=== PATIENT | female | born 1955 | race Caucasian/White ===

== ENCOUNTER 2021-12-15 16:04 | Inpatient (IN) | payer MEDICARE, OTHER ==
[2021-12-15] MEDS ORDERED: SODIUM CHLORIDE 0.9% 500 ML 500 ML IV STA (16:29)
[2021-12-15] MEDS ORDERED: DEXTROSE 5% IN WATER 100 ML with AMIODARONE 150 MG IV ONE (16:50)
[2021-12-15 16:52] LABS: Basophils # (A) 0.1 k/uL (0-0.2); Basophils % (A) 1 %; Eosinophils # (A) 0.2 k/uL (0-0.7); Eosinophils % (A) 2 %; HCT 43.1 % (34.0-46.0); HGB 13.8 gm/dL (11.4-16.0); Lymphocytes # (A) 1.5 k/uL (1.0-4.8); Lymphocytes % (A) 18 %; MCH 30.4 pg (25.0-35.0); MCHC 32.1 g/dL (31.0-37.0); MCV 94.6 fL (80.0-100.0); Monocytes # (A) 0.4 k/uL (0-1.0); Monocytes % (A) 5 %; Neutrophils # (A) 6.2 k/uL (1.3-7.7); Neutrophils % (A) 73 %; Platelet Count 198 k/uL (150-450); RBC 4.56 m/uL (3.80-5.40); RDW 15.2 % (11.5-15.5); WBC 8.5 k/uL (3.8-10.6)
--- NOTE | 2021-12-15 16:55 | ED ---
General Adult HPI - General Chief complaint: Arrhythmia/Palpitations Stated complaint: SOB Time Seen by Provider: 12/15/21 16:05 Source: patient, RN notes reviewed, old records reviewed Mode of arrival: ambulatory Limitations: no limitations - History of Present Illness Initial comments: Is a 66-year-old female presents emergency Department stating she's had a history of atrial fibrillation the past and she was cardioverted. Patient states she's been doing very good up until about 2 weeks ago she noticed her heart was racing and she was unable to get into see the reaming machine tender until today and they sent over directly wanted her to start on amiodarone. Patient denies any chest pain but she did note today she was somewhat short of breath. Patient denies any fever chills or cough. Patient denies any abdominal pain patient denies nausea vomiting or diarrhea. - Related Data Allergies Allergy/AdvReac Type Severity Reaction Status Date / Time benzocaine Allergy Unknown Verified 12/15/21 16:09 Penicillins Allergy Unknown Verified 12/15/21 16:09 Review of Systems ROS Statement: Those systems with pertinent positive or pertinent negative responses have been documented in the HPI. ROS Other: All systems not noted in ROS Statement are negative. Past Medical History Past Medical History: Atrial Fibrillation, Hypertension Additional Past Medical History / Comment(s): acromegly History of Any Multi-Drug Resistant Organisms: None Reported Past Surgical History: Heart Catheterization Additional Past Surgical History / Comment(s): carpel tunnel Past Psychological History: No Psychological Hx Reported Smoking Status: Never smoker Past Alcohol Use History: None Reported Past Drug Use History: None Reported General Exam - General Exam Comments Initial Comments: GENERAL: Patient is well-developed and well-nourished. Patient is nontoxic and well- hydrated and is in mild distress. ENT: Neck is soft and supple. No significant lymphadenopathy is noted. Oropharynx is clear. Moist mucous membranes. Neck has full range of motion without eliciting any pain. EYES: The sclera were anicteric and conjunctiva were pink and moist. Extraocular movements were intact and pupils were equal round and reactive to light. Eyelids were unremarkable. PULMONARY: Unlabored respirations. Good breath sounds bilaterally. No audible rales rhonchi or wheezing was noted. CARDIOVASCULAR: Patient has an irregular heartbeat at about 120 beats a minute. ABDOMEN: Soft and nontender with normal bowel sounds. SKIN: Skin is clear with no lesions or rashes and otherwise unremarkable. NEUROLOGIC: Patient is alert and oriented x3. Cranial nerves II through XII are grossly intact. Motor and sensory are also intact. Normal speech, volume and content. Symmetrical smile. MUSCULOSKELETAL: Normal extremities with adequate strength and full range of motion. LYMPHATICS: No significant lymphadenopathy is noted PSYCHIATRIC: Normal psychiatric evaluation. Limitations: no limitations Course Vital Signs 12/15/21 16:09 Temperature 98.1 F Pulse Rate 54 L Respiratory 20 Rate Blood Pressure 157/82 O2 Sat by Pulse 91 L Oximetry Medical Decision Making - Medical Decision Making EKG shows atrial fibrillation with rapid ventricular response at 180 bpm QRS is under 22 QT interval is 297 QTC is 367. Patient's EKG shows no ST segment elevation or depression however there are some PVCs. I started the patient on amiodarone and gave the patient amiodarone bolus. Chest x-ray shows no acute abnormalities. I spoke with [facility] agreed to admit the patient admitted the patient wrote admitting orders. Critical Care Time Critical Care Time: Yes Total Critical Care Time: 35 Disposition Clinical Impression: Atrial fibrillation with rapid ventricular response Disposition: ADMITTED IP TO THIS HOSP Referrals: Mini David MD [Primary Care Provider] - 1-2 days Time of Disposition: 17:41
[2021-12-15] MEDS ORDERED: AMIODARONE 360 MG in DEXTROSE 5% IN WATER 200 ML IV ONE ×2 (17:00)
[2021-12-15 17:01] LABS: INR 1.1 (<1.2); Partial Thromboplastin Time 27.1 sec (22.0-30.0); Prothrombin Time 11.5 sec (9.0-12.0)
[2021-12-15 17:04] LABS: Albumin 4.4 g/dL (3.5-5.0); Calcium 10.1 mg/dL (8.4-10.2); Magnesium 1.9 mg/dL (1.6-2.3); Potassium 4.1 mmol/L (3.5-5.1); Total Bilirubin 0.7 mg/dL (0.2-1.3); Total Protein 6.9 g/dL (6.3-8.2)
--- NOTE | 2021-12-15 17:36 | XR ---
EXAMINATION TYPE: XR chest 2V DATE OF EXAM: 12/15/2021 COMPARISON: NONE HISTORY: Short of breath TECHNIQUE: 2 views FINDINGS: Heart is enlarged. There is some blunting of the costophrenic angles posteriorly. There is large hiatal hernia. There is no heart failure. There are no hilar masses. Mediastinum is normal. IMPRESSION: Cardiomegaly. Small pleural effusions. No obvious heart failure. No pulmonary consolidati on.
[2021-12-15] MEDS ORDERED: NITROGLYCERIN SL TABS 0.4 MG TAB SUBLINGUAL PRN (17:42)
[2021-12-15] MEDS ORDERED: AMIODARONE 450 MG in DEXTROSE 5% IN WATER 250 ML IV SCH ×2 (23:00)
[2021-12-16] MEDS: LEVOTHYROXINE 137 MCG TAB PO SCH (06:15)
[2021-12-16] MEDS: MULTIVITAMINS, THERA 1 EACH TAB PO SCH (08:15)
[2021-12-16] MEDS: METOPROLOL TARTRATE 25 MG TAB PO SCH (08:15)
[2021-12-16] MEDS: APIXABAN 5 MG TAB PO SCH ×2 (08:15→19:58)
[2021-12-16] MEDS: lisinopriL 20 MG TAB PO SCH (08:16)
[2021-12-16] MEDS ORDERED: ASPIRIN 325 MG TAB PO SCH (09:00)
[2021-12-16] MEDS ORDERED: IV FLUID CONTINUATION 500 ML IV ONE ×2 (10:30)
[2021-12-16] MEDS ORDERED: PROPOFOL 10 MG/ML 20 ML VIAL IV ONE (10:36)
--- NOTE | 2021-12-16 11:11 | P.CRDCN ---
History of Present Illness History of present illness: HISTORY OF PRESENTING ILLNESS This is a pleasant 66-year-old female past medical history significant for paroxysmal atrial fibrillation on Eliquis, nonischemic cardiomyopathy with improved EF, hypertension, dyslipidemia, hypothyroidism, obstructive sleep apnea with use of CPAP. She follows in the office with Dr. Wisdom. We have been asked to see in consultation for atrial fibrillation with rapid ventricular response. Patient presents emergency department yesterday 12/15/[address] Wisdom in the office. Patient presented to the office for follow-up appointment she had symptoms of increasing shortness of breath for the past few days. She was found to be tachycardic and her resting heart rate was around 120 bpm. She also had symptoms of palpitations, heart racing/fluttering and continued to have increased shortness of breath. It was recommended that patient presents emerge ncy department for further evaluation amiodarone loading and possible cardioversion. Patient seen and examined at bedside, continues to feel short of breath and palpitations. Overnight she felt her CPAP machine not working correctly to her settings and this worsened her shortness of breath. She denies chest pain, lightheadedness, dizziness, symptoms of orthopnea or PND. DIAGNOSTICS EKG reveals atrial fibrillation with RVR Telemetry tracings indicate atrial tachycardia vs atrial fibrillation HR 115- 120s Chest xray no obvious heart failure, small pleural effusions. Laboratory reviewed, CBC unremarkable, sodium 139, potassium 4.1, BUN 22, serum creatinine 0.9, magnesium 1.9, troponin negative 3 Current cardiac medications include Eliquis 5 mg twice a day, Enalapril 10mg daily, metoprolol tartrate 75 mg daily Most recent echocardiogram in the office 07/2021 revealed EF of 50%, diastolic dysfunction, mild to moderate mitral regurgitation, mild tricuspid regurgitation, moderate aortic regurgitation Recent Holter monitor 11/30/2021 revealed atrial fibrillation REVIEW OF SYSTEMS At the time of my exam: CONSTITUTIONAL: Denies fever or chills. CARDIOVASCULAR: Denies chest pain,+ shortness of breath, Denies orthopnea, PND. Report palpitations. RESPIRATORY: Denies cough. GASTROINTESTINAL: Denies abdominal pain, diarrhea, constipation, nausea or vomiting. MUSCULOSKELETAL: Denies myalgias. NEUROLOGIC: Denies numbness, tingling, headacbe or weakness. ENDOCRINE: Denies fatigue, weight change, polydipsia or polyurina. GENITOURINARY: Denies burning, hematuria or urgency with micturation. HEMATOLOGIC: Denies history of anemia or bleeding. PHYSICAL EXAMINATION Blood pressure 142/104, heart rate 120, afebrile, saturation 97% on room air CONSTITUTIONAL: No apparent distress. HEENT: Head is normocephalic. Pupils are equal, round. Sclerae anicteric. Mucous membranes of the mouth are moist. No JVD. No carotid bruit. CHEST EXAMINATION: Lungs are clear to auscultation. No chest wall tenderness is noted on palpation or with deep breathing. HEART EXAMINATION: Irregular tachycardic rate and rhythm. S1, S2 heard. Systolic ejection murmur noted. No gallops or rub. ABDOMEN: Soft, nontender. Positive bowel sounds. EXTREMITIES: 2+ peripheral pulses, no lower extremity edema and no calf tenderness. NEUROLOGIC EXAMINATION: Patient is awake, alert and oriented x3. ASSESSMENT Paroxysmal atrial fibrillation with RVR Nonischemic cardiomyopathy with improved EF Hypertension Dyslipidemia History of hypothyroidism Obstructive sleep apnea PLAN Plan for cardioversion today with Dr. Wisdom. Patient has been NPO and has been on Eliquis anticoagulation I have discussed the risks, benefits and alternative therapies for the above- mentioned procedure and for both sedation/analgesia, if indicated, as they pertain to this patient. The patient has indicated understanding and acceptance of the risks and procedures discussed. Questions have been answered appropriately and she is agreeable to move forward with the above-stated procedure. Further recommendations based on clinical course Nurse practitioner note has been reviewed by physician. Signing provider agrees with the documented findings, assessment, and plan of care. Past Medical History Past Medical History: Atrial Fibrillation, Hypertension, Sleep Apnea/CPAP/BIPAP Additional Past Medical History / Comment(s): acromegly, previous cardioversion, wears Bipap at home. History of Any Multi-Drug Resistant Organisms: None Reported Past Surgical History: Heart Catheterization Additional Past Surgical History / Comment(s): carpel tunnel Past Anesthesia/Blood Transfusion Reactions: No Reported Reaction Additional Past Anesthesia/Blood Transfusion Reaction / Comment(s): Allergy to Benzocaine Past Psychological History: No Psychological Hx Reported Smoking Status: Never smoker Past Alcohol Use History: None Reported Past Drug Use History: None Reported Medications and Allergies Home Medications Medication Instructions Recorded Confirmed Type Apixaban [Eliquis] 5 mg PO BID 12/15/21 12/15/21 History Enalapril Maleate 10 mg PO DAILY 12/15/21 12/15/21 History Ferrous Sulfate [Iron] 325 mg PO DAILY 12/15/21 12/15/21 History Levothyroxine Sodium [Synthroid] 137 mcg PO DAILY 12/15/21 12/15/21 History Metoprolol Tartrate [Lopressor] 75 mg PO DAILY 12/15/21 12/15/21 History Multivitamins, Thera [Multivitamin 1 tab PO DAILY 12/15/21 12/15/21 History (formulary)] Allergies Allergy/AdvReac Type Severity Reaction Status Date / Time benzocaine Allergy Unknown Verified 12/15/21 17:55 Penicillins Allergy Unknown Verified 12/15/21 17:55 Childhood Physical Exam Vitals: Vital Signs Temp Pulse Pulse Resp BP BP Pulse Ox 12/16/21 04:00 113 H 18 149/92 95 12/16/21 01:43 18 12/15/21 23:10 97.9 F 114 H 18 137/98 98 12/15/21 21:00 18 12/15/21 20:00 98 F 113 H 18 142/88 97 12/15/21 18:58 136 H 18 144/125 98 12/15/21 18:09 98 F 113 H 18 142/88 97 12/15/21 17:17 121 H 18 143/101 97 12/15/21 16:09 98.1 F 54 L 20 157/82 91 L Intake and Output 12/15/21 12/16/21 12/16/21 22:59 06:59 14:59 Intake Total 33.33 Balance 33.33 Intake: Intake, IV Titration 33.33 Amount Amiodarone 360 mg In 33.33 Dextrose 5% in Water 200 ml @ 1 MG/MIN 33.333 mls/ hr IV .Q6H ONE Rx#: [id number] Other: Voiding Method Toilet Toilet # Voids 1 Weight 86.183 kg Results 12/15/21 16:43 12/15/21 16:43 Cardiac Enzymes 12/15/21 12/15/21 12/15/21 Range/Units 16:43 16:43 20:27 AST 46 H (14-36) U/L Troponin I <0.012 <0.012 (0.000-0.034) ng/mL 12/15/21 Range/Units 22:23 AST (14-36) U/L Troponin I <0.012 (0.000-0.034) ng/mL Coagulation 12/15/21 Range/Units 16:43 PT 11.5 (9.0-12.0) sec APTT 27.1 (22.0-30.0) sec CBC 12/15/21 Range/Units 16:43 WBC 8.5 (3.8-10.6) k/uL RBC 4.56 (3.80-5.40) m/uL Hgb 13.8 (11.4-16.0) gm/dL Hct 43.1 (34.0-46.0) % Plt Count 198 (150-450) k/uL Comprehensive Metabolic Panel 12/15/21 Range/Units 16:43 Sodium 139 (137-145) mmol/L Potassium 4.1 (3.5-5.1) mmol/L Chloride 108 H (98-107) mmol/L Carbon Dioxide 22 (22-30) mmol/L BUN 22 H (7-17) mg/dL Creatinine 0.99 (0.52-1.04) mg/dL Glucose 129 H (74-99) mg/dL Calcium 10.1 (8.4-10.2) mg/dL AST 46 H (14-36) U/L ALT 52 H (4-34) U/L Alkaline Phosphatase 88 (38-126) U/L Total Protein 6.9 (6.3-8.2) g/dL Albumin 4.4 (3.5-5.0) g/dL Current Medications Generic Name Dose Route Start Last Admin Trade Name Freq PRN Reason Stop Dose Admin Apixaban 5 mg 12/16/21 09:00 Apixaban 5 Mg Tab PO BID FOR[facility]LY [facility], [facility]1983 Protocol Aspirin 325 mg 12/16/21 09:00 Aspirin 325 Mg Tab PO DAILY [facility], [facility]–1983 Amiodarone HCl 450 mg/ 250 mls @ 16.667 mls/hr 12/15/21 23:00 12/15/21 22:53 Dextrose/Water IV 12/16/21 16:59 0.5 mg/min .Q15H MANISHA 16.667 mls/hr Administration Protocol 0.5 MG/MIN Levothyroxine Sodium 137 mcg 12/16/21 06:30 12/16/21 06:15 Levothyroxine 137 Mcg Tab PO 137 mcg DAILY@0630 FOR[facility]1983 Administration Lisinopril 20 mg 12/16/21 09:00 Lisinopril 20 Mg Tab PO DAILY FOR[facility]1983 Metoprolol Tartrate 75 mg 12/16/21 09:00 Metoprolol Tartrate 25 Mg Tab PO DAILY [facility]1983 Multivitamins 1 each 12/16/21 09:00 Multivitamins, Thera 1 Each Tab PO DAILY MANISHA Nitroglycerin 0.4 mg 12/15/21 17:42 Nitroglycerin Sl Tabs 0.4 Mg Tab SUBLINGUAL Q5M PRN Chest Pain Intake and Output 12/15/21 12/16/21 12/16/21 22:59 06:59 14:59 Intake Total 33.33 Balance 33.33 Intake: Intake, IV Titration 33.33 Amount Amiodarone 360 mg In 33.33 Dextrose 5% in Water 200 ml @ 1 MG/MIN 33.333 mls/ hr IV .Q6H ONE Rx#: [id number] Other: Voiding Method Toilet Toilet # Voids 1 Weight 86.183 kg 12/15/21 16:43 12/15/21 16:43
--- NOTE | 2021-12-16 11:39 | P.PCN ---
Date of Procedure: 12/16/21 Operative Findings: Cardioversion of atrial fibrillation Performing physician Vasquez Wisdom Procedure performed Successful cardioversion of atrial fibrillation to normal sinus mechanism using heparin tonight first attempt Complication None Level of sedation The procedure was performed using propofol with [employer]PER[employer] TIG WELDER in the room Indication Atrial fibrillation refractory to medical treatment Procedure description After obtaining an informed consent the patient was brought to the recovery room. Sedation was induced using propofol. The patient cardioverted from atrial fibrillation to normal sinus mechanism using 100 J and first attempt The procedure was completed without any complication Postprocedure management Continue anticoagulation
[2021-12-16 12:02] LABS: Chol/HDL Ratio 3.89 Ratio; LDL Cholesterol,Calculated 127.7 mg/dL (0.0-131.0); VLDL Calculation 16.36 mg/dL (5.00-40.00)
--- NOTE | 2021-12-16 21:28 | P.HPIM ---
History of Present Illness H&P Date: 12/16/21 Chief Complaint: Heart racing fast Patient is a 66-year-old female with a known history of paroxysmal atrial fibrillation on anticoagulation with Eliquis, hypothyroidism and history of nonischemic cardiomyopathy with improved ejection fraction, hypertension, hyperlipidemia, obstructive sleep apnea on CPAP at home was sent to ER from her sheep herder office due to rapid ventricular rate. Patient did have prior cardioversion and has been doing until 2 weeks ago she noticed her heart is racing up fast and unable to see sheep herder on the last today. She was also having mild shortness of breath. No cough or sputum production. No leg swelling. No fever no chills. Denies any recent illnesses. EKG showed atrial fibrillation with rapid response. Patient was started on amiodarone drip in the ER. Chest x-ray showed cardiomegaly and small pleural effusions. No obvious heart failure. No pulmonary consolidation. Laboratory showed WBC 8.4 hemoglobin 13.8 and platelets 198 sodium 139 potassium 4.1 chloride 100 bicarb is 22 BUN 2020 creatinine 0.99 AST 46 ALT 52 alk phos 88 and troponin x3 -. LDL 127. Review of Systems Constitutional: Patient denies any fever or chills . No generalized weakness or weight loss. Abdomen: Patient denied nausea vomiting and diarrhea and abdominal pain. Cardiovascular: Patient denies any chest pain or short of breath . + palpitations. Respiratory: patient denied any cough or sputum production. No shortness of breath Neurologic: Patient denied any numbness or tingling headache. Musculoskeletal: Patient denies any complaints of joint swelling or deformity. Skin: Negative Psychiatric: Negative Endocrine: No heat or cold intolerance. No recent weight gain. Genitourinary: No dysuria or hematuria. All other 14 point ROS negative except the above Past Medical History Past Medical History: Atrial Fibrillation, Hypertension, Sleep Apnea/CPAP/BIPAP Additional Past Medical History / Comment(s): acromegly, previous cardioversion, wears Bipap at home. History of Any Multi-Drug Resistant Organisms: None Reported Past Surgical History: Heart Catheterization Additional Past Surgical History / Comment(s): carpel tunnel Past Anesthesia/Blood Transfusion Reactions: No Reported Reaction Additional Past Anesthesia/Blood Transfusion Reaction / Comment(s): Allergy to Benzocaine Past Psychological History: No Psychological Hx Reported Smoking Status: Never smoker Past Alcohol Use History: None Reported Past Drug Use History: None Reported Medications and Allergies Home Medications Medication Instructions Recorded Confirmed Type Apixaban [Eliquis] 5 mg PO BID 12/15/21 12/15/21 History Enalapril Maleate 10 mg PO DAILY 12/15/21 12/15/21 History Ferrous Sulfate [Iron] 325 mg PO DAILY 12/15/21 12/15/21 History Levothyroxine Sodium [Synthroid] 137 mcg PO DAILY 12/15/21 12/15/21 History Metoprolol Tartrate [Lopressor] 75 mg PO DAILY 12/15/21 12/15/21 History Multivitamins, Thera [Multivitamin 1 tab PO DAILY 12/15/21 12/15/21 History (formulary)] Allergies Allergy/AdvReac Type Severity Reaction Status Date / Time benzocaine Allergy Unknown Verified 12/15/21 17:55 Penicillins Allergy Unknown Verified 12/15/21 17:55 Childhood Physical Exam Vitals: Vital Signs Temp Pulse Pulse Resp BP BP Pulse Ox 12/16/21 08:00 98.4 F 120 H 16 142/104 97 12/16/21 04:00 113 H 18 149/92 95 12/16/21 01:43 18 12/15/21 23:10 97.9 F 114 H 18 137/98 98 12/15/21 21:00 18 12/15/21 20:00 98 F 113 H 18 142/88 97 12/15/21 18:58 136 H 18 144/125 98 12/15/21 18:09 98 F 113 H 18 142/88 97 12/15/21 17:17 121 H 18 143/101 97 12/15/21 16:09 98.1 F 54 L 20 157/82 91 L Intake and Output 12/15/21 12/16/21 12/16/21 22:59 06:59 14:59 Intake Total 33.33 Balance 33.33 Intake: Intake, IV Titration 33.33 Amount Amiodarone 360 mg In 33.33 Dextrose 5% in Water 200 ml @ 1 MG/MIN 33.333 mls/ hr IV .Q6H ONE Rx#: [id number] Other: Voiding Method Toilet Toilet # Voids 1 Weight 86.183 kg PHYSICAL EXAMINATION: Patient is lying in the bed comfortably, no acute distress, awake alert and oriented.. HEENT: Normocephalic. Neck is supple. Pupils reactive. Nostrils clear. Oral cavity is moist. Neck reveals no JVD, carotid bruits, or thyromegaly. CHEST EXAMINATION: Trachea is central. Symmetrical expansion. Lung muñoz clear to auscultation and percussion. CARDIAC: Normal S1, S2 with no gallops. No murmurs. Irregularly irregular rhythm. ABDOMEN: Soft. Bowel sounds normal. No organomegaly. No abdominal bruits. Extremities: reveal no edema. No clubbing or cyanosis Neurologically awake, alert, oriented x3 with well-coordinated movements. No focal deficits noted Skin: No rash or skin lesions. Psychiatric: Cooperative. Nonsuicidal Musculoskeletal: No joint swelling or deformity. Normal range of motion. Results CBC & Chem 7: 12/15/21 16:43 12/15/21 16:43 Labs: Abnormal Lab Results - Last 24 Hours (Table) 12/15/21 Range/Units 16:43 Chloride 108 H (98-107) mmol/L BUN 22 H (7-17) mg/dL Glucose 129 H (74-99) mg/dL AST 46 H (14-36) U/L ALT 52 H (4-34) U/L Thrombosis Risk Factor Assmnt - DVT/VTE Prophylaxis DVT/VTE Prophylaxis: Pharmacologic Prophylaxis ordered - Choose All That Apply Any of the Below Risk Factors Present?: Yes Each Factor Represents 1 point: Obesity (BMI >25) Each Risk Factor Represents 2 Points: Age 61-74 years Thrombosis Risk Factor Assessment Total Risk Factor Score: 3 Thrombosis Risk Factor Assessment Level: Moderate Risk Assessment and Plan Assessment: Atrial fibrillation with rapid regular rate Nonischemic cardiomyopathy with improved ejection fraction Hypothyroidism Hypertension Hyperlipidemia Obstructive sleep apnea on CPAP at home Plan: Patient will be continued on telemetry monitoring. Started on amiodarone drip and cardiology has seen the patient. Patient is being scheduled for cardioversion. Continue with anticoagulation with Eliquis. Current with home medications and follow closely. Time with Patient: Greater than 30
[2021-12-17] MEDS: LEVOTHYROXINE 137 MCG TAB PO SCH (05:43)
[2021-12-17 07:54] LABS: Calcium 9.7 mg/dL (8.4-10.2); Potassium 3.9 mmol/L (3.5-5.1)
[2021-12-17 08:38] VITALS: BP 148/80; PULSE 96; RESP 18; TEMP 98.5
[2021-12-17] MEDS ORDERED: APIXABAN 5 MG TAB PO SCH (09:00)
[2021-12-17] MEDS: METOPROLOL TARTRATE 25 MG TAB PO SCH (09:14)
[2021-12-17] MEDS: lisinopriL 20 MG TAB PO SCH (09:14)
[2021-12-17] MEDS: MULTIVITAMINS, THERA 1 EACH TAB PO SCH (09:14)
[2021-12-17] MEDS ORDERED: AMIODARONE 200 MG TAB PO SCH (10:15)
--- NOTE | 2021-12-17 13:17 | P.PN ---
Subjective HISTORY OF PRESENTING ILLNESS This is a pleasant 66-year-old female past medical history significant for paroxysmal atrial fibrillation on Eliquis, nonischemic cardiomyopathy with improved EF, hypertension, dyslipidemia, hypothyroidism, obstructive sleep apnea with use of CPAP. She follows in the office with Dr. Wisdom. We have been asked to see in consultation for atrial fibrillation with rapid ventricular response. Patient presents emergency department yesterday 12/15/[address] Wisdom in the office. Patient presented to the office for follow-up appointment she had symptoms of increasing shortness of breath for the past few days. She was found to be tachycardic and her resting heart rate was around 120 bpm. She also had symptoms of palpitations, heart racing/fluttering and continued to have increased shortness of breath. It was recommended that patient presents emergency department for further evaluation amiodarone loading and possible cardioversion. Patient underwent successful cardioversion with Dr. Wisdom on 12/16/2021. Patient's examined at bedside, in no acute distress. She endorses feeling much better after her cardioversion. She is maintaining sinus mechanism with a heart rate in the 60s to 90s. She currently maintained on amiodarone 400 mg twice a day, metoprolol 75 mg daily, Eliquis 5 mg twice a day, enalapril 10 mg daily Labs, sodium 137, potassium 3.9, BUN 21, serum creatinine 1.04 PHYSICAL EXAMINATION Blood pressure 148/80, heart rate 96, afebrile, oxygen saturations 95% on room air CONSTITUTIONAL: No apparent distress. HEENT: Neck supple No JVD. CHEST EXAMINATION: Lungs are clear to auscultation. No chest wall tenderness is noted on palpation or with deep breathing. HEART EXAMINATION: Regular rate and rhythm. S1, S2 heard. Systolic ejection murmur noted. No gallops or rub. ABDOMEN: Soft, nontender. Positive bowel sounds. EXTREMITIES: 2+ peripheral pulses, no lower extremity edema and no calf tenderness. NEUROLOGIC EXAMINATION: Patient is awake, alert and oriented x3. ASSESSMENT Paroxysmal atrial fibrillation with RVR status post a successful cardioversion on 12/16/2021 Nonischemic cardiomyopathy with improved EF Hypertension Dyslipidemia History of hypothyroidism Obstructive sleep apnea PLAN We will start amiodarone 400mg BID and continue amiodarone taper in the outpatient setting. Transition to metoprolol succinate 100mg daily, discontinue metoprolol tartrate Continue anticoagulation with Eliquis From cardiology perspective, patient stable to be discharged home. Follow up with Dr. Wisdom in one week Nurse practitioner note has been reviewed by physician. Signing provider agrees with the documented findings, assessment, and plan of care. Objective - Vital Signs Vital signs: Vital Signs Temp 98.5 F 12/17/21 08:00 Pulse 96 12/17/21 08:00 Resp 18 12/17/21 08:00 BP 148/80 12/17/21 08:00 Pulse Ox 95 12/17/21 08:00 Intake & Output 12/16/21 12/17/21 12/17/21 18:59 06:59 18:59 Intake Total 200 300 240 Balance 200 300 240 Intake: IV 200 Oral 300 240 Other: Voiding Method Toilet Toilet # Voids 1 1 - Labs CBC & Chem 7: 12/15/21 16:43 12/17/21 06:54 Labs: Abnormal Lab Results - Last 24 Hours (Table) 12/17/21 Range/Units 06:54 Chloride 111 H (98-107) mmol/L BUN 21 H (7-17) mg/dL
[2021-12-18] MEDS ORDERED: METOPROLOL SUCCINATE (ER) 100 MG TAB.ER.24H PO SCH (09:00)
== END 2021-12-17 11:49 | disposition home or self-care (01) | DRG 310 ==
LOC: EC 16:04 → 3SCARD 17:42
PROVIDERS: ADMIT Internal Medicine; ATTEND Internal Medicine
PROC: 5A2204Z Restoration of Cardiac Rhythm, Single (ICD-10-PCS; principal; 2021-12-16 10:50)
DX: I48.0 Paroxysmal atrial fibrillation (principal); E03.9 Hypothyroidism, unspecified; E78.5 Hyperlipidemia, unspecified; G47.33 Obstructive sleep apnea (adult) (pediatric); I08.3 Combined rheumatic disorders of mitral, aortic and tricuspid valves; I10 Essential (primary) hypertension; E66.9 Obesity, unspecified; I42.8 Other cardiomyopathies; I49.3 Ventricular premature depolarization; Z79.01 Long term (current) use of anticoagulants; Z79.890 Hormone replacement therapy; Z79.899 Other long term (current) drug therapy; Z98.890 Other specified postprocedural states; Z68.34 Body mass index [BMI] 34.0-34.9, adult; Z88.4 Allergy status to anesthetic agent; Z88.0 Allergy status to penicillin
CPT/HCPCS: 36415; 71046; 80048; 80053; 80061; 83735; 84443; 84484; 85025; 85610; 85730; 92960; 93005; 94660; 96365; 96366; 99291

== ENCOUNTER 2023-03-28 08:30 | Inpatient (IN) | payer MEDICARE, OTHER ==
[2023-03-28 09:54] LABS: Basophils % (A) 0 %; Eosinophils % (A) 0 %; HCT 48.7 % (34.0-46.0); HGB 15.4 gm/dL (11.4-16.0); Lymphocytes # (A) 1.1 k/uL (1.0-4.8); Lymphocytes % (A) 13 %; MCH 29.2 pg (25.0-35.0); MCHC 31.6 g/dL (31.0-37.0); MCV 92.4 fL (80.0-100.0); Mean Platelet Volume 10.7; Monocytes # (A) 0.5 k/uL (0-1.0); Monocytes % (A) 6 %; Neutrophils # (A) 6.7 k/uL (1.3-7.7); Neutrophils % (A) 79 %; Platelet Count 195 k/uL (150-450); RBC 5.27 m/uL (3.80-5.40); RDW 15.1 % (11.5-15.5); WBC 8.5 k/uL (3.8-10.6)
--- NOTE | 2023-03-28 09:54 | ED ---
General Adult HPI - General Chief complaint: Shortness of Breath Stated complaint: sob Time Seen by Provider: 03/28/23 08:56 Source: patient Mode of arrival: ambulatory - History of Present Illness Initial comments: Dictation was produced using [employer]ed[employer] dictation software. please excuse any grammatical, word or spelling errors. Chief Complaint: 67-year-old female presents emergency department for palpitations and exertional dyspnea History of Present Illness: Patient 67-year-old female she has past medical history of atrial fibrillation. 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 She is prescribed amiodarone however for the last several days she's been not taking it because she feels like she experiences side effects from it. Patient strongly believes that the medication causes her to have headaches and experience hyperventilation. Patient states that she feels like over the last couple days since being on her new self prescribed regimen that she's been having exertional dyspnea. She's supposed to have a stress test in the near future. She tried to call the cardiology office however they were close The ROS documented in this emergency department record has been reviewed and confirmed by me. Those systems with pertinent positive or negative responses have been documented in the HPI. All other systems are other negative and/or noncontributory. - Related Data Home Medications Medication Instructions Recorded Confirmed Apixaban [Eliquis] 5 mg PO BID 12/15/21 03/28/23 Ferrous Sulfate [Iron] 325 mg PO DAILY 12/15/21 03/28/23 Levothyroxine Sodium [Synthroid] 137 mcg PO DAILY 12/15/21 03/28/23 Enalapril [Vasotec] 20 mg PO BID 03/28/23 03/28/23 Ergocalciferol [Vitamin D2 (1250 1,250 mcg PO WE 03/28/23 03/28/23 Mcg = 06686 Iu)] Previous Rx's Medication Instructions Recorded Metoprolol Succinate (ER) [Toprol 100 mg PO DAILY 30 Days #30 tab 12/17/21 XL] Allergies Allergy/AdvReac Type Severity Reaction Status Date / Time benzocaine Allergy Anaphylaxis Verified 03/28/23 10:13 Penicillins Allergy Unknown Verified 03/28/23 10:13 Childhood Review of Systems ROS Statement: Those systems with pertinent positive or pertinent negative responses have been documented in the HPI. ROS Other: All systems not noted in ROS Statement are negative. Past Medical History Past Medical History: Atrial Fibrillation, Hypertension, Sleep Apnea/CPAP/BIPAP Additional Past Medical History / Comment(s): acromegly, previous cardioversion, wears Bipap at home. History of Any Multi-Drug Resistant Organisms: None Reported Past Surgical History: Heart Catheterization Additional Past Surgical History / Comment(s): carpel tunnel Past Anesthesia/Blood Transfusion Reactions: No Reported Reaction Additional Past Anesthesia/Blood Transfusion Reaction / Comment(s): Allergy to Benzocaine Past Psychological History: No Psychological Hx Reported Smoking Status: Never smoker Past Alcohol Use History: None Reported Past Drug Use History: None Reported General Exam - General Exam Comments Initial Comments: PHYSICAL EXAM: General Impression: Alert and oriented x3, not in acute distress HEENT: Normocephalic atraumatic, extra-ocular movements intact, pupils equal and reactive to light bilaterally, mucous membranes moist. Cardiovascular: Tachycardic, irregular Chest: Able to complete full sentences, no retractions, no tachypnea Abdomen: abdomen soft, non-tender, non-distended, no organomegaly Musculoskeletal: Pulses present and equal in all extremities, no peripheral edema Motor: no focal deficits noted Neurological: CN II-XII grossly intact, no focal motor or sensory deficits noted Skin: Intact with no visualized rashes Psych: Normal affect and mood Course Vital Signs 03/28/23 08:43 Pulse Rate 124 H Respiratory 20 Rate Blood Pressure 151/98 O2 Sat by Pulse 98 Oximetry EKG Findings - EKG Comments: EKG Findings:: My EKG interpretation: Ventricular rate 131, A. fib RVR, QRS 132, QTC 376 no QTC prolongation, no ST or T-wave changes noted. Overall, this EKG is unremarkable Medical Decision Making - Medical Decision Making Was pt. sent in by a medical professional or institution (, PA, DATA RECOVERY PLANNER, urgent care, hospital, or senior care...) When possible be specific @ -No Did you speak to anyone other than the patient for history (EMS, parent, family, police, friend...)? What history was obtained from this source @ -No Did you review nursing and triage notes (agree or disagree)? Why? @ -I reviewed and agree with nursing and triage notes Were old charts reviewed (outside hosp., previous admission, EMS record, old EKG, old radiological studies, urgent care reports/EKG's, senior care records)? Report findings @ -No old charts were reviewed Differential Diagnosis (chest pain, altered mental status, abdominal pain women, abdominal pain men, vaginal bleeding, musculoskeletal, weakness, fever, dyspnea, syncope, headache, dizziness, GI bleed, back pain, seizure, CVA, palpatations, mental health)? @ - Differential Palpitations: Ventricular arrhythmias, atrial arrhythmias, myocardial infarction, anemia, thyrotoxicosis, electrolyte imbalance, hypokalemia, pulmonary embolism, pulmonary disease, drugs, alcohol, anxiety, stress.... This is not meant to be an all-inclusive list. EKG interpreted by me (3pts min.). @ -As above X-rays interpreted by me (1pt min.). @ -None done CT interpreted by me (1pt min.). @ -None done U/S interpreted by me (1pt. min.). @ -None done What testing was considered but not performed or refused? (CT, X-rays, U/S, labs)? Why? @ -None What meds were considered but not given or refused? Why? @ -None Did you discuss the management of the patient with other professionals (professionals i.e. , PA, DATA RECOVERY PLANNER, lab, RT, psych nurse, psychosocial rehabilitation counselor, wedding consultant, teacher, strike warfare/missile systems officer, binder caser)? Give summary @ -Case discussed with patient [place] hospitalist group regarding patient's clinical presentation and labs and imaging study results. Was smoking cessation discussed for >3mins.? @ -No Was critical care preformed (if so, how long)? @ -No Were there social determinants of health that impacted care today? How? (Homelessness, low income, unemployed, alcoholism, drug addiction, transportation, low edu. Level, literacy, decrease access to med. care, care home, rehab)? @ -No Was there de-escalation of care discussed even if they declined (Discuss DNR or withdrawal of care, Hospice)? DNR status @ -No What co-morbidities impacted this encounter? (DM, HTN, Smoking, COPD, CAD, Cancer, CVA, ARF, Chemo, Hep., AIDS, mental health diagnosis, sleep apnea, morbid obesity)? @ -None Was patient admitted / discharged? Hospital course, mention meds given and route, prescriptions, significant lab abnormalities, going to OR and other pertinent info. @ -67-year-old female presents to the emergency department for her dyspnea and chest pain. Vital signs upon arrival shows patient in mild RVR from her A. fib. Laboratory evaluation obtained. Labs are within acceptable limits except for her nitrate peptide is elevated at 14,000. X-ray shows cardiomegaly. No briana edema. Patient be admitted with consultation to cardiology. Patient given Lasix Undiagnosed new problem with uncertain prognosis? @ -No Drug Therapy requiring intensive monitoring for toxicity (Heparin, Nitro, Insulin, Cardizem)? @ -No Were any procedures done? @ -No Diagnosis/symptom? Acute, or Chronic, or Acute on Chronic? Uncomplicated (without systemic symptoms) or Complicated (systemic symptoms)? @ -Heart failure Side effects of treatment? @ -No Exacerbation, Progression, or Severe Exacerbation? @ -No Poses a threat to life or bodily function? How? (Chest pain, [place], [place], pneumonia, PE, COPD, DKA, ARF, appy, cholecystitis, CVA, Diverticulitis, Homicidal, Suicidal, threat to staff... and all critical care pts) @ -yes - Lab Data Result diagrams: 03/28/23 09:20 03/28/23 09:20 Lab Results 03/28/23 03/28/23 03/28/23 Range/Units 09:20 09:20 09:20 WBC 8.5 (3.8-10.6) k/uL RBC 5.27 (3.80-5.40) m/uL Hgb 15.4 (11.4-16.0) gm/dL Hct 48.7 H (34.0-46.0) % MCV 92.4 (80.0-100.0) fL MCH 29.2 (25.0-35.0) pg MCHC 31.6 (31.0-37.0) g/dL RDW 15.1 (11.5-15.5) % Plt Count 195 (150-450) k/uL MPV 10.7 Neutrophils % 79 % Lymphocytes % 13 % Monocytes % 6 % Eosinophils % 0 % Basophils % 0 % Neutrophils # 6.7 (1.3-7.7) k/uL Lymphocytes # 1.1 (1.0-4.8) k/uL Monocytes # 0.5 (0-1.0) k/uL Eosinophils # 0.0 (0-0.7) k/uL Basophils # 0.0 (0-0.2) k/uL PT 12.4 H (9.0-12.0) sec INR 1.2 H (<1.2) APTT 26.1 (22.0-30.0) sec Sodium 140 (137-145) mmol/L Potassium 4.6 (3.5-5.1) mmol/L Chloride 109 H (98-107) mmol/L Carbon Dioxide 21 L (22-30) mmol/L Anion Gap 10 mmol/L BUN 23 H (7-17) mg/dL Creatinine 1.10 H (0.52-1.04) mg/dL Est GFR (CKD-EPI)AfAm 59 (>60 ml/min/1.73 sqM) Est GFR (CKD-EPI)NonAf 51 (>60 ml/min/1.73 sqM) Glucose 129 H (74-99) mg/dL Calcium 9.7 (8.4-10.2) mg/dL Magnesium 1.8 (1.6-2.3) mg/dL Total Bilirubin 1.5 H (0.2-1.3) mg/dL AST 33 (14-36) U/L ALT 45 H (4-34) U/L Alkaline Phosphatase 56 (38-126) U/L Troponin I (0.000-0.034) ng/mL NT-Pro-B Natriuret Pep pg/mL Total Protein 6.0 L (6.3-8.2) g/dL Albumin 3.8 (3.5-5.0) g/dL 03/28/23 03/28/23 Range/Units 09:20 09:20 WBC (3.8-10.6) k/uL RBC (3.80-5.40) m/uL Hgb (11.4-16.0) gm/dL Hct (34.0-46.0) % MCV (80.0-100.0) fL MCH (25.0-35.0) pg MCHC (31.0-37.0) g/dL RDW (11.5-15.5) % Plt Count (150-450) k/uL MPV Neutrophils % % Lymphocytes % % Monocytes % % Eosinophils % % Basophils % % Neutrophils # (1.3-7.7) k/uL Lymphocytes # (1.0-4.8) k/uL Monocytes # (0-1.0) k/uL Eosinophils # (0-0.7) k/uL Basophils # (0-0.2) k/uL PT (9.0-12.0) sec INR (<1.2) APTT (22.0-30.0) sec Sodium (137-145) mmol/L Potassium (3.5-5.1) mmol/L Chloride (98-107) mmol/L Carbon Dioxide (22-30) mmol/L Anion Gap mmol/L BUN (7-17) mg/dL Creatinine (0.52-1.04) mg/dL Est GFR (CKD-EPI)AfAm (>60 ml/min/1.73 sqM) Est GFR (CKD-EPI)NonAf (>60 ml/min/1.73 sqM) Glucose (74-99) mg/dL Calcium (8.4-10.2) mg/dL Magnesium (1.6-2.3) mg/dL Total Bilirubin (0.2-1.3) mg/dL AST (14-36) U/L ALT (4-34) U/L Alkaline Phosphatase (38-126) U/L Troponin I <0.012 (0.000-0.034) ng/mL NT-Pro-B Natriuret Pep 71667 pg/mL Total Protein (6.3-8.2) g/dL Albumin (3.5-5.0) g/dL Disposition Clinical Impression: Heart failure Disposition: ADMITTED IP TO THIS HOSP Condition: Fair Referrals: Mini David MD [Primary Care Provider] - 1-2 days Decision Time: 11:00
[2023-03-28 10:06] LABS: INR 1.2 (<1.2); Partial Thromboplastin Time 26.1 sec (22.0-30.0); Prothrombin Time 12.4 sec (9.0-12.0)
[2023-03-28 10:12] LABS: ALT 45 U/L (4-34); AST 33 U/L (14-36); African American GFR (CKD) 59 (>60 ml/min/1.73 sqM); Albumin 3.8 g/dL (3.5-5.0); Alkaline Phosphatase 56 U/L (38-126); Anion Gap 10 mmol/L; Blood Urea Nitrogen 23 mg/dL (7-17); Calcium 9.7 mg/dL (8.4-10.2); Carbon Dioxide 21 mmol/L (22-30); Chloride 109 mmol/L (98-107); Glucose 129 mg/dL (74-99); Magnesium 1.8 mg/dL (1.6-2.3); Non-African American GFR(CKD) 51 (>60 ml/min/1.73 sqM); Sodium 140 mmol/L (137-145); Total Bilirubin 1.5 mg/dL (0.2-1.3)
--- NOTE | 2023-03-28 10:16 | XR ---
EXAMINATION TYPE: XR chest 2V DATE OF EXAM: 03/28/2023 10:11 AM COMPARISON: Chest radiographs from 12/15/2021 TECHNIQUE: XR chest 2V Frontal and lateral views of the chest. CLINICAL INDICATION:Female, 67 years old with history of dyspnea; FINDINGS: Lungs/Pleura: There is no evidence of pleural effusion, focal consolidation, or pneumothorax. Chroni c senescent parenchymal change. Pulmonary vascularity: Unremarkable. Heart/mediastinum: Cardiomediastinal silhouette is enlarged and stable. Musculoskeletal: No acute osseous pathology. Degenerative changes of the thoracic spine. Other: Large hiatal hernia redemonstrated. IMPRESSION: 1. Cardiomegaly without evidence for acute pulmonary process. 2. Large hilar hernia redemonstrated.
[2023-03-28 10:26] LABS: Potassium 4.6 mmol/L (3.5-5.1)
[2023-03-28] MEDS ORDERED: NALOXONE 0.4 MG/ML 1 ML VIAL IV PRN (11:39)
[2023-03-28] MEDS ORDERED: FUROSEMIDE 10 MG/ML 4 ML VIAL IV STA (11:43)
--- NOTE | 2023-03-28 13:57 | P.HPIM ---
History of Present Illness H&P Date: 03/28/23 History of present illness; Patient is a 67-year-old female with a known history of paroxysmal atrial fibrillation on anticoagulation with Eliquis, hypothyroidism and history of nonischemic cardiomyopathy , hypertension, hyperlipidemia, obstructive sleep apnea on CPAP at home who presented to the ER because of worsening shortness of breath and chest pressure. Patient stated that she was all right when on Tuesday morning she started noticing increasing shortness of breath on exertion. Patient stated that she was unable to walk more than 10 steps and was on not even able to get her mail from outside. Denied any swelling of feet. There was no complain of orthopnea or PND. Patient also started noticing chest pressure this morning was central in location, nonradiating, no aggravating or relieving factors associated with chest pressure. Patient stated she was supposed to be on amiodarone for A. fib but has not been taking it for weeks. Initial lab work in the ER showed WBC 8.5, hemoglobin 15.4, patient, 95, sodium 140, potassium 4.6, BUN 23, creatinine 1.1, magnesium 1.8, troponin 0.012 Patient was admitted to medicine service. REVIEW OF SYSTEMS: CONSTITUTIONAL: No fever, no malaise, no fatigue. HEENT: No recent visual problems or hearing problems. Denied any sore throat. CARDIOVASCULAR: As mentioned in HPI PULMONARY: As mentioned in HPI GASTROINTESTINAL: No diarrhea, no nausea, no vomiting, no abdominal pain. NEUROLOGICAL: No headaches, no weakness, no numbness. HEMATOLOGICAL: Denies any bleeding or petechiae. GENITOURINARY: Denies any burning micturition, frequency, or urgency. MUSCULOSKELETAL/RHEUMATOLOGICAL: Denies any joint pain, swelling, or any muscle pain. ENDOCRINE: Denies any polyuria or polydipsia. The rest of the 14-point review of systems is negative. PHYSICAL EXAMINATION: GENERAL: The patient is alert and oriented x3, not in any acute distress. Well developed, well nourished. HEENT: Pupils are round and equally reacting to light. EOMI. No scleral icterus. No conjunctival pallor. Normocephalic, atraumatic. No pharyngeal erythema. No thyromegaly. CARDIOVASCULAR: S1 and S2 present. No murmurs, rubs, or gallops. PULMONARY: Good air entry bilaterally, bilateral basal crackles audible ABDOMEN: Soft, nontender, nondistended, normoactive bowel sounds. No palpable organomegaly. MUSCULOSKELETAL: No joint swelling or deformity. EXTREMITIES: No cyanosis, clubbing, or pedal edema. NEUROLOGICAL: Gross neurological examination did not reveal any focal deficits. SKIN: No rashes. Assessment and plan Acute CHF Chronic atrial fibrillation fibrillation Hypertension Hypothyroidism Nonischemic cardiomyopathy Obstructive sleep apnea on CPAP at home Monitor vital signs Monitor CBC Monitor CMP Trend troponins. Continue IV Lasix 40 mg daily Ordered 2-D echo Resume home meds Consult cardiology DVT prophylaxis: Past Medical History Past Medical History: Atrial Fibrillation, Hypertension, Sleep Apnea/CPAP/BIPAP Additional Past Medical History / Comment(s): acromegly, previous cardioversion, wears Bipap at home. History of Any Multi-Drug Resistant Organisms: None Reported Past Surgical History: Heart Catheterization Additional Past Surgical History / Comment(s): carpel tunnel Past Anesthesia/Blood Transfusion Reactions: No Reported Reaction Additional Past Anesthesia/Blood Transfusion Reaction / Comment(s): Allergy to Benzocaine Past Psychological History: No Psychological Hx Reported Smoking Status: Never smoker Past Alcohol Use History: None Reported Past Drug Use History: None Reported Medications and Allergies Home Medications Medication Instructions Recorded Confirmed Type Apixaban [Eliquis] 5 mg PO BID 12/15/21 03/28/23 History Ferrous Sulfate [Iron] 325 mg PO DAILY 12/15/21 03/28/23 History Levothyroxine Sodium [Synthroid] 137 mcg PO DAILY 12/15/21 03/28/23 History Metoprolol Succinate (ER) [Toprol 100 mg PO DAILY 30 Days #30 tab 12/17/21 03/28/23 Rx XL] Enalapril [Vasotec] 20 mg PO BID 03/28/23 03/28/23 History Ergocalciferol [Vitamin D2 (1250 1,250 mcg PO WE 03/28/23 03/28/23 History Mcg = 05704 Iu)] Allergies Allergy/AdvReac Type Severity Reaction Status Date / Time benzocaine Allergy Anaphylaxis Verified 03/28/23 10:13 Penicillins Allergy Unknown Verified 03/28/23 10:13 Childhood Physical Exam Vitals: Vital Signs Pulse Resp BP Pulse Ox 03/28/23 12:00 105 H 16 160/105 95 03/28/23 08:43 124 H 20 151/98 98 Intake and Output 03/27/23 03/28/23 03/28/23 22:59 06:59 14:59 Other: Weight 86.183 kg Results CBC & Chem 7: 03/28/23 09:20 03/28/23 09:20 Labs: Abnormal Lab Results - Last 24 Hours (Table) 03/28/23 03/28/23 03/28/23 Range/Units 09:20 09:20 09:20 Hct 48.7 H (34.0-46.0) % PT 12.4 H (9.0-12.0) sec INR 1.2 H (<1.2) Chloride 109 H (98-107) mmol/L Carbon Dioxide 21 L (22-30) mmol/L BUN 23 H (7-17) mg/dL Creatinine 1.10 H (0.52-1.04) mg/dL Glucose 129 H (74-99) mg/dL Total Bilirubin 1.5 H (0.2-1.3) mg/dL ALT 45 H (4-34) U/L Total Protein 6.0 L (6.3-8.2) g/dL
[2023-03-28] MEDS ORDERED: METOPROLOL TARTRATE 50 MG TAB PO STA (17:49)
[2023-03-28] MEDS: APIXABAN 5 MG TAB PO SCH (20:45)
[2023-03-28] MEDS: SODIUM CHLORIDE 0.9% 1,000 ML IV SCH (20:45)
[2023-03-28] MEDS: amLODIPine 5 MG TAB PO SCH (23:50)
[2023-03-29] MEDS: LEVOTHYROXINE 137 MCG TAB PO SCH (06:26)
[2023-03-29] MEDS: FERROUS SULFATE 325 MG TAB PO SCH (08:17)
[2023-03-29] MEDS: amLODIPine 5 MG TAB PO SCH (08:17)
[2023-03-29] MEDS: APIXABAN 5 MG TAB PO SCH ×2 (08:17→20:47)
[2023-03-29] MEDS ORDERED: METOPROLOL SUCCINATE (ER) 100 MG TAB.ER.24H PO SCH (09:00)
--- NOTE | 2023-03-29 10:49 | P.CRDCN ---
History of Present Illness History of present illness: HISTORY OF PRESENT ILLNESS: This is a 67 year old female with a past medical history significant for atrial fibrillation, cardiomyopathy, hypertension, hyperlipidemia, and valvular heart disease. Patient follows in the office with Dr. Wisdom. We have been asked to see the patient in consultation for CHF/SOB. Patient examined at the bedside. Patient presented to the hospital with a chief complaint of short of breath. Patient states she has been feeling short of breath for the past 4-6 weeks and is progressively getting worse. She reports she was with her grandkids last week and was having a very hard time walking short distances. She denies any chest pain or pressure. She saw Dr. Alexander on 02/17/2023 and was scheduled to undergo cardioversion on April 07. She was also scheduled for a stress test tomorrow in the office. * EKG reveals atrial fibrillation/flutter with RVR * Chest xray cardiomegaly without evidence for acute pulmonary process. Large hilar hernia redemonstrated. * Laboratory data: WBC 8.5. Hemoglobin 15.4. Platelet count 195. Sodium 140. Potassium 4.6. BUN 23. Creatinine 1.10. troponin negative 3. ProBNP 14,600. * Current home cardiac medications include enalapril 20 mg twice a day, metoprolol succinate 100 mg daily, and Eliquis 5mg BID. * Most recent echocardiogram obtained in July 2022 revealed normal ejection fraction, moderate TR, moderate MR, moderate AR REVIEW OF SYSTEMS: At the time of my exam: CONSTITUTIONAL: Denies fever or chills. HEENT: Denies blurred vision, vision changes, or eye pain. Denies hemoptysis CARDIOVASCULAR: Denies chest pain. Denies orthopnea. Denies PND. Denies p alpitations RESPIRATORY: Denies shortness of breath. GASTROINTESTINAL: Denies abdominal pain. Denies nausea or vomiting. HEMATOLOGIC: Denies bleeding disorders. GENITOURINARY: Denies any blood in urine. SKIN: Denies pruitis. Denies rash. PHYSICAL EXAM: VITAL SIGNS: Reviewed. GENERAL: Well-developed in no acute distress. HEENT: Head is normocephalic. Pupils are equal, round. Sclerae anicteric. Mucous membranes of the mouth are moist. Neck supple. No JVD or thyromegaly LUNGS: Respirations even and unlabored. Lungs diminished to auscultation bilaterally. HEART: tachycardic. Irregular rate and rhythm. S1 and S2 heard. Systolic murmur noted. ABDOMEN: Soft. Nondistended. Nontender. EXTREMITIES: Normal range of motion. No clubbing or cyanosis. Peripheral pulses intact. No lower extremity edema NEUROLOGIC: Awake and alert. Oriented x 3. ASSESSMENT: Shortness of breath Acute congestive heart failure, likely with preserved ejection fraction, previously 55% Persistent atrial fibrillation/flutter with RVR History of nonischemic cardiomyopathy, 35% in 2020 Hypertension Hyperlipidemia Valvular heart disease PLAN: Obtain 2D echo to assess cardiac structure and function Patient was started on Norvasc by primary medicine for blood pressure control Increase metoprolol succinate to 100 mg twice a day Continue telemetry monitoring Begin IV Lasix 40 mg every 12 hours Daily weights, accurate I&O, and monitoring of kidney function Patient to undergo ALYSE and cardioversion tomorrow with Dr. Wisdom Further recommendations pending patient course Nurse practitioner note has been reviewed by physician. Signing provider agrees with the documented findings, assessment, and plan of care. Past Medical History Past Medical History: Atrial Fibrillation, Hypertension, Sleep Apnea/CPAP/BIPAP Additional Past Medical History / Comment(s): acromegly, previous cardioversion, wears Bipap at home. 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, part of esophagus removed Past Anesthesia/Blood Transfusion Reactions: No Reported Reaction Additional Past Anesthesia/Blood Transfusion Reaction / Comment(s): Allergy to Benzocaine Past Psychological History: No Psychological Hx Reported Smoking Status: Never smoker Past Alcohol Use History: None Reported Past Drug Use History: None Reported Medications and Allergies Home Medications Medication Instructions Recorded Confirmed Type Apixaban [Eliquis] 5 mg PO BID 12/15/21 03/28/23 History Ferrous Sulfate [Iron] 325 mg PO DAILY 12/15/21 03/28/23 History Levothyroxine Sodium [Synthroid] 137 mcg PO DAILY 12/15/21 03/28/23 History Metoprolol Succinate (ER) [Toprol 100 mg PO DAILY 30 Days #30 tab 12/17/21 03/28/23 Rx XL] Enalapril [Vasotec] 20 mg PO BID 06/26/23 06/26/23 History Ergocalciferol [Vitamin D2 (1250 1,250 mcg PO WE 03/28/23 03/28/23 History Mcg = 97066 Iu)] Allergies Allergy/AdvReac Type Severity Reaction Status Date / Time benzocaine Allergy Anaphylaxis Verified 03/28/23 10:13 Penicillins Allergy Unknown Verified 03/28/23 10:13 Childhood Physical Exam Vitals: Vital Signs Temp Pulse Pulse Resp BP BP Pulse Ox 03/29/23 08:18 98.2 F 133 H 16 159/112 94 L 03/29/23 04:05 98.2 F 91 16 157/96 97 03/28/23 23:38 150/110 03/28/23 23:17 97.7 F 97 16 152/113 98 03/28/23 19:55 117 H 16 132/92 95 03/28/23 18:50 98.3 F 125 H 18 108/73 96 03/28/23 17:00 118 H 16 96 03/28/23 12:00 105 H 16 160/105 95 Intake and Output 03/28/23 03/29/23 03/29/23 22:59 06:59 14:59 Intake Total 118 Output Total 400 1200 Balance -400 -1200 118 Intake: Oral 118 Output: Urine 400 1200 Other: Voiding Method Toilet Toilet Toilet Weight 86.183 kg 83 kg Results 03/28/23 09:20 03/28/23 09:20 Cardiac Enzymes 03/28/23 03/28/23 Range/Units 14:14 16:56 Troponin I <0.012 <0.012 (0.000-0.034) ng/mL Current Medications Generic Name Dose Route Start Last Admin Trade Name Freq PRN Reason Stop Dose Admin Amlodipine Besylate 5 mg 03/28/23 23:45 03/29/23 08:17 Amlodipine 5 Mg Tab PO 5 mg DAILY MANISHA Administration Apixaban 5 mg 03/28/23 21:00 03/29/23 08:17 Apixaban 5 Mg Tab PO 5 mg BID [facility] Administration Protocol Ferrous Sulfate 325 mg 03/29/23 09:00 03/29/23 08:17 Ferrous Sulfate 325 Mg Tab PO 325 mg DAILY MANISHA Administration Furosemide 40 mg 03/29/23 09:00 Furosemide 10 Mg/Ml 4 Ml Vial IV Q12HR [facility] Sodium Chloride 1,000 mls @ 20 mls/hr 03/28/23 11:45 03/28/23 20:45 Saline 0.9% IV Not Given .Q24H MANISHA Levothyroxine Sodium 137 mcg 03/29/23 06:30 03/29/23 06:26 Levothyroxine 137 Mcg Tab PO 137 mcg DAILY@0630 MANISHA Administration Metoprolol Succinate 100 mg 03/29/23 21:00 Metoprolol Succinate (Er) 100 Mg Tab.Er.24h PO BID MANISHA Naloxone HCl 0.2 mg 03/28/23 11:39 Naloxone 0.4 Mg/Ml 1 Ml Vial IV Q2M PRN Opioid Reversal Intake and Output 03/28/23 03/29/23 03/29/23 22:59 06:59 14:59 Intake Total 118 Output Total 400 1200 Balance -400 -1200 118 Intake: Oral 118 Output: Urine 400 1200 Other: Voiding Method Toilet Toilet Toilet Weight 86.183 kg 83 kg 03/28/23 09:20 03/28/23 09:20
[2023-03-29] MEDS: FUROSEMIDE 10 MG/ML 4 ML VIAL IV SCH ×2 (11:28→20:47)
--- NOTE | 2023-03-29 13:30 | CA ---
Transthoracic Echo Report Name: Lizabeth Carney Age: 67 Gender: F : 1955 Exam Date: 03/29/2023 08:09 Exam Location: [facility] Ht (in): 62 Wt (lb): 182 Ordering Physician: Bernardo Gabriel MD Attending/Referring Phys: Ventilation Equipment Tender Gokul Hagen Procedure CPT: Indications: SHORTNESS OF BREATH Cardiac Hx: Technical Quality: Fair Contrast 1: Total Dose (mL): Contrast 2: Total Dose (mL): MEASUREMENTS (Male / Female) Normal Values 2D ECHO LV Diastolic Diameter PLAX 4.8 cm 4.2 - 5.9 / 3.9 - 5.3 cm LV Systolic Diameter PLAX 3.6 cm IVS Diastolic Thickness 1.3 cm 0.6 - 1.0 / 0.6 - 0.9 cm LVPW Diastolic Thickness 1.1 cm 0.6 - 1.0 / 0.6 - 0.9 cm LV Relative Wall Thickness 0.5 RV Internal Dim ED PLAX 2.8 cm LVOT Diameter 2.0 cm Aortic Root Diameter 2.9 cm LA Systolic Diameter LX 5.0 cm 3.0 - 4.0 / 2.7 - 3.8 cm LV Diastolic Volume MOD BP 68.0 cm??? 67 - 155 / 56 - 104 cm??? LV Systolic Volume MOD BP 34.2 cm??? 22 - 58 / 19 - 49 cm??? LV Ejection Fraction MOD BP 49.6 % >= 55 % LV Diastolic Volume MOD 4C 55.7 cm??? LV Systolic Volume MOD 4C 42.0 cm??? LV Ejection Fraction MOD 4C 24.7 % LV Diastolic Length 4C 6.7 cm LV Systolic Length 4C 6.6 cm LV Diastolic Volume MOD 2C 78.1 cm??? LV Systolic Volume MOD 2C 32.1 cm??? LV Ejection Fraction MOD 2C 58.9 % LV Diastolic Length 2C 6.7 cm LV Systolic Length 2C 5.8 cm LA Volume 137.1 cm??? 18 - 58 / 22 - 52 cm??? Ascending Aorta Diameter 3.2 cm DOPPLER AV Peak Velocity 114.9 cm/s AV Peak Gradient 5.3 mmHg AI Peak Velocity 327.8 cm/s AI Peak Gradient 43.0 mmHg AI Pressure Half Time 695.0 ms LVOT Peak Velocity 47.5 cm/s LVOT Peak Gradient 0.9 mmHg AV Area Cont Eq pk 1.3 cm??? MV Peak Velocity 136.0 cm/s MV Peak Gradient 7.4 mmHg MV Mean Velocity 55.7 cm/s MV Mean Gradient 1.9 mmHg MV Velocity Time Integral 23.3 cm MR Peak Velocity 450.0 cm/s MR Peak Gradient 81.0 mmHg MV E' Velocity 4.0 cm/s TR Peak Velocity 247.4 cm/s TR Peak Gradient 24.5 mmHg Right Ventricular Systolic Press 29.5 mmHg FINDINGS Left Ventricle Left ventricular ejection fraction is estimated at _30-35 %. Right Ventricle Normal right ventricular size. Right Atrium Moderate right atrial dilatation. Left Atrium Severe left atrial dilatation. Mitral Valve Thickened mitral valve without stenosis. Mild to Moderate MR. Aortic Valve Trileaflet aortic valve. Mild AV Calcification without stenosis. Moderate AI. Tricuspid Valve Tricuspid valve not well visualized. Mild TR. Pulmonic Valve Pulmonic valve not well visualized. Moderate PI. Pericardium Normal pericardium. Aorta Normal size aortic root and proximal ascending aorta. CONCLUSIONS Normal LV size and global decrease in contractility ejection fraction 30-35%. Severe left atrial enlargement. Mitral annular calcification as well as aortic valve sclerosis without restriction. Moderate mitral and [id number] tricuspid regurgitation with mild to moderate aortic regurgitation. No pericardial effusion Previewed by: Dr. Lauren Lnua MD (Electronically Signed) Final Date: 29 March 2023 13:29
--- NOTE | 2023-03-29 14:37 | P.PN ---
Subjective Progress Note Date: 03/29/23 Patient is a 67-year-old female with a known history of paroxysmal atrial fibrillation on anticoagulation with Eliquis, hypothyroidism and history of nonischemic cardiomyopathy , hypertension, hyperlipidemia, obstructive sleep apnea on CPAP at home who presented to the ER because of worsening shortness of breath and chest pressure. Patient stated that she was all right when on Tuesday morning she started noticing increasing shortness of breath on exertion. Patient stated that she was unable to walk more than 10 steps and was on not even able to get her mail from outside. Denied any swelling of feet. There was no complain of orthopnea or PND. Patient also started noticing chest pressure this morning was central in location, nonradiating, no aggravating or relieving factors associated with chest pressure. Patient stated she was supposed to be on amiodarone for A. fib but has not been taking it for weeks. Initial lab work in the ER showed WBC 8.5, hemoglobin 15.4, patient, 95, sodium 140, potassium 4.6, BUN 23, creatinine 1.1, magnesium 1.8, troponin 0.012 Patient was admitted to medicine service. 03/29. Patient seen and examined. States shortness of breath is improved. States she feels much better compared to yesterday. Denies any swelling of feet. Vital signs stable REVIEW OF SYSTEMS: CONSTITUTIONAL: No fever, no malaise,. CARDIOVASCULAR: No chest pain, no palpitations, no syncope. PULMONARY: No shortness of breath, no cough, GASTROINTESTINAL: No diarrhea, no nausea, no vomiting, no abdominal pain. NEUROLOGICAL: No headaches, no weakness, PHYSICAL EXAMINATION: GENERAL: The patient is alert and oriented x3, not in any acute distress. Well developed, well nourished. HEENT: Pupils are round and equally reacting to light. EOMI. No scleral icterus. No conjunctival pallor. Normocephalic, atraumatic. No pharyngeal erythema. No thyromegaly. CARDIOVASCULAR: S1 and S2 present. No murmurs, rubs, or gallops. PULMONARY: Chest is clear to auscultation, no wheezing or crackles. ABDOMEN: Soft, nontender, nondistended, normoactive bowel sounds. No palpable organomegaly. MUSCULOSKELETAL: No joint swelling or deformity. EXTREMITIES: No cyanosis, clubbing, or pedal edema. NEUROLOGICAL: Gross neurological examination did not reveal any focal deficits. SKIN: No rashes. Assessment and plan Acute CHF Chronic atrial fibrillation fibrillation Hypertension Hypothyroidism Nonischemic cardiomyopathy Obstructive sleep apnea on CPAP at home Monitor vital signs Monitor CBC Monitor CMP Continue telemetry monitoring Strict I's and O's, daily weights Continue IV Lasix 40 mg every 12 Continue Toprol 100 mg twice a day. 2-D echo ordered Cardiology planning to do ALYSE. cardioversion tomorrow DVT prophylaxis: Objective - Vital Signs Vital signs: Vital Signs Temp 98.2 F 03/29/23 08:18 Pulse 133 H 03/29/23 08:18 Resp 16 03/29/23 08:18 BP 159/112 03/29/23 08:18 Pulse Ox 94 L 03/29/23 08:18 FiO2 Intake & Output 03/28/23 03/29/23 03/29/23 18:59 06:59 18:59 Output Total 1600 Balance -1600 Weight 86.183 kg 83 kg Output: Urine 1600 Other: Voiding Method Toilet Toilet - Labs CBC & Chem 7: 03/28/23 09:20 03/28/23 09:20 Labs: Abnormal Lab Results - Last 24 Hours (Table) 03/28/23 03/28/23 03/28/23 Range/Units 09:20 09:20 09:20 Hct 48.7 H (34.0-46.0) % PT 12.4 H (9.0-12.0) sec INR 1.2 H (<1.2) Chloride 109 H (98-107) mmol/L Carbon Dioxide 21 L (22-30) mmol/L BUN 23 H (7-17) mg/dL Creatinine 1.10 H (0.52-1.04) mg/dL Glucose 129 H (74-99) mg/dL Total Bilirubin 1.5 H (0.2-1.3) mg/dL ALT 45 H (4-34) U/L Total Protein 6.0 L (6.3-8.2) g/dL
[2023-03-29] MEDS: METOPROLOL SUCCINATE (ER) 100 MG TAB.ER.24H PO SCH (20:47)
[2023-03-30] MEDS: SODIUM CHLORIDE 0.9% 1,000 ML IV SCH ×2 (00:16→13:40)
[2023-03-30 07:39] LABS: Basophils % (A) 0 %; Eosinophils # (A) 0.2 k/uL (0-0.7); Eosinophils % (A) 2 %; HGB 18.2 gm/dL (11.4-16.0); Lymphocytes # (A) 1.8 k/uL (1.0-4.8); Lymphocytes % (A) 18 %; MCH 29.9 pg (25.0-35.0); MCHC 32.2 g/dL (31.0-37.0); MCV 92.6 fL (80.0-100.0); Mean Platelet Volume 10.7; Monocytes # (A) 0.7 k/uL (0-1.0); Monocytes % (A) 7 %; Neutrophils # (A) 6.9 k/uL (1.3-7.7); Neutrophils % (A) 71 %; Platelet Count 224 k/uL (150-450); RBC 6.09 m/uL (3.80-5.40); WBC 9.7 k/uL (3.8-10.6)
[2023-03-30 07:45] LABS: HCT 56.5 % (34.0-46.0)
[2023-03-30 08:10] LABS: ALT 56 U/L (4-34); AST 40 U/L (14-36); African American GFR (CKD) 43 (>60 ml/min/1.73 sqM); Albumin 4.2 g/dL (3.5-5.0); Alkaline Phosphatase 70 U/L (38-126); Anion Gap 11 mmol/L; Blood Urea Nitrogen 31 mg/dL (7-17); Calcium 10.8 mg/dL (8.4-10.2); Carbon Dioxide 28 mmol/L (22-30); Chloride 100 mmol/L (98-107); Glucose 119 mg/dL (74-99); Non-African American GFR(CKD) 37 (>60 ml/min/1.73 sqM); Potassium 3.8 mmol/L (3.5-5.1); Sodium 139 mmol/L (137-145); Total Bilirubin 1.9 mg/dL (0.2-1.3); Total Protein 6.4 g/dL (6.3-8.2)
[2023-03-30] MEDS ORDERED: LACTATED RINGERS 1,000 ML IV ONE ×2 (10:38)
[2023-03-30 11:35] VITALS: TEMP 97.7
[2023-03-30] MEDS ORDERED: PROPOFOL 10 MG/ML 20 ML VIAL IV ONE (12:20)
[2023-03-30 12:49] VITALS: RESP 16
[2023-03-30] MEDS: LEVOTHYROXINE 137 MCG TAB PO SCH (13:39)
[2023-03-30] MEDS: amLODIPine 5 MG TAB PO SCH (13:39)
[2023-03-30] MEDS: APIXABAN 5 MG TAB PO SCH (13:39)
[2023-03-30] MEDS: FERROUS SULFATE 325 MG TAB PO SCH (13:39)
[2023-03-30] MEDS: METOPROLOL SUCCINATE (ER) 100 MG TAB.ER.24H PO SCH (13:39)
[2023-03-30] MEDS: FUROSEMIDE 10 MG/ML 4 ML VIAL IV SCH (13:45)
[2023-03-30 18:45] VITALS: BP 120/69; PULSE 61
--- NOTE | 2023-03-30 22:16 | P.PCN ---
Date of Procedure: 03/30/23 Operative Findings: Cardioversion Report Performing physician Vasquez Wisdom M.D. Procedure performed Successful cardioversion of atrial fibrillation to normal sinus mechanism using 200 J at first attempt Indication Symptomatic atrial fibrillation Complication None Level of sedation The procedure was performed under deep sedation using propofol with DIRECTOR OF CARDIOLOGY SERVICE LINE in the room Procedure description After obtaining an informed consent the patient was brought to the recovery room. Sedation was introduced using propofol with DIRECTOR OF CARDIOLOGY SERVICE LINE in the room. Subsequently the patient cardioverted from atrial fibrillation to normal sinus mechanism using 200 J and first attempt Conclusion Successful cardioversion of atrial fibrillation to normal sinus mechanism using 200 J Postprocedure management Continue the current medical regimen Continue oral anticoagulation Follow-up with the patient
== END 2023-03-30 18:23 | disposition home or self-care (01) | DRG 291 ==
LOC: EC 08:30 → OBSVTOIN 11:40 → 6NMEDSUR 11:40 → 3SCARD 12:21
PROVIDERS: ADMIT Hospitalist; ATTEND Hospitalist
PROC: 5A2204Z Restoration of Cardiac Rhythm, Single (ICD-10-PCS; principal; 2023-03-30 15:15)
DX: I11.0 Hypertensive heart disease with heart failure (principal); I50.33 Acute on chronic diastolic (congestive) heart failure; I48.19 Other persistent atrial fibrillation; I48.92 Unspecified atrial flutter; I42.8 Other cardiomyopathies; E03.9 Hypothyroidism, unspecified; I08.3 Combined rheumatic disorders of mitral, aortic and tricuspid valves; E78.5 Hyperlipidemia, unspecified; T46.2X6A Underdosing of other antidysrhythmic drugs, initial encounter; G47.33 Obstructive sleep apnea (adult) (pediatric); Z79.01 Long term (current) use of anticoagulants; Z88.4 Allergy status to anesthetic agent; Z79.899 Other long term (current) drug therapy; Z91.128 Patient's intentional underdosing of medication regimen for other reason; Z79.890 Hormone replacement therapy
CPT/HCPCS: 36415; 71046; 80053; 83735; 83880; 84484; 85025; 85610; 85730; 92960; 93005; 93306; 96374; 99285

== ENCOUNTER 2023-04-01 05:00 | Inpatient (IN) | payer MEDICARE, OTHER ==
[2023-04-01] MEDS ORDERED: IPRATROPIUM-ALBUTEROL 3 ML NEB INHALATION STA (05:09)
[2023-04-01 05:48] LABS: ALT 37 U/L (4-34); AST 23 U/L (14-36); African American GFR (CKD) 28 (>60 ml/min/1.73 sqM); Alkaline Phosphatase 73 U/L (38-126); Anion Gap 10 mmol/L; Blood Urea Nitrogen 54 mg/dL (7-17); Calcium 9.8 mg/dL (8.4-10.2); Carbon Dioxide 27 mmol/L (22-30); Chloride 101 mmol/L (98-107); Glucose 122 mg/dL (74-99); Magnesium 1.9 mg/dL (1.6-2.3); Non-African American GFR(CKD) 24 (>60 ml/min/1.73 sqM); Potassium 3.7 mmol/L (3.5-5.1); Sodium 138 mmol/L (137-145); Total Bilirubin 1.3 mg/dL (0.2-1.3); Total Protein 6.1 g/dL (6.3-8.2)
[2023-04-01 05:56] LABS: Basophils % (A) 1 %; Eosinophils # (A) 0.2 k/uL (0-0.7); Eosinophils % (A) 2 %; HCT 51.6 % (34.0-46.0); HGB 16.4 gm/dL (11.4-16.0); Lymphocytes # (A) 1.6 k/uL (1.0-4.8); Lymphocytes % (A) 19 %; MCH 29.6 pg (25.0-35.0); MCHC 31.8 g/dL (31.0-37.0); MCV 93.1 fL (80.0-100.0); Mean Platelet Volume 9.8; Monocytes # (A) 0.6 k/uL (0-1.0); Monocytes % (A) 7 %; Neutrophils # (A) 6.1 k/uL (1.3-7.7); Neutrophils % (A) 70 %; Platelet Count 226 k/uL (150-450); RBC 5.54 m/uL (3.80-5.40); RDW 14.7 % (11.5-15.5); WBC 8.7 k/uL (3.8-10.6)
[2023-04-01 06:01] LABS: INR 1.1 (<1.2); Partial Thromboplastin Time 25.4 sec (22.0-30.0); Prothrombin Time 11.8 sec (9.0-12.0)
[2023-04-01] MEDS ORDERED: NALOXONE 0.4 MG/ML 1 ML VIAL IV PRN (06:38)
--- NOTE | 2023-04-01 06:43 | ED ---
SOB HPI - General Chief Complaint: Shortness of Breath Stated Complaint: SOB Time Seen by Provider: 04/01/23 05:09 Source: EMS, RN notes reviewed, old records reviewed Mode of arrival: EMS Limitations: no limitations - History of Present Illness Initial Comments: This is a 65-year-old female to the emergency department for evaluation of severe shortness of breath and severe anxiety. Mild nausea no vomiting of travel show sick contacts no other complaints. Patient states she recently cardiac ablation. He did patient was told she had fluid on the lungs is given Lasix felt better went home over the last 2 days patient has had increasing shortness of breath he woke up tonight with inability to catch her breath at all. Patient has no other complaints here in the emergency department. No chest pain currently. No fevers no cough or congestion. MD Complaint: shortness of breath, anxiety -: hour(s) Severity: moderate Severity scale (1-10): 6 Quality: aching Consistency: constant Improves With: nothing Worsens With: nothing Known History Of: congestive heart failure Context: anxiety, recent illness Associated Symptoms: chest pain, palpitations Treatments Prior to Arrival: none - Related Data Home Medications Medication Instructions Recorded Confirmed Apixaban [Eliquis] 5 mg PO BID 12/15/21 04/01/23 Ferrous Sulfate [Iron] 325 mg PO DAILY 12/15/21 04/01/23 Levothyroxine Sodium [Synthroid] 137 mcg PO DAILY 12/15/21 04/01/23 Ergocalciferol [Vitamin D2 (1250 1,250 mcg PO WE 03/28/23 04/01/23 Mcg = 72777 Iu)] Previous Rx's Medication Instructions Recorded Amiodarone [Cordarone] 200 mg PO Q48H #14 tab 04/01/23 Metoprolol Tartrate [Lopressor] 50 mg PO TID #90 tab 04/01/23 Allergies Allergy/AdvReac Type Severity Reaction Status Date / Time benzocaine Allergy Anaphylaxis Verified 04/01/23 08:28 Penicillins Allergy Unknown Verified 04/01/23 08:28 Childhood Review of Systems ROS Statement: Those systems with pertinent positive or pertinent negative responses have been documented in the HPI. ROS Other: All systems not noted in ROS Statement are negative. Past Medical History Past Medical History: Atrial Fibrillation, Hypertension, Sleep Apnea/CPAP/BIPAP Additional Past Medical History / Comment(s): acromegly, previous cardioversion, wears Bipap at home. 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 Absent: scleral icterus, conjunctival injection, periorbital swelling ENT exam: Present: normal exam, mucous membranes moist Neck exam: Present: normal inspection. Absent: tenderness, meningismus, lymphadenopathy Respiratory exam: Present: normal lung sounds bilaterally. Absent: respiratory distress, wheezes, rales, rhonchi, stridor Cardiovascular Exam: Present: regular rate, normal rhythm, normal heart sounds. Absent: systolic murmur, diastolic murmur, rubs, gallop, clicks GI/Abdominal exam: Present: soft, normal bowel sounds. Absent: distended, tenderness, guarding, rebound, rigid Extremities exam: Present: normal inspection, full ROM, normal capillary refill. Absent: tenderness, pedal edema, joint swelling, calf tenderness Back exam: Present: normal inspection Neurological exam: Present: alert, oriented X3, CN II-XII intact Psychiatric exam: Present: normal affect, normal mood Skin exam: Present: warm, dry, intact, normal color. Absent: rash Course Vital Signs 04/01/23 04/01/23 04/01/23 05:02 05:12 05:19 Temperature 98.2 F Pulse Rate 60 58 L 60 Respiratory 18 Rate Blood Pressure 159/95 O2 Sat by Pulse 100 Oximetry 04/01/23 04/01/23 04/01/23 06:28 07:41 14:06 Temperature 98.6 F Pulse Rate 58 L 56 L Respiratory 18 18 Rate Blood Pressure 137/83 136/77 O2 Sat by Pulse 98 96 Oximetry 04/01/23 14:07 Temperature Pulse Rate 55 L Respiratory 16 Rate Blood Pressure 122/65 O2 Sat by Pulse Oximetry - Reevaluation(s) Reevaluation #1: 04/01/23 06:41 Medical records reviewed Reevaluation #2: 04/01/23 06:41 Patient symptoms improving with supplemental O2 Reevaluation #3: 04/01/23 06:41 Patient poor results questions answered Reevaluation #4: 04/01/23 06:42 Was pt. sent in by a medical professional or institution? @ -no Did you speak to anyone other than the patient for history? @ -no Did you review nursing and triage notes? @ -agree Were old charts reviewed? @ -yes Differential Diagnosis? @ -prior EKG interpreted by me (3pts min.)? @ -yes X-rays interpreted by me (1pt min.)? @ -yes CT interpreted by me (1pt min.)? @ -no U/S interpreted by me (1pt. min.)? @ -no What testing was considered but not performed? (CT, X-rays, U/S, labs)? Why? @ -no What meds were considered but not given? Why? @ -no Did you discuss the management of the patient with other professionals? @ -no Did you reconcile home meds? @ -no Was smoking cessation discussed for >3mins.? @ -no Was critical care preformed (if so, how long)? @ -no Were there social determinants of health that impacted care today? How? (Homelessness, low income, unemployed, alcoholism, drug addiction, transport ation, low edu. Level, literacy, decrease access to med. care, longterm, rehab)? @ -no Was there de-escalation of care discussed even if they declined? (Discuss DNR or withdrawal of care, Hospice)? @ -no What co-morbidities impacted this encounter? (DM, HTN, Smoking, COPD, CAD, Cancer, CVA, Hep., AIDS, mental health diagnosis, sleep apnea, morbid obesity)? @ -none Was patient admitted / discharged? @ -67 female will be admitted for shortness of breath patient is having increasing kidney injury. Patient will be admitted for cardiology evaluation regarding recent cardioversion as well as nephrology evaluation regarding acute kidney injury Admitted Undiagnosed new problem with uncertain prognosis? @ -no Drug Therapy requiring intensive monitoring for toxicity (Heparin, Nitro, Insulin, Cardizem)? @ -no Were any procedures done? @ -no Diagnosis/symptom? @ -CHF Acute, or Chronic, or Acute on Chronic? @ -acute Uncomplicated (without systemic symptoms) or Complicated (systemic symptoms)? @ -complicated Side effects of treatment? @ -no Exacerbation, Progression, or Severe Exacerbation] @ -no Poses a threat to life or bodily function? @ -yes Reevaluation #5: Differential Dyspnea: Coronary syndrome, arrhythmia, tamponade, asthma, COPD, pulmonary embolism, pneumonia, pneumothorax, pulmonary effusion, anaphylaxis, diabetic ketoacidosis, flailed chest, pulmonary contusion, diaphragmatic rupture, anemia, neuromuscular, this is not meant to be an all-inclusive list. - Consultations Consultation #1: spoke with admitting physicians agree to admit this patient Medical Decision Making - Medical Decision Making 67 female will be admitted for shortness of breath patient is having increasing kidney injury. Patient will be admitted for cardiology evaluation regarding recent cardioversion as well as nephrology evaluation regarding acute kidney injury - Lab Data Result diagrams: 04/01/23 05:19 04/01/23 14:13 Lab Results 04/01/23 04/01/23 04/01/23 Range/Units 05:19 05:19 05:19 WBC 8.7 (3.8-10.6) k/uL RBC 5.54 H (3.80-5.40) m/uL Hgb 16.4 H (11.4-16.0) gm/dL Hct 51.6 H (34.0-46.0) % MCV 93.1 (80.0-100.0) fL MCH 29.6 (25.0-35.0) pg MCHC 31.8 (31.0-37.0) g/dL RDW 14.7 (11.5-15.5) % Plt Count 226 (150-450) k/uL MPV 9.8 Neutrophils % 70 % Lymphocytes % 19 % Monocytes % 7 % Eosinophils % 2 % Basophils % 1 % Neutrophils # 6.1 (1.3-7.7) k/uL Lymphocytes # 1.6 (1.0-4.8) k/uL Monocytes # 0.6 (0-1.0) k/uL Eosinophils # 0.2 (0-0.7) k/uL Basophils # 0.0 (0-0.2) k/uL PT 11.8 (9.0-12.0) sec INR 1.1 (<1.2) APTT 25.4 (22.0-30.0) sec Sodium 138 (137-145) mmol/L Potassium 3.7 (3.5-5.1) mmol/L Chloride 101 (98-107) mmol/L Carbon Dioxide 27 (22-30) mmol/L Anion Gap 10 mmol/L BUN 54 H (7-17) mg/dL Creatinine 2.06 H (0.52-1.04) mg/dL Est GFR (CKD-EPI)AfAm 28 (>60 ml/min/1.73 sqM) Est GFR (CKD-EPI)NonAf 24 (>60 ml/min/1.73 sqM) Glucose 122 H (74-99) mg/dL Calcium 9.8 (8.4-10.2) mg/dL Magnesium 1.9 (1.6-2.3) mg/dL Total Bilirubin 1.3 (0.2-1.3) mg/dL AST 23 (14-36) U/L ALT 37 H (4-34) U/L Alkaline Phosphatase 73 (38-126) U/L Troponin I (0.000-0.034) ng/mL NT-Pro-B Natriuret Pep pg/mL Total Protein 6.1 L (6.3-8.2) g/dL Albumin 4.0 (3.5-5.0) g/dL 04/01/23 04/01/23 Range/Units 05:19 05:19 WBC (3.8-10.6) k/uL RBC (3.80-5.40) m/uL Hgb (11.4-16.0) gm/dL Hct (34.0-46.0) % MCV (80.0-100.0) fL MCH (25.0-35.0) pg MCHC (31.0-37.0) g/dL RDW (11.5-15.5) % Plt Count (150-450) k/uL MPV Neutrophils % % Lymphocytes % % Monocytes % % Eosinophils % % Basophils % % Neutrophils # (1.3-7.7) k/uL Lymphocytes # (1.0-4.8) k/uL Monocytes # (0-1.0) k/uL Eosinophils # (0-0.7) k/uL Basophils # (0-0.2) k/uL PT (9.0-12.0) sec INR (<1.2) APTT (22.0-30.0) sec Sodium (137-145) mmol/L Potassium (3.5-5.1) mmol/L Chloride (98-107) mmol/L Carbon Dioxide (22-30) mmol/L Anion Gap mmol/L BUN (7-17) mg/dL Creatinine (0.52-1.04) mg/dL Est GFR (CKD-EPI)AfAm (>60 ml/min/1.73 sqM) Est GFR (CKD-EPI)NonAf (>60 ml/min/1.73 sqM) Glucose (74-99) mg/dL Calcium (8.4-10.2) mg/dL Magnesium (1.6-2.3) mg/dL Total Bilirubin (0.2-1.3) mg/dL AST (14-36) U/L ALT (4-34) U/L Alkaline Phosphatase (38-126) U/L Troponin I 0.019 (0.000-0.034) ng/mL NT-Pro-B Natriuret Pep 2160 pg/mL Total Protein (6.3-8.2) g/dL Albumin (3.5-5.0) g/dL - EKG Data -: EKG Interpreted by Me (EKG shows sinus bradycardia 59 CA 212 QRS 1:30 QTC 369) - Radiology Data Radiology results: report reviewed (Chest x-rays negative for acute disease), image reviewed Disposition Clinical Impression: Heart failure, Acute pulmonary edema, ARLYN (acute kidney injury), Bradycardia Disposition: ADMITTED IP TO THIS [facility] Condition: Good Is patient prescribed a controlled substance at d/c from ED?: No Time of Disposition: 06:45
--- NOTE | 2023-04-01 08:35 | XR ---
Lizabeth Carney EXAMINATION TYPE: X-ray one view DATE OF EXAM: 04/01/2023 COMPARISON: Prior chest x-ray March 28, 2023 HISTORY: Shortness of breath TECHNIQUE: Single AP portable frontal upright view of the chest is obtained. FINDINGS: There is no focal air space opacity, pleural effusion, or pneumothorax seen. Cardiomegaly is redemonstrated. Retrocardiac opacity consistent with hiatal hernia again seen. The osseous struct ures remain demineralized. Overlying EKG leads again seen. IMPRESSION: Cardiomegaly and chronic changes without acute pulmonary process.
[2023-04-01] MEDS ORDERED: AMIODARONE 200 MG TAB PO SCH (09:15)
[2023-04-01] MEDS ORDERED: SODIUM CHLORIDE 0.9% 1,000 ML IV SCH (09:15)
[2023-04-01] MEDS ORDERED: METOPROLOL TARTRATE 50 MG TAB PO SCH (09:30)
--- NOTE | 2023-04-01 11:25 | P.NPCON ---
History of Present Illness - Reason for Consult acute renal failure - History of Present Illness Patient is a 67-year-old female who was recently discharged from the hospital after successful cardioversion for atrial fibrillation on 03/30/2023. Patient was treated for volume overload and was diuresed at that time with IV Lasix. Patient is admitted again with complaints of shortness of breath which started last night and progressively worsened. No previous history of kidney diseases. Serum creatinine is 2.0 this admission and it was 1.1 on 03/28/2023 and 1.4 on 03/30/2023. Patient denies history of use of nonsteroidal anti-inflammatory agents. Blood pressure is not low. Home medications included metoprolol and no diuretics upon discharge. No urinary symptoms. Review of Systems As per HPI Past Medical History Past Medical History: Atrial Fibrillation, Hypertension, Sleep Apnea/CPAP/BIPAP Additional Past Medical History / Comment(s): acromegly, previous cardioversion, wears Bipap at home. 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, part of esophagus removed Past Anesthesia/Blood Transfusion Reactions: No Reported Reaction Additional Past Anesthesia/Blood Transfusion Reaction / Comment(s): Allergy to Benzocaine Past Psychological History: No Psychological Hx Reported Smoking Status: Never smoker Past Alcohol Use History: None Reported Past Drug Use History: None Reported Medications and Allergies Home Medications Medication Instructions Recorded Confirmed Type Apixaban [Eliquis] 5 mg PO BID 12/15/21 04/01/23 History Ferrous Sulfate [Iron] 325 mg PO DAILY 12/15/21 04/01/23 History Levothyroxine Sodium [Synthroid] 137 mcg PO DAILY 12/15/21 04/01/23 History Ergocalciferol [Vitamin D2 (1250 1,250 mcg PO WE 03/28/23 04/01/23 History Mcg = 29669 Iu)] Metoprolol Succinate (ER) [Toprol 100 mg PO BID 30 Days #60 tab 03/30/23 04/01/23 Rx XL] Allergies Allergy/AdvReac Type Severity Reaction Status Date / Time benzocaine Allergy Anaphylaxis Verified 04/01/23 08:28 Penicillins Allergy Unknown Verified 04/01/23 08:28 Childhood Physical Exam Vitals: Vital Signs Temp Pulse Resp BP Pulse Ox 04/01/23 07:41 56 L 18 136/77 96 04/01/23 06:28 58 L 18 137/83 98 04/01/23 05:19 60 04/01/23 05:12 58 L 04/01/23 05:02 98.2 F 60 18 159/95 100 Intake and Output 03/31/23 04/01/23 04/01/23 22:59 06:59 14:59 Other: Weight 83.915 kg Patient is comfortable awake alert oriented 3. 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 Acute kidney injury, nonoliguric possibly related to recent diuresis. Blood pressure has not been significantly low. No nephrotoxic agents noted. Urine analysis will be ordered as well as ultrasound of the kidneys. May continue with gentle IV hydration. 2. Cardiomyopathy with ejection fraction 30-35% on echocardiogram on 03/29/2023 3. A. fib with RVR status post cardioversion on 03/30/2023 and maintained on Lopressor 4. Acute systolic CHF last admission about 3 days ago status post diuresis 5. Dyspnea possibly related to anxiety. Heart rate is controlled and chest x- ray does not show pulmonary vascular congestion. 6. Hypothyroidism Plan: Check bladder scan and rule out urine retention Check UA Check ultrasound of the kidneys May continue with IV fluids but decrease rate Continue off of diuretics for now Repeat labs in a.m. Avoid any nephrotoxic agents. Next Thank you for the consultation. We will continue to follow the patient with you during her hospitalization.
[2023-04-01 13:00] LABS: Appearance,Urine Cloudy (Clear); Bacteria,Urine Many /hpf; Bilirubin,Urine Negative (Negative); Blood,Urine Negative (Negative); Color,Urine Yellow; Glucose,Urine (UA) Negative (Negative); Ketones,Urine Negative (Negative); Leukocyte Esterase,Urine Large (Negative); Mucus,Urine Rare /hpf; Nitrite,Urine Negative (Negative); Protein,Urine Negative (Negative); RBC,Urine 2 /hpf (0-5); Specific Gravity,Urine 1.016 (1.001-1.035); Squamous Epithelial Cell,Urine 2 /hpf (0-4); Urobilinogen,Urine <2.0 mg/dL (<2.0); WBC,Urine 24 /hpf (0-5)
--- NOTE | 2023-04-01 13:05 | US ---
EXAMINATION TYPE: US kidneys/renal and bladder DATE OF EXAM: 04/01/2023 COMPARISON: NONE CLINICAL INDICATION: Female, 67 years old with history of ariel; EXAM MEASUREMENTS: Right Kidney: 9.9 x 3.8 x 3.6 cm Left Kidney: 8.4 x 4.7 x 4.7 cm Kidneys are bilaterally echogenic and difficult to visualize. Right Kidney: multiple small anechoic areas, probable cysts, largest measures 1.5 x 1.2 x 0.9 cm. Left Kidney: No hydronephrosis or masses seen Bladder: wnl Increased cortical echogenicity bilaterally is present. There are few small thin-walled cysts in the right kidney marked by technologist. No hydronephrosis is evident bilaterally. Urinary bladder is not greatly distended. IMPRESSION: Evidence of chronic medical renal disease. No hydronephrosis is seen bilaterally.
--- NOTE | 2023-04-01 13:37 | P.HPIM ---
History of Present Illness 67-year-old female was recently discharged from hospital after cardioversion and atrial fibrillation. Comes back again with an episode of anxiety. Cardiology evaluated the patient patient appeared to have a panic attack episode of anxiety. EKG showed normal sinus rhythm. Patient creatinine is actually up to around 2 which is an upward trend secondary to her recent pulmonary edema and diuresis. Patient had an ejection fraction of 30-35% which is believed to be secondary to atrial fibrillation and expected to improve. Patient was not on any diuretics at home. Patient is not hypotensive chest x-ray did not show any pulmonary edema. Patient in fact is slightly hypovolemic her baseline reacting is 1.1, there is some evidence of chronic kidney disease on the ultrasound of the kidney. Patient denied any lightheadedness at this time. 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 Patient takes Toprol-XL 100 twice a day which she was changed to short-acting metoprolol 50 3 times a day and amiodarone on alternate days was added patient heart rate is in 50s. Abdomen the basic metabolic profile will be obtained and if her creatinine is a downward trend patient will be discharged with a repeat BMP in couple days and follow up with PCP and cardiology as an outpatient REVIEW OF SYSTEMS: CONSTITUTIONAL: No fever, no malaise, no fatigue. HEENT: No recent visual problems or hearing problems. Denied any sore throat. CARDIOVASCULAR: No chest pain, orthopnea, PND, no palpitations, no syncope. PULMONARY: No shortness of breath, no cough, no hemoptysis. GASTROINTESTINAL: No diarrhea, no nausea, no vomiting, no abdominal pain. NEUROLOGICAL: No headaches, no weakness, no numbness. HEMATOLOGICAL: Denies any bleeding or petechiae. GENITOURINARY: Denies any burning micturition, frequency, or urgency. MUSCULOSKELETAL/RHEUMATOLOGICAL: Denies any joint pain, swelling, or any muscle pain. ENDOCRINE: Denies any polyuria or polydipsia. The rest of the 14-point review of systems is negative. PHYSICAL EXAMINATION: GENERAL: The patient is alert and oriented x3, not in any acute distress. Well developed, well nourished. HEENT: Pupils are round and equally reacting to light. EOMI. No scleral icterus. No conjunctival pallor. Normocephalic, atraumatic. No pharyngeal erythema. No thyromegaly. CARDIOVASCULAR: S1 and S2 present. No murmurs, rubs, or gallops. PULMONARY: Chest is clear to auscultation, no wheezing or crackles. ABDOMEN: Soft, nontender, nondistended, normoactive bowel sounds. No palpable organomegaly. MUSCULOSKELETAL: No joint swelling or deformity. EXTREMITIES: No cyanosis, clubbing, or pedal edema. NEUROLOGICAL: Gross neurological examination did not reveal any focal deficits. SKIN: No rashes. Assessment and plan -Episode of anxiety: Secondary to a panic attack or generalized anxiety disorder there is no evidence that patient had episode of A. fib with rapid ventricular rate. -Mild acute renal failure: Secondary to recent diuresis diuretics will be held further management as mentioned above -Possible chronic kidney disease secondary to hypertensive nephrosclerosis -Proximal atrial fibrillation status post recent cardioversion patient is sinus rhythm at this time -Hypertension -Sleep apnea DVT prophylaxis: Patient is on anticoagulation Past Medical History Past Medical History: Atrial Fibrillation, Hypertension, Sleep Apnea/CPAP/BIPAP Additional Past Medical History / Comment(s): acromegly, previous cardioversion, wears Bipap at home. 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, part of esophagus removed Past Anesthesia/Blood Transfusion Reactions: No Reported Reaction Additional Past Anesthesia/Blood Transfusion Reaction / Comment(s): Allergy to Benzocaine Past Psychological History: No Psychological Hx Reported Smoking Status: Never smoker Past Alcohol Use History: None Reported Past Drug Use History: None Reported Medications and Allergies Home Medications Medication Instructions Recorded Confirmed Type Apixaban [Eliquis] 5 mg PO BID 12/15/21 04/01/23 History Ferrous Sulfate [Iron] 325 mg PO DAILY 12/15/21 04/01/23 History Levothyroxine Sodium [Synthroid] 137 mcg PO DAILY 12/15/21 04/01/23 History Ergocalciferol [Vitamin D2 (1250 1,250 mcg PO WE 03/28/23 04/01/23 History Mcg = 23957 Iu)] Amiodarone [Cordarone] 200 mg PO Q48H #14 tab 04/01/23 Rx Metoprolol Tartrate [Lopressor] 50 mg PO TID #90 tab 04/01/23 Rx Allergies Allergy/AdvReac Type Severity Reaction Status Date / Time benzocaine Allergy Anaphylaxis Verified 04/01/23 08:28 Penicillins Allergy Unknown Verified 04/01/23 08:28 Childhood Physical Exam Vitals: Vital Signs Temp Pulse Resp BP Pulse Ox 04/01/23 07:41 56 L 18 136/77 96 04/01/23 06:28 58 L 18 137/83 98 04/01/23 05:19 60 04/01/23 05:12 58 L 04/01/23 05:02 98.2 F 60 18 159/95 100 Intake and Output 03/31/23 04/01/23 04/01/23 22:59 06:59 14:59 Other: Weight 83.915 kg Results CBC & Chem 7: 04/01/23 05:19 04/01/23 05:19 Labs: Abnormal Lab Results - Last 24 Hours (Table) 04/01/23 04/01/23 04/01/23 Range/Units 05:19 05:19 12:35 RBC 5.54 H (3.80-5.40) m/uL Hgb 16.4 H (11.4-16.0) gm/dL Hct 51.6 H (34.0-46.0) % BUN 54 H (7-17) mg/dL Creatinine 2.06 H (0.52-1.04) mg/dL Glucose 122 H (74-99) mg/dL ALT 37 H (4-34) U/L Total Protein 6.1 L (6.3-8.2) g/dL Urine Appearance Cloudy H (Clear) Ur Leukocyte Esterase Large H (Negative) Urine WBC 24 H (0-5) /hpf Urine WBC Clumps Few H (None) /hpf Urine Bacteria Many H (None) /hpf Urine Mucus Rare H (None) /hpf
--- NOTE | 2023-04-01 13:37 | P.DS ---
Providers Date of admission: 04/01/23 06:39 Attending physician: Patrizia Pope Consults: 04/01/23 06:38 Consult Physician Routine Consulting Provider: Lisa Rodriguez Consult Reason/Comments: known Do you want consulting provider notified?: Yes Consult Physician Routine Consulting Provider: Rox Davis Consult Reason/Comments: ariel Do you want consulting provider notified?: Yes Primary care physician: [facility] Course: 67-year-old female was recently discharged from hospital after cardioversion and atrial fibrillation. Comes back again with an episode of anxiety. Cardiology evaluated the patient patient appeared to have a panic attack episode of anxiety. EKG showed normal sinus rhythm. Patient creatinine is actually up to around 2 which is an upward trend secondary to her recent pulmonary edema and diuresis. Patient had an ejection fraction of 30-35% which is believed to be secondary to atrial fibrillation and expected to improve. Patient was not on any diuretics at home. Patient is not hypotensive chest x-ray did not show any pulmonary edema. Patient in fact is slightly hypovolemic her baseline reacting is 1.1, there is some evidence of chronic kidney disease on the ultrasound of the kidney. Patient denied any lightheadedness at this time. As per cardiology patient probably has tachybradycardia syndrome, may need to pacemaker placement eventually because of which patient was advised to see her primary senior bioinformatics scientist in less than a week. Patient takes Toprol-XL 100 twice a day which she was changed to short-acting metoprolol 50 3 times a day and amiodarone on alternate days was added patient heart rate is in 50s. Abdomen the basic metabolic profile will be obtained and if her creatinine is a downward trend patient will be discharged with a repeat BMP in couple days and follow up with PCP and cardiology as an outpatient REVIEW OF SYSTEMS: CONSTITUTIONAL: No fever, no malaise, no fatigue. HEENT: No recent visual problems or hearing problems. Denied any sore throat. CARDIOVASCULAR: No chest pain, orthopnea, PND, no palpitations, no syncope. PULMONARY: No shortness of breath, no cough, no hemoptysis. GASTROINTESTINAL: No diarrhea, no nausea, no vomiting, no abdominal pain. NEUROLOGICAL: No headaches, no weakness, no numbness. HEMATOLOGICAL: Denies any bleeding or petechiae. GENITOURINARY: Denies any burning micturition, frequency, or urgency. MUSCULOSKELETAL/RHEUMATOLOGICAL: Denies any joint pain, swelling, or any muscle pain. ENDOCRINE: Denies any polyuria or polydipsia. The rest of the 14-point review of systems is negative. PHYSICAL EXAMINATION: GENERAL: The patient is alert and oriented x3, not in any acute distress. Well developed, well nourished. HEENT: Pupils are round and equally reacting to light. EOMI. No scleral icterus. No conjunctival pallor. Normocephalic, atraumatic. No pharyngeal erythema. No thyromegaly. CARDIOVASCULAR: S1 and S2 present. No murmurs, rubs, or gallops. PULMONARY: Chest is clear to auscultation, no wheezing or crackles. ABDOMEN: Soft, nontender, nondistended, normoactive bowel sounds. No palpable organomegaly. MUSCULOSKELETAL: No joint swelling or deformity. EXTREMITIES: No cyanosis, clubbing, or pedal edema. NEUROLOGICAL: Gross neurological examination did not reveal any focal deficits. SKIN: No rashes. Assessment and plan -Episode of anxiety: Secondary to a panic attack or generalized anxiety disorder there is no evidence that patient had episode of A. fib with rapid ventricular rate. -Mild acute renal failure: Secondary to recent diuresis diuretics will be held further management as mentioned above -Possible chronic kidney disease secondary to hypertensive nephrosclerosis -Proximal atrial fibrillation status post recent cardioversion patient is sinus rhythm at this time -Hypertension -Sleep apnea Patient Condition at Discharge: Good Plan - Discharge Summary New Discharge Prescriptions: New Amiodarone [Cordarone] 200 mg PO Q48H #14 tab Metoprolol Tartrate [Lopressor] 50 mg PO TID #90 tab Continue Ferrous Sulfate [Iron] 325 mg PO DAILY Levothyroxine Sodium [Synthroid] 137 mcg PO DAILY Apixaban [Eliquis] 5 mg PO BID Ergocalciferol [Vitamin D2 (1250 Mcg = 87171 Iu)] 1,250 mcg PO WE Discontinued Metoprolol Succinate (ER) [Toprol XL] 100 mg PO BID 30 Days #60 tab Discharge Medication List Apixaban [Eliquis] 5 mg PO BID 12/15/21 [History] Ferrous Sulfate [Iron] 325 mg PO DAILY 12/15/21 [History] Levothyroxine Sodium [Synthroid] 137 mcg PO DAILY 12/15/21 [History] Ergocalciferol [Vitamin D2 (1250 Mcg = 50096 Iu)] 1,250 mcg PO WE 03/28/23 [History] Amiodarone [Cordarone] 200 mg PO Q48H #14 tab 04/01/23 [Rx] Metoprolol Tartrate [Lopressor] 50 mg PO TID #90 tab 04/01/23 [Rx] Follow up Appointment(s)/Referral(s): Mini David MD [Primary Care Provider] - 3 Days Vasquez Wisdom MD [STAFF PHYSICIAN] - 1 Week Ambulatory/Diagnostic Orders: Basic Metabolic Panel [LAB.AMB] Time Frame: 3 Days, Location: None Selected
[2023-04-01 14:06] VITALS: TEMP 98.6
[2023-04-01 14:07] VITALS: BP 122/65; PULSE 55; RESP 16
--- NOTE | 2023-04-01 14:36 | CONS ---
CONSULTATION HISTORY OF PRESENT ILLNESS: This lady was discharged from the hospital 48 hours ago. She came into the hospital emergency room complaining of having a panic attack, felt anxious, and had shortness of breath. She did not have any vomiting, but felt a little nauseated. After arrival, she appears to be in a sinus rhythm, and there was some volume overload-type picture, received Lasix, she feels better. This lady had undergone electrical cardioversion 3 days ago and was advised to be on amiodarone, but she has not taken amiodarone. I am recommending that we resume amiodarone at 200 mg every other day, decrease the metoprolol tartrate to 50 mg t.i.d., and we will give her some IV fluids. She appears to be a bit dehydrated actually, and she can be discharged later on today if she feels better. Her laboratory data suggest that her creatinine is up to 2.06 and BUN is 54. There is a component of prerenal azotemia. I am recommending cautious hydration and repeat BMP to check creatinine at about 2 p.m., and she can be discharged. She is in sinus rhythm. She should be on amiodarone 200 mg every other day and metoprolol tartrate 50 mg t.i.d. Please refer to the recent consultation for other details. PHYSICAL EXAMINATION: VITAL SIGNS: Blood pressure is 130/70, pulse rate is 60 per minute. NECK: There is JVD, 1 cm. No carotid bruit. HEART: S1 and S2 heard normally. Short systolic murmur noted. LUNGS: Reveal decent air entry. ABDOMEN: Unchanged. LOWER EXTREMITIES: Unchanged. IMPRESSION: 1. Prerenal azotemia. 2. Paroxysmal atrial fibrillation, in sinus rhythm. 3. Probable cardiomyopathy with ejection fraction in the range of 35%. RECOMMENDATIONS: I am recommending cautious hydration because of prerenal azotemia, amiodarone 200 mg every other day, metoprolol tartrate 50 mg t.i.d., repeat a brief echo because she is in sinus rhythm, and the patient can be discharged later on today after checking a creatinine. Thank you very much for the consult. MMODL / IJN: [id number] /
[2023-04-01 15:01] LABS: African American GFR (CKD) 35 (>60 ml/min/1.73 sqM); Anion Gap 6 mmol/L; Blood Urea Nitrogen 49 mg/dL (7-17); Calcium 9.7 mg/dL (8.4-10.2); Carbon Dioxide 32 mmol/L (22-30); Chloride 99 mmol/L (98-107); Glucose 183 mg/dL (74-99); Non-African American GFR(CKD) 30 (>60 ml/min/1.73 sqM); Potassium 3.7 mmol/L (3.5-5.1); Sodium 137 mmol/L (137-145)
== END 2023-04-01 17:45 | disposition home or self-care (01) | DRG 880 ==
LOC: EC 05:00 → 4SSUR 06:39
PROVIDERS: ADMIT Hospitalist; ATTEND Hospitalist
DX: F41.0 Panic disorder [episodic paroxysmal anxiety] (principal); I13.0 Hypertensive heart and chronic kidney disease with heart failure and stage 1 through stage 4 chronic kidney disease, or unspecified chronic kidney disease; N17.9 Acute kidney failure, unspecified; I42.9 Cardiomyopathy, unspecified; I50.22 Chronic systolic (congestive) heart failure; F41.1 Generalized anxiety disorder; F06.4 Anxiety disorder due to known physiological condition; T50.2X5A Adverse effect of carbonic-anhydrase inhibitors, benzothiadiazides and other diuretics, initial encounter; N18.9 Chronic kidney disease, unspecified; I49.5 Sick sinus syndrome; I48.0 Paroxysmal atrial fibrillation; G47.30 Sleep apnea, unspecified; E86.0 Dehydration; E03.9 Hypothyroidism, unspecified; E86.1 Hypovolemia; Z79.899 Other long term (current) drug therapy; Z79.890 Hormone replacement therapy; Z79.01 Long term (current) use of anticoagulants; Z88.0 Allergy status to penicillin; Z88.4 Allergy status to anesthetic agent
CPT/HCPCS: 36415; 71045; 76770; 80048; 80053; 81001; 83735; 83880; 84484; 85025; 85610; 85730; 93005; 94640; 99285

== ENCOUNTER 2023-07-11 05:47 | Day surgery (SDC) | payer MEDICARE, OTHER ==
[2023-07-05 12:22] VITALS: BMI 33.8
[2023-07-11] MEDS ORDERED: ALPRAZolam 0.25 MG TAB PO PRN (06:06)
[2023-07-11] MEDS ORDERED: ALPRAZolam 0.5 MG TAB PO PRN (06:06)
[2023-07-11] MEDS ORDERED: ASPIRIN 325 MG TAB PO STA (06:06)
[2023-07-11] MEDS ORDERED: NITROGLYCERIN SL TABS 0.4 MG TAB SUBLINGUAL PRN (06:06)
[2023-07-11] MEDS ORDERED: ATORVASTATIN 80 MG TAB PO STA (06:06)
[2023-07-11] MEDS ORDERED: HEPARIN SODIUM,PORCINE (1 ML) 2,500 UNIT in SODIUM CHLORIDE 0.9% 250 ML IRRIGATION PRN (06:06)
[2023-07-11] MEDS ORDERED: SODIUM CHLORIDE 0.9% 1,000 ML in EMPTY BAG 1 BAG IV ONE (06:06)
[2023-07-11] MEDS ORDERED: HEPARIN SODIUM,PORCINE 10,000 UNIT in SODIUM CHLORIDE 0.9% 1,000 ML IRRIGATION PRN (06:06)
[2023-07-11 06:49] VITALS: RESP 18
[2023-07-11] MEDS ORDERED: VERAPAMIL 2.5 MG/ML 2 ML AMP ONE ×2 (07:42→08:19)
[2023-07-11] MEDS ORDERED: MIDAZOLAM 2 MG/2 ML VIAL IVP ONE ×2 (08:01→08:24)
[2023-07-11] MEDS ORDERED: LIDOCAINE 1% INJ 10MG/ML (20 ML MDV) SQ ONE (08:08)
[2023-07-11] MEDS ORDERED: VERAPAMIL SYRINGE (5 MG/10 ML) INTRAARTER ONE (08:12)
[2023-07-11] MEDS ORDERED: HEPARIN SODIUM 1,000 UN/ML (10ML VL) ONE (08:13)
[2023-07-11] MEDS ORDERED: HEPARIN SODIUM 1,000 UN/ML (10ML VL) IVP ONE (08:16)
[2023-07-11] MEDS ORDERED: hydrALAZINE HCL 20 MG/ML 1 ML VIAL ONE (08:17)
[2023-07-11] MEDS ORDERED: ENALAPRILAT 1.25 MG/ML 1 ML VIAL ONE (08:17)
[2023-07-11] MEDS ORDERED: hydrALAZINE HCL 20 MG/ML 1 ML VIAL IV ONE (08:19)
[2023-07-11] MEDS ORDERED: ENALAPRILAT 1.25 MG/ML 1 ML VIAL IV ONE (08:20)
[2023-07-11] MEDS ORDERED: IOPAMIDOL-370 100ML BTL INJ ONE (08:27)
[2023-07-11] MEDS ORDERED: RX INFO: IV CONTRAST WAS GIVEN 1 EACH MISC MISCELLANE PRN (08:29)
[2023-07-11] MEDS ORDERED: SODIUM CHLORIDE 0.9% 1,000 ML IV SCH (08:30)
--- NOTE | 2023-07-11 08:35 | P.PCN ---
Date of Procedure: 07/11/23 Operative Findings: CARDIAC CATHETERIZATION PERFORMING PHYSICIAN: Vasquez Wisdom MD, RPVI PROCEDURE PERFORMED: 1. Selective right and left coronary angiogram 2. Ultrasound-guided access of the right radial artery INDICATION: Cardiomyopathy COMPLICATION: None APPROACH: Right radial artery LEVEL OF SEDATION: Moderate with a sedation length of [] minutes PROCEDURE DESCRIPTION: After obtaining an informed consent, the patient was brought to cardiac lab rep. Local anesthesia was performed using lidocaine subcutaneously. The right radial artery was cannulated using Seldinger technique, the guidewire passed easily, following that we advanced a 5-Swedish sheath dilator assembly, the wire and dilator were removed and sheath was flushed. Following that, 2 mg of verapamil along with 5000 unit heparin were given. Selective right and left coronary angiogram using a 5-Swedish JR4 and a 4-Swedish JL 3.5 catheters. The procedure was completed there was no complication. SELECTIVE CORONARY ANGIOGRAM: The right coronary artery: Medium caliber vessel with mild disease only. Left main: Is angiographically normal and the short left main. Bifurcates into an LCx and LAD The left circumflex: Large caliber vessel and a dominant vessel. The LCx gives rise into an OM1 which works as ramus intermedius was mild disease only. The circumflex proximally has mild disease only. Distally bifurcates into PDA and PLV branches. The left anterior descending artery: Large caliber vessel. The LAD in the midportion has an intermediate lesion appears to be in the range of 40-50%. This is by the bifurcation of the large diagonal branch which has a lesion appeared to be in the range of 50% as well. CONCLUSION: 1. Intermediate disease involving the mid LAD by the bifurcation of a large diagonal branch which has an ostial lesion appeared to be intermediate as well POSTPROCEDURE MANAGEMENT: Consider medical treatment at this point
[2023-07-11 11:48] VITALS: BP 145/60; PULSE 54
== END 2023-07-11 12:20 | disposition home or self-care (01) ==
LOC: CATHCVL 05:47
PROVIDERS: ATTEND Internal Medicine Interventional Cardiology
DX: I42.9 Cardiomyopathy, unspecified (principal); I08.0 Rheumatic disorders of both mitral and aortic valves; I48.0 Paroxysmal atrial fibrillation; I10 Essential (primary) hypertension; E78.5 Hyperlipidemia, unspecified; G47.33 Obstructive sleep apnea (adult) (pediatric); I42.8 Other cardiomyopathies; Z79.01 Long term (current) use of anticoagulants; Z79.899 Other long term (current) drug therapy
CPT/HCPCS: 93454; 99152; C1769 ×3; C1894; J2250; J0360; J2001; J1644; Q9967

== ENCOUNTER 2023-10-27 18:06 | Inpatient (IN) | payer MEDICARE, OTHER ==
--- NOTE | 2023-10-27 18:41 | XR ---
EXAMINATION TYPE: XR chest 2V DATE OF EXAM: 10/27/2023 COMPARISON: 04/01/2023 INDICATION: Chest pain short of breath TECHNIQUE: Frontal and lateral views of the chest are obtained. FINDINGS: The heart size is slightly prominent. The pulmonary vasculature is normal. Bibasilar infiltrates are present. Small effusions are likely present.. IMPRESSION: 1. Bibasilar infiltrates with small pleural effusions. Correlate for atelectasis or pneumonia. Follow -up is recommended. 2. Cardiomegaly
[2023-10-27] MEDS ORDERED: ASPIRIN 81 MG PO STA (19:04)
[2023-10-27 19:12] LABS: Anisocytosis Slight; Basophils # (A) 0.1 k/uL (0-0.2); Basophils % (A) 1 %; Eosinophils # (A) 0.1 k/uL (0-0.7); Eosinophils % (A) 1 %; HCT 47.1 % (34.0-46.0); HGB 14.8 gm/dL (11.4-16.0); Hypochromasia Moderate; Lymphocytes # (A) 1.8 k/uL (1.0-4.8); Lymphocytes % (A) 16 %; MCHC 31.4 g/dL (31.0-37.0); MCV 95.4 fL (80.0-100.0); Macrocytosis Slight; Mean Platelet Volume 11.1; Monocytes # (A) 0.4 k/uL (0-1.0); Monocytes % (A) 4 %; Neutrophils # (A) 8.5 k/uL (1.3-7.7); Neutrophils % (A) 76 %; Platelet Count 193 k/uL (150-450); RBC 4.94 m/uL (3.80-5.40); WBC 11.1 k/uL (3.8-10.6)
[2023-10-27 19:21] LABS: INR 1.4 (<1.2); Prothrombin Time 14.5 sec (10.0-12.5)
[2023-10-27 19:33] LABS: ALT 25 U/L (4-34); AST 25 U/L (14-36); African American GFR (CKD) 48 (>60 ml/min/1.73 sqM); Alkaline Phosphatase 76 U/L (38-126); Anion Gap 7 mmol/L; Blood Urea Nitrogen 30 mg/dL (7-17); Calcium 10.5 mg/dL (8.4-10.2); Carbon Dioxide 24 mmol/L (22-30); Chloride 109 mmol/L (98-107); Glucose 141 mg/dL (74-99); Non-African American GFR(CKD) 41 (>60 ml/min/1.73 sqM); Sodium 140 mmol/L (137-145); Total Bilirubin 1.1 mg/dL (0.2-1.3); Total Protein 6.3 g/dL (6.3-8.2)
[2023-10-27 19:42] LABS: NT-Pro-B-Type Natriuretic Pept 28900 pg/mL
[2023-10-27] MEDS ORDERED: FUROSEMIDE 10 MG/ML 4 ML VIAL IV STA (19:51)
[2023-10-27] MEDS ORDERED: METOPROLOL TARTRATE 5 MG/5 ML VIAL IVP STA (20:09)
[2023-10-27] MEDS ORDERED: NALOXONE 0.4 MG/ML 1 ML VIAL IV PRN (20:55)
[2023-10-27] MEDS ORDERED: METOPROLOL TARTRATE 25 MG TAB PO STA (22:21)
--- NOTE | 2023-10-27 22:25 | ED ---
General Adult HPI - General Chief complaint: Chest Pain Stated complaint: SOB Time Seen by Provider: 10/27/23 18:39 Source: patient, RN notes reviewed, old records reviewed Mode of arrival: ambulatory Limitations: no limitations - History of Present Illness Initial comments: Patient is a 68-year-old female who presents emergency department complaining of progressively worsening dyspnea, lower extremity swelling, and cough over the last 3 or so weeks. Has a history of CHF per patient but is not on Lasix or diuretic medications. Has a history of A-fib. Has noticed that her heart rate has been more elevated lately. Has no focal complaints at this time. States she has a intermittent chest pressure over this period of time as well. Endorses worsening orthopnea, paroxysmal nocturnal dyspnea, as well as lower extremity swelling and exertional dyspnea. States previously when this is happening, she comes in for IV Lasix and improves and then goes home. States she is not on any diuretic medications at home. Presents for further evaluation at this time. - Related Data Home Medications Medication Instructions Recorded Confirmed Ferrous Sulfate [Iron] 325 mg PO DAILY 12/15/21 10/27/23 Levothyroxine Sodium [Synthroid] 137 mcg PO DAILY 12/15/21 10/27/23 Ergocalciferol [Vitamin D2 (1250 1,250 mcg PO WE 03/28/23 10/27/23 Mcg = 72145 Iu)] Amiodarone [Cordarone] 100 mg PO DAILY 07/05/23 10/27/23 Metoprolol Tartrate [Lopressor] 50 mg PO BID 07/05/23 10/27/23 Apixaban [Eliquis] 5 mg PO BID 10/27/23 10/27/23 Atorvastatin [Lipitor] 40 mg PO DAILY 10/27/23 10/27/23 Allergies Allergy/AdvReac Type Severity Reaction Status Date / Time benzocaine Allergy Anaphylaxis Verified 10/27/23 21:10 Penicillins Allergy Unknown Verified 10/27/23 21:10 Childhood Review of Systems ROS Statement: Those systems with pertinent positive or pertinent negative responses have been documented in the HPI. Review of Systems: CONST: Denies fever EYES: Denies blurry vision ENT: Denies nasal congestion C/V: Denies Chest pain RESP: Endorses exertional shortness of breath GI: Denies abdominal pain : Denies dysuria SKIN: Denies rash. MSK: Denies joint pain. NEURO: Denies headache ROS Other: All systems not noted in ROS Statement are negative. Past Medical History Past Medical History: Atrial Fibrillation, Hypertension, Sleep Apnea/CPAP/BIPAP Additional Past Medical History / Comment(s): acromegly, previous cardioversion, wears Bipap at home. 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 HEAD: Normal with no signs of head trauma. EYES: PERRLA, EOMI, conjunctiva normal, no discharge. ENT: Hearing grossly intact, normal oropharynx. RESPIRATORY: Coarse breath sounds bilaterally. Mild hypoxia to 93 to 95% on room air. No significant increased work of breathing. C/V: Irregular rate and rhythm. S1 and S2 auscultated. Bilateral symmetrical pitting edema. Peripheral pulses 2+ intact throughout. ABD: Abd is soft, nontender, nondistended EXT: Normal range of motion, no obvious deformity SKIN: No rashes or lesions observed on exposed skin. NEURO: Alert and oriented x 4. Limitations: no limitations Course Vital Signs 10/27/23 10/27/23 10/27/23 18:09 18:45 18:48 Temperature 98 F Pulse Rate 128 H 126 H Pulse Rate [ 125 H Paramedic Instructor ] Respiratory 18 22 Rate Blood Pressure 152/115 166/122 O2 Sat by Pulse 98 97 Oximetry 10/27/23 10/27/23 10/27/23 19:51 20:42 22:06 Temperature Pulse Rate 125 H 110 H 113 H Pulse Rate [ Paramedic Instructor ] Respiratory 24 22 19 Rate Blood Pressure 142/105 157/118 125/97 O2 Sat by Pulse 94 L 93 L 95 Oximetry Medical Decision Making - Medical Decision Making Was pt. sent in by a medical professional or institution (, PA, ELECTRIC TRUCK CRANE OPERATOR, urgent care, hospital, or custodial...) When possible be specific @ -No Did you speak to anyone other than the patient for history (EMS, parent, family, police, friend...)? What history was obtained from this source @ -No Did you review nursing and triage notes (agree or disagree)? Why? @ -I reviewed and agree with nursing and triage notes Were old charts reviewed (outside hosp., previous admission, EMS record, old EKG, old radiological studies, urgent care reports/EKG's, custodial records)? Report findings @ -Old charts reviewed Differential Diagnosis (chest pain, altered mental status, abdominal pain women, abdominal pain men, vaginal bleeding, weakness, fever, dyspnea, syncope, headache, dizziness, GI bleed, back pain, seizure, CVA, palpatations, mental health, musculoskeletal)? @ -Differential Dyspnea: Coronary syndrome, arrhythmia, tamponade, asthma, COPD, pulmonary embolism, pneumonia, pneumothorax, pulmonary effusion, anaphylaxis, diabetic ketoacidosis, flailed chest, pulmonary contusion, diaphragmatic rupture, anemia, neuromuscular, this is not meant to be an all-inclusive list. EKG interpreted by me (3pts min.). @ -As above X-rays interpreted by me (1pt min.). @ -Chest x-ray reveals bilateral pulm vascular congestion as well as small bilateral pleural effusions. CT interpreted by me (1pt min.). @ -None done U/S interpreted by me (1pt. min.). @ -None done What testing was considered but not performed or refused? (CT, X-rays, U/S, labs)? Why? @ -None What meds were considered but not given or refused? Why? @ -None Did you discuss the management of the patient with other professionals (professionals i.e. , PA, ELECTRIC TRUCK CRANE OPERATOR, lab, RT, psych nurse, psychiatric social worker, gas distribution plant operator, teacher, employment officer, manager of case)? Give summary @ -Discussed with PACO Quintero of [facility] who accepted the admission. Was smoking cessation discussed for >3mins.? @ -No Was critical care preformed (if so, how long)? @ -No Were there social determinants of health that impacted care today? How? (Homelessness, low income, unemployed, alcoholism, drug addiction, transportation, low edu. Level, literacy, decrease access to med. care, group home, rehab)? @ -No Was there de-escalation of care discussed even if they declined (Discuss DNR or withdrawal of care, Hospice)? DNR status @ -No What co-morbidities impacted this encounter? (DM, HTN, Smoking, COPD, CAD, Cancer, CVA, ARF, Chemo, Hep., AIDS, mental health diagnosis, sleep apnea, morbid obesity)? @ -Atrial fibrillation Was patient admitted / discharged? Hospital course, mention meds given and route, prescriptions, significant lab abnormalities, going to OR and other pertinent info. @ -Based on the patient's presentation and physical exam, presents with A-fib with RVR but also what appears to be a CHF exacerbation. Patient has worsening orthopnea, PND, exertional dyspnea, lower extremity edema. Patient has a history of A-fib and took all of her medications today including evening medications. Symptoms have been ongoing for multiple weeks. We will obtain cardiopulmonary workup. Patient was in agreement this plan. Vital signs remarkable for A-fib with RVR. Did improve with a small dose of IV metoprolol 2.5 mg. Current heart rate is upper 90s to 113.. We will continue to monitor closely. If she did respond to IV push 2.5 mg I did load the patient with an additional 25 mg of oral metoprolol at this time. EKG shows A-fib with RVR. Chest x-ray shows bilateral pulmonary vascular congestion and bilateral pleural effusions. Patient's laboratory studies remarkable for slight leukocytosis of 11.1. BNP is 28,000. Troponin undetectable. Patient is also COVID-positive. At this time I would like to admit the patient for CHF exacerbation. She is placed on twice daily Lasix, echo was ordered. Patient was in agreement this plan. Cardiology consulted. I spoke with the admitting team, PACO Quintero of [facility] who accepted the admission. Undiagnosed new problem with uncertain prognosis? @ -No Drug Therapy requiring intensive monitoring for toxicity (Heparin, Nitro, Insulin, Cardizem)? @ -No Were any procedures done? @ -No Diagnosis/symptom? @ -CHF exacerbation, A-fib with RVR Acute, or Chronic, or Acute on Chronic? @ -Acute on chronic Uncomplicated (without systemic symptoms) or Complicated (systemic symptoms)? @ -Complicated Side effects of treatment? @ -No Exacerbation, Progression, or Severe Exacerbation? @ -No Poses a threat to life or bodily function? How? (Chest pain, [place], NH, pneumonia, PE, COPD, DKA, ARF, appy, cholecystitis, CVA, Diverticulitis, Homicidal, Suicidal, threat to staff... and all critical care pts) @ -Yes Diagnosis/symptom? @ -COVID-19 infection Acute, or Chronic, or Acute on Chronic? @ -Acute Uncomplicated (without systemic symptoms) or Complicated (systemic symptoms)? @ -Complicated Side effects of treatment? @ -None Exacerbation, Progression, or Severe Exacerbation] @ -No Poses a threat to life or bodily function? @ -Yes - Lab Data Result diagrams: 10/27/23 18:42 10/27/23 18:42 Lab Results 10/27/23 10/27/23 10/27/23 Range/Units 18:42 18:42 18:42 WBC 11.1 H (3.8-10.6) k/uL RBC 4.94 (3.80-5.40) m/uL Hgb 14.8 (11.4-16.0) gm/dL Hct 47.1 H (34.0-46.0) % MCV 95.4 (80.0-100.0) fL MCH 30.0 (25.0-35.0) pg MCHC 31.4 (31.0-37.0) g/dL RDW 17.0 H (11.5-15.5) % Plt Count 193 (150-450) k/uL MPV 11.1 Neutrophils % 76 % Lymphocytes % 16 % Monocytes % 4 % Eosinophils % 1 % Basophils % 1 % Neutrophils # 8.5 H (1.3-7.7) k/uL Lymphocytes # 1.8 (1.0-4.8) k/uL Monocytes # 0.4 (0-1.0) k/uL Eosinophils # 0.1 (0-0.7) k/uL Basophils # 0.1 (0-0.2) k/uL Hypochromasia Moderate Anisocytosis Slight Macrocytosis Slight PT 14.5 H (10.0-12.5) sec INR 1.4 H (<1.2) APTT 29.0 (22.0-30.0) sec Sodium 140 (137-145) mmol/L Potassium 5.0 (3.5-5.1) mmol/L Chloride 109 H (98-107) mmol/L Carbon Dioxide 24 (22-30) mmol/L Anion Gap 7 mmol/L BUN 30 H (7-17) mg/dL Creatinine 1.31 H (0.52-1.04) mg/dL Est GFR (CKD-EPI)AfAm 48 (>60 ml/min/1.73 sqM) Est GFR (CKD-EPI)NonAf 41 (>60 ml/min/1.73 sqM) Glucose 141 H (74-99) mg/dL Calcium 10.5 H (8.4-10.2) mg/dL Magnesium 2.0 (1.6-2.3) mg/dL Total Bilirubin 1.1 (0.2-1.3) mg/dL AST 25 (14-36) U/L ALT 25 (4-34) U/L Alkaline Phosphatase 76 (38-126) U/L Troponin I (0.000-0.034) ng/mL NT-Pro-B Natriuret Pep 83327 pg/mL Total Protein 6.3 (6.3-8.2) g/dL Albumin 4.0 (3.5-5.0) g/dL Influenza Type A (PCR) (Not Detectd) Influenza Type B (PCR) (Not Detectd) RSV (PCR) (Not Detectd) SARS-CoV-2 (PCR) (Not Detectd) 10/27/23 10/27/23 Range/Units 18:42 19:05 WBC (3.8-10.6) k/uL RBC (3.80-5.40) m/uL Hgb (11.4-16.0) gm/dL Hct (34.0-46.0) % MCV (80.0-100.0) fL MCH (25.0-35.0) pg MCHC (31.0-37.0) g/dL RDW (11.5-15.5) % Plt Count (150-450) k/uL MPV Neutrophils % % Lymphocytes % % Monocytes % % Eosinophils % % Basophils % % Neutrophils # (1.3-7.7) k/uL Lymphocytes # (1.0-4.8) k/uL Monocytes # (0-1.0) k/uL Eosinophils # (0-0.7) k/uL Basophils # (0-0.2) k/uL Hypochromasia Anisocytosis Macrocytosis PT (10.0-12.5) sec INR (<1.2) APTT (22.0-30.0) sec Sodium (137-145) mmol/L Potassium (3.5-5.1) mmol/L Chloride (98-107) mmol/L Carbon Dioxide (22-30) mmol/L Anion Gap mmol/L BUN (7-17) mg/dL Creatinine (0.52-1.04) mg/dL Est GFR (CKD-EPI)AfAm (>60 ml/min/1.73 sqM) Est GFR (CKD-EPI)NonAf (>60 ml/min/1.73 sqM) Glucose (74-99) mg/dL Calcium (8.4-10.2) mg/dL Magnesium (1.6-2.3) mg/dL Total Bilirubin (0.2-1.3) mg/dL AST (14-36) U/L ALT (4-34) U/L Alkaline Phosphatase (38-126) U/L Troponin I <0.012 (0.000-0.034) ng/mL NT-Pro-B Natriuret Pep pg/mL Total Protein (6.3-8.2) g/dL Albumin (3.5-5.0) g/dL Influenza Type A (PCR) Not Detected (Not Detectd) Influenza Type B (PCR) Not Detected (Not Detectd) RSV (PCR) Not Detected (Not Detectd) SARS-CoV-2 (PCR) Detected A (Not Detectd) - EKG Data -: EKG Interpreted by Me EKG Comments: 12-lead Electrocardiogram Interpretation Note EKG was reviewed and interpreted by myself. 12-lead ECG performed at 181 is interpreted by me as revealing atrial fibrillation with RVR at a rate of 125 beats per minute. Left axis deviation. QRS duration is 136 ms, QTc is 396 ms.. There were no ST or T wave abnormalities to suggest myocardial ischemia or injury. R wave progression across the precordium was delayed. By my interpretation this EKG is non-diagnostic for acute ischemia. 12-lead Electrocardiogram Interpretation Note EKG was reviewed and interpreted by myself. 12-lead ECG performed at 1999 is interpreted by me as revealing A-fib with RVR at a rate of 115 beats per minute. Left axis deviation. QRS duration is 140 ms, QTc is 400 ms.. There were no ST or T wave abnormalities to suggest myocardial ischemia or injury. R wave progression across the precordium was delayed. By my interpretation this EKG is non-diagnostic for acute ischemia. Disposition Clinical Impression: Atrial fibrillation with RVR, CHF (congestive heart failure), COVID-19 virus infection Disposition: ADMITTED IP TO THIS HOSP Condition: Stable Time of Disposition: 20:40
[2023-10-28] MEDS ORDERED: IPRATROPIUM-ALBUTEROL 3 ML NEB INHALATION PRN (03:30)
[2023-10-28] MEDS ORDERED: ALBUTEROL HFA INHALER INHALATION PRN (03:53)
[2023-10-28] MEDS: LEVOTHYROXINE 137 MCG TAB PO SCH (06:15)
[2023-10-28 07:56] LABS: African American GFR (CKD) 52 (>60 ml/min/1.73 sqM); Anion Gap 11 mmol/L; Blood Urea Nitrogen 27 mg/dL (7-17); Calcium 10.3 mg/dL (8.4-10.2); Carbon Dioxide 19 mmol/L (22-30); Chloride 111 mmol/L (98-107); Glucose 104 mg/dL (74-99); Non-African American GFR(CKD) 45 (>60 ml/min/1.73 sqM); Sodium 141 mmol/L (137-145)
[2023-10-28 08:02] LABS: Potassium 4.2 mmol/L (3.5-5.1)
[2023-10-28 08:44] LABS: Anisocytosis Slight; Basophils % (A) 0 %; Eosinophils # (A) 0.2 k/uL (0-0.7); Eosinophils % (A) 2 %; HCT 45.4 % (34.0-46.0); HGB 14.6 gm/dL (11.4-16.0); Hypochromasia Moderate; Lymphocytes # (A) 1.6 k/uL (1.0-4.8); Lymphocytes % (A) 15 %; MCH 30.6 pg (25.0-35.0); MCHC 32.2 g/dL (31.0-37.0); Macrocytosis Slight; Mean Platelet Volume 10.1; Monocytes # (A) 0.4 k/uL (0-1.0); Monocytes % (A) 3 %; Neutrophils # (A) 8.4 k/uL (1.3-7.7); Neutrophils % (A) 78 %; Platelet Count 174 k/uL (150-450); RBC 4.78 m/uL (3.80-5.40); RDW 16.8 % (11.5-15.5); WBC 10.7 k/uL (3.8-10.6)
[2023-10-28] MEDS: FUROSEMIDE 10 MG/ML 4 ML VIAL IV SCH ×2 (08:56→20:11)
[2023-10-28] MEDS: SACUBITRIL/VALSARTAN 24 MG-26 MG TABLET PO SCH ×2 (08:56→20:11)
[2023-10-28] MEDS: METOPROLOL TARTRATE 25 MG TAB PO SCH ×2 (08:56→20:11)
[2023-10-28] MEDS: DAPAGLIFLOZIN PROPANEDIOL 10 MG TABLET PO SCH (08:56)
[2023-10-28] MEDS: APIXABAN 5 MG TAB PO SCH ×2 (08:56→20:11)
[2023-10-28] MEDS: ATORVASTATIN 40 MG TAB PO SCH (08:57)
[2023-10-28] MEDS: FERROUS SULFATE 325 MG TAB PO SCH (08:57)
[2023-10-28] MEDS ORDERED: AMIODARONE 100 MG TAB PO SCH (09:00)
[2023-10-28] MEDS ORDERED: METOPROLOL TARTRATE 50 MG TAB PO SCH (09:00)
--- NOTE | 2023-10-28 09:41 | P.CRDCN ---
History of Present Illness History of present illness: HISTORY OF PRESENT ILLNESS: This is a 68-year-old female with a past medical history significant for nonobstructive CAD, nonobstructive cardiomyopathy, valvular heart disease, hypertension, hyperlipidemia, paroxysmal atrial fibrillation, and hypothyroidism. Patient follows in the office with Dr. Wisdom. We have been asked to see the patient in consultation for atrial fibrillation and congestive heart failure. Patient examined at the bedside in the emergency room. Patient presented to the hospital with chief complaint of shortness of breath. She states since the beginning of September she has been feeling generally unwell. She reports significant weakness and shortness of breath. She states she is unable to walk a fair distance due to shortness of breath. She does report occa sional palpitations. She also reports weight gain since September. She currently denies chest pain or pressure. At the time of examination, the patient is atrial fibrillation with a heart rate in the 120s. DIAGNOSTICS: - EKG reveals atrial fibrillation with RVR. - Chest xray bibasilar infiltrates with small pleural effusions. Correlate for atelectasis or pneumonia. Cardiomegaly.. - Laboratory data: WBC 10.7. Hemoglobin 14.6. Platelet count 174. Sodium 141. Potassium 4.2. BUN 27. Creatinine 1.22. Troponin negative x 1. proBNP 28,900. Patient was found be positive for COVID - Current home cardiac medications include Eliquis 5 mg twice a day, metoprolol titrate 50 mg twice a day, Lipitor 40 mg daily, and amiodarone 100 mg daily - Most recent echocardiogram obtained in March 2023 revealed ejection fraction 35%, moderate mitral regurgitation, moderate Regurgitation, and moderate aortic regurgitation - Cardiac catheterization history: June 2023 revealing intermediate disease of the LAD by the bifurcation of a large diagonal branch which has an ostial lesion appears to be intermediate as well. Medical management was recommended. REVIEW OF SYSTEMS: At the time of my exam: CONSTITUTIONAL: Denies fever or chills. HEENT: Denies blurred vision, vision changes, or eye pain. Denies hemoptysis CARDIOVASCULAR: Denies chest pain. Reports orthopnea. Reports PND. Reports palpitations RESPIRATORY: Reports shortness of breath. GASTROINTESTINAL: Denies abdominal pain. Denies nausea or vomiting. HEMATOLOGIC: Denies bleeding disorders. GENITOURINARY: Denies any blood in urine. SKIN: Denies pruitis. Denies rash. PHYSICAL EXAM: VITAL SIGNS: Reviewed. GENERAL: Well-developed in no acute distress. HEENT: Head is normocephalic. Pupils are equal, round. Sclerae anicteric. Mucous membranes of the mouth are moist. Neck supple. No JVD or thyromegaly LUNGS: Respirations even and unlabored. Lungs diminished with bibasilar rales HEART: Tachycardic. Irregular rate and rhythm. S1 and S2 heard. Systolic murmur noted ABDOMEN: Soft. Nondistended. Nontender. EXTREMITIES: Normal range of motion. No clubbing or cyanosis. Peripheral pulses intact. 1+ bilateral lower extremity edema NEUROLOGIC: Awake and alert. Oriented x 3. ASSESSMENT: Shortness of breath x 6 weeks Acute COVID-19 Acute heart failure with reduced EF, 35% Atrial fibrillation with RVR, appears persistent History of cardioversion, x 3 Nonobstructive CAD Nonischemic cardiomyopathy Valvular heart disease Hypertension Hyperlipidemia Hypothyroidism PLAN: Obtain 2D echo to assess cardiac structure and function Discontinue oral amiodarone Increase metoprolol tartrate to 75 mg twice a day Begin Entresto 24 mg - 26 mg twice a day Add Farxiga 10 mg daily Continue IV Lasix 40 mg every 12 hours Daily weights, accurate intake and output, and monitoring of kidney function Consider ablation on an outpatient basis after patient has recovered from her acute issues Further recommendations pending patient course Nurse practitioner note has been reviewed by physician. Signing provider agrees with the documented findings, assessment, and plan of care documented by SENIOR INTERNATIONAL TAX MANAGER as a scribe. Past Medical History Past Medical History: Atrial Fibrillation, Hypertension, Sleep Apnea/CPAP/BIPAP Additional Past Medical History / Comment(s): acromegly, previous cardioversion, wears Bipap at home. 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, part of esophagus removed Past Anesthesia/Blood Transfusion Reactions: No Reported Reaction Additional Past Anesthesia/Blood Transfusion Reaction / Comment(s): Allergy to Benzocaine Past Psychological History: No Psychological Hx Reported Smoking Status: Never smoker Past Alcohol Use History: None Reported Past Drug Use History: None Reported Medications and Allergies Home Medications Medication Instructions Recorded Confirmed Type Ferrous Sulfate [Iron] 325 mg PO DAILY 12/15/21 10/27/23 History Levothyroxine Sodium [Synthroid] 137 mcg PO DAILY 12/15/21 10/27/23 History Ergocalciferol [Vitamin D2 (1250 1,250 mcg PO WE 03/28/23 10/27/23 History Mcg = 14172 Iu)] Amiodarone [Cordarone] 100 mg PO DAILY 07/05/23 10/27/23 History Metoprolol Tartrate [Lopressor] 50 mg PO BID 07/05/23 10/27/23 History Apixaban [Eliquis] 5 mg PO BID 10/27/23 10/27/23 History Atorvastatin [Lipitor] 40 mg PO DAILY 10/27/23 10/27/23 History Allergies Allergy/AdvReac Type Severity Reaction Status Date / Time benzocaine Allergy Anaphylaxis Verified 10/27/23 21:10 Penicillins Allergy Unknown Verified 10/27/23 21:10 Childhood Physical Exam Vitals: Vital Signs Temp Pulse Pulse Resp BP Pulse Ox 10/28/23 08:08 120 H 18 134/104 96 10/28/23 07:05 115 H 27 H 159/121 98 10/28/23 05:51 109 H 23 166/124 97 10/28/23 04:14 97 10/28/23 04:00 105 H 13 159/101 96 10/28/23 03:15 97.6 F 103 H 20 159/101 99 10/28/23 03:00 99 10/28/23 02:00 93 19 181/129 95 10/28/23 01:00 101 H 17 168/120 98 10/28/23 00:00 108 H 23 153/129 98 10/27/23 23:00 105 H 22 125/97 94 L 10/27/23 22:06 113 H 19 125/97 95 10/27/23 20:42 110 H 22 157/118 93 L 10/27/23 19:51 125 H 24 142/105 94 L 10/27/23 18:48 126 H 22 166/122 97 10/27/23 18:45 125 H 10/27/23 18:09 98 F 128 H 18 152/115 98 Intake and Output 10/27/23 10/28/23 10/28/23 22:59 06:59 14:59 Other: Weight 83.915 kg Results 10/28/23 08:40 10/28/23 07:18 Cardiac Enzymes 10/27/23 10/27/23 Range/Units 18:42 18:42 AST 25 (14-36) U/L Troponin I <0.012 (0.000-0.034) ng/mL Coagulation 10/27/23 Range/Units 18:42 PT 14.5 H (10.0-12.5) sec APTT 29.0 (22.0-30.0) sec CBC 10/27/23 10/28/23 Range/Units 18:42 08:40 WBC 11.1 H 10.7 H (3.8-10.6) k/uL RBC 4.94 4.78 (3.80-5.40) m/uL Hgb 14.8 14.6 (11.4-16.0) gm/dL Hct 47.1 H 45.4 (34.0-46.0) % Plt Count 193 174 (150-450) k/uL Comprehensive Metabolic Panel 10/27/23 10/28/23 Range/Units 18:42 07:18 Sodium 140 141 (137-145) mmol/L Potassium 5.0 4.2 (3.5-5.1) mmol/L Chloride 109 H 111 H (98-107) mmol/L Carbon Dioxide 24 19 L (22-30) mmol/L BUN 30 H 27 H (7-17) mg/dL Creatinine 1.31 H 1.22 H (0.52-1.04) mg/dL Glucose 141 H 104 H (74-99) mg/dL Calcium 10.5 H 10.3 H (8.4-10.2) mg/dL AST 25 (14-36) U/L ALT 25 (4-34) U/L Alkaline Phosphatase 76 (38-126) U/L Total Protein 6.3 (6.3-8.2) g/dL Albumin 4.0 (3.5-5.0) g/dL Current Medications Generic Name Dose Route Start Last Admin Trade Name Freq PRN Reason Stop Dose Admin Albuterol Sulfate 2 puff 10/28/23 03:53 10/28/23 04:09 Albuterol Hfa Inhaler INHALATION 2 puff RT-Q6H PRN Administration Shortness Of Breath Or Wheezing Apixaban 5 mg 10/28/23 09:00 10/28/23 08:56 Apixaban 5 Mg Tab PO 5 mg BID MANISHA Administration Protocol Atorvastatin Calcium 40 mg 10/28/23 09:00 10/28/23 08:57 Atorvastatin 40 Mg Tab PO 40 mg DAILY MANISHA Administration Dapagliflozin 10 mg 10/28/23 09:00 10/28/23 08:56 Dapagliflozin Propanediol 10 Mg Tablet PO 10 mg DAILY MANISHA Administration Ferrous Sulfate 325 mg 10/28/23 09:00 10/28/23 08:57 Ferrous Sulfate 325 Mg Tab PO 325 mg DAILY MANISHA Administration Furosemide 40 mg 10/28/23 09:00 10/28/23 08:56 Furosemide 10 Mg/Ml 4 Ml Vial IV 40 mg Q12HR MANISHA Administration Levothyroxine Sodium 137 mcg 10/28/23 06:30 10/28/23 06:15 Levothyroxine 137 Mcg Tab PO 137 mcg DAILY@0630 MANISHA Administration Metoprolol Tartrate 75 mg 10/28/23 09:00 10/28/23 08:56 Metoprolol Tartrate 25 Mg Tab PO 75 mg BID MANISHA Administration Naloxone HCl 0.2 mg 10/27/23 20:55 Naloxone 0.4 Mg/Ml 1 Ml Vial IV Q2M PRN Opioid Reversal Sacubitril/Valsartan 1 each 10/28/23 09:00 10/28/23 08:56 Sacubitril/Valsartan 24 Mg-26 Mg Tablet PO 1 each BID MANISHA Administration Intake and Output 10/27/23 10/28/23 10/28/23 22:59 06:59 14:59 Other: Weight 83.915 kg 10/28/23 08:40 10/28/23 07:18
--- NOTE | 2023-10-28 13:25 | P.HPIM ---
History of Present Illness H&P Date: 10/28/23 History of present illness; patient 68-year-old lady with past medical history s ignificant for CHF, atrial fibrillation for the ER because of worsening shortness of breath. Patient stated that for last few days she has been noticing that she is getting increasing short of breath on exertion. There was complaining of cough. She noticed that her heart was fluttering. She was also complaining of cough. Denied any fever or chills. Patient complaining of intermittent chest pressure, present at rest, aggravated by exertion. Patient is also complaining of orthopnea. There was complaining of swelling of lower extremities. Denies any nausea or vomiting. There was no complain of lightheadedness or dizziness Initial lab work done in the ER showed WBC 11.1, hemoglobin 14.8, platelet count 193, sodium 140, potassium 5, BUN 30, creatinine 1.31, glucose 141, calcium 10.5 total bilirubin 1.1 AST 25, ALT 25, Influenza A not detected Influenza B not detected RSV not detected COVID-19 detected EKG done in the ER showed heart rate of 115, irregular in rhythm, no ST segment elevation or depression seen, no T-wave inversions seen. Chest x-ray done in the ER showed bibasilar infiltrates with small pleural effusions. Patient admitted to internal medicine service REVIEW OF SYSTEMS: CONSTITUTIONAL: No fever, no malaise, no fatigue. HEENT: No recent visual problems or hearing problems. Denied any sore throat. CARDIOVASCULAR: As mentioned in HPI PULMONARY: As mentioned in HPI GASTROINTESTINAL: No diarrhea, no nausea, no vomiting, no abdominal pain. NEUROLOGICAL: No headaches, no weakness, no numbness. HEMATOLOGICAL: Denies any bleeding or petechiae. GENITOURINARY: Denies any burning micturition, frequency, or urgency. MUSCULOSKELETAL/RHEUMATOLOGICAL: Denies any joint pain, swelling, or any muscle pain. ENDOCRINE: Denies any polyuria or polydipsia. The rest of the 14-point review of systems is negative. PHYSICAL EXAMINATION: GENERAL: The patient is alert and oriented x3, not in any acute distress. Well developed, well nourished. HEENT: Pupils are round and equally reacting to light. EOMI. No scleral icterus. No conjunctival pallor. Normocephalic, atraumatic. No pharyngeal erythema. No thyromegaly. CARDIOVASCULAR: S1 and S2 present. No murmurs, rubs, or gallops. PULMONARY: Chest is clear to auscultation, no wheezing or crackles. ABDOMEN: Soft, nontender, nondistended, normoactive bowel sounds. No palpable organomegaly. MUSCULOSKELETAL: No joint swelling or deformity. EXTREMITIES: 1+ pitting edema lower extremities bilaterally NEUROLOGICAL: Gross neurological examination did not reveal any focal deficits. SKIN: No rashes. Assessment and plan A. fib with RVR Acute hypoxic respiratory failure Acute on chronic systolic CHF History of cardioversion, x 3 Nonobstructive CAD Nonischemic cardiomyopathy Valvular heart disease Acute kidney injury Hypercalcemia COVID-19 infection Hyperlipidemia Hypothyroidism Monitor vital signs Monitor CBC Monitor CMP Continue telemetry monitoring Aggressive bronchopulmonary hygiene Continue COVID-19 isolation Continue breathing treatments Strict I's and O's, daily dose, continue IV Lasix 40 mg every 12 2-D echo ordered Resume Lipitor Resume Synthroid Consult cardiology Consult pulmonary Labs and medication were reviewed.. Continue same treatment. Continue with symptomatic treatment. Resume home medication. Monitor labs and vitals. DVT and GI prophylaxis. Further recommendations as per clinical course of the patient Dictation was produced using [employer] dictation software. please excuse any grammatical, word or spelling errors. Past Medical History Past Medical History: Atrial Fibrillation, Hypertension, Sleep Apnea/CPAP/BIPAP Additional Past Medical History / Comment(s): acromegly, previous cardioversion, wears Bipap at home. 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, part of esophagus removed Past Anesthesia/Blood Transfusion Reactions: No Reported Reaction Additional Past Anesthesia/Blood Transfusion Reaction / Comment(s): Allergy to Benzocaine Past Psychological History: No Psychological Hx Reported Smoking Status: Never smoker Past Alcohol Use History: None Reported Past Drug Use History: None Reported Medications and Allergies Home Medications Medication Instructions Recorded Confirmed Type Ferrous Sulfate [Iron] 325 mg PO DAILY 12/15/21 10/27/23 History Levothyroxine Sodium [Synthroid] 137 mcg PO DAILY 12/15/21 10/27/23 History Ergocalciferol [Vitamin D2 (1250 1,250 mcg PO WE 03/28/23 10/27/23 History Mcg = 16040 Iu)] Amiodarone [Cordarone] 100 mg PO DAILY 07/05/23 10/27/23 History Metoprolol Tartrate [Lopressor] 50 mg PO BID 07/05/23 10/27/23 History Apixaban [Eliquis] 5 mg PO BID 10/27/23 10/27/23 History Atorvastatin [Lipitor] 40 mg PO DAILY 10/27/23 10/27/23 History Allergies Allergy/AdvReac Type Severity Reaction Status Date / Time benzocaine Allergy Anaphylaxis Verified 10/27/23 21:10 Penicillins Allergy Unknown Verified 10/27/23 21:10 Childhood Physical Exam Vitals: Vital Signs Temp Pulse Pulse Resp BP Pulse Ox 10/28/23 08:08 120 H 18 134/104 96 10/28/23 07:05 115 H 27 H 159/121 98 10/28/23 05:51 109 H 23 166/124 97 10/28/23 04:14 97 10/28/23 04:00 105 H 13 159/101 96 10/28/23 03:15 97.6 F 103 H 20 159/101 99 10/28/23 03:00 99 10/28/23 02:00 93 19 181/129 95 10/28/23 01:00 101 H 17 168/120 98 10/28/23 00:00 108 H 23 153/129 98 10/27/23 23:00 105 H 22 125/97 94 L 10/27/23 22:06 113 H 19 125/97 95 10/27/23 20:42 110 H 22 157/118 93 L 10/27/23 19:51 125 H 24 142/105 94 L 10/27/23 18:48 126 H 22 166/122 97 10/27/23 18:45 125 H 10/27/23 18:09 98 F 128 H 18 152/115 98 Intake and Output 10/27/23 10/28/23 10/28/23 22:59 06:59 14:59 Other: Weight 83.915 kg Results CBC & Chem 7: 10/28/23 08:40 10/28/23 07:18 Labs: Abnormal Lab Results - Last 24 Hours (Table) 10/27/23 10/27/23 10/27/23 Range/Units 18:42 18:42 18:42 WBC 11.1 H (3.8-10.6) k/uL Hct 47.1 H (34.0-46.0) % RDW 17.0 H (11.5-15.5) % Neutrophils # 8.5 H (1.3-7.7) k/uL PT 14.5 H (10.0-12.5) sec INR 1.4 H (<1.2) Chloride 109 H (98-107) mmol/L Carbon Dioxide (22-30) mmol/L BUN 30 H (7-17) mg/dL Creatinine 1.31 H (0.52-1.04) mg/dL Glucose 141 H (74-99) mg/dL Calcium 10.5 H (8.4-10.2) mg/dL SARS-CoV-2 (PCR) (Not Detectd) 10/27/23 10/28/23 10/28/23 Range/Units 19:05 07:18 08:40 WBC 10.7 H (3.8-10.6) k/uL Hct (34.0-46.0) % RDW 16.8 H (11.5-15.5) % Neutrophils # 8.4 H (1.3-7.7) k/uL PT (10.0-12.5) sec INR (<1.2) Chloride 111 H (98-107) mmol/L Carbon Dioxide 19 L (22-30) mmol/L BUN 27 H (7-17) mg/dL Creatinine 1.22 H (0.52-1.04) mg/dL Glucose 104 H (74-99) mg/dL Calcium 10.3 H (8.4-10.2) mg/dL SARS-CoV-2 (PCR) Detected A (Not Detectd)
[2023-10-28] MEDS ORDERED: METOPROLOL TARTRATE 50 MG TAB PO STA (15:42)
--- NOTE | 2023-10-28 15:45 | P.CNPUL ---
History of Present Illness Consult date: 10/28/23 Requesting physician: Patrizia Pope Reason for consult: dyspnea, cough Chief complaint: Shortness of breath, cough, lower extremity edema History of present illness: This is a pleasant 68-year-old female patient with a known history of hypothyroidism, atrial fibrillation anticoagulated with Eliquis, hyperlipidemia, hypertension, obstructive sleep apnea utilizing BiPAP, acromegaly, non-smoker. Cardiac catheterization from July 2023 revealed intermediate disease involving the mid LAD, treated medically. Echocardiogram from March 2023 revealed impaired left ventricular systolic function with ejection fraction of 30 to 35%. She presented here to the emergency room last evening with a 3 to 4- week history of increasing shortness of breath swelling of the lower extremities dry nonproductive cough. Chest x-ray shows some basilar infiltrates with small effusions. Cardiomegaly. White count 10.7. Hemoglobin 14.6. Platelets 174. Sodium 141. Potassium 4.2. Bicarb 19. BUN 27. Creatinine 1.22. Glucose 104. proBNP 28,900. Troponin negative x 1. Viral screen was positive for COVID-19 infection. She is seen today in consultation in the emergency department. Currently sitting up in a stretcher. Awake and alert in no acute distress. She is maintaining good O2 saturations in the 90s on room air. She is breathing a bit easier today compared to yesterday. She has been initiated on Lasix 40 mg IV every 12 hours. Review of Systems REVIEW OF SYSTEMS: CONSTITUTIONAL: Denies any recent significant weight loss or weight gain. EYES: Denies change in vision. EARS, NOSE, MOUTH, THROAT: Denies headaches, denies sore throat. CARDIOVASCULAR: Denies chest pain, palpitations or syncopal episodes. RESPIRATORY: Positive for shortness of breath, cough, congestion no hemoptysis. GASTROINTESTINAL: Denies change in appetite, denies abdominal pain GENITOURINARY: Denies hematuria, denies infections. MUSKULOSKELETAL: Positive for lower extremity swelling. INTEGUMENTARY: Denies rash, denies eczema. NEUROLOGICAL: Denies recent memory loss, no recent seizure activity. PSYCHIATRIC: Denies anxiety, denies depression. HEMATOLOGIC/LYMPHATIC: Denies anemia, denies enlarged lymph nodes. Past Medical History Past Medical History: Atrial Fibrillation, Hypertension, Sleep Apnea/CPAP/BIPAP Additional Past Medical History / Comment(s): acromegly, previous cardioversion, wears Bipap at home. 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, part of esophagus removed Past Anesthesia/Blood Transfusion Reactions: No Reported Reaction Additional Past Anesthesia/Blood Transfusion Reaction / Comment(s): Allergy to Benzocaine Past Psychological History: No Psychological Hx Reported Smoking Status: Never smoker Past Alcohol Use History: None Reported Past Drug Use History: None Reported Medications and Allergies Home Medications Medication Instructions Recorded Confirmed Type Ferrous Sulfate [Iron] 325 mg PO DAILY 12/15/21 10/27/23 History Levothyroxine Sodium [Synthroid] 137 mcg PO DAILY 12/15/21 10/27/23 History Ergocalciferol [Vitamin D2 (1250 1,250 mcg PO WE 03/28/23 10/27/23 History Mcg = 39655 Iu)] Amiodarone [Cordarone] 100 mg PO DAILY 07/05/23 10/27/23 History Metoprolol Tartrate [Lopressor] 50 mg PO BID 07/05/23 10/27/23 History Apixaban [Eliquis] 5 mg PO BID 10/27/23 10/27/23 History Atorvastatin [Lipitor] 40 mg PO DAILY 10/27/23 10/27/23 History Allergies Allergy/AdvReac Type Severity Reaction Status Date / Time benzocaine Allergy Anaphylaxis Verified 10/27/23 21:10 Penicillins Allergy Unknown Verified 10/27/23 21:10 Childhood Physical Exam Vitals: Vital Signs Temp Pulse Pulse Resp BP Pulse Ox 10/28/23 13:06 124 H 18 121/105 96 10/28/23 11:28 129 H 18 141/97 91 L 10/28/23 08:08 120 H 18 134/104 96 10/28/23 07:05 115 H 27 H 159/121 98 10/28/23 05:51 109 H 23 166/124 97 10/28/23 04:14 97 10/28/23 04:00 105 H 13 159/101 96 10/28/23 03:15 97.6 F 103 H 20 159/101 99 10/28/23 03:00 99 10/28/23 02:00 93 19 181/129 95 10/28/23 01:00 101 H 17 168/120 98 10/28/23 00:00 108 H 23 153/129 98 10/27/23 23:00 105 H 22 125/97 94 L 10/27/23 22:06 113 H 19 125/97 95 10/27/23 20:42 110 H 22 157/118 93 L 10/27/23 19:51 125 H 24 142/105 94 L 10/27/23 18:48 126 H 22 166/122 97 10/27/23 18:45 125 H 10/27/23 18:09 98 F 128 H 18 152/115 98 GENERAL EXAM: Alert, pleasant 68-year-old female, on room air, fairly comfortable in no apparent distress. HEAD: Normocephalic. EYES: Normal reaction of pupils, equal size. NOSE: Clear with pink turbinates. THROAT: No erythema or exudates. NECK: No masses, no JVD. CHEST: No chest wall deformity. LUNGS: Equal air entry with faint crackles in the posterior bases. CVS: S1 and S2 normal with no audible murmur, regular rhythm. Tachycardic. ABDOMEN: No hepatosplenomegaly, normal bowel sounds, no guarding or rigidity. SPINE: No scoliosis or deformity SKIN: No rashes CENTRAL NERVOUS SYSTEM: No focal deficits, tone is normal in all 4 extremities. EXTREMITIES: There is 1+ peripheral edema. No clubbing, no cyanosis. Peripheral pulses are intact. Results - Laboratory Findings CBC and BMP: 10/28/23 08:40 10/28/23 07:18 PT/INR, D-dimer PT 14.5 sec (10.0-12.5) H 10/27/23 18:42 INR 1.4 (<1.2) H 10/27/23 18:42 Abnormal lab findings: Abnormal Labs 10/27/23 10/27/23 10/27/23 18:42 18:42 18:42 WBC 11.1 H Hct 47.1 H RDW 17.0 H Neutrophils # 8.5 H PT 14.5 H INR 1.4 H Chloride 109 H Carbon Dioxide BUN 30 H Creatinine 1.31 H Glucose 141 H Calcium 10.5 H SARS-CoV-2 (PCR) 10/27/23 10/28/23 10/28/23 19:05 07:18 08:40 WBC 10.7 H Hct RDW 16.8 H Neutrophils # 8.4 H PT INR Chloride 111 H Carbon Dioxide 19 L BUN 27 H Creatinine 1.22 H Glucose 104 H Calcium 10.3 H SARS-CoV-2 (PCR) Detected A - Diagnostic Findings Chest x-ray: image reviewed Assessment and Plan Assessment: Acute exacerbation of chronic systolic congestive heart failure patient with a known ejection fraction of 30 to 35% Tachycardia secondary to above Acute COVID-19 infection, symptoms greater than 3 weeks, on room air, no evidence of COVID-19 pneumonia Acute kidney injury History of paroxysmal atrial fibrillation anticoagulated with Eliquis History of coronary disease with intermediate occlusion of the mid LAD, treated medically Hyperlipidemia Hypertension Hypothyroidism Obstructive sleep apnea utilizing Cpap at home Plan: The patient was seen and evaluated Chest x-ray, labs and medications reviewed Continue with IV diuretics Currently stable and on room air Anticoagulated with Eliquis Add vitamin supplements We will continue to follow and make further recommendations based on her clinical status I have personally seen and examined the patient, performed the documentation and the assessment and plan as written. Number of minutes spent on the visit: 20.
--- NOTE | 2023-10-28 18:38 | CA ---
Transthoracic Echo Report Name: Lizabeth Carney Age: 68 Gender: F : 1955 Exam Date: 10/28/2023 10:41 Exam Location: [facility] Ht (in): 62 Wt (lb): 185 Ordering Physician: Gómez Beaver MD Attending/Referring Phys: Refrigeration Person Fransisco Hagen RD Procedure CPT: Indications: chf Cardiac Hx: Technical Quality: Fair Contrast 1: Total Dose (mL): Contrast 2: Total Dose (mL): MEASUREMENTS (Male / Female) Normal Values 2D ECHO LV Diastolic Diameter PLAX 5.1 cm 4.2 - 5.9 / 3.9 - 5.3 cm LV Systolic Diameter PLAX 3.9 cm IVS Diastolic Thickness 0.9 cm 0.6 - 1.0 / 0.6 - 0.9 cm LVPW Diastolic Thickness 1.2 cm 0.6 - 1.0 / 0.6 - 0.9 cm LV Relative Wall Thickness 0.4 RV Internal Dim ED PLAX 3.0 cm LVOT Diameter 2.0 cm Aortic Root Diameter 3.0 cm LA Systolic Diameter LX 4.3 cm 3.0 - 4.0 / 2.7 - 3.8 cm LV Diastolic Volume MOD BP 74.4 cm??? 67 - 155 / 56 - 104 cm??? LV Systolic Volume MOD BP 56.5 cm??? - 58 / 19 - 49 cm??? LV Ejection Fraction MOD BP 24.1 % >= 55 % LV Cardiac Index MOD BP 1173.3 cm???/min???m??? LV Diastolic Volume MOD 4C 59.4 cm??? LV Systolic Volume MOD 4C 51.0 cm??? LV Ejection Fraction MOD 4C 14.3 % LV Cardiac Index MOD 4C 556.8 cm???/min???m??? LV Diastolic Length 4C 7.2 cm LV Systolic Length 4C 7.3 cm LV Diastolic Volume MOD 2C 89.9 cm??? LV Systolic Volume MOD 2C 62.9 cm??? LV Ejection Fraction MOD 2C 30.0 % LV Cardiac Index MOD 2C 1769.1 cm???/min???m??? LV Diastolic Length 2C 7.5 cm LV Systolic Length 2C 7.3 cm LA Volume 130.2 cm??? 18 - 58 / 22 - 52 cm??? LA Volume Index 66.7 cm???/m??? 16 - 28 cm???/m??? DOPPLER AV Peak Velocity 104.8 cm/s AV Peak Gradient 4.4 mmHg AV Mean Velocity 67.6 cm/s AV Mean Gradient 2.2 mmHg AV Velocity Time Integral 13.6 cm AI Peak Velocity 464.3 cm/s AI Peak Gradient 86.2 mmHg AI Pressure Half Time 408.2 ms LVOT Peak Velocity 54.0 cm/s LVOT Peak Gradient 1.2 mmHg LVOT Velocity Time Integral 6.7 cm LVOT Stroke Volume 20.3 cm??? LVOT Stroke Volume Index 11.0 ml/m??? LVOT Cardiac Index 1327.6 cm???/min???m??? AV Area Cont Eq vti 1.5 cm??? AV Area Cont Eq pk 1.6 cm??? MV Peak Velocity 132.9 cm/s MV Peak Gradient 7.1 mmHg MV Mean Velocity 54.5 cm/s MV Mean Gradient 1.6 mmHg MV Velocity Time Integral 21.1 cm MR Peak Velocity 508.5 cm/s MR Peak Gradient 103.4 mmHg TR Peak Velocity 277.0 cm/s TR Peak Gradient 30.7 mmHg Right Ventricular Systolic Press 35.7 mmHg PV Peak Velocity 69.7 cm/s PV Peak Gradient 1.9 mmHg FINDINGS Left Ventricle Normal LV size and wall thickness. Left ventricular ejection fraction is estimated at 20-25 %. Right Ventricle Normal right ventricular size. RVSP= 36mmHg. Right Atrium Moderate right atrial dilatation. RA area= 20.3cm2 Left Atrium Severe left atrial dilatation. LA volume index= 70ml/m2 Mitral Valve Mild posterior mitral annulus calcification. Mitral valve thickening. Moderate MR. Aortic Valve Aortic valve not well visualized. Moderate to severe AI. No aortic stenosis. Tricuspid Valve Structurally normal tricuspid valve. Mild TR. Pulmonic Valve Pulmonic valve not well visualized. Moderate to severe PI. Pericardium Small pericardial effusion Aorta Normal size aortic root. CONCLUSIONS Dilated LV with severely impaired LV function and EF around 20-25% Moderate mitral regurgitation Moderate to severe aortic regurgitation Mild pulmonary hypertension Moderate tricuspid regurgitation Small pericardial ffusion Previewed by: Dr. Vasquez Wisdom MD (Electronically Signed) Final Date: 28 October 2023 18:37
[2023-10-29] MEDS: LEVOTHYROXINE 137 MCG TAB PO SCH (06:19)
[2023-10-29] MEDS: FUROSEMIDE 10 MG/ML 4 ML VIAL IV SCH ×2 (09:05→20:00)
[2023-10-29] MEDS: ASCORBIC ACID 500 MG TAB PO SCH (09:05)
[2023-10-29] MEDS: DAPAGLIFLOZIN PROPANEDIOL 10 MG TABLET PO SCH (09:05)
[2023-10-29] MEDS: ZINC SULFATE 220 MG CAP PO SCH (09:05)
[2023-10-29] MEDS: FERROUS SULFATE 325 MG TAB PO SCH (09:05)
[2023-10-29] MEDS: APIXABAN 5 MG TAB PO SCH ×2 (09:05→20:00)
[2023-10-29] MEDS: ATORVASTATIN 40 MG TAB PO SCH (09:05)
[2023-10-29] MEDS: METOPROLOL TARTRATE 25 MG TAB PO SCH (09:05)
[2023-10-29] MEDS: SACUBITRIL/VALSARTAN 24 MG-26 MG TABLET PO SCH ×2 (09:10→20:00)
[2023-10-29] MEDS ORDERED: METOPROLOL TARTRATE 25 MG TAB PO STA (09:43)
[2023-10-29 11:23] LABS: Blood Urea Nitrogen 32 mg/dL (7-17); Potassium 3.9 mmol/L (3.5-5.1)
[2023-10-29 12:08] LABS: African American GFR (CKD) 40 (>60 ml/min/1.73 sqM); Anion Gap 14 mmol/L; Calcium 10.5 mg/dL (8.4-10.2); Carbon Dioxide 20 mmol/L (22-30); Chloride 106 mmol/L (98-107); Glucose 173 mg/dL (74-99); Non-African American GFR(CKD) 35 (>60 ml/min/1.73 sqM); Sodium 140 mmol/L (137-145)
--- NOTE | 2023-10-29 12:09 | P.PN ---
Subjective HISTORY OF PRESENT ILLNESS: This is a 68-year-old female with a past medical history significant for nonobstructive CAD, nonobstructive cardiomyopathy, valvular heart disease, hypertension, hyperlipidemia, paroxysmal atrial fibrillation, and hyp othyroidism. Patient follows in the office with Dr. Wisdom. We have been asked to see the patient in consultation for atrial fibrillation and congestive heart failure. Patient examined at the bedside in the emergency room. Patient presented to the hospital with chief complaint of shortness of breath. She states since the beginning of September she has been feeling generally unwell. She reports significant weakness and shortness of breath. She states she is unable to walk a fair distance due to shortness of breath. She does report occasional palpitations. She also reports weight gain since September. She currently denies chest pain or pressure. At the time of examination, the patient is atrial fibrillation with a heart rate in the 120s. DIAGNOSTICS: - EKG reveals atrial fibrillation with RVR. - Chest xray bibasilar infiltrates with small pleural effusions. Correlate for atelectasis or pneumonia. Cardiomegaly.. - Laboratory data: WBC 10.7. Hemoglobin 14.6. Platelet count 174. Sodium 141. Potassium 4.2. BUN 27. Creatinine 1.22. Troponin negative x 1. proBNP 28,900. Patient was found be positive for COVID - Current home cardiac medications include Eliquis 5 mg twice a day, metoprolol titrate 50 mg twice a day, Lipitor 40 mg daily, and amiodarone 100 mg daily - Most recent echocardiogram obtained in March 2023 revealed ejection fraction 35%, moderate mitral regurgitation, moderate Regurgitation, and moderate aortic regurgitation - Cardiac catheterization history: June 2023 revealing intermediate disease of the LAD by the bifurcation of a large diagonal branch which has an ostial lesion appears to be intermediate as well. Medical management was recommended. October 29, 2023 Patient examined this morning at the bedside. Patient reports improvement in her shortness of breath. She denies any chest pain or pressure. She reports weakness in her lower extremities with ambulating. Telemetry reveals atrial fibrillation with heart in the 120s. Echocardiogram completed revealing ejection fraction 20 to 25%, moderate to severe AI, mild TR, and moderate MR PHYSICAL EXAM: VITAL SIGNS: Reviewed. GENERAL: Well-developed in no acute distress. HEENT: Head is normocephalic. Pupils are equal, round. Sclerae anicteric. Mucous membranes of the mouth are moist. Neck supple. No JVD or thyromegaly LUNGS: Respirations even and unlabored. Lungs diminished with bibasilar rales, improved HEART: Tachycardic. Irregular rate and rhythm. S1 and S2 heard. Systolic murmur noted ABDOMEN: Soft. Nondistended. Nontender. EXTREMITIES: Normal range of motion. No clubbing or cyanosis. Peripheral pulses intact. 1+ bilateral lower extremity edema NEUROLOGIC: Awake and alert. Oriented x 3. ASSESSMENT: Shortness of breath x 6 weeks Acute COVID-19 Acute heart failure with reduced EF, 35% Atrial fibrillation with RVR, appears persistent History of cardioversion, x 3 Nonobstructive CAD Nonischemic cardiomyopathy Valvular heart disease Hypertension Hyperlipidemia Hypothyroidism PLAN: Increase metoprolol to 100 mg twice a day for optimal heart rate control Awaiting BMP results from this morning. If kidney function remained stable, continue IV Lasix for today and transition to oral dosing tomorrow Continue telemetry monitoring Consider ablation on an outpatient basis after patient has recovered from her acute issues Further recommendations pending patient course Nurse practitioner note has been reviewed by physician. Signing provider agrees with the documented findings, assessment, and plan of care documented by T[employer]PER SUPER[employer]OR as a scribe. Objective - Vital Signs Vital signs: Vital Signs Temp 97.5 F L 10/29/23 08:00 Pulse 101 H 10/29/23 11:07 Resp 16 10/29/23 11:07 BP 114/72 10/29/23 11:07 Pulse Ox 94 L 10/29/23 11:07 FiO2 Intake & Output 10/28/23 10/29/23 10/29/23 18:59 06:59 18:59 Output Total 1200 Balance -1200 Weight 83.5 kg Output: Urine 1200 Other: Voiding Method Toilet Toilet - Labs CBC & Chem 7: 10/28/23 08:40 10/28/23 07:18
--- NOTE | 2023-10-29 12:20 | P.PN ---
Subjective Progress Note Date: 10/29/23 patient 68-year-old lady with past medical history significant for CHF, atrial fibrillation for the ER because of worsening shortness of breath. Patient stated that for last few days she has been noticing that she is getting increasing short of breath on exertion. There was complaining of cough. She noticed that her heart was fluttering. She was also complaining of cough. Denied any fever or chills. Patient complaining of intermittent chest pressure, present at rest, aggravated by exertion. Patient is also complaining of orthopnea. There was complaining of swelling of lower extremities. Denies any nausea or vomiting. There was no complain of lightheadedness or dizziness Initial lab work done in the ER showed WBC 11.1, hemoglobin 14.8, platelet count 193, sodium 140, potassium 5, BUN 30, creatinine 1.31, glucose 141, calcium 10.5 total bilirubin 1.1 AST 25, ALT 25, Influenza A not detected Influenza B not detected RSV not detected COVID-19 detected EKG done in the ER showed heart rate of 115, irregular in rhythm, no ST segment elevation or depression seen, no T-wave inversions seen. Chest x-ray done in the ER showed bibasilar infiltrates with small pleural ef fusions. Patient admitted to internal medicine service 10/29. Patient seen and examined. 2-D echo showed severely impaired LV function with a EF around 2025%, moderate mitral regurg, moderate to severe aortic regurg, mild pulmonary hypertension, moderate tricuspid regurg, small pericardial effusion. Complaining of shortness of breath on exertion. Stated she got winded just moving to the restroom REVIEW OF SYSTEMS: CONSTITUTIONAL: No fever, no malaise,. CARDIOVASCULAR: No chest pain, no palpitations, no syncope. PULMONARY: no cough, GASTROINTESTINAL: No diarrhea, no nausea, no vomiting, no abdominal pain. NEUROLOGICAL: No headaches, no weakness, PHYSICAL EXAMINATION: GENERAL: The patient is alert and oriented x3, not in any acute distress. Well developed, well nourished. HEENT: Pupils are round and equally reacting to light. EOMI. No scleral icterus. No conjunctival pallor. Normocephalic, atraumatic. No pharyngeal erythema. No t hyromegaly. CARDIOVASCULAR: S1 and S2 present. No murmurs, rubs, or gallops. Irregular in rhythm and rate PULMONARY: Chest is clear to auscultation, no wheezing or crackles. ABDOMEN: Soft, nontender, nondistended, normoactive bowel sounds. No palpable organomegaly. MUSCULOSKELETAL: No joint swelling or deformity. EXTREMITIES: No cyanosis, clubbing, or pedal edema. NEUROLOGICAL: Gross neurological examination did not reveal any focal deficits. SKIN: No rashes. Assessment and plan A. fib with RVR Acute hypoxic respiratory failure Acute on chronic systolic CHF History of cardioversion, x 3 Nonobstructive CAD Nonischemic cardiomyopathy Valvular heart disease Acute kidney injury Hypercalcemia COVID-19 infection Hyperlipidemia Hypothyroidism Monitor vital signs Monitor CBC Monitor CMP Continue telemetry monitoring Aggressive bronchopulmonary hygiene Continue COVID-19 isolation Continue breathing treatments Strict I's and O's, daily dose, continue IV Lasix 40 mg every 12 Continue Lopressor 100 mg twice a day Amiodarone discontinued Continue Synthroid Continue Eliquis 2-D echo showed severely impaired LV function with a EF around 2025%, moderate mitral regurg, moderate to severe aortic regurg, mild pulmonary hypertension, moderate tricuspid regurg, small pericardial effusion Cardiology following, added Entresto and Farxiga Pulmonology following Labs and medication were reviewed.. Continue same treatment. Continue with symptomatic treatment. Resume home medication. Monitor labs and vitals. DVT and GI prophylaxis. Further recommendations as per clinical course of the patient Dictation was produced using [employer] dictation software. please excuse any grammatical, word or spelling errors. Objective - Vital Signs Vital signs: Vital Signs Temp 97.5 F L 10/29/23 08:00 Pulse 123 H 10/29/23 08:00 Resp 16 10/29/23 08:00 BP 131/72 10/29/23 08:00 Pulse Ox 96 10/29/23 08:00 FiO2 Intake & Output 10/28/23 10/29/23 10/29/23 18:59 06:59 18:59 Output Total 1200 Balance -1200 Weight 83.5 kg Output: Urine 1200 Other: Voiding Method Toilet - Labs CBC & Chem 7: 10/28/23 08:40 10/29/23 10:27
--- NOTE | 2023-10-29 14:11 | P.PN ---
Subjective Progress Note Date: 10/29/23 This is a pleasant 68-year-old female patient with a known history of hypothyroidism, atrial fibrillation anticoagulated with Eliquis, hyperlipidemia, hypertension, obstructive sleep apnea utilizing BiPAP, acromegaly, non-smoker. Cardiac catheterization from July 2023 revealed intermediate disease inv olving the mid LAD, treated medically. Echocardiogram from March 2023 revealed impaired left ventricular systolic function with ejection fraction of 30 to 35%. She presented here to the emergency room last evening with a 3 to 4-week history of increasing shortness of breath swelling of the lower extremities dry nonproductive cough. Chest x-ray shows some basilar infiltrates with small effusions. Cardiomegaly. White count 10.7. Hemoglobin 14.6. Platelets 174. Sodium 141. Potassium 4.2. Bicarb 19. BUN 27. Creatinine 1.22. Glucose 104. proBNP 28,900. Troponin negative x 1. Viral screen was positive for COVID-19 infection. She is seen today in consultation in the emergency department. Currently sitting up in a stretcher. Awake and alert in no acute distress. She is maintaining good O2 saturations in the 90s on room air. She is breathing a bit easier today compared to yesterday. She has been initiated on Lasix 40 mg IV every 12 hours. The patient is seen today October 29, 2023 in follow-up in the selective care unit. She is currently sitting up in bed. Awake and alert in no acute distress. She is maintaining good O2 saturations in the 90s on room air. Cardiogram did reveal severely impaired left ventricular systolic function with ejection fraction of 20 to 25%. Moderate mitral regurgitation, moderate to severe aortic regurgitation. Sodium 140. Potassium 3.9. Bicarb 20. BUN 32. Creatinine 1.51. She is continued on IV diuretics. Anticoagulated with El iquis. Remains on vitamin supplements. Currently in a negative balance. Objective - Vital Signs Vital signs: Vital Signs Temp 97.5 F L 10/29/23 08:00 Pulse 101 H 10/29/23 11:07 Resp 16 10/29/23 11:07 BP 114/72 10/29/23 11:07 Pulse Ox 94 L 10/29/23 11:07 FiO2 Intake & Output 10/28/23 10/29/23 10/29/23 18:59 06:59 18:59 Intake Total 118 Output Total 1200 Balance -1200 118 Weight 83.5 kg Intake: Oral 118 Output: Urine 1200 Other: Voiding Method Toilet Toilet - Exam GENERAL EXAM: Alert, pleasant 68-year-old female, on room air, comfortable in no apparent distress. HEAD: Normocephalic. EYES: Normal reaction of pupils, equal size. NOSE: Clear with pink turbinates. THROAT: No erythema or exudates. NECK: No masses, no JVD. CHEST: No chest wall deformity. LUNGS: Equal air entry with faint crackles in the posterior bases. CVS: S1 and S2 normal with an audible murmur, regular rhythm. Tachycardic. ABDOMEN: No hepatosplenomegaly, normal bowel sounds, no guarding or rigidity. SPINE: No scoliosis or deformity SKIN: No rashes CENTRAL NERVOUS SYSTEM: No focal deficits, tone is normal in all 4 extremities. EXTREMITIES: There is 1+ peripheral edema. No clubbing, no cyanosis. Peripheral pulses are intact. - Labs CBC & Chem 7: 10/28/23 08:40 10/29/23 10:27 Labs: Abnormal Lab Results - Last 24 Hours (Table) 10/29/23 Range/Units 10:27 Carbon Dioxide 20 L (22-30) mmol/L BUN 32 H (7-17) mg/dL Creatinine 1.51 H (0.52-1.04) mg/dL Glucose 173 H (74-99) mg/dL Calcium 10.5 H (8.4-10.2) mg/dL Assessment and Plan Assessment: Acute exacerbation of chronic systolic congestive heart failure patient with severely impaired left ventricular cyst phallic function with ejection fraction of 20 to 25%. Moderate mitral regurgitation, moderate to severe aortic regurgitation Atrial fibrillation with rapid ventricular response Acute COVID-19 infection, symptoms greater than 3 weeks, on room air, no evidence of COVID-19 pneumonia Acute kidney injury History of paroxysmal atrial fibrillation anticoagulated with Eliquis History of coronary disease with intermediate occlusion of the mid LAD, treated medically Hyperlipidemia Hypertension Hypothyroidism Obstructive sleep apnea utilizing Cpap at home Plan: The patient was seen and evaluated Echocardiogram, labs and medications reviewed Continue with IV diuretics Anticoagulated with Eliquis Currently stable and on room air We will continue to follow I have personally seen and examined the patient, performed the documentation and the assessment and plan as written. Number of minutes spent on the visit: 10.
[2023-10-29] MEDS: METOPROLOL TARTRATE 50 MG TAB PO SCH (20:00)
[2023-10-30] MEDS: LEVOTHYROXINE 137 MCG TAB PO SCH (06:01)
[2023-10-30] MEDS: APIXABAN 5 MG TAB PO SCH ×2 (08:08→20:32)
[2023-10-30] MEDS: DAPAGLIFLOZIN PROPANEDIOL 10 MG TABLET PO SCH (08:08)
[2023-10-30] MEDS: METOPROLOL TARTRATE 50 MG TAB PO SCH ×2 (08:08→20:32)
[2023-10-30] MEDS: FERROUS SULFATE 325 MG TAB PO SCH (08:08)
[2023-10-30] MEDS: ATORVASTATIN 40 MG TAB PO SCH (08:08)
[2023-10-30] MEDS: ZINC SULFATE 220 MG CAP PO SCH (08:08)
[2023-10-30] MEDS: SACUBITRIL/VALSARTAN 24 MG-26 MG TABLET PO SCH ×2 (08:10→20:32)
[2023-10-30] MEDS: FUROSEMIDE 10 MG/ML 4 ML VIAL IV SCH (08:10)
[2023-10-30] MEDS: ASCORBIC ACID 500 MG TAB PO SCH (08:10)
[2023-10-30] MEDS: FUROSEMIDE 40 MG TAB PO SCH (08:55)
[2023-10-30 09:29] LABS: Anisocytosis Slight; HGB 17.3 gm/dL (11.4-16.0); Hypochromasia Moderate; MCH 29.8 pg (25.0-35.0); MCHC 31.1 g/dL (31.0-37.0); MCV 95.8 fL (80.0-100.0); Macrocytosis Slight; Mean Platelet Volume 10.5; Platelet Count 228 k/uL (150-450); RDW 16.7 % (11.5-15.5); WBC 12.3 k/uL (3.8-10.6)
[2023-10-30 09:35] LABS: HCT 55.5 % (34.0-46.0)
[2023-10-30 09:47] LABS: ALT 23 U/L (4-34); AST 23 U/L (14-36); African American GFR (CKD) 34 (>60 ml/min/1.73 sqM); Albumin 3.8 g/dL (3.5-5.0); Alkaline Phosphatase 73 U/L (38-126); Anion Gap 9 mmol/L; Blood Urea Nitrogen 34 mg/dL (7-17); Calcium 10.1 mg/dL (8.4-10.2); Carbon Dioxide 32 mmol/L (22-30); Chloride 98 mmol/L (98-107); Glucose 170 mg/dL (74-99); Non-African American GFR(CKD) 29 (>60 ml/min/1.73 sqM); Potassium 3.7 mmol/L (3.5-5.1); Sodium 139 mmol/L (137-145); Total Bilirubin 1.7 mg/dL (0.2-1.3); Total Protein 6.1 g/dL (6.3-8.2)
[2023-10-30] MEDS: AMIODARONE 200 MG TAB PO SCH ×2 (11:08→20:32)
--- NOTE | 2023-10-30 11:21 | P.PN ---
Subjective HISTORY OF PRESENT ILLNESS: This is a 68-year-old female with a past medical history significant for nonobstructive CAD, nonobstructive cardiomyopathy, valvular heart disease, hypertension, hyperlipidemia, paroxysmal atrial fibrillation, and hyp othyroidism. Patient follows in the office with Dr. Wisdom. We have been asked to see the patient in consultation for atrial fibrillation and congestive heart failure. Patient examined at the bedside in the emergency room. Patient presented to the hospital with chief complaint of shortness of breath. She states since the beginning of September she has been feeling generally unwell. She reports significant weakness and shortness of breath. She states she is unable to walk a fair distance due to shortness of breath. She does report occasional palpitations. She also reports weight gain since September. She currently denies chest pain or pressure. At the time of examination, the patient is atrial fibrillation with a heart rate in the 120s. DIAGNOSTICS: - EKG reveals atrial fibrillation with RVR. - Chest xray bibasilar infiltrates with small pleural effusions. Correlate for atelectasis or pneumonia. Cardiomegaly.. - Laboratory data: WBC 10.7. Hemoglobin 14.6. Platelet count 174. Sodium 141. Potassium 4.2. BUN 27. Creatinine 1.22. Troponin negative x 1. proBNP 28,900. Patient was found be positive for COVID - Current home cardiac medications include Eliquis 5 mg twice a day, metoprolol titrate 50 mg twice a day, Lipitor 40 mg daily, and amiodarone 100 mg daily - Most recent echocardiogram obtained in March 2023 revealed ejection fraction 35%, moderate mitral regurgitation, moderate Regurgitation, and moderate aortic regurgitation - Cardiac catheterization history: June 2023 revealing intermediate disease of the LAD by the bifurcation of a large diagonal branch which has an ostial lesion appears to be intermediate as well. Medical management was recommended. October 29, 2023 Patient examined this morning at the bedside. Patient reports improvement in her shortness of breath. She denies any chest pain or pressure. She reports weakness in her lower extremities with ambulating. Telemetry reveals atrial fibrillation with heart in the 120s. Echocardiogram completed revealing ejection fraction 20 to 25%, moderate to severe AI, mild TR, and moderate MR October 30 October 30, 2023 Patient examined this morning at the bedside. Patient currently denies chest pain or pressure. She denies shortness of breath. She remains on IV diuretics. Telemetry reveals atrial fibrillation with a heart rate in the 130s. She is currently on 100 mg of metoprolol twice a day. Blood pressure stable. PHYSICAL EXAM: VITAL SIGNS: Reviewed. GENERAL: Well-developed in no acute distress. HEENT: Head is normocephalic. Pupils are equal, round. Sclerae anicteric. Mucous membranes of the mouth are moist. Neck supple. No JVD or thyromegaly LUNGS: Respirations even and unlabored. Lungs diminished with bibasilar rales, improved HEART: Tachycardic. Irregular rate and rhythm. S1 and S2 heard. Systolic murmur noted ABDOMEN: Soft. Nondistended. Nontender. EXTREMITIES: Normal range of motion. No clubbing or cyanosis. Peripheral pulses intact. 1+ bilateral lower extremity edema NEUROLOGIC: Awake and alert. Oriented x 3. ASSESSMENT: Shortness of breath x 6 weeks Acute COVID-19 Acute heart failure with reduced EF, 35% Atrial fibrillation with RVR, appears persistent History of cardioversion, x 3 Nonobstructive CAD Nonischemic cardiomyopathy Valvular heart disease Hypertension Hyperlipidemia Hypothyroidism PLAN: Discontinue IV Lasix. Begin oral Lasix 40 mg daily Continue current dose of metoprolol Add amiodarone 200 mg twice daily for rate control Continue telemetry monitoring Consider ablation on an outpatient basis after patient has recovered from her acute issues Further recommendations pending patient course Nurse practitioner note has been reviewed by physician. Signing provider agrees with the documented findings, assessment, and plan of care documented by [employer] as a scribe. Objective - Vital Signs Vital signs: Vital Signs Temp 97.5 F L 10/30/23 08:00 Pulse 124 H 10/30/23 08:01 Resp 18 10/30/23 08:01 BP 120/89 10/30/23 08:00 Pulse Ox 100 10/30/23 08:00 FiO2 Intake & Output 10/29/23 10/30/23 10/30/23 18:59 06:59 18:59 Intake Total 118 Output Total 750 1200 Balance 118 -750 -1200 Weight 82.1 kg Intake: Oral 118 Output: Urine 750 1200 Other: Voiding Method Toilet Toilet Toilet # Voids 3 - Labs CBC & Chem 7: 10/30/23 08:19 10/30/23 08:19 Labs: Abnormal Lab Results - Last 24 Hours (Table) 10/29/23 10/30/23 10/30/23 Range/Units 10:27 08:19 08:19 WBC 12.3 H (3.8-10.6) k/uL RBC 5.80 H (3.80-5.40) m/uL Hgb 17.3 H (11.4-16.0) gm/dL Hct 55.5 H (34.0-46.0) % RDW 16.7 H (11.5-15.5) % Carbon Dioxide 20 L 32 H (22-30) mmol/L BUN 32 H 34 H (7-17) mg/dL Creatinine 1.51 H 1.74 H (0.52-1.04) mg/dL Glucose 173 H 170 H (74-99) mg/dL Calcium 10.5 H (8.4-10.2) mg/dL Total Bilirubin 1.7 H (0.2-1.3) mg/dL Total Protein 6.1 L (6.3-8.2) g/dL
--- NOTE | 2023-10-30 12:23 | P.PN ---
Subjective Progress Note Date: 10/30/23 patient 68-year-old lady with past medical history significant for CHF, atrial fibrillation for the ER because of worsening shortness of breath. Patient stated that for last few days she has been noticing that she is getting increasing short of breath on exertion. There was complaining of cough. She noticed that her heart was fluttering. She was also complaining of cough. Denied any fever or chills. Patient complaining of intermittent chest pressure, present at rest, aggravated by exertion. Patient is also complaining of orthopnea. There was complaining of swelling of lower extremities. Denies any nausea or vomiting. There was no complain of lightheadedness or dizziness Initial lab work done in the ER showed WBC 11.1, hemoglobin 14.8, platelet count 193, sodium 140, potassium 5, BUN 30, creatinine 1.31, glucose 141, calcium 10.5 total bilirubin 1.1 AST 25, ALT 25, Influenza A not detected Influenza B not detected RSV not detected COVID-19 detected EKG done in the ER showed heart rate of 115, irregular in rhythm, no ST segment elevation or depression seen, no T-wave inversions seen. Chest x-ray done in the ER showed bibasilar infiltrates with small pleural ef fusions. Patient admitted to internal medicine service 10/29. Patient seen and examined. 2-D echo showed severely impaired LV function with a EF around 2025%, moderate mitral regurg, moderate to severe aortic regurg, mild pulmonary hypertension, moderate tricuspid regurg, small pericardial effusion. Complaining of shortness of breath on exertion. Stated she got winded just moving to the restroom 10/30. Patient seen and examined. Heart rate is still elevated. Denies any lightheadedness. Complaining of shortness of breath on exertion. Cardiology resume patient back on amiodarone REVIEW OF SYSTEMS: CONSTITUTIONAL: No fever, no malaise,. CARDIOVASCULAR: No chest pain, no palpitations, no syncope. PULMONARY: no cough, GASTROINTESTINAL: No diarrhea, no nausea, no vomiting, no abdominal pain. NEUROLOGICAL: No headaches, no weakness, PHYSICAL EXAMINATION: GENERAL: The patient is alert and oriented x3, not in any acute distress. Well developed, well nourished. HEENT: Pupils are round and equally reacting to light. EOMI. No scleral icterus. No conjunctival pallor. Normocephalic, atraumatic. No pharyngeal erythema. No thyromegaly. CARDIOVASCULAR: S1 and S2 present. No murmurs, rubs, or gallops. Irregular in rhythm and rate PULMONARY: Chest is clear to auscultation, no wheezing or crackles. ABDOMEN: Soft, nontender, nondistended, normoactive bowel sounds. No palpable organomegaly. MUSCULOSKELETAL: No joint swelling or deformity. EXTREMITIES: No cyanosis, clubbing, or pedal edema. NEUROLOGICAL: Gross neurological examination did not reveal any focal deficits. SKIN: No rashes. Assessment and plan A. fib with RVR Acute hypoxic respiratory failure Acute on chronic systolic CHF History of cardioversion, x 3 Nonobstructive CAD Nonischemic cardiomyopathy Valvular heart disease Acute kidney injury Hypercalcemia COVID-19 infection Hyperlipidemia Hypothyroidism Monitor vital signs Monitor CBC Monitor CMP Continue telemetry monitoring Aggressive bronchopulmonary hygiene Continue COVID-19 isolation Continue breathing treatments Strict I's and O's, daily dose, continue Lasix 40 mg daily Continue Lopressor 100 mg twice a day Amiodarone restarted Continue Synthroid Continue Eliquis 2-D echo showed severely impaired LV function with a EF around 5%, moderate mitral regurg, moderate to severe aortic regurg, mild pulmonary hypertension, moderate tricuspid regurg, small pericardial effusion Cardiology following, added Entresto and Farxiga Pulmonology following Labs and medication were reviewed.. Continue same treatment. Continue with symptomatic treatment. Resume home medication. Monitor labs and vitals. DVT and GI prophylaxis. Further recommendations as per clinical course of the patient Dictation was produced using [employer] dictation software. please excuse any gr ammatical, word or spelling errors. Objective - Vital Signs Vital signs: Vital Signs Temp 97.5 F L 10/30/23 08:00 Pulse 124 H 10/30/23 08:01 Resp 18 10/30/23 08:01 BP 120/89 10/30/23 08:00 Pulse Ox 100 10/30/23 08:00 FiO2 Intake & Output 10/29/23 10/30/23 10/30/23 18:59 06:59 18:59 Intake Total 118 Output Total 750 1200 Balance 118 -750 -1200 Weight 82.1 kg Intake: Oral 118 Output: Urine 750 1200 Other: Voiding Method Toilet Toilet Toilet # Voids 3 - Labs CBC & Chem 7: 10/30/23 08:19 10/30/23 08:19 Labs: Abnormal Lab Results - Last 24 Hours (Table) 10/29/23 Range/Units 10:27 Carbon Dioxide 20 L (22-30) mmol/L BUN 32 H (7-17) mg/dL Creatinine 1.51 H (0.52-1.04) mg/dL Glucose 173 H (74-99) mg/dL Calcium 10.5 H (8.4-10.2) mg/dL
--- NOTE | 2023-10-30 14:11 | P.PN ---
Subjective Progress Note Date: 10/30/23 Principal diagnosis: Acute exacerbation of chronic systolic congestive heart failure with atrial fibrillation, RVR, and subacute COVID-19 infection This is a pleasant 68-year-old female patient with a known history of hypothyroidism, atrial fibrillation anticoagulated with Eliquis, hyperlipidemia, hypertension, obstructive sleep apnea utilizing BiPAP, acromegaly, non-smoker. Cardiac catheterization from July 2023 revealed intermediate disease involving the mid LAD, treated medically. Echocardiogram from March 2023 revealed impaired left ventricular systolic function with ejection fraction of 30 to 35%. She presented here to the emergency room last evening with a 3 to 4- week history of increasing shortness of breath swelling of the lower extremities dry nonproductive cough. Chest x-ray shows some basilar infiltrates with small effusions. Cardiomegaly. White count 10.7. Hemoglobin 14.6. Platelets 174. Sodium 141. Potassium 4.2. Bicarb 19. BUN 27. Creatinine 1.22. Glucose 104. proBNP 28,900. Troponin negative x 1. Viral screen was positive for COVID-19 infection. She is seen today in consultation in the emergency department. Currently sitting up in a stretcher. Awake and alert in no acute distress. She is maintaining good O2 saturations in the 90s on room air. She is breathing a bit easier today compared to yesterday. She has been initiated on Lasix 40 mg IV every 12 hours. The patient is seen today October 29, 2023 in follow-up in the selective care unit. She is currently sitting up in bed. Awake and alert in no acute distress. She is maintaining good O2 saturations in the 90s on room air. Cardiogram did reveal severely impaired left ventricular systolic function with ejection fraction of 20 to 25%. Moderate mitral regurgitation, moderate to severe aortic regurgitation. Sodium 140. Potassium 3.9. Bicarb 20. BUN 32. Creatinine 1.51. She is continued on IV diuretics. Anticoagulated with Eliquis. Remains on vitamin supplements. Currently in a negative balance. Reevaluated today on 10/30/2023, patient is doing better, nonetheless continues to have some shortness of breath cough and wheezing. Patient is presently on room air with O2 sats of 93%, she is afebrile, she denies any chest pain or chest pressure, remains in atrial fibrillation with RVR rate in the 130 range, being addressed by cardiology. She is on metoprolol 100 mg twice daily, considering her cardiac condition, patient is not quite ready for discharge planning for Objective - Vital Signs Vital signs: Vital Signs Temp 97.4 F L 10/30/23 11:12 Pulse 74 10/30/23 11:12 Resp 18 10/30/23 12:45 BP 132/59 10/30/23 11:12 Pulse Ox 93 L 10/30/23 11:12 FiO2 Intake & Output 10/29/23 10/30/23 10/30/23 18:59 06:59 18:59 Intake Total 118 118 Output Total 750 1575 Balance 118 -553 -9796 Weight 82.1 kg Intake: Oral 118 118 Output: Urine 750 1575 Other: Voiding Method Toilet Toilet Toilet # Voids 3 - Exam GENERAL EXAM: Alert, pleasant 68-year-old female, on room air, comfortable in no apparent distress. On room air HEAD: Normocephalic. EYES: Normal reaction of pupils, equal size. NOSE: Clear with pink turbinates. THROAT: No erythema or exudates. NECK: No masses, no JVD. CHEST: No chest wall deformity. LUNGS: Equal air entry with faint crackles in the posterior bases. CVS: Irregular irregular rhythm. S1 and S2 normal with an audible murmur, ABDOMEN: No hepatosplenomegaly, normal bowel sounds, no guarding or rigidity. SKIN: No rashes CENTRAL NERVOUS SYSTEM: No focal deficits, tone is normal in all 4 extremities. EXTREMITIES: There is 1+ peripheral edema. No clubbing, no cyanosis. Peripheral pulses are intact. - Labs CBC & Chem 7: 10/30/23 08:19 10/30/23 08:19 Labs: Abnormal Lab Results - Last 24 Hours (Table) 10/30/23 10/30/23 Range/Units 08:19 08:19 WBC 12.3 H (3.8-10.6) k/uL RBC 5.80 H (3.80-5.40) m/uL Hgb 17.3 H (11.4-16.0) gm/dL Hct 55.5 H (34.0-46.0) % RDW 16.7 H (11.5-15.5) % Carbon Dioxide 32 H (22-30) mmol/L BUN 34 H (7-17) mg/dL Creatinine 1.74 H (0.52-1.04) mg/dL Glucose 170 H (74-99) mg/dL Total Bilirubin 1.7 H (0.2-1.3) mg/dL Total Protein 6.1 L (6.3-8.2) g/dL Assessment and Plan Assessment: Impression: Acute exacerbation of chronic systolic congestive heart failure patient with severely impaired left ventricular cyst phallic function with ejection fraction of 20 to 25%. Moderate mitral regurgitation, moderate to severe aortic r egurgitation Atrial fibrillation with rapid ventricular response subacute COVID-19 infection, symptoms greater than 3 weeks, on room air, no evidence of COVID-19 pneumonia Acute kidney injury History of paroxysmal atrial fibrillation anticoagulated with Vahid History of coronary disease with intermediate occlusion of the mid LAD, treated medically Hyperlipidemia Hypertension Hypothyroidism Obstructive sleep apnea utilizing Cpap at home Recommendation: Continue present supportive care measures Continue diuretics Continue Vahid Cardiology is addressing her atrial fibrillation with RVR Will continue to follow Time with Patient: Less than 30
[2023-10-31] MEDS: LEVOTHYROXINE 137 MCG TAB PO SCH (06:44)
[2023-10-31] MEDS: AMIODARONE 200 MG TAB PO SCH ×2 (07:58→20:16)
[2023-10-31] MEDS: ATORVASTATIN 40 MG TAB PO SCH (07:58)
[2023-10-31] MEDS: DAPAGLIFLOZIN PROPANEDIOL 10 MG TABLET PO SCH (07:58)
[2023-10-31] MEDS: SACUBITRIL/VALSARTAN 24 MG-26 MG TABLET PO SCH ×2 (07:58→20:14)
[2023-10-31] MEDS: FUROSEMIDE 40 MG TAB PO SCH (07:59)
[2023-10-31] MEDS: ASCORBIC ACID 500 MG TAB PO SCH (07:59)
[2023-10-31] MEDS: METOPROLOL TARTRATE 50 MG TAB PO SCH ×2 (07:59→20:17)
[2023-10-31] MEDS: FERROUS SULFATE 325 MG TAB PO SCH (07:59)
[2023-10-31] MEDS: ZINC SULFATE 220 MG CAP PO SCH (07:59)
[2023-10-31] MEDS: APIXABAN 5 MG TAB PO SCH ×2 (07:59→20:16)
[2023-10-31 10:09] LABS: Anisocytosis Slight; Basophils # (A) 0.1 k/uL (0-0.2); Basophils % (A) 1 %; Eosinophils # (A) 0.1 k/uL (0-0.7); Eosinophils % (A) 1 %; HGB 17.6 gm/dL (11.4-16.0); Hypochromasia Moderate; Lymphocytes # (A) 2.1 k/uL (1.0-4.8); Lymphocytes % (A) 18 %; MCH 30.7 pg (25.0-35.0); MCHC 31.9 g/dL (31.0-37.0); MCV 96.1 fL (80.0-100.0); Macrocytosis Slight; Mean Platelet Volume 11.6; Monocytes # (A) 0.6 k/uL (0-1.0); Monocytes % (A) 5 %; Neutrophils # (A) 8.6 k/uL (1.3-7.7); Neutrophils % (A) 74 %; Platelet Count 245 k/uL (150-450); RBC 5.74 m/uL (3.80-5.40); RDW 16.7 % (11.5-15.5); WBC 11.7 k/uL (3.8-10.6)
[2023-10-31 10:19] LABS: HCT 55.2 % (34.0-46.0)
--- NOTE | 2023-10-31 11:58 | P.PN ---
Subjective Progress Note Date: 10/31/23 * 68-year-old lady with past medical history significant for CHF, atrial fibrillation for the ER because of worsening shortness of breath. Patient stated that for last few days she has been noticing that she is getting increasing short of breath on exertion. There was complaining of cough. She noticed that her heart was fluttering. She was also complaining of cough. Denied any fever or chills. Patient complaining of intermittent chest pressure, present at rest, aggravated by exertion. Patient is also complaining of orthopnea. There was complaining of swelling of lower extr emities. Denies any nausea or vomiting. There was no complain of lightheadedness or dizziness * Initial lab work done in the ER showed WBC 11.1, hemoglobin 14.8, platelet count 193, sodium 140, potassium 5, BUN 30, creatinine 1.31, glucose 141, calcium 10.5 total bilirubin 1.1 AST 25, ALT 25,Influenza A not detectedInfluenza B not detectedRSV not detected * COVID-19 detected * EKG done in the ER showed heart rate of 115, irregular in rhythm, no ST segment elevation or depression seen, no T-wave inversions seen. * Chest x-ray done in the ER showed bibasilar infiltrates with small pleural effusions. * Patient admitted to internal medicine service * 10/29. Patient seen and examined. 2-D echo showed severely impaired LV function with a EF around 2025%, moderate mitral regurg, moderate to severe aortic regurg, mild pulmonary hypertension, moderate tricuspid regurg, small pericardial effusion. Complaining of shortness of breath on exertion. Stated she got winded just moving to the restroom * 10/30. Patient seen and examined. Heart rate is still elevated. Denies any lightheadedness. Complaining of shortness of breath on exertion. Cardiology resume patient back on amiodarone * 10/31 Dr Morris assumed care: Patient seen and evaluated bedside, patient still noted to have tachycardia with heart rate in 126, patient remains on room air. CBC reviewed WBC 11.7 hemoglobin 17.6. Continue current medications including metoprolol 100 mg twice daily, amiodarone 200 mg twice daily anticoagulated with Eliquis, continue Entresto monitor for hypotension .not medically ready for discharge does complain of shortness of breath paroxysmal tachycardia noted. GENERAL: The patient is alert and oriented x3,Well developed, well nourished. HEENT: Pupils are round and equally reacting to light. EOMI. No scleral icterus. No conjunctival pallor. Normocephalic, atraumatic. No pharyngeal erythema. No thyromegaly. CARDIOVASCULAR: S1 and S2 present. Irregular rhythm, tachycardia noted PULMONARY: Chest is clear to auscultation, no wheezing or crackles. ABDOMEN: Soft, nontender, nondistended, normoactive bowel sounds. No palpable organomegaly. MUSCULOSKELETAL: No joint swelling or deformity. EXTREMITIES: No cyanosis, clubbing, or pedal edema. NEUROLOGICAL: Gross neurological examination did not reveal any focal deficits. SKIN: No rashes. Objective - Vital Signs Vital signs: Vital Signs Temp 97.4 F L 10/31/23 07:51 Pulse 86 10/31/23 11:39 Resp 20 10/31/23 11:39 BP 96/60 10/31/23 11:39 Pulse Ox 96 10/31/23 11:39 FiO2 Intake & Output 10/30/23 10/31/23 10/31/23 18:59 06:59 18:59 Intake Total 236 118 Output Total 1750 Balance -1514 118 Weight 81.2 kg Intake: Oral 236 118 Output: Urine 1750 Other: Voiding Method Toilet Toilet Toilet # Voids 1 - Labs CBC & Chem 7: 10/31/23 08:31 10/30/23 08:19 Labs: Abnormal Lab Results - Last 24 Hours (Table) 10/31/23 Range/Units 08:31 WBC 11.7 H (3.8-10.6) k/uL RBC 5.74 H (3.80-5.40) m/uL Hgb 17.6 H (11.4-16.0) gm/dL Hct 55.2 H (34.0-46.0) % RDW 16.7 H (11.5-15.5) % Neutrophils # 8.6 H (1.3-7.7) k/uL Assessment and Plan Assessment: Assessment and plan * Atrial fibrillation with rapid monitor response * Acute hypoxic respiratory failure with COVID-19 infection * Acute on chronic systolic CHF * History of cardioversion, x 3 * Nonobstructive CAD * Nonischemic cardiomyopathy * Valvular heart disease * Acute kidney injury * Hypercalcemia * Hyperlipidemia * Hypothyroidism * In regards to atrial fibrillation, cardiology following, continue amiodarone, metoprolol, Eliquis, continue telemonitoring * In regards to congestive heart failure acute on chronic exacerbation continue Lasix continue to monitor intake and output, guideline directed medical therapy follow-up on renal profile * In regards to acute renal failure baseline creatinine around 1.5-1.7, creatinine noted to be 1.74, follow-up on renal profile while on Lasix * In regards to congestive heart failure echocardiogram shows ejection fraction of 20 to 25%, moderate mitral regurgitation, moderate to severe aortic regurgitation pulmonary hypertension small pericardial effusion * Patient followed by pulmonary medicine, cardiology.
[2023-10-31] MEDS ORDERED: METOPROLOL TARTRATE 25 MG TAB PO STA (13:43)
--- NOTE | 2023-10-31 14:33 | P.PN ---
Subjective Progress Note Date: 10/31/23 Principal diagnosis: Shortness of breath, CHF. Acute exacerbation of chronic systolic congestive heart failure with atrial fibrillation, RVR, and subacute COVID-19 infection This is a pleasant 68-year-old female patient with a known history of hypothyroidism, atrial fibrillation anticoagulated with Eliquis, hyperlipidemia, hypertension, obstructive sleep apnea utilizing BiPAP, acromegaly, non-smoker. Cardiac catheterization from July 2023 revealed intermediate disease involving the mid LAD, treated medically. Echocardiogram from March 2023 revealed impaired left ventricular systolic function with ejection fraction of 30 to 35%. She presented here to the emergency room last evening with a 3 to 4- week history of increasing shortness of breath swelling of the lower extremities dry nonproductive cough. Chest x-ray shows some basilar infiltrates with small effusions. Cardiomegaly. White count 10.7. Hemoglobin 14.6. Platelets 174. Sodium 141. Potassium 4.2. Bicarb 19. BUN 27. Creatinine 1.22. Glucose 104. proBNP 28,900. Troponin negative x 1. Viral screen was positive for COVID-19 infection. She is seen today in consultation in the emergency department. Currently sitting up in a stretcher. Awake and alert in no acute distress. She is maintaining good O2 saturations in the 90s on room air. She is breathing a bit easier today compared to yesterday. She has been initiated on Lasix 40 mg IV every 12 hours. The patient is seen today October 29, 2023 in follow-up in the selective care unit. She is currently sitting up in bed. Awake and alert in no acute distress. She is maintaining good O2 saturations in the 90s on room air. Cardiogram did reveal severely impaired left ventricular systolic function with ejection fraction of 20 to 25%. Moderate mitral regurgitation, moderate to severe aortic regurgitation. Sodium 140. Potassium 3.9. Bicarb 20. BUN 32. Creatinine 1.51. She is continued on IV diuretics. Anticoagulated with Eliquis. Remains on vitamin supplements. Currently in a negative balance. Reevaluated today on 10/30/2023, patient is doing better, nonetheless continues to have some shortness of breath cough and wheezing. Patient is presently on room air with O2 sats of 93%, she is afebrile, she denies any chest pain or chest pressure, remains in atrial fibrillation with RVR rate in the 130 range, being addressed by cardiology. She is on metoprolol 100 mg twice daily, considering her cardiac condition, patient is not quite ready for discharge planning for Progress note dated October 31, 2023. This is a 68-year-old female who is seen today in room 373. Currently, the patient is on room air. Saturations are 98%. The patient's BNP, this was 28,900. She is using oxygen only as needed. She was admitted with a diagnosis of congestive heart failure, and coronavirus infection, without coronavirus a ssociated pneumonia. The patient appears to be relatively comfortable. Operatory data includes a white count 11.7, hemoglobin 17.6, hematocrit 55.2, and platelet count of 245,000. No recent chest x-ray to report. Objective - Vital Signs Vital signs: Vital Signs Temp 97.4 F L 10/31/23 07:51 Pulse 86 10/31/23 13:11 Resp 20 10/31/23 11:39 BP 96/60 10/31/23 11:39 Pulse Ox 96 10/31/23 11:39 FiO2 Intake & Output 10/30/23 10/31/23 10/31/23 18:59 06:59 18:59 Intake Total 236 118 Output Total 1750 Balance -1514 118 Weight 81.2 kg Intake: Oral 236 118 Output: Urine 1750 Other: Voiding Method Toilet Toilet Toilet # Voids 1 - Exam No acute distress, oriented 3. Currently on room air. No respiratory distress, or use of accessory muscles. HEENT examination is grossly unremarkable. Mucous membranes are moist. No oral lesions. Neck supple. Full range of motion. No adenopathy thyromegaly or neck vein distention. Cardiovascular examination reveals an irregular rhythm and rate. S1-S2 normal. No S3 or S4. No discernible murmur noted. Heart sounds are distant. Heart rate 86 bpm. Lungs reveal bibasilar crackles. No wheezes. No rhonchi. Breath sounds are equal bilaterally. Room air saturation is in the mid 90s. Abdomen soft bowel sounds are heard. No masses or tenderness. Extremities are intact. No cyanosis or clubbing. Mild edema. Skin is without rash or lesion. Neurologic examination is brief but nonfocal. - Labs CBC & Chem 7: 10/31/23 08:31 10/30/23 08:19 Labs: Abnormal Lab Results - Last 24 Hours (Table) 10/31/23 Range/Units 08:31 WBC 11.7 H (3.8-10.6) k/uL RBC 5.74 H (3.80-5.40) m/uL Hgb 17.6 H (11.4-16.0) gm/dL Hct 55.2 H (34.0-46.0) % RDW 16.7 H (11.5-15.5) % Neutrophils # 8.6 H (1.3-7.7) k/uL Assessment and Plan Assessment: Acute exacerbation of chronic systolic congestive heart failure. Ejection fraction 20 to 25%. Valvular heart disease in the form of moderate mitral regurgitation, and moderate to severe aortic regurgitation. Atrial fibrillation, with a controlled ventricular response rate. Acute kidney injury. Paroxysmal atrial fibrillation. Coronary artery disease. Hyperlipidemia. Hypertension. Hypothyroidism. Obstructive sleep apnea syndrome, on home CPAP. Plan: Plan dated October 31, 2023. The patient appears to be doing relatively well. She is currently on room air. She continues on diuretics, and blood thinners. Cardiology is dealing with her valvular heart disease, atrial fibrillation, etc. Labs, x-rays, and medications are all reviewed. The patient's overall prognosis remains guarded. We will continue to follow the patient, make recommendations along the way. Her room air saturation is 98%. She did test positive for coronavirus, but does not have coronavirus associated pneumonia. Time with Patient: Less than 30
--- NOTE | 2023-10-31 14:41 | P.PN ---
Subjective Progress Note Date: 10/31/23 HISTORY OF PRESENT ILLNESS: This is a 68-year-old female with a past medical history significant for no nobstructive CAD, nonobstructive cardiomyopathy, valvular heart disease, hypertension, hyperlipidemia, paroxysmal atrial fibrillation, and hypothyroidism. Patient follows in the office with Dr. Wisdom. We have been asked to see the patient in consultation for atrial fibrillation and congestive heart failure. Patient examined at the bedside in the emergency room. Patient presented to the hospital with chief complaint of shortness of breath. She states since the beginning of September she has been feeling generally unwell. She reports significant weakness and shortness of breath. She states she is unable to walk a fair distance due to shortness of breath. She does report occasional palpitations. She also reports weight gain since September. She currently denies chest pain or pressure. At the time of examination, the patient is atrial fibrillation with a heart rate in the 120s. DIAGNOSTICS: - EKG reveals atrial fibrillation with RVR. - Chest xray bibasilar infiltrates with small pleural effusions. Correlate for atelectasis or pneumonia. Cardiomegaly.. - Laboratory data: WBC 10.7. Hemoglobin 14.6. Platelet count 174. Sodium 141. Potassium 4.2. BUN 27. Creatinine 1.22. Troponin negative x 1. proBNP 28,900. Patient was found be positive for COVID - Current home cardiac medications include Eliquis 5 mg twice a day, metoprolol titrate 50 mg twice a day, Lipitor 40 mg daily, and amiodarone 100 mg daily - Most recent echocardiogram obtained in March 2023 revealed ejection fraction 35%, moderate mitral regurgitation, moderate Regurgitation, and moderate aortic regurgitation - Cardiac catheterization history: June 2023 revealing intermediate disease of the LAD by the bifurcation of a large diagonal branch which has an ostial lesion appears to be intermediate as well. Medical management was recommended. October 29, 2023 Patient examined this morning at the bedside. Patient reports improvement in her shortness of breath. She denies any chest pain or pressure. She reports weakness in her lower extremities with ambulating. Telemetry reveals atrial fibrillation with heart in the 120s. Echocardiogram completed revealing ejection fraction 20 to 25%, moderate to severe AI, mild TR, and moderate MR October 30 October 30, 2023 Patient examined this morning at the bedside. Patient currently denies chest pain or pressure. She denies shortness of breath. She remains on IV diuretics. Telemetry reveals atrial fibrillation with a heart rate in the 130s. She is currently on 100 mg of metoprolol twice a day. Blood pressure stable. 10/31 Patient is not requiring oxygen. She states she is weak when she gets up to the bathroom. She still has shortness of breath with minimal activity. Heart rate is jumping up to the 120s and 130s with minimal activity. Blood pressure is 96/60, pulse ox 96% on room air. Repeat blood work reveals BC 11.7, hemoglobin 17, platelet count 245. No repeat chemistry is available at the time of this dictation. PHYSICAL EXAM: VITAL SIGNS: Reviewed. GENERAL: Well-developed in no acute distress. HEENT: Head is normocephalic. Pupils are equal, round. Sclerae anicteric. No JVD or thyromegaly LUNGS: Respirations even and unlabored. Lungs diminished with bibasilar rales, improved HEART: Tachycardic. Irregular rate and rhythm. S1 and S2 heard. Systolic murmur noted ABDOMEN: Soft. Nondistended. Nontender. EXTREMITIES: No clubbing or cyanosis. Peripheral pulses intact. 1+ bilateral lower extremity edema NEUROLOGIC: Awake and alert. Oriented x 3. ASSESSMENT: Shortness of breath x 6 weeks Acute COVID-19 Acute heart failure with reduced EF, 35% Atrial fibrillation with RVR, appears persistent History of cardioversion, x 3 Nonobstructive CAD Nonischemic cardiomyopathy Valvular heart disease Hypertension Hyperlipidemia Hypothyroidism PLAN: Continue oral Lasix 40 mg daily Increase Lopressor to 125 mg twice daily Continue amiodarone 200 mg twice daily for rate control Continue telemetry monitoring Consider ablation on an outpatient basis after patient has recovered from her acute issues Further recommendations pending patient course Nurse practitioner note has been reviewed by physician. Signing provider agrees with the documented findings, assessment, and plan of care documented by [employer] as a scribe. Objective - Vital Signs Vital signs: Vital Signs Temp 97.4 F L 10/31/23 07:51 Pulse 86 10/31/23 13:11 Resp 20 10/31/23 11:39 BP 96/60 10/31/23 11:39 Pulse Ox 96 10/31/23 11:39 FiO2 Intake & Output 10/30/23 10/31/23 10/31/23 18:59 06:59 18:59 Intake Total 236 118 Output Total 1750 Balance -1514 118 Weight 81.2 kg Intake: Oral 236 118 Output: Urine 1750 Other: Voiding Method Toilet Toilet Toilet # Voids 1 - Labs CBC & Chem 7: 10/31/23 08:31 10/30/23 08:19 Labs: Abnormal Lab Results - Last 24 Hours (Table) 10/31/23 Range/Units 08:31 WBC 11.7 H (3.8-10.6) k/uL RBC 5.74 H (3.80-5.40) m/uL Hgb 17.6 H (11.4-16.0) gm/dL Hct 55.2 H (34.0-46.0) % RDW 16.7 H (11.5-15.5) % Neutrophils # 8.6 H (1.3-7.7) k/uL
[2023-11-01] MEDS: LEVOTHYROXINE 137 MCG TAB PO SCH (06:47)
[2023-11-01 07:57] LABS: Anisocytosis Slight; HCT 54.1 % (34.0-46.0); HGB 17.3 gm/dL (11.4-16.0); Hypochromasia Moderate; MCH 30.4 pg (25.0-35.0); MCHC 31.9 g/dL (31.0-37.0); MCV 95.3 fL (80.0-100.0); Mean Platelet Volume 10.7; Platelet Count 221 k/uL (150-450); RBC 5.68 m/uL (3.80-5.40); RDW 16.6 % (11.5-15.5)
[2023-11-01] MEDS: METOPROLOL TARTRATE 50 MG TAB PO SCH ×2 (08:51→20:08)
[2023-11-01] MEDS: ZINC SULFATE 220 MG CAP PO SCH (08:51)
[2023-11-01] MEDS: FERROUS SULFATE 325 MG TAB PO SCH (08:51)
[2023-11-01] MEDS: FUROSEMIDE 40 MG TAB PO SCH (08:51)
[2023-11-01] MEDS: ASCORBIC ACID 500 MG TAB PO SCH (08:51)
[2023-11-01] MEDS: ATORVASTATIN 40 MG TAB PO SCH (08:51)
[2023-11-01] MEDS: DAPAGLIFLOZIN PROPANEDIOL 10 MG TABLET PO SCH (08:51)
[2023-11-01] MEDS: APIXABAN 5 MG TAB PO SCH ×2 (08:51→20:09)
[2023-11-01] MEDS: AMIODARONE 200 MG TAB PO SCH ×2 (08:51→20:08)
[2023-11-01] MEDS: SACUBITRIL/VALSARTAN 24 MG-26 MG TABLET PO SCH ×2 (08:57→20:26)
[2023-11-01 10:05] LABS: African American GFR (CKD) 41 (>60 ml/min/1.73 sqM); Anion Gap 10 mmol/L; Blood Urea Nitrogen 42 mg/dL (7-17); C Reactive Protein 1.8 mg/dL (<1.0); Calcium 10.3 mg/dL (8.4-10.2); Carbon Dioxide 30 mmol/L (22-30); Chloride 101 mmol/L (98-107); Glucose 116 mg/dL (74-99); Magnesium 1.9 mg/dL (1.6-2.3); Non-African American GFR(CKD) 36 (>60 ml/min/1.73 sqM); Potassium 3.7 mmol/L (3.5-5.1); Sodium 141 mmol/L (137-145)
--- NOTE | 2023-11-01 12:20 | P.PN ---
Subjective Progress Note Date: 11/01/23 * 68-year-old lady with past medical history significant for CHF, atrial fibrillation for the ER because of worsening shortness of breath. Patient stated that for last few days she has been noticing that she is getting increasing short of breath on exertion. There was complaining of cough. She noticed that her heart was fluttering. She was also complaining of cough. Denied any fever or chills. Patient complaining of intermittent chest pressure, present at rest, aggravated by exertion. Patient is also complaining of orthopnea. There was complaining of swelling of lower extr emities. Denies any nausea or vomiting. There was no complain of lightheadedness or dizziness * Initial lab work done in the ER showed WBC 11.1, hemoglobin 14.8, platelet count 193, sodium 140, potassium 5, BUN 30, creatinine 1.31, glucose 141, calcium 10.5 total bilirubin 1.1 AST 25, ALT 25,Influenza A not detectedInfluenza B not detectedRSV not detected * COVID-19 detected * EKG done in the ER showed heart rate of 115, irregular in rhythm, no ST segment elevation or depression seen, no T-wave inversions seen. * Chest x-ray done in the ER showed bibasilar infiltrates with small pleural effusions. * Patient admitted to internal medicine service * 10/29. Patient seen and examined. 2-D echo showed severely impaired LV function with a EF around 2025%, moderate mitral regurg, moderate to severe aortic regurg, mild pulmonary hypertension, moderate tricuspid regurg, small pericardial effusion. Complaining of shortness of breath on exertion. Stated she got winded just moving to the restroom * 10/30. Patient seen and examined. Heart rate is still elevated. Denies any lightheadedness. Complaining of shortness of breath on exertion. Cardiology resume patient back on amiodarone * 10/31 Dr Morris assumed care: Patient seen and evaluated bedside, patient still noted to have tachycardia with heart rate in 126, patient remains on room air. CBC reviewed WBC 11.7 hemoglobin 17.6. Continue current medications including metoprolol 100 mg twice daily, amiodarone 200 mg twice daily anticoagulated with Eliquis, continue Entresto monitor for hypotension .not medically ready for discharge does complain of shortness of breath paroxysmal tachycardia noted. * 11/01/23: Patient seen and evaluated bedside, during my assessment patient is alert and oriented x 4, daughter at bedside, patient noted to have paroxysmal tachycardia with heart rate in 133. Blood pressure low normal, CBC showed normal WBC count hemoglobin 17.3 creatinine 1.48 magnesium 1.9, CRP 1.8. Cardiology following, barrier to discharge is tachycardia GENERAL: The patient is alert and oriented x3,Well developed, well nourished. HEENT: Pupils are round and equally reacting to light. EOMI. No scleral icterus. No conjunctival pallor. Normocephalic, atraumatic. No pharyngeal erythema. No thyromegaly. CARDIOVASCULAR: S1 and S2 present. Irregular rhythm, tachycardia noted PULMONARY: Chest is clear to auscultation, no wheezing or crackles. ABDOMEN: Soft, nontender, nondistended, normoactive bowel sounds. No palpable organomegaly. MUSCULOSKELETAL: No joint swelling or deformity. EXTREMITIES: No cyanosis, clubbing, or pedal edema. NEUROLOGICAL: Gross neurological examination did not reveal any focal deficits. SKIN: No rashes. Objective - Vital Signs Vital signs: Vital Signs Temp 97.9 F 11/01/23 08:50 Pulse 85 11/01/23 08:50 Resp 17 11/01/23 08:50 BP 109/68 11/01/23 08:50 Pulse Ox 99 11/01/23 08:50 FiO2 Intake & Output 10/31/23 11/01/23 11/01/23 18:59 06:59 18:59 Intake Total 118 118 Balance 118 118 Weight 81.2 kg Intake: Oral 118 118 Other: Voiding Method Toilet Toilet Toilet # Voids 2 1 - Labs CBC & Chem 7: 11/01/23 07:29 11/01/23 07:29 Labs: Abnormal Lab Results - Last 24 Hours (Table) 11/01/23 11/01/23 Range/Units 07:29 07:29 RBC 5.68 H (3.80-5.40) m/uL Hgb 17.3 H (11.4-16.0) gm/dL Hct 54.1 H (34.0-46.0) % RDW 16.6 H (11.5-15.5) % BUN 42 H (7-17) mg/dL Creatinine 1.48 H (0.52-1.04) mg/dL Glucose 116 H (74-99) mg/dL Calcium 10.3 H (8.4-10.2) mg/dL C-Reactive Protein 1.8 H (<1.0) mg/dL Assessment and Plan Assessment: Assessment and plan * Atrial fibrillation with rapid monitor response * Acute hypoxic respiratory failure with COVID-19 infection * Acute on chronic systolic CHF * History of cardioversion, x 3 * Nonobstructive CAD * Nonischemic cardiomyopathy * Valvular heart disease * Acute kidney injury * Hypercalcemia * Hyperlipidemia * Hypothyroidism * In regards to atrial fibrillation, cardiology following, continue amiodarone, metoprolol, Eliquis, continue telemonitoring, hold antihypertensive medications systolic blood pressure less than 100 * In regards to congestive heart failure acute on chronic exacerbation continue Lasix continue to monitor intake and output, guideline directed medical therapy follow-up on renal profile * In regards to acute renal failure baseline creatinine around 1.5-1.7, creatinine noted to be 1.74, follow-up on renal profile while on Lasix * In regards to congestive heart failure echocardiogram shows ejection fraction of 20 to 25%, moderate mitral regurgitation, moderate to severe aortic regurgitation pulmonary hypertension small pericardial effusion * Patient followed by pulmonary medicine, cardiology.
[2023-11-01] MEDS: MAGNESIUM SULFATE-D5W PMX 1 GM in DEXTROSE/WATER 1 100ML.BAG IVPB SCH ×2 (13:24→14:24)
--- NOTE | 2023-11-01 13:37 | P.PN ---
Subjective Progress Note Date: 11/01/23 Principal diagnosis: Shortness of breath, CHF. Acute exacerbation of chronic systolic congestive heart failure with atrial fibrillation, RVR, and subacute COVID-19 infection This is a pleasant 68-year-old female patient with a known history of hypothyroidism, atrial fibrillation anticoagulated with Eliquis, hyperlipidemia, hypertension, obstructive sleep apnea utilizing BiPAP, acromegaly, non-smoker. Cardiac catheterization from July 2023 revealed intermediate disease involving the mid LAD, treated medically. Echocardiogram from March 2023 revealed impaired left ventricular systolic function with ejection fraction of 30 to 35%. She presented here to the emergency room last evening with a 3 to 4- week history of increasing shortness of breath swelling of the lower extremities dry nonproductive cough. Chest x-ray shows some basilar infiltrates with small effusions. Cardiomegaly. White count 10.7. Hemoglobin 14.6. Platelets 174. Sodium 141. Potassium 4.2. Bicarb 19. BUN 27. Creatinine 1.22. Glucose 104. proBNP 28,900. Troponin negative x 1. Viral screen was positive for COVID-19 infection. She is seen today in consultation in the emergency department. Currently sitting up in a stretcher. Awake and alert in no acute distress. She is maintaining good O2 saturations in the 90s on room air. She is breathing a bit easier today compared to yesterday. She has been initiated on Lasix 40 mg IV every 12 hours. The patient is seen today October 29, 2023 in follow-up in the selective care unit. She is currently sitting up in bed. Awake and alert in no acute distress. She is maintaining good O2 saturations in the 90s on room air. Cardiogram did reveal severely impaired left ventricular systolic function with ejection fraction of 20 to 25%. Moderate mitral regurgitation, moderate to severe aortic regurgitation. Sodium 140. Potassium 3.9. Bicarb 20. BUN 32. Creatinine 1.51. She is continued on IV diuretics. Anticoagulated with Eliquis. Remains on vitamin supplements. Currently in a negative balance. Reevaluated today on 10/30/2023, patient is doing better, nonetheless continues to have some shortness of breath cough and wheezing. Patient is presently on room air with O2 sats of 93%, she is afebrile, she denies any chest pain or chest pressure, remains in atrial fibrillation with RVR rate in the 130 range, being addressed by cardiology. She is on metoprolol 100 mg twice daily, considering her cardiac condition, patient is not quite ready for discharge planning for Progress note dated October 31, 2023. This is a 68-year-old female who is seen today in room 373. Currently, the patient is on room air. Saturations are 98%. The patient's BNP, this was 28,900. She is using oxygen only as needed. She was admitted with a diagnosis of congestive heart failure, and coronavirus infection, without coronavirus a ssociated pneumonia. The patient appears to be relatively comfortable. Operatory data includes a white count 11.7, hemoglobin 17.6, hematocrit 55.2, and platelet count of 245,000. No recent chest x-ray to report. Progress note dated November 01, 2023. 68-year-old female seen in room 373. Currently, the patient is on room air. She is not receiving any IV fluids. She is sitting at the side of the bed, speaking to her daughter. The patient is feeling much better. She denies any shortness of breath, cough, wheezing, chest tightness, or phlegm production. She also denies any chest pain or pressure. Current labs include white count of 10, hemoglobin 17.3, hematocrit 54.1, and a platelet count of 221,000. Sodium 141, potassium 3.7, chlorides 101, CO2 30, anion gap 10, BUN 42, creatinine 1.48. The patient's glucose was 116, and the calcium was 10.3. Microbiology is currently negative. No recent chest x-ray. Objective - Vital Signs Vital signs: Vital Signs Temp 97.9 F 11/01/23 08:50 Pulse 85 11/01/23 08:50 Resp 17 11/01/23 08:50 BP 109/68 11/01/23 08:50 Pulse Ox 99 11/01/23 08:50 FiO2 Intake & Output 10/31/23 11/01/23 11/01/23 18:59 06:59 18:59 Intake Total 118 118 Balance 118 118 Weight 81.2 kg Intake: Oral 118 118 Other: Voiding Method Toilet Toilet Toilet # Voids 2 1 - Exam No acute distress, oriented 3. Currently on room air. No respiratory distress, or use of accessory muscles. HEENT examination is grossly unremarkable. Mucous membranes are moist. No oral lesions. Neck supple. Full range of motion. No adenopathy thyromegaly or neck vein distention. Cardiovascular examination reveals an irregular rhythm and rate. S1-S2 normal. No S3 or S4. No discernible murmur noted. Heart sounds are distant. Heart rate 85 bpm. Lungs reveal bibasilar crackles. No wheezes. No rhonchi. Breath sounds are equal bilaterally. Room air saturation is 99 %. Abdomen soft bowel sounds are heard. No masses or tenderness. Extremities are intact. No cyanosis or clubbing. Mild edema. Skin is without rash or lesion. Neurologic examination is brief but nonfocal. - Labs CBC & Chem 7: 11/01/23 07:29 11/01/23 07:29 Labs: Abnormal Lab Results - Last 24 Hours (Table) 11/01/23 11/01/23 Range/Units 07:29 07:29 RBC 5.68 H (3.80-5.40) m/uL Hgb 17.3 H (11.4-16.0) gm/dL Hct 54.1 H (34.0-46.0) % RDW 16.6 H (11.5-15.5) % BUN 42 H (7-17) mg/dL Creatinine 1.48 H (0.52-1.04) mg/dL Glucose 116 H (74-99) mg/dL Calcium 10.3 H (8.4-10.2) mg/dL C-Reactive Protein 1.8 H (<1.0) mg/dL Assessment and Plan Assessment: Acute exacerbation of chronic systolic congestive heart failure. Ejection fraction 20 to 25%. Valvular heart disease in the form of moderate mitral regurgitation, and moderate to severe aortic regurgitation. Atrial fibrillation, with a controlled ventricular response rate. Acute kidney injury. Paroxysmal atrial fibrillation. Coronary artery disease. Hyperlipidemia. Hypertension. Hypothyroidism. Obstructive sleep apnea syndrome, on home CPAP. Plan: Plan dated October 31, 2023. The patient appears to be doing relatively well. She is currently on room air. She continues on diuretics, and blood thinners. Cardiology is dealing with her valvular heart disease, atrial fibrillation, etc. Labs, x-rays, and medications are all reviewed. The patient's overall prognosis remains guarded. We will continue to follow the patient, make recommendations along the way. Her room air saturation is 98%. She did test positive for coronavirus, but does not have coronavirus associated pneumonia. Plan dated November 01, 2023. The patient appears to be doing very well from the pulmonary standpoint. She is currently on room air. She is not having any shortness of breath, cough, wheezing, chest tightness, or phlegm production. There is no conversational dyspnea or use of accessory muscles. Labs, x-rays, medications are reviewed. Her room air saturation is 99%. From the pulmonary standpoint, she could be considered for possible discharge. The patient did test positive for coronavirus, but was not thought to have coronavirus associated pneumonia. We will continue to follow the patient, make recommendations along the way. Time with Patient: Less than 30
--- NOTE | 2023-11-01 16:20 | P.PN ---
Subjective Progress Note Date: 11/01/23 HISTORY OF PRESENT ILLNESS: This is a 68-year-old female with a past medical history significant for no nobstructive CAD, nonobstructive cardiomyopathy, valvular heart disease, hypertension, hyperlipidemia, paroxysmal atrial fibrillation, and hypothyroidism. Patient follows in the office with Dr. Wisdom. We have been asked to see the patient in consultation for atrial fibrillation and congestive heart failure. Patient examined at the bedside in the emergency room. Patient presented to the hospital with chief complaint of shortness of breath. She states since the beginning of September she has been feeling generally unwell. She reports significant weakness and shortness of breath. She states she is unable to walk a fair distance due to shortness of breath. She does report occasional palpitations. She also reports weight gain since September. She currently denies chest pain or pressure. At the time of examination, the patient is atrial fibrillation with a heart rate in the 120s. DIAGNOSTICS: - EKG reveals atrial fibrillation with RVR. - Chest xray bibasilar infiltrates with small pleural effusions. Correlate for atelectasis or pneumonia. Cardiomegaly.. - Laboratory data: WBC 10.7. Hemoglobin 14.6. Platelet count 174. Sodium 141. Potassium 4.2. BUN 27. Creatinine 1.22. Troponin negative x 1. proBNP 28,900. Patient was found be positive for COVID - Current home cardiac medications include Eliquis 5 mg twice a day, metoprolol titrate 50 mg twice a day, Lipitor 40 mg daily, and amiodarone 100 mg daily - Most recent echocardiogram obtained in March 2023 revealed ejection fraction 35%, moderate mitral regurgitation, moderate Regurgitation, and moderate aortic regurgitation - Cardiac catheterization history: June 2023 revealing intermediate disease of the LAD by the bifurcation of a large diagonal branch which has an ostial lesion appears to be intermediate as well. Medical management was recommended. October 29, 2023 Patient examined this morning at the bedside. Patient reports improvement in her shortness of breath. She denies any chest pain or pressure. She reports weakness in her lower extremities with ambulating. Telemetry reveals atrial fibrillation with heart in the 120s. Echocardiogram completed revealing ejection fraction 20 to 25%, moderate to severe AI, mild TR, and moderate MR October 30 October 30, 2023 Patient examined this morning at the bedside. Patient currently denies chest pain or pressure. She denies shortness of breath. She remains on IV diuretics. Telemetry reveals atrial fibrillation with a heart rate in the 130s. She is currently on 100 mg of metoprolol twice a day. Blood pressure stable. 10/31 Patient is not requiring oxygen. She states she is weak when she gets up to the bathroom. She still has shortness of breath with minimal activity. Heart rate is jumping up to the 120s and 130s with minimal activity. Blood pressure is 96/60, pulse ox 96% on room air. Repeat blood work reveals BC 11.7, hemoglobin 17, platelet count 245. No repeat chemistry is available at the time of this dictation. 11/01 Patient denies having any chest pain or chest pressure. No cough. No lightheadedness or dizziness. She states she has been up for a shower and did well with this. Blood pressure has been on the lower side at 109/68 and Entresto was held last evening and this morning. Repeat blood work reveals h emoglobin of 17, WBC 10. Electrolytes are normal. BUN 42 creatinine 1.48 which is improved from yesterday. PHYSICAL EXAM: VITAL SIGNS: Reviewed. GENERAL: Well-developed in no acute distress. HEENT: Head is normocephalic. Pupils are equal, round. Sclerae anicteric. No JVD or thyromegaly LUNGS: Respirations even and unlabored. Lungs diminished with bibasilar rales, improved HEART: Tachycardic. Irregular rate and rhythm. S1 and S2 heard. Systolic murmur noted EXTREMITIES: No clubbing or cyanosis. Peripheral pulses intact. Minimal bilateral lower extremity edema NEUROLOGIC: Awake and alert. Oriented x 3. ASSESSMENT: Shortness of breath x 6 weeks Acute COVID-19 Acute heart failure with reduced EF, 35% Atrial fibrillation with RVR, appears persistent and currently rate controlled History of cardioversion, x 3 Nonobstructive CAD Nonischemic cardiomyopathy Valvular heart disease Hypertension Hyperlipidemia Hypothyroidism PLAN: Continue oral Lasix 40 mg daily Increase Lopressor to 125 mg twice daily Continue amiodarone 200 mg twice daily for rate control Consider ablation on an outpatient basis after patient has recovered from her acute issues as an outpatient Patient is cleared for discharge from cardiology and may follow-up with Dr. Wisdom in 2 weeks. Nurse practitioner note has been reviewed by physician. Signing provider agrees with the documented findings, assessment, and plan of care documented by REPRODUCTION ARTIST as a scribe. Objective - Vital Signs Vital signs: Vital Signs Temp 97.9 F 11/01/23 08:50 Pulse 95 11/01/23 11:30 Resp 18 11/01/23 11:30 BP 115/72 11/01/23 11:30 Pulse Ox 98 11/01/23 11:30 FiO2 Intake & Output 10/31/23 11/01/23 11/01/23 18:59 06:59 18:59 Intake Total 118 118 Balance 118 118 Weight 81.2 kg Intake: Oral 118 118 Other: Voiding Method Toilet Toilet Toilet # Voids 2 1 - Labs CBC & Chem 7: 11/01/23 07:29 11/01/23 07:29 Labs: Abnormal Lab Results - Last 24 Hours (Table) 11/01/23 11/01/23 Range/Units 07:29 07:29 RBC 5.68 H (3.80-5.40) m/uL Hgb 17.3 H (11.4-16.0) gm/dL Hct 54.1 H (34.0-46.0) % RDW 16.6 H (11.5-15.5) % BUN 42 H (7-17) mg/dL Creatinine 1.48 H (0.52-1.04) mg/dL Glucose 116 H (74-99) mg/dL Calcium 10.3 H (8.4-10.2) mg/dL C-Reactive Protein 1.8 H (<1.0) mg/dL
[2023-11-02 04:20] VITALS: RESP 18
[2023-11-02] MEDS: LEVOTHYROXINE 137 MCG TAB PO SCH (06:17)
[2023-11-02 09:04] LABS: African American GFR (CKD) 40 (>60 ml/min/1.73 sqM); Anion Gap 12 mmol/L; Blood Urea Nitrogen 39 mg/dL (7-17); Calcium 10.1 mg/dL (8.4-10.2); Carbon Dioxide 24 mmol/L (22-30); Chloride 104 mmol/L (98-107); Glucose 107 mg/dL (74-99); Non-African American GFR(CKD) 35 (>60 ml/min/1.73 sqM); Sodium 140 mmol/L (137-145)
[2023-11-02 09:23] LABS: Potassium 4.2 mmol/L (3.5-5.1)
[2023-11-02] MEDS: SACUBITRIL/VALSARTAN 24 MG-26 MG TABLET PO SCH (10:33)
[2023-11-02] MEDS: ZINC SULFATE 220 MG CAP PO SCH (10:34)
[2023-11-02] MEDS: ATORVASTATIN 40 MG TAB PO SCH (10:34)
[2023-11-02] MEDS: FERROUS SULFATE 325 MG TAB PO SCH (10:34)
[2023-11-02] MEDS: DAPAGLIFLOZIN PROPANEDIOL 10 MG TABLET PO SCH (10:34)
[2023-11-02] MEDS: ASCORBIC ACID 500 MG TAB PO SCH (10:34)
[2023-11-02] MEDS: METOPROLOL TARTRATE 50 MG TAB PO SCH (10:34)
[2023-11-02] MEDS: AMIODARONE 200 MG TAB PO SCH (10:35)
[2023-11-02] MEDS: FUROSEMIDE 40 MG TAB PO SCH (10:35)
[2023-11-02] MEDS: APIXABAN 5 MG TAB PO SCH (10:38)
[2023-11-02 10:59] VITALS: TEMP 97.6
--- NOTE | 2023-11-02 12:04 | P.DS ---
Providers Date of admission: 10/27/23 20:55 Expected date of discharge: 11/02/23 Attending physician: Patrizia Pope Consults: 10/27/23 19:52 Consult Physician Routine Consulting Provider: [facility] Consult Reason/Comments: chf, afib Do you want consulting provider notified?: Yes 10/28/23 09:39 Consult Physician Routine Consulting Provider: Harvey Baez Consult Reason/Comments: Acute respiratory failure, COVID-19 Do you want consulting provider notified?: Yes Primary care physician: [facility] Course: * 68-year-old lady with past medical history significant for CHF, atrial fibrillation for the ER because of worsening shortness of breath. Patient stated that for last few days she has been noticing that she is getting increa sing short of breath on exertion. There was complaining of cough. She noticed that her heart was fluttering. She was also complaining of cough. Denied any fever or chills. Patient complaining of intermittent chest pressure, present at rest, aggravated by exertion. Patient is also complaining of orthopnea. There was complaining of swelling of lower extremities. Denies any nausea or vomiting. There was no complain of lightheadedness or dizziness * Initial lab work done in the ER showed WBC 11.1, hemoglobin 14.8, platelet count 193, sodium 140, potassium 5, BUN 30, creatinine 1.31, glucose 141, calcium 10.5 total bilirubin 1.1 AST 25, ALT 25,Influenza A not detectedInfluenza B not detectedRSV not detected * COVID-19 detected * EKG done in the ER showed heart rate of 115, irregular in rhythm, no ST segment elevation or depression seen, no T-wave inversions seen. * Chest x-ray done in the ER showed bibasilar infiltrates with small pleural effusions. * Patient admitted to internal medicine service * 10/29. Patient seen and examined. 2-D echo showed severely impaired LV function with a EF around 2025%, moderate mitral regurg, moderate to severe aortic regurg, mild pulmonary hypertension, moderate tricuspid regurg, small pericardial effusion. Complaining of shortness of breath on exertion. Stated she got winded just moving to the restroom * 10/30. Patient seen and examined. Heart rate is still elevated. Denies any lightheadedness. Complaining of shortness of breath on exertion. Cardiology resume patient back on amiodarone * 10/31 Dr Morris assumed care: Patient seen and evaluated bedside, patient still noted to have tachycardia with heart rate in 126, patient remains on room air. CBC reviewed WBC 11.7 hemoglobin 17.6. Continue current medications including metoprolol 100 mg twice daily, amiodarone 200 mg twice daily anticoagulated with Eliquis, continue Entresto monitor for hypotension .not medically ready for discharge does complain of shortness of breath paroxysmal tachycardia noted. * 11/01/23: Patient seen and evaluated bedside, during my assessment patient is alert and oriented x 4, daughter at bedside, patient noted to have paroxysmal tachycardia with heart rate in 133. Blood pressure low normal, CBC showed normal WBC count hemoglobin 17.3 creatinine 1.48 magnesium 1.9, CRP 1.8. Cardiology following, barrier to discharge is tachycardia * 11/02/2023: Patient seen and evaluated bedside, on assessment patient is alert and oriented x 4 seen by cardiology patient ambulating remains asymptomatic discharge home continue current cardiac medications instruction provided to hold cardiac medications for low systolic blood pressure. Outpatient follow- up with cardiology recommended multiple new cardiac medications given, instructions provided GENERAL: The patient is alert and oriented x3,Well developed, well nourished. HEENT: Pupils are round and equally reacting to light. EOMI. No scleral icterus. No conjunctival pallor. Normocephalic, atraumatic. No pharyngeal erythema. No thyromegaly. CARDIOVASCULAR: S1 and S2 present. Irregular rhythm, tachycardia improved heart rate in 90s PULMONARY: Chest is clear to auscultation, no wheezing or crackles. ABDOMEN: Soft, nontender, nondistended, normoactive bowel sounds. No palpable organomegaly. MUSCULOSKELETAL: No joint swelling or deformity. EXTREMITIES: No cyanosis, clubbing, or pedal edema. NEUROLOGICAL: Gross neurological examination did not reveal any focal deficits. SKIN: No rashes. Assessment and plan * Atrial fibrillation with rapid monitor response * Acute hypoxic respiratory failure with COVID-19 infection * Acute on chronic systolic CHF * History of cardioversion, x 3 * Nonobstructive CAD * Nonischemic cardiomyopathy * Valvular heart disease * Acute kidney injury * Hypercalcemia * Hyperlipidemia * Hypothyroidism * In regards to atrial fibrillation, cardiology following, continue amiodarone, metoprolol, Eliquis, hold antihypertensive medications systolic blood pressure less than 100 * In regards to congestive heart failure acute on chronic exacerbation continue Lasix continue to monitor intake and output, guideline directed medical therapy follow-up on renal profile, continue potassium supplementation * In regards to acute renal failure baseline creatinine around 1.5-1.7, creatinine noted to be 1.74, follow-up on renal profile while on Lasix * In regards to congestive heart failure echocardiogram shows ejection fraction of 20 to 25%, moderate mitral regurgitation, moderate to severe aortic regurgitation pulmonary hypertension small pericardial effusion * Patient followed by pulmonary medicine, cardiology. * Cleared for discharge by cardiology outpatient follow-up recommended Patient Condition at Discharge: Fair Plan - Discharge Summary Discharge Rx Participant: No New Discharge Prescriptions: New Sacubitril/Valsartan [Entresto 24 mg-26 mg Tablet] 0.5 each PO BID 30 Days #15 tab Furosemide [Lasix] 40 mg PO DAILY 30 Days #30 tab Metoprolol Tartrate [Lopressor] 100 mg PO BID 30 Days #60 tab Potassium Chloride [K-Tab ER] 20 meq PO DAILY 30 Days #30 tab Amiodarone [Cordarone] 200 mg PO BID 30 Days #60 tab Dapagliflozin Propanediol [Farxiga] 10 mg PO DAILY 30 Days #30 tab Continue Ferrous Sulfate [Iron] 325 mg PO DAILY Levothyroxine Sodium [Synthroid] 137 mcg PO DAILY Ergocalciferol [Vitamin D2 (1250 Mcg = 71945 Iu)] 1,250 mcg PO WE Apixaban [Eliquis] 5 mg PO BID Atorvastatin [Lipitor] 40 mg PO DAILY Discontinued Amiodarone [Cordarone] 100 mg PO DAILY Metoprolol Tartrate [Lopressor] 50 mg PO BID Discharge Medication List Ferrous Sulfate [Iron] 325 mg PO DAILY 12/15/21 [History] Levothyroxine Sodium [Synthroid] 137 mcg PO DAILY 12/15/21 [History] Ergocalciferol [Vitamin D2 (1250 Mcg = 01749 Iu)] 1,250 mcg PO WE 03/28/23 [History] Apixaban [Eliquis] 5 mg PO BID 10/27/23 [History] Atorvastatin [Lipitor] 40 mg PO DAILY 10/27/23 [History] Amiodarone [Cordarone] 200 mg PO BID 30 Days #60 tab 11/02/23 [Rx] Dapagliflozin Propanediol [Farxiga] 10 mg PO DAILY 30 Days #30 tab 11/02/23 [Rx] Furosemide [Lasix] 40 mg PO DAILY 30 Days #30 tab 11/02/23 [Rx] Metoprolol Tartrate [Lopressor] 100 mg PO BID 30 Days #60 tab 11/02/23 [Rx] Potassium Chloride [K-Tab ER] 20 meq PO DAILY 30 Days #30 tab 11/02/23 [Rx] Sacubitril/Valsartan [Entresto 24 mg-26 mg Tablet] 0.5 each PO BID 30 Days #15 tab 11/02/23 [Rx] Follow up Appointment(s)/Referral(s): Mini David MD [Primary Care Provider] - 1 Week Vasquez Wisdom MD [STAFF PHYSICIAN] - 2 Weeks Discharge/Stand Alone Forms: Who Do I Call?, Community Resources, Outpatient Counseling, Personal Garbage Pick Up Worker
--- NOTE | 2023-11-02 12:35 | P.PN ---
Subjective Progress Note Date: 11/02/23 HISTORY OF PRESENT ILLNESS: This is a 68-year-old female with a past medical history significant for no nobstructive CAD, nonobstructive cardiomyopathy, valvular heart disease, hypertension, hyperlipidemia, paroxysmal atrial fibrillation, and hypothyroidism. Patient follows in the office with Dr. Wisdom. We have been asked to see the patient in consultation for atrial fibrillation and congestive heart failure. Patient examined at the bedside in the emergency room. Patient presented to the hospital with chief complaint of shortness of breath. She states since the beginning of September she has been feeling generally unwell. She reports significant weakness and shortness of breath. She states she is unable to walk a fair distance due to shortness of breath. She does report occasional palpitations. She also reports weight gain since September. She currently denies chest pain or pressure. At the time of examination, the patient is atrial fibrillation with a heart rate in the 120s. DIAGNOSTICS: - EKG reveals atrial fibrillation with RVR. - Chest xray bibasilar infiltrates with small pleural effusions. Correlate for atelectasis or pneumonia. Cardiomegaly.. - Laboratory data: WBC 10.7. Hemoglobin 14.6. Platelet count 174. Sodium 141. Potassium 4.2. BUN 27. Creatinine 1.22. Troponin negative x 1. proBNP 28,900. Patient was found be positive for COVID - Current home cardiac medications include Eliquis 5 mg twice a day, metoprolol titrate 50 mg twice a day, Lipitor 40 mg daily, and amiodarone 100 mg daily - Most recent echocardiogram obtained in March 2023 revealed ejection fraction 35%, moderate mitral regurgitation, moderate Regurgitation, and moderate aortic regurgitation - Cardiac catheterization history: June 2023 revealing intermediate disease of the LAD by the bifurcation of a large diagonal branch which has an ostial lesion appears to be intermediate as well. Medical management was recommended. October 29, 2023 Patient examined this morning at the bedside. Patient reports improvement in her shortness of breath. She denies any chest pain or pressure. She reports weakness in her lower extremities with ambulating. Telemetry reveals atrial fibrillation with heart in the 120s. Echocardiogram completed revealing ejection fraction 20 to 25%, moderate to severe AI, mild TR, and moderate MR October 30 October 30, 2023 Patient examined this morning at the bedside. Patient currently denies chest pain or pressure. She denies shortness of breath. She remains on IV diuretics. Telemetry reveals atrial fibrillation with a heart rate in the 130s. She is currently on 100 mg of metoprolol twice a day. Blood pressure stable. 10/31 Patient is not requiring oxygen. She states she is weak when she gets up to the bathroom. She still has shortness of breath with minimal activity. Heart rate is jumping up to the 120s and 130s with minimal activity. Blood pressure is 96/60, pulse ox 96% on room air. Repeat blood work reveals BC 11.7, hemoglobin 17, platelet count 245. No repeat chemistry is available at the time of this dictation. 11/01 Patient denies having any chest pain or chest pressure. No cough. No lightheadedness or dizziness. She states she has been up for a shower and did well with this. Blood pressure has been on the lower side at 109/68 and Entresto was held last evening and this morning. Repeat blood work reveals h emoglobin of 17, WBC 10. Electrolytes are normal. BUN 42 creatinine 1.48 which is improved from yesterday. 11/02 Patient's blood pressure reading this morning was on the soft side and Entresto was to held. We did change her to half tablet of Entresto twice daily yesterday. Besides blood pressure reading now, others have been quite stable and she received her first dose last evening. Repeat blood work reveals sodium 140, potassium 4.2, BUN 39 creatinine 1.5. Patient states that she is being discharged home today. PHYSICAL EXAM: VITAL SIGNS: Reviewed. GENERAL: Well-developed in no acute distress. HEENT: Head is normocephalic. Pupils are equal, round. Sclerae anicteric. No JVD or thyromegaly LUNGS: Respirations even and unlabored. Lungs diminished with bibasilar rales, improved HEART: Tachycardic. Irregular rate and rhythm. S1 and S2 heard. Systolic murmur noted EXTREMITIES: No clubbing or cyanosis. Peripheral pulses intact. Minimal bilateral lower extremity edema NEUROLOGIC: Awake and alert. Oriented x 3. ASSESSMENT: Shortness of breath x 6 weeks Acute COVID-19 Acute heart failure with reduced EF, 35% Atrial fibrillation with RVR, appears persistent and currently rate controlled History of cardioversion, x 3 Nonobstructive CAD Nonischemic cardiomyopathy Valvular heart disease Hypertension Hyperlipidemia Hypothyroidism PLAN: Continue oral Lasix 40 mg daily Continue Lopressor to 125 mg twice daily Continue amiodarone 200 mg twice daily for rate control Consider ablation on an outpatient basis after patient has recovered from her acute issues as an outpatient Continue decreased dose of Entresto half tablet twice daily Patient is cleared for discharge from cardiology and may follow-up with Dr. Wisdom in 2 weeks. Nurse practitioner note has been reviewed by physician. Signing provider agrees with the documented findings, assessment, and plan of care documented by TIERCE FILLER as a scribe. Objective - Vital Signs Vital signs: Vital Signs Temp 97.6 F 11/02/23 08:45 Pulse 95 11/02/23 08:45 Resp 18 11/02/23 08:45 BP 90/53 11/02/23 08:45 Pulse Ox 95 11/02/23 08:45 FiO2 Intake & Output 11/01/23 11/02/23 11/02/23 18:59 06:59 18:59 Intake Total 236 110 Balance 236 110 Weight 83.1 kg Intake: Oral 236 110 Other: Voiding Method Toilet Toilet Toilet # Voids 1 - Labs CBC & Chem 7: 11/01/23 07:29 11/02/23 07:53 Labs: Abnormal Lab Results - Last 24 Hours (Table) 11/02/23 Range/Units 07:53 BUN 39 H (7-17) mg/dL Creatinine 1.50 H (0.52-1.04) mg/dL Glucose 107 H (74-99) mg/dL
[2023-11-02 12:52] VITALS: BP 91/63; PULSE 98
--- NOTE | 2023-11-02 13:52 | P.PN ---
Subjective Progress Note Date: 11/02/23 Principal diagnosis: Shortness of breath, CHF. Acute exacerbation of chronic systolic congestive heart failure with atrial fibrillation, RVR, and subacute COVID-19 infection This is a pleasant 68-year-old female patient with a known history of hypothyroidism, atrial fibrillation anticoagulated with Eliquis, hyperlipidemia, hypertension, obstructive sleep apnea utilizing BiPAP, acromegaly, non-smoker. Cardiac catheterization from July 2023 revealed intermediate disease involving the mid LAD, treated medically. Echocardiogram from March 2023 revealed impaired left ventricular systolic function with ejection fraction of 30 to 35%. She presented here to the emergency room last evening with a 3 to 4- week history of increasing shortness of breath swelling of the lower extremities dry nonproductive cough. Chest x-ray shows some basilar infiltrates with small effusions. Cardiomegaly. White count 10.7. Hemoglobin 14.6. Platelets 174. Sodium 141. Potassium 4.2. Bicarb 19. BUN 27. Creatinine 1.22. Glucose 104. proBNP 28,900. Troponin negative x 1. Viral screen was positive for COVID-19 infection. She is seen today in consultation in the emergency department. Currently sitting up in a stretcher. Awake and alert in no acute distress. She is maintaining good O2 saturations in the 90s on room air. She is breathing a bit easier today compared to yesterday. She has been initiated on Lasix 40 mg IV every 12 hours. The patient is seen today October 29, 2023 in follow-up in the selective care unit. She is currently sitting up in bed. Awake and alert in no acute distress. She is maintaining good O2 saturations in the 90s on room air. Cardiogram did reveal severely impaired left ventricular systolic function with ejection fraction of 20 to 25%. Moderate mitral regurgitation, moderate to severe aortic regurgitation. Sodium 140. Potassium 3.9. Bicarb 20. BUN 32. Creatinine 1.51. She is continued on IV diuretics. Anticoagulated with Eliquis. Remains on vitamin supplements. Currently in a negative balance. Reevaluated today on 10/30/2023, patient is doing better, nonetheless continues to have some shortness of breath cough and wheezing. Patient is presently on room air with O2 sats of 93%, she is afebrile, she denies any chest pain or chest pressure, remains in atrial fibrillation with RVR rate in the 130 range, being addressed by cardiology. She is on metoprolol 100 mg twice daily, considering her cardiac condition, patient is not quite ready for discharge planning for Progress note dated October 31, 2023. This is a 68-year-old female who is seen today in room 373. Currently, the patient is on room air. Saturations are 98%. The patient's BNP, this was 28,900. She is using oxygen only as needed. She was admitted with a diagnosis of congestive heart failure, and coronavirus infection, without coronavirus a ssociated pneumonia. The patient appears to be relatively comfortable. Operatory data includes a white count 11.7, hemoglobin 17.6, hematocrit 55.2, and platelet count of 245,000. No recent chest x-ray to report. Progress note dated November 01, 2023. 68-year-old female seen in room 373. Currently, the patient is on room air. She is not receiving any IV fluids. She is sitting at the side of the bed, speaking to her daughter. The patient is feeling much better. She denies any shortness of breath, cough, wheezing, chest tightness, or phlegm production. She also denies any chest pain or pressure. Current labs include white count of 10, hemoglobin 17.3, hematocrit 54.1, and a platelet count of 221,000. Sodium 141, potassium 3.7, chlorides 101, CO2 30, anion gap 10, BUN 42, creatinine 1.48. The patient's glucose was 116, and the calcium was 10.3. Microbiology is currently negative. No recent chest x-ray. Progress note dated November 02, 2023. 68-year-old female seen in room 373. Currently, the patient is on room air. The patient's not requiring any IV fluids. Her albuterol inhaler will be discontinued. The patient is hopefully going to be discharged in the next 24 ho urs or so. From the pulmonary standpoint, she is certainly cleared for discharge. Labs today include a sodium 140, potassium 4.2, chlorides 104, CO2 24, anion gap 12, BUN 39, and creatinine 1.50. Glucose is 107. Calcium is 10.1. Objective - Vital Signs Vital signs: Vital Signs Temp 97.6 F 11/02/23 08:45 Pulse 98 11/02/23 11:55 Resp 18 11/02/23 11:55 BP 91/63 01/31/24 11:55 Pulse Ox 99 11/02/23 11:55 FiO2 Intake & Output 11/01/23 11/02/23 11/02/23 18:59 06:59 18:59 Intake Total 236 110 Balance 236 110 Weight 83.1 kg Intake: Oral 236 110 Other: Voiding Method Toilet Toilet Toilet # Voids 1 - Exam No acute distress, oriented 3. Currently on room air. No respiratory distress, or use of accessory muscles. HEENT examination is grossly unremarkable. Mucous membranes are moist. No oral lesions. Neck supple. Full range of motion. No adenopathy thyromegaly or neck vein distention. Cardiovascular examination reveals an irregular rhythm and rate. S1-S2 normal. No S3 or S4. No discernible murmur noted. Heart sounds are distant. Heart rate 90 bpm. Lungs reveal bibasilar crackles. No wheezes. No rhonchi. Breath sounds are equal bilaterally. Room air saturation is 99 %. Abdomen soft bowel sounds are heard. No masses or tenderness. Extremities are intact. No cyanosis or clubbing. Mild edema. Skin is without rash or lesion. Neurologic examination is brief but nonfocal. - Labs CBC & Chem 7: 11/01/23 07:29 11/02/23 07:53 Labs: Abnormal Lab Results - Last 24 Hours (Table) 11/02/23 Range/Units 07:53 BUN 39 H (7-17) mg/dL Creatinine 1.50 H (0.52-1.04) mg/dL Glucose 107 H (74-99) mg/dL Assessment and Plan Assessment: Acute exacerbation of chronic systolic congestive heart failure. Ejection fraction 20 to 25%. Valvular heart disease in the form of moderate mitral regurgitation, and moderate to severe aortic regurgitation. Atrial fibrillation, with a controlled ventricular response rate. Acute kidney injury. Paroxysmal atrial fibrillation. Coronary artery disease. Hyperlipidemia. Hypertension. Hypothyroidism. Obstructive sleep apnea syndrome, on home CPAP. Plan: Plan dated October 31, 2023. The patient appears to be doing relatively well. She is currently on room air. She continues on diuretics, and blood thinners. Cardiology is dealing with her valvular heart disease, atrial fibrillation, etc. Labs, x-rays, and medications are all reviewed. The patient's overall prognosis remains guarded. We will continue to follow the patient, make recommendations along the way. Her room air saturation is 98%. She did test positive for coronavirus, but does not have coronavirus associated pneumonia. Plan dated November 01, 2023. The patient appears to be doing very well from the pulmonary standpoint. She is currently on room air. She is not having any shortness of breath, cough, wheezing, chest tightness, or phlegm production. There is no conversational dyspnea or use of accessory muscles. Labs, x-rays, medications are reviewed. Her room air saturation is 99%. From the pulmonary standpoint, she could be considered for possible discharge. The patient did test positive for coronavirus, but was not thought to have coronavirus associated pneumonia. We will continue to follow the patient, make recommendations along the way. Plan dated November 02, 2023. The patient appears to be doing relatively well. She is currently on room air. She is not receiving any IV fluids. The patient is hoping to be discharged soon. She denies any shortness of breath, cough, wheezing, chest tightness, or phlegm production. We are going to DC her albuterol inhaler. Labs, x-rays, and medications are all reviewed. The patient's overall prognosis remains guarded. The patient did test positive for coronavirus, but was not thought to have coronavirus associated pneumonia. Time with Patient: Less than 30
== END 2023-11-02 14:09 | disposition home or self-care (01) | DRG 291 ==
LOC: EC 18:06 → 3SCARD 20:55
PROVIDERS: ADMIT Hospitalist; ATTEND Hospitalist
PROC: 8E0ZXY6 Isolation (ICD-10-PCS; principal; 2023-10-27)
DX: I11.0 Hypertensive heart disease with heart failure (principal); I50.23 Acute on chronic systolic (congestive) heart failure; J96.01 Acute respiratory failure with hypoxia; U07.1 COVID-19; I31.39 Other pericardial effusion (noninflammatory); N17.9 Acute kidney failure, unspecified; I48.19 Other persistent atrial fibrillation; I27.22 Pulmonary hypertension due to left heart disease; I42.8 Other cardiomyopathies; E22.0 Acromegaly and pituitary gigantism; I47.9 Paroxysmal tachycardia, unspecified; E03.9 Hypothyroidism, unspecified; I08.3 Combined rheumatic disorders of mitral, aortic and tricuspid valves; G47.33 Obstructive sleep apnea (adult) (pediatric); E78.5 Hyperlipidemia, unspecified; E83.52 Hypercalcemia; I25.10 Atherosclerotic heart disease of native coronary artery without angina pectoris; Z79.01 Long term (current) use of anticoagulants; Z79.890 Hormone replacement therapy; Z79.899 Other long term (current) drug therapy; Z88.0 Allergy status to penicillin; Z88.8 Allergy status to other drugs, medicaments and biological substances
CPT/HCPCS: 36415; 71046; 80048; 80053; 83735; 83880; 84484; 85025; 85027; 85610; 85730; 86140; 87636; 93005; 93306; 94640; 96374; 96375; 96376; 99285

== ENCOUNTER 2024-01-17 20:47 | Inpatient (IN) | payer MEDICARE ==
[2024-01-17 21:29] LABS: Basophils # (A) 0.1 k/uL (0-0.2); Basophils % (A) 0 %; Eosinophils # (A) 0.1 k/uL (0-0.7); Eosinophils % (A) 0 %; HCT 50.9 % (34.0-46.0); HGB 16.1 gm/dL (11.4-16.0); Lymphocytes # (A) 0.7 k/uL (1.0-4.8); Lymphocytes % (A) 5 %; MCH 30.7 pg (25.0-35.0); MCHC 31.7 g/dL (31.0-37.0); MCV 96.8 fL (80.0-100.0); Mean Platelet Volume 10.3; Monocytes # (A) 0.8 k/uL (0-1.0); Monocytes % (A) 5 %; Neutrophils # (A) 14.8 k/uL (1.3-7.7); Neutrophils % (A) 89 %; Platelet Count 319 k/uL (150-450); RBC 5.25 m/uL (3.80-5.40); RDW 15.4 % (11.5-15.5); WBC 16.6 k/uL (3.8-10.6)
[2024-01-17] MEDS: SODIUM CHLORIDE 0.9% 1,000 ML IV SCH (21:41)
[2024-01-17] MEDS: SODIUM CHLORIDE 0.9% 500 ML 500 ML IV SCH (21:41)
[2024-01-17 21:47] LABS: INR 1.4 (<1.2); Partial Thromboplastin Time 30.1 sec (22.0-30.0); Prothrombin Time 14.4 sec (10.0-12.5)
[2024-01-17 21:50] LABS: ALT 41 U/L (4-34); African American GFR (CKD) 33 (>60 ml/min/1.73 sqM); Albumin 3.2 g/dL (3.5-5.0); Anion Gap 14 mmol/L; Blood Urea Nitrogen 76 mg/dL (7-17); Calcium 10.8 mg/dL (8.4-10.2); Carbon Dioxide 21 mmol/L (22-30); Chloride 99 mmol/L (98-107); Glucose 154 mg/dL (74-99); Non-African American GFR(CKD) 29 (>60 ml/min/1.73 sqM); Sodium 134 mmol/L (137-145); Total Bilirubin 1.6 mg/dL (0.2-1.3); Total Protein 6.2 g/dL (6.3-8.2)
[2024-01-17 21:54] LABS: AST 76 U/L (14-36); Alkaline Phosphatase 120 U/L (38-126); Potassium 4.9 mmol/L (3.5-5.1)
--- NOTE | 2024-01-17 23:48 | CT ---
EXAM: CT Head Without Intravenous Contrast CLINICAL HISTORY: ITS.REASON CT Reason: altered mental status TECHNIQUE: Axial computed tomography images of the head/brain without intravenous contrast. CTDI is 49.1 mGy and DLP is 1134 mGy-cm. This CT exam was performed using one or more of the following dose reduction techniques: automated exposure control, adjustment of the mA and/or kV according to patient size, and/or use of iterative reconstruction technique. COMPARISON: No relevant prior studies available. FINDINGS: No acute intracranial hemorrhage. No midline shift or mass effect. The territorial bacon-white matter differentiation is maintained throughout. Age-related cerebral volume loss. Periventricular and subcortical white matter hypoattenuation, consistent with chronic microangiopathy. The visualized orbits appear grossly unremarkable. The calvarium is intact. Paranasal sinus mucosal thickening. IMPRESSION: No acute intracranial hemorrhage, midline shift, or mass effect.
--- NOTE | 2024-01-17 23:51 | ED ---
Weakness HPI - General Chief complaint: Weakness Stated complaint: Slurring words,R Arm Pain Time Seen by Provider: 01/17/24 21:02 Source: patient Mode of arrival: ambulatory Limitations: no limitations - History of Present Illness Initial comments: This patient is a 68-year-old woman who presents to evaluation for increasing weakness going on over the course of nearly 1 week. The patient now is finding it difficult to negotiate her home. She is not able to climb stairs. Today the patient's daughter noticed that her speech seemed funny. The patient denies focal weakness. No headache. The symptoms were preceded by some flu type symptoms, cough, congestion, body aches. MD Complaint: generalized weakness Onset/Timin -: week(s) Location: generalized Severity: moderate Consistency: constant Improves with: none Worsens with: exertion - Related Data Home Medications Medication Instructions Recorded Confirmed Ferrous Sulfate [Iron] 325 mg PO DAILY 12/15/21 01/17/24 Levothyroxine Sodium [Synthroid] 137 mcg PO DAILY 12/15/21 01/17/24 Apixaban [Eliquis] 5 mg PO BID 10/27/23 01/17/24 Atorvastatin [Lipitor] 40 mg PO DAILY 10/27/23 01/17/24 Doxycycline Hyclate 100 mg PO BID 01/17/24 01/17/24 Previous Rx's Medication Instructions Recorded Amiodarone [Cordarone] 200 mg PO BID 30 Days #60 tab 11/02/23 Dapagliflozin Propanediol [Farxiga] 10 mg PO DAILY 30 Days #30 tab 11/02/23 Furosemide [Lasix] 40 mg PO DAILY 30 Days #30 tab 11/02/23 Metoprolol Tartrate [Lopressor] 100 mg PO BID 30 Days #60 tab 11/02/23 Potassium Chloride [K-Tab ER] 20 meq PO DAILY 30 Days #30 tab 11/02/23 Sacubitril/Valsartan [Entresto 24 0.5 each PO BID 30 Days #15 tab 11/02/23 mg-26 mg Tablet] Allergies Allergy/AdvReac Type Severity Reaction Status Date / Time benzocaine Allergy Anaphylaxis Verified 01/17/24 20:53 Penicillins Allergy Unknown Verified 01/17/24 20:53 Childhood Review of Systems ROS Statement: Those systems with pertinent positive or pertinent negative responses have been documented in the HPI. ROS Other: All systems not noted in ROS Statement are negative. Constitutional: Reports: weakness Eyes: Denies: vision change ENT: Denies: congestion Respiratory: Reports: dyspnea. Denies: cough, wheezes Cardiovascular: Denies: chest pain, palpitations, orthopnea, edema, syncope Gastrointestinal: Denies: abdominal pain, nausea, vomiting, diarrhea, melena, hematochezia Genitourinary: Denies: dysuria, hematuria Musculoskeletal: Denies: back pain Skin: Denies: rash Neurological: Denies: headache, weakness, numbness Past Medical History Past Medical History: Atrial Fibrillation, Heart Failure, Hypertension, Sleep Apnea/CPAP/BIPAP Additional Past Medical History / Comment(s): acromegly, previous cardioversion, wears Bipap at home. 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 Absent: scleral icterus, conjunctival injection ENT exam: Present: mucous membranes dry Neck exam: Present: normal inspection, full ROM. Absent: tenderness Respiratory exam: Present: normal lung sounds bilaterally. Absent: respiratory distress, wheezes, rales, rhonchi, stridor, accessory muscle use Cardiovascular Exam: Present: regular rate, normal rhythm, normal heart sounds. Absent: systolic murmur, diastolic murmur, rubs, gallop GI/Abdominal exam: Present: soft. Absent: distended, tenderness, guarding, rebound, rigid, mass Extremities exam: Present: normal inspection, normal capillary refill. Absent: pedal edema, calf tenderness Back exam: Present: normal inspection. Absent: CVA tenderness (R), CVA tenderness (L) Neurological exam: Present: alert, oriented X3, CN II-XII intact. Absent: motor sensory deficit Skin exam: Present: warm, dry, intact, normal color. Absent: rash Course Vital Signs 01/17/24 01/17/24 01/17/24 20:51 21:00 22:07 Temperature 97.3 F L 97 F L Pulse Rate 80 115 H 105 H Respiratory 18 18 18 Rate Blood Pressure 74/43 123/71 163/55 O2 Sat by Pulse 92 L 94 L 97 Oximetry 01/17/24 01/18/24 01/18/24 23:24 01:00 01:51 Temperature Pulse Rate 105 H 93 101 H Respiratory 18 18 18 Rate Blood Pressure 100/71 112/67 101/66 O2 Sat by Pulse 98 95 98 Oximetry 01/18/24 01/18/24 01/18/24 03:13 04:00 05:00 Temperature Pulse Rate 98 84 Respiratory 18 16 Rate Blood Pressure 112/77 118/74 107/72 O2 Sat by Pulse 96 98 Oximetry 01/18/24 01/18/24 01/18/24 06:24 06:48 09:21 Temperature Pulse Rate 101 H 98 Respiratory 18 18 Rate Blood Pressure 118/97 111/81 O2 Sat by Pulse 97 94 L 94 L Oximetry 01/18/24 01/18/24 01/18/24 10:20 13:51 16:37 Temperature Pulse Rate 106 H 92 98 Respiratory 16 16 18 Rate Blood Pressure 132/95 118/79 127/94 O2 Sat by Pulse 95 95 94 L Oximetry 01/18/24 01/18/24 16:49 17:15 Temperature 97.1 F L Pulse Rate 106 H Respiratory 16 Rate Blood Pressure 109/89 O2 Sat by Pulse 95 Oximetry EKG Findings - EKG Results: EKG: interpreted by ERMD EKG shows: tachycardia (Rate 106 bpm), atrial fibrillation - Blocks, Byars, Hypertrophy, ST Abn: AV and intraventricular conduction: left bundle branch block (fi xed/intermittent, complete/incomplete) QRS axis and voltage: left axis deviation (-30 to -90) Procedures - Sepsis Sepsis Focused Exam #1 Sepsis Focused Exam Complete: Yes Vital Signs & RN Notes Reviewed: Yes Capillary Refill: < 2 Seconds: Fingers Peripheral Pulses: Normal: Radial (R) Skin Color: Mottled Respiratory Exam: rales Cardiovascular Exam: regular rate, normal rhythm Medical Decision Making - Medical Decision Making Patient is 68-year-old woman presenting with generalized weakness and fatigue that is gotten progressively worse over past few days and which was preceded by flulike symptoms. The patient does appear significantly dehydrated. The patient is started on fluids and antibiotic coverage and will be admitted to have further treatment. The patient had CT of the brain that I interpreted as negative for acute bony injury or acute intracranial hemorrhage The patient had chest x-ray that I interpreted as showing right lower infiltrate. Was pt. sent in by a medical professional or institution (, ABBE, PATIENT FINANCIAL COORDINATOR, urgent care, hospital, or [facility]...) When possible be specific @ -[No] Did you speak to anyone other than the patient for history (EMS, parent, family, police, friend...)? What history was obtained from this source @ -[No] Did you review nursing and triage notes (agree or disagree)? Why? @ -[I reviewed and agree with nursing and triage notes] Were old charts reviewed (outside hosp., previous admission, EMS record, old EKG, old radiological studies, urgent care reports/EKG's, [facility] records)? Report findings @ -[No old charts were reviewed] Differential Diagnosis (chest pain, altered mental status, abdominal pain women, abdominal pain men, vaginal bleeding, weakness, fever, dyspnea, syncope, headache, dizziness, GI bleed, back pain, seizure, CVA, palpatations, mental health, musculoskeletal)? @ -[Differential Altered Mental Status: Hypoglycemia, DKA, hypercapnia, ETOH, overdose, CO poisoning, trauma, myxedema coma, HTN encephalopathy, infection, encephalitis, psychosis, intercranial hemorrhage, hepatic encephalopathy, meningitis, CVA, this is not meant to be an all-inclusive list EKG interpreted by me (3pts min.). @ -[I interpreted as above] X-rays interpreted by me (1pt min.). @ -[I interpreted as above CT interpreted by me (1pt min.). @ -[I interpreted as above U/S interpreted by me (1pt. min.). @ -[None done] What testing was considered but not performed or refused? (CT, X-rays, U/S, labs)? Why? @ -[None] What meds were considered but not given or refused? Why? @ -[None] Did you discuss the management of the patient with other professionals (professionals i.e. , ABBE, PATIENT FINANCIAL COORDINATOR, lab, RT, psych nurse, social services analyst, c engineer, teacher, aoc director combat operations officer, pillowcase maker)? Give summary @ -Case discussed with admitting physician and treatment recommendations incorporated Was smoking cessation discussed for >3mins.? @ -[No] Was critical care preformed (if so, how long)? @ -[Yes, 35 minutes Were there social determinants of health that impacted care today? How? (Homelessness, low income, unemployed, alcoholism, drug addiction, transportation, low edu. Level, literacy, decrease access to med. care, fpc, rehab)? @ -[No] Was there de-escalation of care discussed even if they declined (Discuss DNR or withdrawal of care, Hospice)? DNR status @ -[No] What co-morbidities impacted this encounter? (DM, HTN, Smoking, COPD, CAD, Cancer, CVA, ARF, Chemo, Hep., AIDS, mental health diagnosis, sleep apnea, mor bid obesity)? @ -[Pretension, atrial fibrillation, CHF Was patient admitted / discharged? Hospital course, mention meds given and route, prescriptions, significant lab abnormalities, going to OR and other pertinent info. @ -[Above Undiagnosed new problem with uncertain prognosis? @ -[No] Drug Therapy requiring intensive monitoring for toxicity (Heparin, Nitro, Insulin, Cardizem)? @ -[No] Were any procedures done? @ -[No] Diagnosis/symptom? @ -[Acute pneumonia Sepsis Generalized weakness Acute, or Chronic, or Acute on Chronic? @ -Acute Uncomplicated (without systemic symptoms) or Complicated (systemic symptoms)? @ -[Complicated by weakness Side effects of treatment? @ -[No] Exacerbation, Progression, or Severe Exacerbation? @ -[No] Poses a threat to life or bodily function? How? (Chest pain, USA, MD, pneumonia, PE, COPD, DKA, ARF, appy, cholecystitis, CVA, Diverticulitis, Homicidal, Suicidal, threat to staff... and all critical care pts) @ -[Yes - Lab Data Result diagrams: 01/22/24 04:18 01/22/24 04:18 Lab Results 01/17/24 01/17/24 01/17/24 Range/Units 21:18 21:18 21:18 WBC 16.6 H (3.8-10.6) k/uL RBC 5.25 (3.80-5.40) m/uL Hgb 16.1 H (11.4-16.0) gm/dL Hct 50.9 H (34.0-46.0) % MCV 96.8 (80.0-100.0) fL MCH 30.7 (25.0-35.0) pg MCHC 31.7 (31.0-37.0) g/dL RDW 15.4 (11.5-15.5) % Plt Count 319 (150-450) k/uL MPV 10.3 Neutrophils % 89 % Lymphocytes % 5 % Monocytes % 5 % Eosinophils % 0 % Basophils % 0 % Neutrophils # 14.8 H (1.3-7.7) k/uL Lymphocytes # 0.7 L (1.0-4.8) k/uL Monocytes # 0.8 (0-1.0) k/uL Eosinophils # 0.1 (0-0.7) k/uL Basophils # 0.1 (0-0.2) k/uL PT 14.4 H (10.0-12.5) sec INR 1.4 H (<1.2) APTT 30.1 H (22.0-30.0) sec Sodium 134 L (137-145) mmol/L Potassium 4.9 (3.5-5.1) mmol/L Chloride 99 (98-107) mmol/L Carbon Dioxide 21 L (22-30) mmol/L Anion Gap 14 mmol/L BUN 76 H (7-17) mg/dL Creatinine 1.76 H (0.52-1.04) mg/dL Est GFR (CKD-EPI)AfAm 33 (>60 ml/min/1.73 sqM) Est GFR (CKD-EPI)NonAf 29 (>60 ml/min/1.73 sqM) Glucose 154 H (74-99) mg/dL Lactic Ac Sepsis Rflx Plasma Lactic Acid Parker (0.7-2.0) mmol/L Calcium 10.8 H (8.4-10.2) mg/dL Total Bilirubin 1.6 H (0.2-1.3) mg/dL AST 76 H (14-36) U/L ALT 41 H (4-34) U/L Alkaline Phosphatase 120 (38-126) U/L Troponin I (0.000-0.034) ng/mL Total Protein 6.2 L (6.3-8.2) g/dL Albumin 3.2 L (3.5-5.0) g/dL Influenza Type A (PCR) (Not Detectd) Influenza Type B (PCR) (Not Detectd) RSV (PCR) (Not Detectd) SARS-CoV-2 (PCR) (Not Detectd) 01/17/24 01/17/24 01/17/24 Range/Units 21:18 21:18 22:17 WBC (3.8-10.6) k/uL RBC (3.80-5.40) m/uL Hgb (11.4-16.0) gm/dL Hct (34.0-46.0) % MCV (80.0-100.0) fL MCH (25.0-35.0) pg MCHC (31.0-37.0) g/dL RDW (11.5-15.5) % Plt Count (150-450) k/uL MPV Neutrophils % % Lymphocytes % % Monocytes % % Eosinophils % % Basophils % % Neutrophils # (1.3-7.7) k/uL Lymphocytes # (1.0-4.8) k/uL Monocytes # (0-1.0) k/uL Eosinophils # (0-0.7) k/uL Basophils # (0-0.2) k/uL PT (10.0-12.5) sec INR (<1.2) APTT (22.0-30.0) sec Sodium (137-145) mmol/L Potassium (3.5-5.1) mmol/L Chloride (98-107) mmol/L Carbon Dioxide (22-30) mmol/L Anion Gap mmol/L BUN (7-17) mg/dL Creatinine (0.52-1.04) mg/dL Est GFR (CKD-EPI)AfAm (>60 ml/min/1.73 sqM) Est GFR (CKD-EPI)NonAf (>60 ml/min/1.73 sqM) Glucose (74-99) mg/dL Lactic Ac Sepsis Rflx Y Plasma Lactic Acid Parker 3.6 H* (0.7-2.0) mmol/L Calcium (8.4-10.2) mg/dL Total Bilirubin (0.2-1.3) mg/dL AST (14-36) U/L ALT (4-34) U/L Alkaline Phosphatase (38-126) U/L Troponin I 0.012 (0.000-0.034) ng/mL Total Protein (6.3-8.2) g/dL Albumin (3.5-5.0) g/dL Influenza Type A (PCR) (Not Detectd) Influenza Type B (PCR) (Not Detectd) RSV (PCR) (Not Detectd) SARS-CoV-2 (PCR) (Not Detectd) 01/17/24 Range/Units 23:21 WBC (3.8-10.6) k/uL RBC (3.80-5.40) m/uL Hgb (11.4-16.0) gm/dL Hct (34.0-46.0) % MCV (80.0-100.0) fL MCH (25.0-35.0) pg MCHC (31.0-37.0) g/dL RDW (11.5-15.5) % Plt Count (150-450) k/uL MPV Neutrophils % % Lymphocytes % % Monocytes % % Eosinophils % % Basophils % % Neutrophils # (1.3-7.7) k/uL Lymphocytes # (1.0-4.8) k/uL Monocytes # (0-1.0) k/uL Eosinophils # (0-0.7) k/uL Basophils # (0-0.2) k/uL PT (10.0-12.5) sec INR (<1.2) APTT (22.0-30.0) sec Sodium (137-145) mmol/L Potassium (3.5-5.1) mmol/L Chloride (98-107) mmol/L Carbon Dioxide (22-30) mmol/L Anion Gap mmol/L BUN (7-17) mg/dL Creatinine (0.52-1.04) mg/dL Est GFR (CKD-EPI)AfAm (>60 ml/min/1.73 sqM) Est GFR (CKD-EPI)NonAf (>60 ml/min/1.73 sqM) Glucose (74-99) mg/dL Lactic Ac Sepsis Rflx Plasma Lactic Acid Parker (0.7-2.0) mmol/L Calcium (8.4-10.2) mg/dL Total Bilirubin (0.2-1.3) mg/dL AST (14-36) U/L ALT (4-34) U/L Alkaline Phosphatase (38-126) U/L Troponin I (0.000-0.034) ng/mL Total Protein (6.3-8.2) g/dL Albumin (3.5-5.0) g/dL Influenza Type A (PCR) Not Detected (Not Detectd) Influenza Type B (PCR) Not Detected (Not Detectd) RSV (PCR) Not Detected (Not Detectd) SARS-CoV-2 (PCR) Not Detected (Not Detectd) Disposition Clinical Impression: Atrial fibrillation with rapid ventricular response, Pneumonia, Sepsis Disposition: ADMITTED IP TO THIS HOSP Condition: Serious Is patient prescribed a controlled substance at d/c from ED?: No
--- NOTE | 2024-01-18 00:11 | XR ---
EXAM: XR Chest, 2 Views CLINICAL HISTORY: ITS.REASON XR Reason: altered mental status TECHNIQUE: Frontal and lateral views of the chest. COMPARISON: No relevant prior studies available. FINDINGS: Lungs: Patchy airspace consolidations in the RIGHT lower lobe, consistent with pneumonia. Pleural space: Unremarkable. No pneumothorax. Heart: Cardiomegaly. Mediastinum: Unremarkable. Normal mediastinal contour. Bones/joints: Unremarkable. No acute fracture. IMPRESSION: Patchy airspace consolidations in the RIGHT lower lobe, consistent with pneumonia.
[2024-01-18] MEDS: AZITHROMYCIN 500 MG TAB PO SCH (08:26)
[2024-01-18] MEDS: AMIODARONE 200 MG TAB PO SCH (13:01)
--- NOTE | 2024-01-18 14:12 | US ---
EXAMINATION TYPE: US carotid duplex BILAT DATE OF EXAM: 01/18/2024 COMPARISON: NONE CLINICAL INDICATION: Female, 68 years old with history of stroke; AMS TECHNIQUE: Carotid duplex ultrasound examination. Indirect Doppler criteria was utilized. FINDINGS: EXAM MEASUREMENTS: RIGHT: Peak Systolic Velocity (PSV) cm/sec ----- Right CCA: 24.1 ----- Right ICA: 51.2 ----- Right ECA: 48.7 ICA/CCA ratio: 2.1 RIGHT: End Diastole cm/sec ----- Right CCA: 5.6 ----- Right ICA: 18.0 ----- Right ECA: 8.4 LEFT: Peak Systolic Velocity (PSV) cm/sec ----- Left CCA: 31.3 ----- Left ICA: 53.6 ----- Left ECA: 43.6 ICA/CCA ratio: 1.7 LEFT: End Diastole cm/sec ----- Left CCA: 9.2 ----- Left ICA: 20.8 ----- Left ECA: 5.0 VERTEBRALS (direction of flow): Right Vertebral: unable to view Left Vertebral: Antegrade Rhythm: Normal CHARGE MASTER COORDINATOR NOTES: Mild homogeneous plaque with no significant stenosis seen IMPRESSION: Atheromatous plaquing without significant flow-limiting stenosis. Criteria for Assigning % of Stenosis / Diameter reduction (Estimation based on the indirect measurements of the internal carotid artery velocities (ICA PSV). 1. Normal (no stenosis)=ICA PSV < 125 cm/s: ratio < 2.0: ICA EDV<40 cm/s. 2. Less than 50% stenosis=ICA PSV < 125 cm/s: ratio < 2.0: ICA EDV<40 cm/s. 3. 50 to 69% stenosis=ICA PSV of 125 to 230 cm/s: ration 2.0 ? 4.0: ICA EDV 40-100 cm/s. 4. Greater than 70% stenosis to near occlusion= ICA PSV > 230 cm/s: ratio > 4.0: ICA EDV > 100 cm/s. 5. Near occlusion= ICA PSV velocities may be low or undetectable: variable ratio and ICA EDV. 6. Total occlusion=unable to detect flow.
--- NOTE | 2024-01-18 14:52 | P.GSCN ---
History of Present Illness Consult date: 01/18/24 Reason for Consult: cyanotic hands, weakness, Raynaud's Requesting physician: Joellen West History of present illness: This is a pleasant 68-year-old female who presented to the emergency department with complaints of overall generalized weakness. Patient states that she has become increasingly weak over the last 1 weeks duration. She states that she has also had upper extremity shoulder pain for the last weeks duration as well. He has a past medical history including atrial fibrillation, heart failure, hype rtension, sleep apnea on BiPAP and chart reports acromegaly. She denies any pain in her hands or her feet. She denies any focal deficits. She states that everybody told her that her hands were little bit cool today but she has not noticed a difference. She was not aware of any previous history or diagnosis of Raynaud's syndrome. Denies any history of peripheral arterial disease. She had a brain CT that reports no acute intracranial hemorrhage midline shift or mass effect. Carotid duplex with no flow-limiting stenosis. Vascular surgery was consulted for cyanotic hands possible Raynaud's. Review of Systems A 14 point review systems was completed all pertinent positives and negatives as stated in the HPI. Past Medical History Past Medical History: Atrial Fibrillation, Heart Failure, Hypertension, Sleep Apnea/CPAP/BIPAP Additional Past Medical History / Comment(s): acromegly, previous cardioversion, wears Bipap at home. 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, part of esophagus removed Past Anesthesia/Blood Transfusion Reactions: No Reported Reaction Additional Past Anesthesia/Blood Transfusion Reaction / Comm: Allergy to Benzocaine Past Psychological History: No Psychological Hx Reported Smoking Status: Never smoker Past Alcohol Use History: None Reported Past Drug Use History: None Reported Medications and Allergies Home Medications Medication Instructions Recorded Confirmed Type Ferrous Sulfate [Iron] 325 mg PO DAILY 12/15/21 01/17/24 History Levothyroxine Sodium [Synthroid] 137 mcg PO DAILY 12/15/21 01/17/24 History Apixaban [Eliquis] 5 mg PO BID 10/27/23 01/17/24 History Atorvastatin [Lipitor] 40 mg PO DAILY 10/27/23 01/17/24 History Amiodarone [Cordarone] 200 mg PO BID 30 Days #60 tab 11/02/23 01/17/24 Rx Dapagliflozin Propanediol [Farxiga] 10 mg PO DAILY 30 Days #30 tab 11/02/23 01/17/24 Rx Furosemide [Lasix] 40 mg PO DAILY 30 Days #30 tab 11/02/23 01/17/24 Rx Metoprolol Tartrate [Lopressor] 100 mg PO BID 30 Days #60 tab 11/02/23 01/17/24 Rx Potassium Chloride [K-Tab ER] 20 meq PO DAILY 30 Days #30 tab 11/02/23 01/17/24 Rx Sacubitril/Valsartan [Entresto 24 0.5 each PO BID 30 Days #15 tab 11/02/23 01/17/24 Rx mg-26 mg Tablet] Doxycycline Hyclate 100 mg PO BID 01/17/24 01/17/24 History Allergies Allergy/AdvReac Type Severity Reaction Status Date / Time benzocaine Allergy Anaphylaxis Verified 01/17/24 20:53 Penicillins Allergy Unknown Verified 01/17/24 20:53 Childhood Surgical - Exam Vital Signs Temp Pulse Resp BP Pulse Ox 97.3 F L 80 18 74/43 92 L 01/17/24 20:51 01/17/24 20:51 01/17/24 20:51 01/17/24 20:51 01/17/24 20:51 General appearance: The patient is alert, oriented, appears in no acute distress. HET: Head is normocephalic and atraumatic. Pupils are equal and reactive. Neck: Supple. Heart: Regular. Lungs: Equal expansion, normal respiratory effort. Abdomen: Soft, nondistended. Extremities: Normal skin color and turgor. Large hands, cool to the touch. Hands are pink, Valentín refill approximately 5 seconds. Palpable +2 radial pulses bilaterally. Palpable DP pulses bilaterally. Neurological: No focal deficits. Alert and oriented. Results - Labs 01/17/24 21:18 01/17/24 21:18 Abnormal Lab Results - Last 24 Hours (Table) 01/17/24 01/17/24 01/17/24 Range/Units 21:18 21:18 21:18 WBC 16.6 H (3.8-10.6) k/uL Hgb 16.1 H (11.4-16.0) gm/dL Hct 50.9 H (34.0-46.0) % Neutrophils # 14.8 H (1.3-7.7) k/uL Lymphocytes # 0.7 L (1.0-4.8) k/uL PT 14.4 H (10.0-12.5) sec INR 1.4 H (<1.2) APTT 30.1 H (22.0-30.0) sec Sodium 134 L (137-145) mmol/L Carbon Dioxide 21 L (22-30) mmol/L BUN 76 H (7-17) mg/dL Creatinine 1.76 H (0.52-1.04) mg/dL Glucose 154 H (74-99) mg/dL Plasma Lactic Acid Parker (0.7-2.0) mmol/L Calcium 10.8 H (8.4-10.2) mg/dL Total Bilirubin 1.6 H (0.2-1.3) mg/dL AST 76 H (14-36) U/L ALT 41 H (4-34) U/L Total Protein 6.2 L (6.3-8.2) g/dL Albumin 3.2 L (3.5-5.0) g/dL 01/17/24 01/18/24 Range/Units 21:18 00:27 WBC (3.8-10.6) k/uL Hgb (11.4-16.0) gm/dL Hct (34.0-46.0) % Neutrophils # (1.3-7.7) k/uL Lymphocytes # (1.0-4.8) k/uL PT (10.0-12.5) sec INR (<1.2) APTT (22.0-30.0) sec Sodium (137-145) mmol/L Carbon Dioxide (22-30) mmol/L BUN (7-17) mg/dL Creatinine (0.52-1.04) mg/dL Glucose (74-99) mg/dL Plasma Lactic Acid Parker 3.6 H* 2.2 H* (0.7-2.0) mmol/L Calcium (8.4-10.2) mg/dL Total Bilirubin (0.2-1.3) mg/dL AST (14-36) U/L ALT (4-34) U/L Total Protein (6.3-8.2) g/dL Albumin (3.5-5.0) g/dL Diabetes panel 01/17/24 Range/Units 21:18 Sodium 134 L (137-145) mmol/L Potassium 4.9 (3.5-5.1) mmol/L Chloride 99 (98-107) mmol/L Carbon Dioxide 21 L (22-30) mmol/L BUN 76 H (7-17) mg/dL Creatinine 1.76 H (0.52-1.04) mg/dL Glucose 154 H (74-99) mg/dL Calcium 10.8 H (8.4-10.2) mg/dL AST 76 H (14-36) U/L ALT 41 H (4-34) U/L Alkaline Phosphatase 120 (38-126) U/L Total Protein 6.2 L (6.3-8.2) g/dL Albumin 3.2 L (3.5-5.0) g/dL Calcium panel 01/17/24 Range/Units 21:18 Calcium 10.8 H (8.4-10.2) mg/dL Albumin 3.2 L (3.5-5.0) g/dL Pituitary panel 01/17/24 Range/Units 21:18 Sodium 134 L (137-145) mmol/L Potassium 4.9 (3.5-5.1) mmol/L Chloride 99 (98-107) mmol/L Carbon Dioxide 21 L (22-30) mmol/L BUN 76 H (7-17) mg/dL Creatinine 1.76 H (0.52-1.04) mg/dL Glucose 154 H (74-99) mg/dL Calcium 10.8 H (8.4-10.2) mg/dL Adrenal panel 01/17/24 Range/Units 21:18 Sodium 134 L (137-145) mmol/L Potassium 4.9 (3.5-5.1) mmol/L Chloride 99 (98-107) mmol/L Carbon Dioxide 21 L (22-30) mmol/L BUN 76 H (7-17) mg/dL Creatinine 1.76 H (0.52-1.04) mg/dL Glucose 154 H (74-99) mg/dL Calcium 10.8 H (8.4-10.2) mg/dL Total Bilirubin 1.6 H (0.2-1.3) mg/dL AST 76 H (14-36) U/L ALT 41 H (4-34) U/L Alkaline Phosphatase 120 (38-126) U/L Total Protein 6.2 L (6.3-8.2) g/dL Albumin 3.2 L (3.5-5.0) g/dL Assessment and Plan Assessment: 1. Generalized weakness 2. Bilateral hands and fingertips cool to the touch possible Raynaud's syndrome, currently pink with +2 palpable radial pulses 3. History of atrial fibrillation 4. History of congestive heart failure 5. Sleep apnea 6. Acromegaly Plan: Patient admitted for generalized weakness. Was noted to have cool hands and fingertips. Reported as cyanotic possibly earlier in the day. Currently pink with adequate capillary refill and +2 palpable radial pulses. Possible Ra ynaud's syndrome. No further workup indicated at this time by vascular surgery. Continue rest of medical management per primary medical team and multiple consultants. Thank you for this consultation. The impression and plan of care has been dictated as directed. I performed a history and examination of this patient, discussed the same with the dictator. I agree with the dictator's note ,documented as a scribe. Any additional findings or plans will be noted.
--- NOTE | 2024-01-18 15:51 | P.CNPUL ---
History of Present Illness Consult date: 01/18/24 Requesting physician: Patrizia Pope Reason for consult: abnormal CXR/CT Chief complaint: Altered mental status, weakness History of present illness: This is a 68-year-old female patient with a known history of atrial fibrillation anticoagulated with Eliquis, congestive heart failure, hypertension, obstructive sleep apnea utilizing CPAP, acromegaly, removal of partial esophagus, previous brain tumor resection. Over the past week she had been having flulike symptoms with shortness of breath and dry cough and then yesterday her daughter found her altered and with generalized weakness and presented to the emergency room for the same. CT scan of the brain revealed no acute process. Carotid Dopplers revealed no significant carotid stenosis. Chest x-ray does reveal a right lower lobe infiltrate. Viral screen was negative. White count 16.6. Hemoglobin 16.1. Platelets 319. D-dimer 0.55. Sodium 134. Potassium 4.9. Bicarb 21. BUN 76. Creatinine 1.76. Glucose 154. Initial lactic 3.6, currently 1.4. AST 76. ALT 41. Troponin negative x 2. She is seen today in the emergency de partment. She is currently resting comfortably on the stretcher. Awake and alert in no acute distress. She is maintaining good O2 saturations in the 90s on room air. She is alert and oriented x 3 currently. She has been initiated on ceftriaxone and azithromycin. Eliquis for anticoagulation. Normal saline at 20 MLS per hour. She received 1 L of fluid resuscitation. Review of Systems REVIEW OF SYSTEMS: CONSTITUTIONAL: Positive for generalized weakness, denies any recent significant weight loss or weight gain. EYES: Denies change in vision. EARS, NOSE, MOUTH, THROAT: Denies headaches, denies sore throat. CARDIOVASCULAR: Denies chest pain, palpitations or syncopal episodes. RESPIRATORY: Positive for shortness of breath, dry cough, no congestion or hemoptysis. GASTROINTESTINAL: Denies change in appetite, denies abdominal pain GENITOURINARY: Denies hematuria, denies infections. MUSKULOSKELETAL: Denies pain, denies swelling. INTEGUMENTARY: Denies rash, denies eczema. NEUROLOGICAL: Positive for altered mental status s, no recent seizure activity. PSYCHIATRIC: Denies anxiety, denies depression. HEMATOLOGIC/LYMPHATIC: Denies anemia, denies enlarged lymph nodes. Past Medical History Past Medical History: Atrial Fibrillation, Heart Failure, Hypertension, Sleep Apnea/CPAP/BIPAP Additional Past Medical History / Comment(s): acromegly, previous cardioversion, wears Bipap at home. 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, part of esophagus removed Past Anesthesia/Blood Transfusion Reactions: No Reported Reaction Additional Past Anesthesia/Blood Transfusion Reaction / Comment(s): Allergy to Benzocaine Past Psychological History: No Psychological Hx Reported Smoking Status: Never smoker Past Alcohol Use History: None Reported Past Drug Use History: None Reported Medications and Allergies Home Medications Medication Instructions Recorded Confirmed Type Ferrous Sulfate [Iron] 325 mg PO DAILY 12/15/21 01/17/24 History Levothyroxine Sodium [Synthroid] 137 mcg PO DAILY 12/15/21 01/17/24 History Apixaban [Eliquis] 5 mg PO BID 10/27/23 01/17/24 History Atorvastatin [Lipitor] 40 mg PO DAILY 10/27/23 01/17/24 History Amiodarone [Cordarone] 200 mg PO BID 30 Days #60 tab 11/02/23 01/17/24 Rx Dapagliflozin Propanediol [Farxiga] 10 mg PO DAILY 30 Days #30 tab 11/02/23 01/17/24 Rx Furosemide [Lasix] 40 mg PO DAILY 30 Days #30 tab 11/02/23 01/17/24 Rx Metoprolol Tartrate [Lopressor] 100 mg PO BID 30 Days #60 tab 11/02/23 01/17/24 Rx Potassium Chloride [K-Tab ER] 20 meq PO DAILY 30 Days #30 tab 11/02/23 01/17/24 Rx Sacubitril/Valsartan [Entresto 24 0.5 each PO BID 30 Days #15 tab 11/02/23 01/17/24 Rx mg-26 mg Tablet] Doxycycline Hyclate 100 mg PO BID 01/17/24 01/17/24 History Allergies Allergy/AdvReac Type Severity Reaction Status Date / Time benzocaine Allergy Anaphylaxis Verified 01/17/24 20:53 Penicillins Allergy Unknown Verified 01/17/24 20:53 Childhood Physical Exam Vitals: Vital Signs Temp Pulse Resp BP Pulse Ox 01/18/24 13:51 92 16 118/79 95 01/18/24 10:20 106 H 16 132/95 95 01/18/24 09:21 94 L 01/18/24 06:48 98 18 111/81 94 L 01/18/24 06:24 101 H 18 118/97 97 01/18/24 05:00 84 16 107/72 98 01/18/24 04:00 118/74 01/18/24 03:13 98 18 112/77 96 01/18/24 01:51 101 H 18 101/66 98 01/18/24 01:00 93 18 112/67 95 01/17/24 23:24 105 H 18 100/71 98 01/17/24 22:07 97 F L 105 H 18 163/55 97 01/17/24 21:00 115 H 18 123/71 94 L 01/17/24 20:51 97.3 F L 80 18 74/43 92 L GENERAL EXAM: Alert, 68-year-old female, on room air, comfortable in no apparent distress. HEAD: Normocephalic. EYES: Normal reaction of pupils, equal size. NOSE: Clear with pink turbinates. THROAT: No erythema or exudates. NECK: No masses, no JVD. CHEST: No chest wall deformity. LUNGS: Equal air entry with few scattered rhonchi of the right lung base. CVS: S1 and S2 normal with no audible murmur, regular rhythm. ABDOMEN: No hepatosplenomegaly, normal bowel sounds, no guarding or rigidity. SPINE: No scoliosis or deformity SKIN: No rashes CENTRAL NERVOUS SYSTEM: No focal deficits, tone is normal in all 4 extremities. EXTREMITIES: There is no peripheral edema. No clubbing, no cyanosis. Peripheral pulses are intact. Results - Laboratory Findings CBC and BMP: 01/17/24 21:18 01/17/24 21:18 PT/INR, D-dimer PT 14.4 sec (10.0-12.5) H 01/17/24 21:18 INR 1.4 (<1.2) H 01/17/24 21: D-Dimer 0.55 mg/L FEU (<0.60) 01/18/24 14:49 Abnormal lab findings: Abnormal Labs 01/17/24 01/17/24 01/17/24 21:18 21:18 21:18 WBC 16.6 H Hgb 16.1 H Hct 50.9 H Neutrophils # 14.8 H Lymphocytes # 0.7 L PT 14.4 H INR 1.4 H APTT 30.1 H Sodium 134 L Carbon Dioxide 21 L BUN 76 H Creatinine 1.76 H Glucose 154 H Plasma Lactic Acid Parker Calcium 10.8 H Total Bilirubin 1.6 H AST 76 H ALT 41 H Total Protein 6.2 L Albumin 3.2 L 01/17/24 01/18/24 21:18 00:27 WBC Hgb Hct Neutrophils # Lymphocytes # PT INR APTT Sodium Carbon Dioxide BUN Creatinine Glucose Plasma Lactic Acid Parker 3.6 H* 2.2 H* Calcium Total Bilirubin AST ALT Total Protein Albumin - Diagnostic Findings Chest x-ray: image reviewed Assessment and Plan Assessment: Altered mental status suspect secondary to underlying community-acquired right lower lobe pneumonia. CT scan of the brain and carotid Dopplers within normal limits Atrial fibrillation, anticoagulated with Eliquis History of systolic congestive heart failure with an ejection fraction of 20 to 25% Moderate mitral regurgitation Moderate to severe aortic regurgitation Hypertension Obstructive sleep apnea on CPAP Acromegaly Lifelong non-smoker Suspected Raynaud's disease History of partial esophagectomy History of brain tumor resection Plan: The patient was seen and evaluated Chest x-ray, CT brain, carotid Dopplers, labs and medications reviewed Continue ceftriaxone and azithromycin Check a procalcitonin Continue Eliquis Currently stable and on room air Add DuoNeb inhalations as needed We will continue to follow and make further recommendations based on her clinical status I have personally seen and examined the patient, performed the documentation and the assessment and plan as written. Number of minutes spent on the visit: 20.
[2024-01-18 16:07] LABS: Appearance,Urine Clear (Clear); Bacteria,Urine Rare /hpf; Bilirubin,Urine Negative (Negative); Blood,Urine Negative (Negative); Color,Urine Light Yellow; Glucose,Urine (UA) 3+ (Negative); Ketones,Urine Negative (Negative); Leukocyte Esterase,Urine Trace (Negative); Mucus,Urine Rare /hpf; Nitrite,Urine Negative (Negative); Protein,Urine Negative (Negative); RBC,Urine 1 /hpf (0-5); Specific Gravity,Urine 1.013 (1.001-1.035); Squamous Epithelial Cell,Urine 1 /hpf (0-4); Urobilinogen,Urine <2.0 mg/dL (<2.0); WBC,Urine 2 /hpf (0-5)
--- NOTE | 2024-01-18 17:47 | CA ---
Transthoracic Echo Report Name: Lizabeth Carney Age: 68 Gender: F : 1955 Exam Date: 01/18/2024 13:59 Exam Location: [place] [facility] Ht (in): 61 Wt (lb): 170 Ordering Physician: Patrizia Pope MD Attending/Referring Phys: Staple Laster Kristine Kelly RCS Procedure CPT: Indications: stroke Cardiac Hx: Technical Quality: Technically difficult study Contrast 1: Definity Total Dose (mL): 2 Contrast 2: Total Dose (mL): MEASUREMENTS (Male / Female) Normal Values 2D ECHO LV Diastolic Diameter PLAX 5.0 cm 4.2 - 5.9 / 3.9 - 5.3 cm LV Systolic Diameter PLAX 4.4 cm IVS Diastolic Thickness 0.9 cm 0.6 - 1.0 / 0.6 - 0.9 cm LVPW Diastolic Thickness 0.9 cm 0.6 - 1.0 / 0.6 - 0.9 cm LV Relative Wall Thickness 0.3 RV Internal Dim ED PLAX 3.8 cm DOPPLER TR Peak Velocity 204.7 cm/s TR Peak Gradient 16.8 mmHg Right Atrial Pressure 20.0 mmHg Pulmonary Artery Systolic Pressu 36.8 mmHg Right Ventricular Systolic Press 36.8 mmHg FINDINGS Left Ventricle Left ventricular ejection fraction is estimated at 10 %. Left ventricular wall thickness normal. Severe left ventricular dilatation with severely reduced function. Right Ventricle Right ventricular dilatation with severely reduced function. Right Atrium Severe right atrial dilatation. Left Atrium Severe left atrial dilatation. Mitral Valve Mitral valve thickened. Mitral annular calcification. No evidence for mitral valve prolapse. No mitral stenosis. Mild mitral regurgitation. Aortic Valve Trileaflet aortic valve. Focal thickening of the aortic valve cusps. No aortic stenosis. Mild aortic regurgitation. Tricuspid Valve Structurally normal tricuspid valve. No tricuspid stenosis. Mild tricuspid regurgitation. Pulmonic Valve Structurally normal pulmonic valve. No pulmonic stenosis. Trace pulmonic regurgitation. Pericardium No pericardial effusion. Aorta Aortic root and proximal ascending aorta not assesd. CONCLUSIONS Severe LV systolic dysfunction with an ejection fraction of 10% Mild mitral and tricuspid regurgitation Dilated right ventricle with RV systolic this for Previewed by: Dr. Davin Still MD (Electronically Signed) Final Date: 18 January 2024 17:47
[2024-01-18] MEDS: APIXABAN 5 MG TAB PO SCH (22:00)
[2024-01-18] MEDS: METOPROLOL TARTRATE 50 MG TAB PO SCH (22:00)
--- NOTE | 2024-01-18 22:35 | P.CONS ---
History of Present Illness - Reason for Consult Consult date: 01/18/24 - History of Present Illness Patient is a 68-year-old female with a past medical history significant for hypertension heart failure atrial fibrillation sleep apnea presenting to the hospital for evaluation of increasing weakness that apparently has been getting worse for about a week patient be complaining of some flulike symptoms and also have a cough which is moderate intensity occasional sputum production no hemoptysis no pleuritic chest pain however has been complaining of bodyaches and mention she was recently taking care of her grandkids not very clear if anyone of them was sick patient on presentation to the hospital was afebrile no fever have been recorded subsequently patient was tachycardic but not hypotensive mildly hypoxic but no need for supplemental oxygen patient tested negative for influenza RSV and COVID UA was negative white count of 16.6 with a left shift D-dimer was 0.55 lactic acid was 2.2 BUN and creatinine are elevated liver enzymes are elevated patient did have a chest x-ray patchy airspace consolidation right lower lobe consistent with pneumonia patient was started on ceftriaxone and Zithromax infectious disease was consulted for further management of antibiotic therapy Past Medical History Past Medical History: Atrial Fibrillation, Heart Failure, Hypertension, Sleep Apnea/CPAP/BIPAP Additional Past Medical History / Comment(s): acromegly, previous cardioversion, wears Bipap at home. 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, part of esophagus removed Past Anesthesia/Blood Transfusion Reactions: No Reported Reaction Additional Past Anesthesia/Blood Transfusion Reaction / Comm: Allergy to Benzocaine Past Psychological History: No Psychological Hx Reported Smoking Status: Never smoker Past Alcohol Use History: None Reported Past Drug Use History: None Reported Medications and Allergies Home Medications Medication Instructions Recorded Confirmed Type Ferrous Sulfate [Iron] 325 mg PO DAILY 12/15/21 01/17/24 History Levothyroxine Sodium [Synthroid] 137 mcg PO DAILY 12/15/21 01/17/24 History Apixaban [Eliquis] 5 mg PO BID 10/27/23 01/17/24 History Atorvastatin [Lipitor] 40 mg PO DAILY 10/27/23 01/17/24 History Amiodarone [Cordarone] 200 mg PO BID 30 Days #60 tab 11/02/23 01/17/24 Rx Dapagliflozin Propanediol [Farxiga] 10 mg PO DAILY 30 Days #30 tab 11/02/23 01/17/24 Rx Furosemide [Lasix] 40 mg PO DAILY 30 Days #30 tab 11/02/23 01/17/24 Rx Metoprolol Tartrate [Lopressor] 100 mg PO BID 30 Days #60 tab 11/02/23 01/17/24 Rx Potassium Chloride [K-Tab ER] 20 meq PO DAILY 30 Days #30 tab 11/02/23 01/17/24 Rx Sacubitril/Valsartan [Entresto 24 0.5 each PO BID 30 Days #15 tab 11/02/23 01/17/24 Rx mg-26 mg Tablet] Doxycycline Hyclate 100 mg PO BID 01/17/24 01/17/24 History Allergies Allergy/AdvReac Type Severity Reaction Status Date / Time benzocaine Allergy Anaphylaxis Verified 01/17/24 20:53 Penicillins Allergy Unknown Verified 01/17/24 20:53 Childhood Physical Exam Vitals: Vital Signs Temp Pulse Resp BP Pulse Ox 01/18/24 16:49 97.1 F L 01/18/24 16:37 98 18 127/94 94 L 01/18/24 13:51 92 16 118/79 95 01/18/24 10:20 106 H 16 132/95 95 01/18/24 09:21 94 L 01/18/24 06:48 98 18 111/81 94 L 01/18/24 06:24 101 H 18 118/97 97 01/18/24 05:00 84 16 107/72 98 01/18/24 04:00 118/74 01/18/24 03:13 98 18 112/77 96 01/18/24 01:51 101 H 18 101/66 98 01/18/24 01:00 93 18 112/67 95 01/17/24 23:24 105 H 18 100/71 98 01/17/24 22:07 97 F L 105 H 18 163/55 97 01/17/24 21:00 115 H 18 123/71 94 L 01/17/24 20:51 97.3 F L 80 18 74/43 92 L Results CBC & Chem 7: 01/17/24 21:18 01/17/24 21:18 Labs: Abnormal Lab Results - Last 24 Hours (Table) 01/17/24 01/17/24 01/17/24 Range/Units 21:18 21:18 21:18 WBC 16.6 H (3.8-10.6) k/uL Hgb 16.1 H (11.4-16.0) gm/dL Hct 50.9 H (34.0-46.0) % Neutrophils # 14.8 H (1.3-7.7) k/uL Lymphocytes # 0.7 L (1.0-4.8) k/uL PT 14.4 H (10.0-12.5) sec INR 1.4 H (<1.2) APTT 30.1 H (22.0-30.0) sec Sodium 134 L (137-145) mmol/L Carbon Dioxide 21 L (22-30) mmol/L BUN 76 H (7-17) mg/dL Creatinine 1.76 H (0.52-1.04) mg/dL Glucose 154 H (74-99) mg/dL Plasma Lactic Acid Parker (0.7-2.0) mmol/L Calcium 10.8 H (8.4-10.2) mg/dL Total Bilirubin 1.6 H (0.2-1.3) mg/dL AST 76 H (14-36) U/L ALT 41 H (4-34) U/L Total Protein 6.2 L (6.3-8.2) g/dL Albumin 3.2 L (3.5-5.0) g/dL Urine Glucose (UA) (Negative) Ur Leukocyte Esterase (Negative) Urine Bacteria (None) /hpf Urine Mucus (None) /hpf 01/17/24 01/18/24 01/18/24 Range/Units 21:18 00:27 15:48 WBC (3.8-10.6) k/uL Hgb (11.4-16.0) gm/dL Hct (34.0-46.0) % Neutrophils # (1.3-7.7) k/uL Lymphocytes # (1.0-4.8) k/uL PT (10.0-12.5) sec INR (<1.2) APTT (22.0-30.0) sec Sodium (137-145) mmol/L Carbon Dioxide (22-30) mmol/L BUN (7-17) mg/dL Creatinine (0.52-1.04) mg/dL Glucose (74-99) mg/dL Plasma Lactic Acid Parker 3.6 H* 2.2 H* (0.7-2.0) mmol/L Calcium (8.4-10.2) mg/dL Total Bilirubin (0.2-1.3) mg/dL AST (14-36) U/L ALT (4-34) U/L Total Protein (6.3-8.2) g/dL Albumin (3.5-5.0) g/dL Urine Glucose (UA) 3+ H (Negative) Ur Leukocyte Esterase Trace H (Negative) Urine Bacteria Rare H (None) /hpf Urine Mucus Rare H (None) /hpf Assessment and Plan Plan: 1patient presented hospital with generalized bodyaches weakness patient also have a cough bringing up some sputum did have elevated white count with right lower lobe infiltrate concerning for pneumonia likely community-acquired 2-we will try to obtain a sputum check a CRP and procalcitonin 3-continue Rocephin and Zithromax while waiting for the workup to be completed 4-we will check ultrasound of the liver probably because of elevated liver enzymes We will follow on clinical condition and cultures to further adjust medication if needed Thank you for this consultation we will follow the patient along with you Dictation was produced using [email or web address] dictation software. please excuse any grammatical, word or spelling errors. Time with Patient: Greater than 30
--- NOTE | 2024-01-18 22:42 | HP ---
HISTORY AND PHYSICAL CHIEF COMPLAINT: Slurring of speech, right arm pain, and unsteadiness. HISTORY OF PRESENT ILLNESS: This is a 68-year-old woman with a past medical history of multiple medical problems including atrial fibrillation, history of acromegaly, previous cardioversion, was noted to have some slurring of speech and unsteadiness by the daughter. The patient also complains increasingly weak and the patient is complaining of right arm pain and some blanching and coldness of both arms also. The patient came to [facility] and admitted for further evaluation and treatment. The patient had some flu-like symptoms about a week ago, the testing was not done. On admission, the patient had some features of sepsis with elevated lactic acid and elevated white count. The patient is admitted for further evaluation and treatment. There is no history of any fever, rigors, or chills at this time. The chest x-ray showed possible pneumonia on the right side and CT of the brain showed no acute abnormality. PAST MEDICAL HISTORY: Reviewed include atrial fibrillation, CHF, hypertension. HOME MEDICATIONS: Entresto. Dose and rest of medications noted. ALLERGIES: Penicillin. FAMILY HISTORY: No history of heart disease or strokes in the family. SOCIAL HISTORY: No history of smoking or alcohol. REVIEW OF SYSTEMS: Fourteen-point review is negative except as mentioned earlier. PHYSICAL EXAMINATION: VITAL SIGNS: Pulse is 98, blood pressure 111/81, respirations 18. HEENT: Conjunctivae normal. NECK: No JVD. CARDIOVASCULAR: S1, S2 muffled. RESPIRATIONS: A few scattered rhonchi and crackles. ABDOMEN: Soft, obese, nontender. LEGS: No edema. No swelling. NERVOUS SYSTEM: Mild diffuse weakness. No focal deficits appreciated. SKIN: No ulcer, rash, bleeding. JOINTS: No active deforming arthropathy. LABORATORY DATA: Noted. ASSESSMENT: 1. Possible right lower lobe pneumonia with sepsis present on admission. 2. Rule out transient ischemic attack or stroke. 3. Rule out Raynaud phenomenon of the hands with cold hands. 4. Elevated lactic acid. 5. Elevated WBC. 6. Chronic kidney disease, stage 3. 7. Atrial fibrillation. 8. History of congestive heart failure. 9. Sleep apnea. 10.History of acromegaly. 11.History of previous cardioversion. RECOMMENDATIONS AND DISCUSSION: This is a 68-year-old woman with a past medical history of multiple complex medical issues, admitted with significant changes in the chest x-ray showing pneumonia. I would recommend initiate broad-spectrum IV antibiotics, testing including COVID and flu. I would also recommend Pulmonary consultations and as well as Infectious Disease evaluation. Neurology also will be consulted. Full neurovascular workup also will be instituted. This patient has a very complex presentation. We will need at least 2 to 3 days to delineate and treat the above-mentioned medical issues. Recommend full admit. Please call with any questions. Once again, the prognosis guarded. Discussed with the daughter at the bedside. Further recommendations to follow. MMODL / IJN: [id number] /
[2024-01-18] MEDS: SACUBITRIL/VALSARTAN 24 MG-26 MG TABLET PO SCH (22:44)
[2024-01-19] MEDS: HALOPERIDOL LACTATE 5 MG/ML 1 ML VIAL IM PRN (06:19)
[2024-01-19] MEDS: LEVOTHYROXINE 137 MCG TAB PO SCH (07:51)
--- NOTE | 2024-01-19 09:09 | P.PN ---
Subjective Progress Note Date: 01/19/24 Is seen and examined today as a follow-up. She is lying in bed and resting comfortably. He appears in no acute distress. Apparently patient had some confusion throughout the night. She denies any pain in her hands or upper extremities at this time. Objective - Vital Signs Vital signs: Vital Signs Temp 98.9 F 01/19/24 07:35 Pulse 82 01/19/24 07:35 Resp 19 01/19/24 07:35 BP 140/82 01/19/24 07:35 Pulse Ox 96 01/19/24 07:35 FiO2 Intake & Output 01/18/24 01/19/24 01/19/24 18:59 06:59 18:59 Intake Total 780 Output Total 950 Balance -170 Weight 77.111 kg 81.6 kg Intake: Intake, IV Titration 240 Amount Sodium Chloride 0.9% 1, 240 000 ml @ 20 mls/hr IV . Q24H MANISHA Rx#:[id number] Oral 540 Output: Urine 950 Other: Voiding Method Incontinent External Catheter # Bowel Movements 1 - Exam General appearance: The patient is alert, oriented, appears in no acute distress. HET: Head is normocephalic and atraumatic. Neck: Supple. Abdomen: Soft,nondistended. Extremities: Normal skin color and turgor. Hands are warmer to touch today. [place], nailbeds are pink. Good capillary refill approximately 3 to 5 seconds. +2 palpable radial pulses bilaterally. Neurological: Alert. - Labs CBC & Chem 7: 01/17/24 21:18 01/17/24 21:18 Labs: Abnormal Lab Results - Last 24 Hours (Table) 01/18/24 01/18/24 Range/Units 15:48 16:38 Procalcitonin 1.36 H (0.02-0.09) ng/mL Urine Glucose (UA) 3+ H (Negative) Ur Leukocyte Esterase Trace H (Negative) Urine Bacteria Rare H (None) /hpf Urine Mucus Rare H (None) /hpf Microbiology - Last 24 Hours (Table) 01/17/24 21:15 Blood Culture - Preliminary Blood 01/17/24 21:30 Blood Culture - Preliminary Blood Assessment and Plan Assessment: 1. Generalized weakness 2. Bilateral hands and fingertips cool to the touch possible Raynaud's syndrome, currently pink with +2 palpable radial pulses 3. History of atrial fibrillation 4. History of congestive heart failure 5. Sleep apnea 6. Acromegaly Plan: Patient admitted for generalized weakness. Was noted to have cool hands and fingertips. Reported as cyanotic possibly earlier in the day. Currently pink with adequate capillary refill and +2 palpable radial pulses. Repeat exam hands and fingertips warm, pink, nailbeds pink, continues to have +2 palpable radial pulses. Possible Raynaud's syndrome. No further workup indicated at this time by vascular surgery. Continue rest of medical management per primary medical team and multiple consultants. Thank you for this consultatio, we will sign off at this time.. The impression and plan of care has been dictated as directed. I performed a history and examination of this patient, discussed the same with the dictator. I agree with the dictator's note ,documented as a scribe. Any additional findings or plans will be noted.
[2024-01-19] MEDS: DAPAGLIFLOZIN PROPANEDIOL 10 MG TABLET PO SCH (09:41)
[2024-01-19] MEDS: FERROUS SULFATE 325 MG TAB PO SCH (09:48)
[2024-01-19] MEDS: ATORVASTATIN 40 MG TAB PO SCH (09:48)
[2024-01-19] MEDS: POTASSIUM CHLORIDE ER 20 MEQ TAB.ER PO SCH (09:48)
[2024-01-19 11:22] LABS: Basophils # (A) 0.09 X 10*3/uL (0.00-0.10); Basophils % (A) 0.8 %; Eosinophils # (A) 0.09 X 10*3/uL (0.04-0.35); Eosinophils % (A) 0.8 %; HCT 53.2 % (37.2-46.3); HGB 16.4 g/dL (12.0-15.0); Lymphocytes # (A) 1.15 X 10*3/uL (0.90-5.00); Lymphocytes % (A) 10.9 %; MCHC 30.8 g/dL (32.0-37.0); MCV 97.4 FL (80.0-97.0); Mean Platelet Volume 11.7 FL (9.5-12.2); Monocytes # (A) 0.72 X 10*3/uL (0.20-1.00); Monocytes % (A) 6.8 %; NRBC Per 100 WBC 0 X 10*3/uL (0.00-0.01); Neutrophils # (A) 8.33 X 10*3/uL (1.80-7.70); Neutrophils % (A) 78.7 %; Platelet Count 257 X 10*3/uL (140-440); RBC 5.46 X 10*6/uL (4.10-5.20); WBC 10.59 X 10*3/uL (4.50-10.00)
[2024-01-19 11:41] LABS: ALT 32 U/L (8-44); AST 44 U/L (13-35); Albumin 3.4 g/dL (3.8-4.9); Albumin/Globulin Ratio 1.26 Ratio (1.60-3.17); Alkaline Phosphatase 99 U/L (41-126); BUN/Creat Ratio 31.35 Ratio (12.00-20.00); Blood Urea Nitrogen 53.3 mg/dL (9.0-27.0); Calcium 10.7 mg/dL (8.7-10.3); Carbon Dioxide 17.7 mmol/L (21.6-31.8); Chloride 109 mmol/L (96-109); Globulin 2.7 g/dL (1.6-3.3); Glucose 101 mg/dL (70-110); Potassium 4.1 mmol/L (3.5-5.5); Sodium 145 mmol/L (135-145); Total Bilirubin 0.7 mg/dL (0.3-1.2); Total Protein 6.1 g/dL (6.2-8.2)
--- NOTE | 2024-01-19 13:15 | P.CRDCN ---
History of Present Illness Consult date: 01/19/24 Consult reason: atrial fibrillation, congestive heart failure (amio) History of present illness: History of present illness: This is a 68-year-old female patient of Dr. Wisdom with past medical history of nonobstructive CAD, nonischemic cardiomyopathy, valvular heart disease, hypertension, hyperlipidemia, paroxysmal atrial fibrillation, hypothyroidism, chronic kidney disease, obstructive sleep apnea. We have been asked to evaluate the patient for A-fib, CHF, amiodarone. Patient presented to the hospital on 01/16 due to weakness and mental status changes. Apparently the patient had a cough and cold symptoms for about 1 week prior to this. She then developed confusion and her daughter brought her into the hospital for further evaluation. This morning, patient did have some confusion was refusing her medications but now she has had improvement of her mental status and will take her medications. Patient also presented with bilateral fingertips cool to touch possible Raynaud's and seen by vascular surgery. EKG A-fib with left bundle branch block Chest x-ray: Patchy airspace consolidation in the right lower lobe consistent with pneumonia. WBC initially 16.6 now 10.5, hemoglobin 16.4. INR 1.4. D-dimer 0.55. Sodium 145, potassium 4.1, BUN initially 76 now 53, creatinine 1.7. Lactic acid 3.6 now 1.4. Troponin negative x 2. proBNP 8240. Procalcitonin 1.36. Influenza A, influenza B, RSV, COVID-19 not detected. Limited echocardiogram obtained on 01/18/2024 revealed severe LV systolic dysfunction with EF of 10%. Mild mitral and tricuspid regurgitation. Home cardiac medications: Amiodarone 200 mg twice daily, Eliquis 5 mg twice daily, Lipitor 40 mg daily, Farxiga 10 mg daily, Lasix 40 mg daily, Lopressor 100 mg twice daily, potassium chloride 20 mill equivalents daily, Entresto 24 mg / 26 mg 0.5 tablet twice daily, also on levothyroxine 137 mcg daily. Cardiac catheterization performed on 07/11/[address] Wisdom revealed intermediate disease involving the mid LAD by the bifurcation of the large diagonal branch which has an ostial lesion to be intermediate as well. Review Of Systems: At the time of my exam: CONSTITUTIONAL: Denies fever or chills. HEENT: Denies blurred vision, vision changes, or eye pain. Denies hemoptysis CARDIOVASCULAR: Denies chest pain. Denies orthopnea. Denies PND. Denies palpitations RESPIRATORY: Denies shortness of breath. GASTROINTESTINAL: Denies abdominal pain. Denies nausea or vomiting. HEMATOLOGIC: Denies bleeding disorders. GENITOURINARY: Denies any blood in urine. SKIN: Denies pruitis. Denies rash. Physical examination: Gen: This is a 68-year-old female in no acute distress VS: reviewed blood pressure 140/82, pulse ox 96% on room air, heart rate 82. HEENT: Head is atraumatic, normocephalic. Pupils equal, round. Sclerae is anicteric. NECK: Supple. No JVD. LUNGS: Breath sounds heard bilaterally, clear to auscultation, no intercostal retractions. HEART: Irregular rate and rhythm. ABDOMEN: Soft No tenderness. EXTREMITIES: No pedal edema. No calf tenderness. NEUROLOGICAL: Patient is awake, alert. Assessment: Pneumonia Paroxysmal atrial fibrillation currently controlled rate Nonischemic cardiomyopathy Nonobstructive coronary artery disease Hypertension Hyperlipidemia Hypothyroidism Plan: Continue patient's home cardiac medications Further recommendations to follow based upon clinical course Thank you kindly for this consultation. Nurse practitioner note has been reviewed, I agree with documented findings and plan of care. Patient was seen and examined. Past Medical History Past Medical History: Atrial Fibrillation, Heart Failure, Hypertension, Sleep Apnea/CPAP/BIPAP Additional Past Medical History / Comment(s): acromegly, previous cardioversion, wears Bipap at home. 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, part of esophagus removed Past Anesthesia/Blood Transfusion Reactions: No Reported Reaction Additional Past Anesthesia/Blood Transfusion Reaction / Comment(s): Allergy to Benzocaine Past Psychological History: No Psychological Hx Reported Smoking Status: Never smoker Past Alcohol Use History: None Reported Past Drug Use History: None Reported Medications and Allergies Home Medications Medication Instructions Recorded Confirmed Type Ferrous Sulfate [Iron] 325 mg PO DAILY 12/15/21 01/17/24 History Levothyroxine Sodium [Synthroid] 137 mcg PO DAILY 12/15/21 01/17/24 History Apixaban [Eliquis] 5 mg PO BID 10/27/23 01/17/24 History Atorvastatin [Lipitor] 40 mg PO DAILY 10/27/23 01/17/24 History Amiodarone [Cordarone] 200 mg PO BID 30 Days #60 tab 11/02/23 01/17/24 Rx Dapagliflozin Propanediol [Farxiga] 10 mg PO DAILY 30 Days #30 tab 11/02/23 01/17/24 Rx Furosemide [Lasix] 40 mg PO DAILY 30 Days #30 tab 11/02/23 01/17/24 Rx Metoprolol Tartrate [Lopressor] 100 mg PO BID 30 Days #60 tab 11/02/23 01/17/24 Rx Potassium Chloride [K-Tab ER] 20 meq PO DAILY 30 Days #30 tab 11/02/23 01/17/24 Rx Sacubitril/Valsartan [Entresto 24 0.5 each PO BID 30 Days #15 tab 11/02/23 01/17/24 Rx mg-26 mg Tablet] Doxycycline Hyclate 100 mg PO BID 01/17/24 01/17/24 History Allergies Allergy/AdvReac Type Severity Reaction Status Date / Time benzocaine Allergy Anaphylaxis Verified 01/17/24 20:53 Penicillins Allergy Unknown Verified 01/17/24 20:53 Childhood Physical Exam Vitals: Vital Signs Temp Pulse Pulse Resp BP BP Pulse Ox 01/19/24 07:45 126 H 01/19/24 07:35 98.9 F 82 19 140/82 96 01/19/24 00:46 95.2 F L 107 H 16 113/70 96 01/18/24 21:45 97.3 F L 68 14 113/70 96 01/18/24 17:44 66 18 115/80 98 01/18/24 17:15 106 H 16 109/89 95 01/18/24 16:49 97.1 F L 01/18/24 16:37 98 18 127/94 94 L 01/18/24 13:51 92 16 118/79 95 Intake and Output 01/18/24 01/19/24 01/19/24 22:59 06:59 14:59 Intake Total 540 240 Output Total 350 600 Balance 190 -360 Intake: Intake, IV Titration 240 Amount Sodium Chloride 0.9% 1, 240 000 ml @ 20 mls/hr IV . Q24H [facility] Rx#:[id number] Oral 540 Output: Urine 350 600 Other: Voiding Method Incontinent Bedside Commode External Catheter External Catheter # Bowel Movements 1 Weight 84.5 kg 81.6 kg Results 01/19/24 08:26 01/19/24 08:26 Cardiac Enzymes 01/19/24 Range/Units 08:26 AST 44 H (13-35) U/L CBC 01/19/24 Range/Units 08:26 WBC 10.59 H (4.50-10.00) X 10*3/uL RBC 5.46 H (4.10-5.20) X 10*6/uL Hgb 16.4 H (12.0-15.0) g/dL Hct 53.2 H (37.2-46.3) % Plt Count 257 (140-440) X 10*3/uL Comprehensive Metabolic Panel 01/19/24 Range/Units 08:26 Sodium 145 (135-145) mmol/L Potassium 4.1 (3.5-5.5) mmol/L Chloride 109 (96-109) mmol/L Carbon Dioxide 17.7 L (21.6-31.8) mmol/L BUN 53.3 H (9.0-27.0) mg/dL Creatinine 1.7 H (0.6-1.5) mg/dL Glucose 101 (70-110) mg/dL Calcium 10.7 H (8.7-10.3) mg/dL AST 44 H (13-35) U/L ALT 32 (8-44) U/L Alkaline Phosphatase 99 (41-126) U/L Total Protein 6.1 L (6.2-8.2) g/dL Albumin 3.4 L (3.8-4.9) g/dL Current Medications Generic Name Dose Route Start Last Admin Trade Name Freq PRN Reason Stop Dose Admin Amiodarone HCl 200 mg 01/18/24 13:00 01/19/24 09:40 Amiodarone 200 Mg Tab PO 200 mg BID MANISHA Administration Apixaban 5 mg 01/18/24 21:00 01/19/24 09:40 Apixaban 5 Mg Tab PO 5 mg BID MANISHA Administration Protocol Atorvastatin Calcium 40 mg 01/19/24 09:00 01/19/24 09:48 Atorvastatin 40 Mg Tab PO Not Given DAILY MANISHA Azithromycin 500 mg 01/18/24 09:00 04/17/24 08:26 Azithromycin 500 Mg Tab PO 01/21/24 09:01 500 mg DAILY MANISHA Administration Protocol Dapagliflozin 10 mg 01/19/24 09:00 01/19/24 09:41 Dapagliflozin Propanediol 10 Mg Tablet PO 10 mg DAILY MANISHA Administration Ferrous Sulfate 325 mg 01/19/24 09:00 01/19/24 09:48 Ferrous Sulfate 325 Mg Tab PO Not Given DAILY MANISHA Haloperidol Lactate 2 mg 01/19/24 02:12 01/19/24 06:19 Haloperidol Lactate 5 Mg/Ml 1 Ml Vial IM 2 mg Q8HR PRN Administration Agitation or Acute Psychosis Sodium Chloride 1,000 mls @ 20 mls/hr 01/17/24 21:15 01/18/24 11:48 Saline 0.9% IV Not Given .Q24H [facility] Ceftriaxone Sodium 1 gm/ 50 mls @ 100 mls/hr 01/18/24 21:00 01/18/24 22:01 Sodium Chloride IVPB 100 mls/hr Q24H [facility] Administration Levothyroxine Sodium 137 mcg 01/19/24 06:30 01/19/24 07:51 Levothyroxine 137 Mcg Tab PO Not Given DAILY@0630 [facility] Metoprolol Tartrate 100 mg 01/18/24 21:00 01/19/24 09:40 Metoprolol Tartrate 50 Mg Tab PO 100 mg BID [facility] Administration Potassium Chloride 20 meq 01/19/24 09:00 01/19/24 09:48 Potassium Chloride Er 20 Meq Tab.Er PO Not Given DAILY [facility] Sacubitril/Valsartan 0.5 each 01/18/24 21:00 01/19/24 09:39 Sacubitril/Valsartan 24 Mg-26 Mg Tablet PO 0.5 each BID [facility] Administration Intake and Output 01/18/24 01/19/24 01/19/24 22:59 06:59 14:59 Intake Total 540 240 Output Total 350 600 Balance 190 -360 Intake: Intake, IV Titration 240 Amount Sodium Chloride 0.9% 1, 240 000 ml @ 20 mls/hr IV . Q24H [facility] Rx#:[id number] Oral 540 Output: Urine 350 600 Other: Voiding Method Incontinent Bedside Commode External Catheter External Catheter # Bowel Movements 1 Weight 84.5 kg 81.6 kg 01/19/24 08:26 01/19/24 08:26
--- NOTE | 2024-01-19 13:28 | P.PN ---
Subjective Progress Note Date: 01/19/24 This is a 68-year-old female patient with a known history of atrial fibrillation anticoagulated with Eliquis, congestive heart failure, hypertension, obstructive sleep apnea utilizing CPAP, acromegaly, removal of partial esophagus, previous brain tumor resection. Over the past week she had been having flulike symptoms with shortness of breath and dry cough and then yesterday her daughter found her altered and with generalized weakness and presented to the emergency room for the same. CT scan of the brain revealed no acute process. Carotid Dopplers revealed no significant carotid stenosis. Chest x-ray does reveal a right lower lobe infiltrate. Viral screen was negative. White count 16.6. Hemoglobin 16.1. Platelets 319. D-dimer 0.55. Sodium 134. Potassium 4.9. Bicarb 21. BUN 76. Creatinine 1.76. Glucose 154. Initial lactic 3.6, currently 1.4. AST 76. ALT 41. Troponin negative x 2. She is seen today in the emergency department. She is currently resting comfortably on the stretcher. Awake and alert in no acute distress. She is maintaining good O2 saturations in the 90s on room air. She is alert and oriented x 3 currently. She has been initiated on ceftriaxone and azithromycin. Eliquis for anticoagulation. Normal saline at 20 MLS per hour. She received 1 L of fluid resuscitation. The patient is seen today January 19, 2024 in follow-up on the regular medical floor. She is currently up in a chair. She was up walking with a walker and assistance of physical therapy. She is doing quite a bit better today. She is maintaining good O2 saturations in the 90s on room air. White count 10.5. Hemoglobin 16.4. Platelets 257. Sodium 145. Potassium 4.1. Bicarb 18. BUN 53. Creatinine 1.7. Glucose 101. Procalcitonin 1.36. She remains on ceftriaxone and azithromycin. Anticoagulated with Eliquis. Normal saline at KVO. Objective - Vital Signs Vital signs: Vital Signs Temp 98.9 F 01/19/24 07:35 Pulse 126 H 01/19/24 07:45 Resp 19 01/19/24 07:35 BP 140/82 01/19/24 07:35 Pulse Ox 96 01/19/24 07:35 FiO2 Intake & Output 01/18/24 01/19/24 01/19/24 18:59 06:59 18:59 Intake Total 780 Output Total 950 Balance -170 Weight 77.111 kg 81.6 kg Intake: Intake, IV Titration 240 Amount Sodium Chloride 0.9% 1, 240 000 ml @ 20 mls/hr IV . Q24H [facility] Rx#:[id number] Oral 540 Output: Urine 950 Other: Voiding Method Incontinent Bedside Commode External Catheter External Catheter # Bowel Movements 1 - Exam GENERAL EXAM: Alert, oriented 68-year-old female, up in a chair, on room air, in no apparent distress. HEAD: Normocephalic. EYES: Normal reaction of pupils, equal size. NOSE: Clear with pink turbinates. THROAT: No erythema or exudates. NECK: No masses, no JVD. CHEST: No chest wall deformity. LUNGS: Equal air entry with few scattered rhonchi of the right lung base. CVS: S1 and S2 normal with no audible murmur, regular rhythm. ABDOMEN: No hepatosplenomegaly, normal bowel sounds, no guarding or rigidity. SPINE: No scoliosis or deformity SKIN: No rashes CENTRAL NERVOUS SYSTEM: No focal deficits, tone is normal in all 4 extremities. EXTREMITIES: There is no peripheral edema. No clubbing, no cyanosis. Peripheral pulses are intact. - Labs CBC & Chem 7: 01/19/24 08:26 01/19/24 08:26 Labs: Abnormal Lab Results - Last 24 Hours (Table) 01/18/24 01/18/24 01/19/24 Range/Units 15:48 16:38 08:26 WBC 10.59 H (4.50-10.00) X 10*3/uL RBC 5.46 H (4.10-5.20) X 10*6/uL Hgb 16.4 H (12.0-15.0) g/dL Hct 53.2 H (37.2-46.3) % MCV 97.4 H (80.0-97.0) FL MCHC 30.8 L (32.0-37.0) g/dL RDW 16.0 H (11.5-14.5) % Immature Gran # 0.21 H (0.00-0.04) X 10*3/uL Neutrophils # 8.33 H (1.80-7.70) X 10*3/uL Carbon Dioxide (21.6-31.8) mmol/L Anion Gap (4.00-12.00) mmol/L BUN (9.0-27.0) mg/dL Creatinine (0.6-1.5) mg/dL Est GFR (CKD-EPI) (>=60) BUN/Creatinine Ratio (12.00-20.00) Ratio Calcium (8.7-10.3) mg/dL AST (13-35) U/L Total Protein (6.2-8.2) g/dL Albumin (3.8-4.9) g/dL Albumin/Globulin Ratio (1.60-3.17) Ratio Procalcitonin 1.36 H (0.02-0.09) ng/mL Urine Glucose (UA) 3+ H (Negative) Ur Leukocyte Esterase Trace H (Negative) Urine Bacteria Rare H (None) /hpf Urine Mucus Rare H (None) /hpf 01/19/24 Range/Units 08:26 WBC (4.50-10.00) X 10*3/uL RBC (4.10-5.20) X 10*6/uL Hgb (12.0-15.0) g/dL Hct (37.2-46.3) % MCV (80.0-97.0) FL MCHC (32.0-37.0) g/dL RDW (11.5-14.5) % Immature Gran # (0.00-0.04) X 10*3/uL Neutrophils # (1.80-7.70) X 10*3/uL Carbon Dioxide 17.7 L (21.6-31.8) mmol/L Anion Gap 18.30 H (4.00-12.00) mmol/L BUN 53.3 H (9.0-27.0) mg/dL Creatinine 1.7 H (0.6-1.5) mg/dL Est GFR (CKD-EPI) 32 L (>=60) BUN/Creatinine Ratio 31.35 H (12.00-20.00) Ratio Calcium 10.7 H (8.7-10.3) mg/dL AST 44 H (13-35) U/L Total Protein 6.1 L (6.2-8.2) g/dL Albumin 3.4 L (3.8-4.9) g/dL Albumin/Globulin Ratio 1.26 L (1.60-3.17) Ratio Procalcitonin (0.02-0.09) ng/mL Urine Glucose (UA) (Negative) Ur Leukocyte Esterase (Negative) Urine Bacteria (None) /hpf Urine Mucus (None) /hpf Microbiology - Last 24 Hours (Table) 01/17/24 21:15 Blood Culture - Preliminary Blood 01/17/24 21:30 Blood Culture - Preliminary Blood Assessment and Plan Assessment: Altered mental status suspect secondary to underlying community-acquired right lower lobe pneumonia. Procalcitonin 1.36. CT scan of the brain and carotid Dopplers within normal limits Atrial fibrillation, anticoagulated with Eliquis History of systolic congestive heart failure with an ejection fraction of 20 to 25% Moderate mitral regurgitation Moderate to severe aortic regurgitation Hypertension Obstructive sleep apnea on CPAP Acromegaly Lifelong non-smoker Suspected Raynaud's disease History of partial esophagectomy History of brain tumor resection Plan: The patient was seen and evaluated Labs and medications reviewed Continue ceftriaxone and azithromycin Currently stable and on room air Follow-up chest x-ray in a.m. We will continue to follow I have personally seen and examined the patient, performed the documentation and the assessment and plan as written. Number of minutes spent on the visit: 10.
--- NOTE | 2024-01-19 14:18 | PN ---
PROGRESS NOTE DATE OF SERVICE: 01/19/2024 SUBJECTIVE: This is a 68-year-old woman who was admitted with multiple complex medical issues, had ejection fraction about 10%. The patient also had possible right pneumonia and CHF. Multiple consultants are following the patient closely. The patient has cold hands also at this time with possible Raynaud syndrome. PAST MEDICAL HISTORY: Reviewed REVIEW OF SYSTEMS: A 14-point review is negative except as mentioned earlier. CURRENT MEDICATIONS: Reviewed include Lipitor. PHYSICAL EXAMINATION: VITAL SIGNS: Pulse is 82, blood pressure 140/82, respirations 19. HEENT: Conjunctivae normal. NECK: No jugular venous distention. CARDIOVASCULAR: S1, S2. RESPIRATIONS: Diminished at the bases, few scattered rhonchi and crackles. ABDOMEN: Soft, nontender. NERVOUS SYSTEM: Nonfocal. LABORATORY DATA: WBC 10.5 and hemoglobin 16.4. Procalcitonin 1.36. ASSESSMENT: 1. Possible right lower lobe pneumonia with sepsis present on admission. 2. CHF acute exacerbation, acute on chronic systolic dysfunction, ejection fraction 10%. 3. Possible Raynaud phenomena to the hands and cold hands. 4. Rule out TIA. 5. Elevated lactic acid. 6. Chronic kidney disease, stage III. 7. Multiple complex medical issues. 8. Atrial fibrillation. RECOMMENDATIONS: Recommended to continue current management, continue symptomatic treatment. Otherwise at this time, I would recommend continue the antibiotics. Closely follow with Cardiology and Nephrology for any diuretics. Continue to monitor. Further recommendations to follow. See orders for details. MMODL / IJN: [id number] /
--- NOTE | 2024-01-19 15:05 | CDI ---
Documentation Clarification Form Date: 01/19/2024 02:40:49 PM From: Liz Muniz RN, CCDS Phone: [phone] Admit Date: 01/17/2024 11:47:00 PM Patient Name: Lizabeth Carney Visit Number: [id number] Discharge Date: ATTENTION: The Clinical Documentation Specialists (CDI) and [facility] Coding Staff appreciate your assistance in clarifying documentation. Please respond to the clarification below the line at the bottom and electronically sign. The CDI & [facility] Coding staff will review the response and follow-up if needed. Please note: Queries are made part of the Legal Health Record. If you have any questions, please contact the author of this message via ITS. Dr. Patrizia Pope Your patient has the documented symptom of Altered Mental Status slurring of speech, unsteadiness, per nursing confused and refusing to take her medication. Additional clarification regarding the etiology/cause of this symptom is requested. History/Risk Factors: Atrial Fibrillation, Heart Failure, Hypertension, Sleep Apnea/CPAP/BIPAP Clinical Indicators: 68-year-old woman who presents to evaluation for increasing weakness going on over the course of nearly 1 week. She had flu type symptoms, cough, congestion, body aches. 01/16 VS 74/43 80 18 97 .3. 123/71 115 18 01/16 Labs: WBC 16.6 HBB 16.1 Na+ 134 BUN 76 Creatinine 1.l76, Total Bili 1.6 Lactic acid 3.6 CXR: Patchy airspace consolidation in the right lower lobe, consistent with pneumonia CT Brain: No acute intracranial hemorrhage, midline shift, or mass effect. 01/17 Pulmonary consult: Altered mental status suspect secondary to underlying community-acquired right lower lobe pneumonia. Treatment: [facility] Operator/Telemetry Rocephin 1 GM IVPB Q 24 HRS 01/16-01/18 Azithromycin 500 MG PO DAILY 01/17-01/17 Neuro checks per protocol. Please clarify the etiology of the symptom of Altered Mental Status: [ ] Metabolic encephalopathy due to sepsis and pneumonia [ ] Other condition (please specify) [ ] Unable to determine (Template Last Revised: November 2020) Unable to determine MTDD
--- NOTE | 2024-01-19 22:18 | P.PN ---
Subjective Progress Note Date: 01/19/24 Principal diagnosis: Reason for follow-up is pneumonia Patient is a 68-year-old female with a past medical history significant for hypertension heart failure atrial fibrillation sleep apnea presenting to the hospital for evaluation of increasing weakness and cough prog ressively getting worse patient did have airspace consolidation right lower lobe concerning for pneumonia prompting this consultation. On today's visit that is 01/19/2024, patient has been afebrile, patient is breathing comfortably and is currently on room air, patient cough has decreased in intensity not bring up any sputum no chest pain, patient denies nausea vomiting or diarrhea and no abdominal pain, feeling slightly better. Patient white count is down to 10.59 creatinine is 1.7 procalcitonin is 1.36 blood cultures pending sputum not collected Objective - Vital Signs Vital signs: Vital Signs Temp 97.4 F L 01/19/24 13:35 Pulse 66 01/19/24 13:35 Resp 17 01/19/24 13:35 BP 113/80 01/19/24 13:35 Pulse Ox 94 L 01/19/24 13:35 FiO2 Intake & Output 01/18/24 01/19/24 01/19/24 18:59 06:59 18:59 Intake Total 780 Output Total 950 Balance -170 Weight 77.111 kg 81.6 kg Intake: Intake, IV Titration 240 Amount Sodium Chloride 0.9% 1, 240 000 ml @ 20 mls/hr IV . Q24H [facility] Rx#:[id number] Oral 540 Output: Urine 950 Other: Voiding Method Incontinent Bedside Commode External Catheter External Catheter # Voids 2 # Bowel Movements 1 - Exam GENERAL DESCRIPTION: An elderly female lying in bed in no distress RESPIRATORY SYSTEM: Unlabored breathing , decreased breath sounds at bases HEART: S1 S2 regular rate and rhythm , ABDOMEN: Soft , no tenderness EXTREMITIES: No edema feet - Labs CBC & Chem 7: 01/19/24 08:26 01/19/24 08:26 Labs: Abnormal Lab Results - Last 24 Hours (Table) 01/18/24 01/18/24 01/19/24 Range/Units 15:48 16:38 08:26 WBC 10.59 H (4.50-10.00) X 10*3/uL RBC 5.46 H (4.10-5.20) X 10*6/uL Hgb 16.4 H (12.0-15.0) g/dL Hct 53.2 H (37.2-46.3) % MCV 97.4 H (80.0-97.0) FL MCHC 30.8 L (32.0-37.0) g/dL RDW 16.0 H (11.5-14.5) % Immature Gran # 0.21 H (0.00-0.04) X 10*3/uL Neutrophils # 8.33 H (1.80-7.70) X 10*3/uL Carbon Dioxide (21.6-31.8) mmol/L Anion Gap (4.00-12.00) mmol/L BUN (9.0-27.0) mg/dL Creatinine (0.6-1.5) mg/dL Est GFR (CKD-EPI) (>=60) BUN/Creatinine Ratio (12.00-20.00) Ratio Calcium (8.7-10.3) mg/dL AST (13-35) U/L Total Protein (6.2-8.2) g/dL Albumin (3.8-4.9) g/dL Albumin/Globulin Ratio (1.60-3.17) Ratio Procalcitonin 1.36 H (0.02-0.09) ng/mL Urine Glucose (UA) 3+ H (Negative) Ur Leukocyte Esterase Trace H (Negative) Urine Bacteria Rare H (None) /hpf Urine Mucus Rare H (None) /hpf 01/19/24 Range/Units 08:26 WBC (4.50-10.00) X 10*3/uL RBC (4.10-5.20) X 10*6/uL Hgb (12.0-15.0) g/dL Hct (37.2-46.3) % MCV (80.0-97.0) FL MCHC (32.0-37.0) g/dL RDW (11.5-14.5) % Immature Gran # (0.00-0.04) X 10*3/uL Neutrophils # (1.80-7.70) X 10*3/uL Carbon Dioxide 17.7 L (21.6-31.8) mmol/L Anion Gap 18.30 H (4.00-12.00) mmol/L BUN 53.3 H (9.0-27.0) mg/dL Creatinine 1.7 H (0.6-1.5) mg/dL Est GFR (CKD-EPI) 32 L (>=60) BUN/Creatinine Ratio 31.35 H (12.00-20.00) Ratio Calcium 10.7 H (8.7-10.3) mg/dL AST 44 H (13-35) U/L Total Protein 6.1 L (6.2-8.2) g/dL Albumin 3.4 L (3.8-4.9) g/dL Albumin/Globulin Ratio 1.26 L (1.60-3.17) Ratio Procalcitonin (0.02-0.09) ng/mL Urine Glucose (UA) (Negative) Ur Leukocyte Esterase (Negative) Urine Bacteria (None) /hpf Urine Mucus (None) /hpf Microbiology - Last 24 Hours (Table) 01/17/24 21:15 Blood Culture - Preliminary Blood 01/17/24 21:30 Blood Culture - Preliminary Blood Assessment and Plan (1) Penicillin allergy Current Visit: Yes Status: Acute Code(s): Z88.0 - ALLERGY STATUS TO PENICILLIN SNOMED Code(s): 22173032 (2) Pneumonia Current Visit: Yes Status: Acute Code(s): J18.9 - PNEUMONIA, UNSPECIFIED ORGANISM SNOMED Code(s): 669623382 Plan: 1patient presented hospital with generalized bodyaches weakness patient also have a cough bringing up some sputum did have elevated white count with right lower lobe infiltrate concerning for pneumonia likely community-acquired 2-patient did have elevated CRP and procalcitonin, sputum not collected 3-patient seem to have shown some clinical improvement and will continue Rocephin and Zithromax while waiting for the cultures to be finalized. Daughter at the bedside question answered Dictation was produced using [employer] dictation software. please excuse any grammatical, word or spelling errors. Time with Patient: Less than 30
[2024-01-20 06:48] LABS: Mycoplasma IgG Antibody (EIA) 0.81 INDEX (<=0.90); Mycoplasma IgM Antibody 0.14 INDEX (<=0.90)
--- NOTE | 2024-01-20 08:06 | US ---
EXAMINATION TYPE: US abdomen limited DATE OF EXAM: 01/20/2024 COMPARISON: NONE CLINICAL INDICATION: Female, 68 years old with history of Elevated liver enzymes; Patient denies any signs or symptoms or relevant history TECHNIQUE: Multiple sonographic images of the right upper quadrant are obtained. FINDINGS: EXAM MEASUREMENTS: Liver Length: 13.0 cm Gallbladder Wall: 0.3 cm CBD: 0.5 cm Right Kidney: 10.8 x 4.7 x 4.1 cm DOMESTIC CLEANER NOTES:Difficult exam - patient not able to hold breath Pancreas: Tail obscured by overlying bowel gas Liver: wnl Gallbladder: wnl Evidence for sonographic Mckenna's sign: No CBD: wnl Right Kidney: wnl IMPRESSION: Normal right upper quadrant ultrasound.
--- NOTE | 2024-01-20 08:38 | XR ---
EXAMINATION TYPE: XR chest 1V portable DATE OF EXAM: 01/20/2024 7:17 AM CLINICAL INDICATION:Female, 68 years old with history of RLL infiltrate; [facility] COMPARISON: Chest radiographs from 01/17/2024. TECHNIQUE: XR chest 1V portable Frontal view of the chest. FINDINGS: Lungs/Pleura: Low lung volumes are present. Persistent right basilar airspace opacities. There is no evidence of pleural effusion, left focal consolidation, or pneumothorax. Pulmonary vascularity: Unremarkable. Heart/mediastinum: Cardiomediastinal silhouette is unremarkable. Musculoskeletal: No acute osseous pathology. IMPRESSION: Persistent right basilar airspace opacities.
--- NOTE | 2024-01-20 08:41 | P.CNNES ---
History of Present Illness Consult date: 01/19/24 Requesting physician: Joellen West Reason for Consult: right side arm pain, weak, dizzy, gait dysfunction ?tia History of Present Illness: Patient is a 68-year-old right-handed female came to the hospital 2 days ago, at 8:47 PM for cough, weakness, tiredness, diarrhea, confusion and slurring. Patient's daughter was present, who provided with a history. For about 1-1/2 weeks, patient started with a cough, diarrhea, generalized weakness and tiredness. However symptoms progressed to becoming confusion, slurring. Patient was still able to speak but sounds slightly slurred, although she does not drink alcohol. Patient takes Eliquis. On Tuesday 2 days prior to arrival, patient slept all day and probably missed 2 doses of Eliquis. Otherwise she is very compliant with the medication. On Tuesday, she was complaining of right arm hurting, right arm weakness. Patient never passed out. Patient was dizzy, almost fell a few times but no falls. Patient has been having hard time walking. Patient's daughter has not noticed any facial droop. She does use BiPAP at night. Vital signs on arrival blood pressure 74/43, which improved to 123/71. Pulse rate 80, temperature 97.3. Blood test shows WBC 16.6 hemoglobin 16.1, normal platelets. INR 1.4, PTT 30.1, sodium 134 potassium is normal. BUN 76 creatinine 1.76. Lactate 3.6. AST 76, ALT 41. Troponin is normal. Influenza, RSV and coronavirus PCR negative. Mycoplasma IgG and IgM antibodies negative. UA negative. Urine Legionella antigen negative. CT head revealed no acute intracranial process. I personally reviewed CT head agree with the findings. Chest x-ray showed patchy airspace consolidation in the right lower lobe, consistent with pneumonia. EKG shows atrial fibrillation with rapid ventricular response. Patient has history of atrial fibrillation, on Eliquis. Patient denies diabetes, or hyperlipidemia, although she does have hypertension. Never smoked, does not drink alcohol. No history of strokes or TIA. Patient lives by herself. Her daughter checks on her frequently. She does not use any assistive device or walker. No history of dementia although patient has some normal aging process. However lately she has become very confused in the last few days. Review of Systems Constitutional: Denies chills, Denies fever Eyes: denies blurred vision, denies diplopia, denies pain, denies loss of peripheral vision, denies loss of vision Ears: deny: decreased hearing, earache Ears, nose, mouth and throat: Reports nasal congestion, Denies headache, Denies sore throat, Denies vertigo Cardiovascular: Reports shortness of breath (In [place], not now), Denies chest pain, Denies syncope Respiratory: Reports cough, Reports excessive sputum, Denies wheezing Gastrointestinal: Denies abdominal pain, Denies diarrhea (1wek ago), Denies nausea, Denies vomiting Genitourinary: Denies dysuria, Denies hematuria, Denies mixed incontinence Musculoskeletal: Denies low back pain, Denies myalgias, Denies neck pain Musculoskeletal: right: wrist pain Integumentary: Denies pruritus, Denies rash Neurological: Reports as per HPI Psychiatric: Reports depression, Denies anxiety Hematologic/Lymphatic: Reports easy bleeding, Reports easy bruising Past Medical History Past Medical History: Atrial Fibrillation, Heart Failure, Hypertension, Sleep Apnea/CPAP/BIPAP Additional Past Medical History / Comment(s): acromegly, previous cardioversion, wears Bipap at home. 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, part of esophagus removed Past Anesthesia/Blood Transfusion Reactions: No Reported Reaction Additional Past Anesthesia/Blood Transfusion Reaction / Comment(s): Allergy to Benzocaine Past Psychological History: No Psychological Hx Reported Smoking Status: Never smoker Past Alcohol Use History: None Reported Past Drug Use History: None Reported Medications and Allergies Home Medications Medication Instructions Recorded Confirmed Type Ferrous Sulfate [Iron] 325 mg PO DAILY 12/15/21 01/17/24 History Levothyroxine Sodium [Synthroid] 137 mcg PO DAILY 12/15/21 01/17/24 History Apixaban [Eliquis] 5 mg PO BID 10/27/23 01/17/24 History Atorvastatin [Lipitor] 40 mg PO DAILY 10/27/23 01/17/24 History Amiodarone [Cordarone] 200 mg PO BID 30 Days #60 tab 11/02/23 01/17/24 Rx Dapagliflozin Propanediol [Farxiga] 10 mg PO DAILY 30 Days #30 tab 11/02/23 01/17/24 Rx Furosemide [Lasix] 40 mg PO DAILY 30 Days #30 tab 11/02/23 01/17/24 Rx Metoprolol Tartrate [Lopressor] 100 mg PO BID 30 Days #60 tab 11/02/23 01/17/24 Rx Potassium Chloride [K-Tab ER] 20 meq PO DAILY 30 Days #30 tab 11/02/23 01/17/24 Rx Sacubitril/Valsartan [Entresto 24 0.5 each PO BID 30 Days #15 tab 11/02/23 01/17/24 Rx mg-26 mg Tablet] Doxycycline Hyclate 100 mg PO BID 01/17/24 01/17/24 History Allergies Allergy/AdvReac Type Severity Reaction Status Date / Time benzocaine Allergy Anaphylaxis Verified 01/17/24 20:53 Penicillins Allergy Unknown Verified 01/17/24 20:53 Childhood Physical Examination - Vital Signs Vital Signs: Vital Signs Temp Pulse Pulse Resp BP BP Pulse Ox 01/19/24 16:51 96.5 F L 117 H 16 117/79 95 01/19/24 13:35 97.4 F L 66 17 113/80 94 L 01/19/24 07:45 126 H 01/19/24 07:35 98.9 F 82 19 140/82 96 01/19/24 00:46 95.2 F L 107 H 16 113/70 96 01/18/24 21:45 97.3 F L 68 14 113/70 96 01/18/24 17:44 66 18 115/80 98 01/18/24 17:15 106 H 16 109/89 95 Intake and Output 01/19/24 01/19/24 01/19/24 06:59 14:59 22:59 Intake Total 240 Output Total 600 Balance -360 Intake: Intake, IV Titration 240 Amount Sodium Chloride 0.9% 1, 240 000 ml @ 20 mls/hr IV . Q24H [facility] Rx#:[id number] Output: Urine 600 Other: Voiding Method Bedside Commode External Catheter # Voids 2 # Bowel Movements 1 Weight 81.6 kg Patient is an elderly female, very pleasant, in no acute distress. Patient is alert awake. Patient states it is December and the year is 2023. She knows she is in [facility] imported on [place] and name of the current president Mr. Ramos. Speech and language functions are normal. Patient can name and repeat very well. No aphasia or dysarthria. Attention, concentration and fund of knowledge is adequate. On cranial nerve examination, pupils are equal, round and reacting to light, visual muñoz are full on confrontation, with no neglect on double simultaneous stimulation. Extraocular muscles are intact with no nystagmus. Face is symmetric, tongue protrudes to the midline. Palatal elevation and sensation normal, hearing and shoulder shrug normal, facial sensation normal. On muscle strength testing, there is no pronator drift. The strength is normal in deltoid, biceps, triceps, throw out clerk bilaterally. Patient has pain in the right arm in the anterior shoulder and biceps region on reaching. In the lower limbs hip flexion is 4+5-bilaterally, ankle dorsiflexion 5. Deep tendon reflexes are symmetric biceps 2, brachioradialis 2, knees 2, ankles 2 and plantars downgoing bilaterally. Sensory to touch is equal with no neglect on double simultaneous stimulation. Cerebellar function showed no ataxia for [id number] testing. No dysdiadochokinesia. No ataxia for [id number] testing on either side. Tone and bulk of muscles normal. Gait deferred.. On general examination, there is no carotid bruit or murmur, S1-S2 audible. Chest is clear on consultation. Abdomen is soft nontender. No organomegaly, bowel sounds present. Peripheral pulses are present. There is moderate peripheral edema. Results - Laboratory Findings CBC and BMP: 01/19/24 08:26 01/19/24 08:26 Abnormal Lab Findings: Abnormal Labs 01/17/24 01/17/24 01/17/24 21:18 21:18 21:18 WBC 16.6 H RBC Hgb 16.1 H Hct 50.9 H MCV MCHC RDW Immature Gran # Neutrophils # 14.8 H Lymphocytes # 0.7 L PT 14.4 H INR 1.4 H APTT 30.1 H Sodium 134 L Carbon Dioxide 21 L Anion Gap BUN 76 H Creatinine 1.76 H Est GFR (CKD-EPI) BUN/Creatinine Ratio Glucose 154 H Plasma Lactic Acid Parker Calcium 10.8 H Total Bilirubin 1.6 H AST 76 H ALT 41 H Total Protein 6.2 L Albumin 3.2 L Albumin/Globulin Ratio Procalcitonin Urine Glucose (UA) Ur Leukocyte Esterase Urine Bacteria Urine Mucus 01/17/24 01/18/24 01/18/24 21:18 00:27 15:48 WBC RBC Hgb Hct MCV MCHC RDW Immature Gran # Neutrophils # Lymphocytes # PT INR APTT Sodium Carbon Dioxide Anion Gap BUN Creatinine Est GFR (CKD-EPI) BUN/Creatinine Ratio Glucose Plasma Lactic Acid Parker 3.6 H* 2.2 H* Calcium Total Bilirubin AST ALT Total Protein Albumin Albumin/Globulin Ratio Procalcitonin Urine Glucose (UA) 3+ H Ur Leukocyte Esterase Trace H Urine Bacteria Rare H Urine Mucus Rare H 01/18/24 01/19/24 01/19/24 16:38 08:26 08:26 WBC 10.59 H RBC 5.46 H Hgb 16.4 H Hct 53.2 H MCV 97.4 H MCHC 30.8 L RDW 16.0 H Immature Gran # 0.21 H Neutrophils # 8.33 H Lymphocytes # PT INR APTT Sodium Carbon Dioxide 17.7 L Anion Gap 18.30 H BUN 53.3 H Creatinine 1.7 H Est GFR (CKD-EPI) 32 L BUN/Creatinine Ratio 31.35 H Glucose Plasma Lactic Acid Parker Calcium 10.7 H Total Bilirubin AST 44 H ALT Total Protein 6.1 L Albumin 3.4 L Albumin/Globulin Ratio 1.26 L Procalcitonin 1.36 H Urine Glucose (UA) Ur Leukocyte Esterase Urine Bacteria Urine Mucus Assessment and Plan Assessment: * Generalized weakness, dizziness, of 1 week duration, with more recent onset of slurring of speech with some focal right arm weakness, unclear cause. Rule out stroke/TIA. Her examination revealed no significant focality, therefore symptoms could possibly be related to pneumonia, and multiple other medical conditions mentioned as below. * Atrial fibrillation on long-term anticoagulation with Eliquis. * Right lower lobe pneumonia * Moderate renal insufficiency * Elevated liver enzymes * Hypertension * Raynaud's syndrome * Congestive heart failure, with EF 10%. * Sleep apnea Plan: Patient will undergo workup to evaluate to rule out CVA. MRI of the brain without contrast, evaluate for acute CVA 2-D echo revealed severe left ventricular systolic dysfunction with EF of 10%. Severe left and right atrial dilation. Mild mitral and tricuspid regurgitation. Dilated right ventricle with RV systolic dysfunction. Carotid Doppler: Atheromatous plaquing without significant flow-limiting stenosis. Antegrade flow in the left vertebral artery. Right vertebral unable to view. Fasting a.m. lipid panel. Continue Lipitor 40 mg daily. Hemoglobin A1c B12, folate, MMA Permissive hypertension for next 24-48 hours Continue Eliquis 5 mg twice daily. Patient is usually compliant with medication, although did miss 1 day of Eliquis on Tuesday, 2 days prior to arrival. Patient currently on ceftriaxone, azithromycin for possible pneumonia. ID on board. Neuro checks every 2 hours. Telemetry monitoring rule out any arrhythmia PT, OT, speech therapy DVT prophylaxis: Patient on Eliquis. Neurology will continue to follow. Thank you for the consult. Time with Patient: Greater than 30
--- NOTE | 2024-01-20 09:19 | P.PN ---
Subjective Progress Note Date: 01/20/24 Consult reason: atrial fibrillation, congestive heart failure (amio) History of present illness: History of present illness: This is a 68-year-old female patient of Dr. Wisdom with past medical history of nonobstructive CAD, nonischemic cardiomyopathy, valvular heart disease, hypertension, hyperlipidemia, paroxysmal atrial fibrillation, hypothyroidism, ch ronic kidney disease, obstructive sleep apnea. We have been asked to evaluate the patient for A-fib, CHF, amiodarone. Patient presented to the hospital on 01/16 due to weakness and mental status changes. Apparently the patient had a cough and cold symptoms for about 1 week prior to this. She then developed confusion and her daughter brought her into the hospital for further evaluation. This morning, patient did have some confusion was refusing her medications but now she has had improvement of her mental status and will take her medications. Patient also presented with bilateral fingertips cool to touch possible Raynaud's and seen by vascular surgery. EKG A-fib with left bundle branch block Chest x-ray: Patchy airspace consolidation in the right lower lobe consistent with pneumonia. WBC initially 16.6 now 10.5, hemoglobin 16.4. INR 1.4. D-dimer 0.55. Sodium 145, potassium 4.1, BUN initially 76 now 53, creatinine 1.7. Lactic acid 3.6 now 1.4. Troponin negative x 2. proBNP 8240. Procalcitonin 1.36. Influenza A, influenza B, RSV, COVID-19 not detected. Limited echocardiogram obtained on 01/18/2024 revealed severe LV systolic dysfunction with EF of 10%. Mild mitral and tricuspid regurgitation. Home cardiac medications: Amiodarone 200 mg twice daily, Eliquis 5 mg twice daily, Lipitor 40 mg daily, Farxiga 10 mg daily, Lasix 40 mg daily, Lopressor 100 mg twice daily, potassium chloride 20 mill equivalents daily, Entresto 24 mg / 26 mg 0.5 tablet twice daily, also on levothyroxine 137 mcg daily. Cardiac catheterization performed on 07/11/[address] Wisdom revealed intermediate disease involving the mid LAD by the bifurcation of the large diagonal branch which has an ostial lesion to be intermediate as well. 01/19 Patient is seen today in follow-up. She states she is feeling much better. Patient is more alert, taking all of her medications. Heart rate is running 51- 81, blood pressure 127/79, pulse ox 96% on room air. Repeat blood work has been drawn at the time of this eval. Reports are pending. Physical examination: Gen: This is a 68-year-old female in no acute distress VS: reviewed HEENT: Head is atraumatic, normocephalic. Pupils equal, round. Sclerae is anicteric. NECK: Supple. No JVD. LUNGS: Breath sounds heard bilaterally, clear to auscultation, no intercostal retractions. HEART: Irregular rate and rhythm. ABDOMEN: Soft No tenderness. EXTREMITIES: No pedal edema. No calf tenderness. NEUROLOGICAL: Patient is awake, alert. Assessment: Pneumonia Paroxysmal atrial fibrillation currently controlled rate Nonischemic cardiomyopathy Nonobstructive coronary artery disease Hypertension Hyperlipidemia Hypothyroidism Plan: Continue patient's home cardiac medications Telemetry may be discontinued Cardiology will sign off this case and follow on an as-needed basis. Please reconsult for any new concerns. Patient may follow-up in the office with Dr. Wisdom in one to 2 weeks. Nurse practitioner note has been reviewed, I agree with documented findings and plan of care. Patient was seen and examined. Objective - Vital Signs Vital signs: Vital Signs Temp 97.6 F 01/20/24 01:48 Pulse 51 L 01/20/24 07:07 Resp 18 01/20/24 07:07 BP 127/79 01/20/24 07:07 Pulse Ox 96 01/20/24 07:07 FiO2 Intake & Output 01/19/24 01/20/24 01/20/24 18:59 06:59 18:59 Weight 80.7 kg Other: Voiding Method Bedside Commode Toilet External Catheter # Voids 2 1 - Labs CBC & Chem 7: 01/19/24 08:26 01/19/24 08:26 Labs: Abnormal Lab Results - Last 24 Hours (Table) 01/19/24 01/19/24 Range/Units 08:26 08:26 WBC 10.59 H (4.50-10.00) X 10*3/uL RBC 5.46 H (4.10-5.20) X 10*6/uL Hgb 16.4 H (12.0-15.0) g/dL Hct 53.2 H (37.2-46.3) % MCV 97.4 H (80.0-97.0) FL MCHC 30.8 L (32.0-37.0) g/dL RDW 16.0 H (11.5-14.5) % Immature Gran # 0.21 H (0.00-0.04) X 10*3/uL Neutrophils # 8.33 H (1.80-7.70) X 10*3/uL Carbon Dioxide 17.7 L (21.6-31.8) mmol/L Anion Gap 18.30 H (4.00-12.00) mmol/L BUN 53.3 H (9.0-27.0) mg/dL Creatinine 1.7 H (0.6-1.5) mg/dL Est GFR (CKD-EPI) 32 L (>=60) BUN/Creatinine Ratio 31.35 H (12.00-20.00) Ratio Calcium 10.7 H (8.7-10.3) mg/dL AST 44 H (13-35) U/L Total Protein 6.1 L (6.2-8.2) g/dL Albumin 3.4 L (3.8-4.9) g/dL Albumin/Globulin Ratio 1.26 L (1.60-3.17) Ratio Microbiology - Last 24 Hours (Table) 01/17/24 21:15 Blood Culture - Preliminary Blood 01/17/24 21:30 Blood Culture - Preliminary Blood
[2024-01-20 11:25] LABS: African American GFR (CKD) 51 (>60 ml/min/1.73 sqM); Anion Gap 10 mmol/L; Blood Urea Nitrogen 46 mg/dL (7-17); Calcium 10.5 mg/dL (8.4-10.2); Carbon Dioxide 22 mmol/L (22-30); Chloride 111 mmol/L (98-107); Glucose 113 mg/dL (74-99); Non-African American GFR(CKD) 44 (>60 ml/min/1.73 sqM); Potassium 4.1 mmol/L (3.5-5.1); Sodium 143 mmol/L (137-145)
[2024-01-20 11:55] LABS: Basophils # (A) 0.1 k/uL (0-0.2); Basophils % (A) 1 %; Eosinophils # (A) 0.3 k/uL (0-0.7); Eosinophils % (A) 3 %; HCT 52.8 % (34.0-46.0); HGB 15.9 gm/dL (11.4-16.0); Hypochromasia Moderate; Lymphocytes # (A) 1.5 k/uL (1.0-4.8); Lymphocytes % (A) 13 %; MCH 30.2 pg (25.0-35.0); MCHC 30.1 g/dL (31.0-37.0); MCV 100.2 fL (80.0-100.0); Macrocytosis Slight; Mean Platelet Volume 11.3; Monocytes # (A) 0.6 k/uL (0-1.0); Monocytes % (A) 6 %; Neutrophils # (A) 8.6 k/uL (1.3-7.7); Neutrophils % (A) 77 %; Platelet Count 274 k/uL (150-450); RBC 5.26 m/uL (3.80-5.40); RDW 15.3 % (11.5-15.5); WBC 11.2 k/uL (3.8-10.6)
--- NOTE | 2024-01-20 13:46 | P.PN ---
Subjective Progress Note Date: 01/20/24 This is a 68-year-old female patient with a known history of atrial fibrillation anticoagulated with Eliquis, congestive heart failure, hypertension, obstructive sleep apnea utilizing CPAP, acromegaly, removal of partial esophagus, previous brain tumor resection. Over the past week she had been having flulike symptoms with shortness of breath and dry cough and then yesterday her daughter found her altered and with generalized weakness and presented to the emergency room for the same. CT scan of the brain revealed no acute process. Carotid Dopplers revealed no significant carotid stenosis. Chest x-ray does reveal a right lower lobe infiltrate. Viral screen was negative. White count 16.6. Hemoglobin 16.1. Platelets 319. D-dimer 0.55. Sodium 134. Potassium 4.9. Bicarb 21. BUN 76. Creatinine 1.76. Glucose 154. Initial lactic 3.6, currently 1.4. AST 76. ALT 41. Troponin negative x 2. She is seen today in the emergency department. She is currently resting comfortably on the stretcher. Awake and alert in no acute distress. She is maintaining good O2 saturations in the 90s on room air. She is alert and oriented x 3 currently. She has been initiated on ceftriaxone and azithromycin. Eliquis for anticoagulation. Normal saline at 20 MLS per hour. She received 1 L of fluid resuscitation. The patient is seen today January 19, 2024 in follow-up on the regular medical floor. She is currently up in a chair. She was up walking with a walker and assistance of physical therapy. She is doing quite a bit better today. She is maintaining good O2 saturations in the 90s on room air. White count 10.5. Hemoglobin 16.4. Platelets 257. Sodium 145. Potassium 4.1. Bicarb 18. BUN 53. Creatinine 1.7. Glucose 101. Procalcitonin 1.36. She remains on ceftriaxone and azithromycin. Anticoagulated with Eliquis. Normal saline at KVO. The patient is seen today January 20, 2024 in follow-up on the regular medical floor. She is awake and alert in no acute distress. Doing quite a bit better today. Maintaining good O2 saturations in the 90s on room air. She is continue d on ceftriaxone and azithromycin. Her procalcitonin was 1.36. Follow-up chest x-ray right basilar airspace opacities. Blood cultures are pending. White count 11.2. Hemoglobin 15.9. Platelets 274. Sodium 143. Potassium 4.1. Bicarb 22. BUN 46. Creatinine 1.24. Glucose 113. Anticoagulated with Eliquis. Objective - Vital Signs Vital signs: Vital Signs Temp 97.6 F 01/20/24 01:48 Pulse 51 L 01/20/24 07:07 Resp 18 01/20/24 08:00 BP 127/79 01/20/24 07:07 Pulse Ox 96 01/20/24 07:07 FiO2 Intake & Output 01/19/24 01/20/24 01/20/24 18:59 06:59 18:59 Weight 80.7 kg Other: Voiding Method Bedside Commode Toilet Toilet External Catheter # Voids 2 1 - Exam GENERAL EXAM: Alert, pleasant 68-year-old female, on room air, in no apparent distress. HEAD: Normocephalic. EYES: Normal reaction of pupils, equal size. NOSE: Clear with pink turbinates. THROAT: No erythema or exudates. NECK: No masses, no JVD. CHEST: No chest wall deformity. LUNGS: Equal air entry with few scattered rhonchi of the right lung base. CVS: S1 and S2 normal with no audible murmur, regular rhythm. ABDOMEN: No hepatosplenomegaly, normal bowel sounds, no guarding or rigidity. SPINE: No scoliosis or deformity SKIN: No rashes CENTRAL NERVOUS SYSTEM: No focal deficits, tone is normal in all 4 extremities. EXTREMITIES: There is no peripheral edema. No clubbing, no cyanosis. Peripheral pulses are intact. - Labs CBC & Chem 7: 01/20/24 09:04 01/20/24 09:04 Labs: Abnormal Lab Results - Last 24 Hours (Table) 01/20/24 01/20/24 Range/Units 09:04 09:04 WBC 11.2 H (3.8-10.6) k/uL Hct 52.8 H (34.0-46.0) % MCV 100.2 H (80.0-100.0) fL MCHC 30.1 L (31.0-37.0) g/dL Neutrophils # 8.6 H (1.3-7.7) k/uL Chloride 111 H (98-107) mmol/L BUN 46 H (7-17) mg/dL Creatinine 1.24 H (0.52-1.04) mg/dL Glucose 113 H (74-99) mg/dL Calcium 10.5 H (8.4-10.2) mg/dL Microbiology - Last 24 Hours (Table) 01/17/24 21:15 Blood Culture - Preliminary Blood 01/17/24 21:30 Blood Culture - Preliminary Blood Assessment and Plan Assessment: Altered mental status suspect secondary to underlying community-acquired right lower lobe pneumonia. Procalcitonin 1.36. CT scan of the brain and carotid Dopplers within normal limits Atrial fibrillation, anticoagulated with Eliquis History of systolic congestive heart failure with an ejection fraction of 20 to 25% Moderate mitral regurgitation Moderate to severe aortic regurgitation Hypertension Obstructive sleep apnea on CPAP Acromegaly Lifelong non-smoker Suspected Raynaud's disease History of partial esophagectomy History of brain tumor resection Plan: The patient was seen and evaluated Chest x-ray, labs and medications reviewed Continue ceftriaxone and azithromycin Anticoagulated with Eliquis Currently stable and on room air We will continue to follow I have personally seen and examined the patient, performed the documentation and the assessment and plan as written. Number of minutes spent on the visit: 10.
--- NOTE | 2024-01-20 15:56 | P.PN ---
Subjective Progress Note Date: 01/20/24 Principal diagnosis: Reason for follow-up is pneumonia Patient is a 68-year-old female with a past medical history significant for hypertension heart failure atrial fibrillation sleep apnea presenting to the hospital for evaluation of increasing weakness and cough prog ressively getting worse patient did have airspace consolidation right lower lobe concerning for pneumonia prompting this consultation. On today's visit that is 01/20/2024,the patient denies any fever or any chills, patient is breathing comfortably on room air, the patient denies chest pain shortness of breath and cough is decreased in intensity, patient denies abdominal pain, no nausea vomiting or diarrhea. No new symptoms. Patient white count is 11.2, creatinine is 1.24 procalcitonin was 1.36 blood cultures are pending Objective - Vital Signs Vital signs: Vital Signs Temp 97.6 F 01/20/24 01:48 Pulse 51 L 01/20/24 07:07 Resp 18 01/20/24 07:07 BP 127/79 01/20/24 07:07 Pulse Ox 96 01/20/24 07:07 FiO2 Intake & Output 01/19/24 01/20/24 01/20/24 18:59 06:59 18:59 Weight 80.7 kg Other: Voiding Method Bedside Commode Toilet External Catheter # Voids 2 1 - Exam GENERAL DESCRIPTION: An elderly female lying in bed in no distress RESPIRATORY SYSTEM: Unlabored breathing , decreased breath sounds at bases HEART: S1 S2 regular rate and rhythm , ABDOMEN: Soft , no tenderness EXTREMITIES: No edema feet - Labs CBC & Chem 7: 01/20/24 09:04 01/20/24 09:04 Labs: Abnormal Lab Results - Last 24 Hours (Table) 01/19/24 01/19/24 Range/Units 08:26 08:26 WBC 10.59 H (4.50-10.00) X 10*3/uL RBC 5.46 H (4.10-5.20) X 10*6/uL Hgb 16.4 H (12.0-15.0) g/dL Hct 53.2 H (37.2-46.3) % MCV 97.4 H (80.0-97.0) FL MCHC 30.8 L (32.0-37.0) g/dL RDW 16.0 H (11.5-14.5) % Immature Gran # 0.21 H (0.00-0.04) X 10*3/uL Neutrophils # 8.33 H (1.80-7.70) X 10*3/uL Carbon Dioxide 17.7 L (21.6-31.8) mmol/L Anion Gap 18.30 H (4.00-12.00) mmol/L BUN 53.3 H (9.0-27.0) mg/dL Creatinine 1.7 H (0.6-1.5) mg/dL Est GFR (CKD-EPI) 32 L (>=60) BUN/Creatinine Ratio 31.35 H (12.00-20.00) Ratio Calcium 10.7 H (8.7-10.3) mg/dL AST 44 H (13-35) U/L Total Protein 6.1 L (6.2-8.2) g/dL Albumin 3.4 L (3.8-4.9) g/dL Albumin/Globulin Ratio 1.26 L (1.60-3.17) Ratio Microbiology - Last 24 Hours (Table) 01/17/24 21:15 Blood Culture - Preliminary Blood 01/17/24 21:30 Blood Culture - Preliminary Blood Assessment and Plan (1) Penicillin allergy Current Visit: Yes Status: Acute Code(s): Z88.0 - ALLERGY STATUS TO PENICILLIN SNOMED Code(s): 64724527 (2) Pneumonia Current Visit: Yes Status: Acute Code(s): J18.9 - PNEUMONIA, UNSPECIFIED ORGANISM SNOMED Code(s): 615405012 Plan: 1patient presented hospital with generalized bodyaches weakness patient also have a cough bringing up some sputum did have elevated white count with right lower lobe infiltrate concerning for pneumonia likely community-acquired 2-patient did have elevated CRP and procalcitonin, sputum not collected 3-patient is afebrile respiratory symptom has shown some improvement she will continue with Rocephin and transition to oral Ceftin on discharge daughter at the bedside questions answered Dictation was produced using [employer] dictation software. please excuse any gra mmatical, word or spelling errors. Time with Patient: Less than 30
[2024-01-20 17:11] LABS: Chol/HDL Ratio 3.71 Ratio; LDL Cholesterol,Calculated 67.1 mg/dL (0.0-131.0)
[2024-01-20] MEDS: carvediloL 6.25 MG TAB PO SCH (17:15)
--- NOTE | 2024-01-20 17:35 | MR ---
EXAMINATION TYPE: MR brain wo con DATE OF EXAM: 01/20/2024 4:48 PM CLINICAL INDICATION:Female, 68 years old with history of Slurring, dizziness r/o CVA; PHH, Slurred sp eech, dizziness. COMPARISON: 01/17/2024. TECHNIQUE: Multi planar, multi sequence imaging was performed through the brain including: T1, T2, In version recovery, Diffusion weighted imaging, and gradient echo imaging. No gadolinium was given. FINDINGS: Mild cerebral atrophy with proportional dilation of ventricular system. Scattered foci of high T2 s ignal intensity are seen within the periventricular white matter. Midline structures show no abnormal ity. Diffusion-weighted imaging shows no evidence of restricted diffusion. The susceptibility weighte d images do not reveal any evidence for micro-hemorrhage. The bone marrow signal is within normal limits. Paranasal sinuses and mastoid air cells: High T2 signal in the bilateral mastoid air cells. Mucosal t hickening most pronounced in the maxillary sinuses and ethmoid air cells. Visualized orbits: Orbital contents are intact. IMPRESSION: 1. No evidence of intracranial mass or acute/subacute infarct. 2. Nonspecific white matter changes, likely secondary to small vessel ischemic disease.
--- NOTE | 2024-01-20 20:45 | PN ---
PROGRESS NOTE DATE OF SERVICE: 01/20/2024 SUBJECTIVE: This is a 68-year-old woman, who was admitted with multiple complex medical issues, found to have ejection fraction 10%. The patient also had right pneumonia and CHF also. The patient is being closely monitored. Breathing is slightly better. The most recent chest x-ray which was reviewed personally by me showed some improvement. Multiple consultants are following the patient closely. Abdominal ultrasound was normal. PAST MEDICAL HISTORY: Reviewed. REVIEW OF SYSTEMS: A 14-point review is negative except as mentioned earlier. PHYSICAL EXAMINATION: VITAL SIGNS: Pulse is 51, blood pressure 127/70, respirations 18. CHEST: A few scattered rhonchi and crackles. ABDOMEN: Soft. NERVOUS SYSTEM: Nonfocal. LABORATORY DATA: WBC 11.2. ASSESSMENT: 1. Possible right lower lobe pneumonia with sepsis present on admission. 2. Congestive heart failure acute exacerbation, acute on chronic systolic dysfunction, ejection fraction 10%. 3. Possible Raynaud phenomenon with both hands and cold hands. 4. Transient ischemic attack ruled out. 5. Elevated lactic acid. 6. Chronic kidney disease, stage 3. 7. Multiple complex medical issues. 8. Atrial fibrillation. RECOMMENDATIONS: Recommend to continue current management, continue symptomatic treatment. Continue with anticoagulation. Otherwise, continue with empiric antibiotics. Repeat labs. Increase ambulation. Closely follow with Cardiology. Coreg. Guarded prognosis. Further recommendations to follow. MMODL / IJN: [id number] /
--- NOTE | 2024-01-21 00:05 | P.PN ---
Subjective Progress Note Date: 01/20/24 Patient was seen for a follow-up. Patient is doing much better. Offers no new complaints. Objective - Vital Signs Vital signs: Vital Signs Temp 98.4 F 01/20/24 19:19 Pulse 83 01/20/24 19:19 Resp 19 01/20/24 19:19 BP 112/80 01/20/24 19:19 Pulse Ox 94 L 01/20/24 19:19 FiO2 Intake & Output 01/20/24 01/20/24 01/21/24 06:59 18:59 06:59 Weight 80.7 kg Other: Voiding Method Toilet Toilet # Voids 1 2 - Exam Examination unchanged. - Labs CBC & Chem 7: 01/20/24 09:04 01/20/24 09:04 Labs: Abnormal Lab Results - Last 24 Hours (Table) 01/20/24 01/20/24 01/20/24 Range/Units 09:04 09:04 09:04 WBC 11.2 H (3.8-10.6) k/uL Hct 52.8 H (34.0-46.0) % MCV 100.2 H (80.0-100.0) fL MCHC 30.1 L (31.0-37.0) g/dL Neutrophils # 8.6 H (1.3-7.7) k/uL Chloride 111 H (98-107) mmol/L BUN 46 H (7-17) mg/dL Creatinine 1.24 H (0.52-1.04) mg/dL Glucose 113 H (74-99) mg/dL Hemoglobin A1c 6.7 H (<=6.0) % Calcium 10.5 H (8.4-10.2) mg/dL HDL Cholesterol 33.70 L (40.00-60.00) mg/dL Vitamin B12 1473.0 H (200.0-944.0) pg/mL Microbiology - Last 24 Hours (Table) 01/17/24 21:15 Blood Culture - Preliminary Blood 01/17/24 21:30 Blood Culture - Preliminary Blood Assessment and Plan Assessment: * Generalized weakness, dizziness, of 1 week duration, with more recent onset of slurring of speech with some focal right arm weakness, unclear cause. Rule out stroke/TIA. Her examination revealed no significant focality, therefore symptoms could possibly be related to pneumonia, and multiple other medical conditions mentioned as below. * Atrial fibrillation on long-term anticoagulation with Eliquis. * Right lower lobe pneumonia * Moderate renal insufficiency * Elevated liver enzymes * Hypertension * Raynaud's syndrome * Congestive heart failure, with EF 10%. * Sleep apnea Plan: Patient underwent workup to evaluate to rule out CVA. Came back negative. MRI of the brain without contrast, revealed no evidence of intracranial mass, acute or subacute infarct. Nonspecific white matter changes, likely secondary to small vessel ischemic disease. I personally reviewed MRI, agree with the findings. 2-D echo revealed severe left ventricular systolic dysfunction with EF of 10%. Severe left and right atrial dilation. Mild mitral and tricuspid regurgitation. Dilated right ventricle with RV systolic dysfunction. Carotid Doppler: Atheromatous plaquing without significant flow-limiting stenosis. Antegrade flow in the left vertebral artery. Right vertebral unable to view. Fasting a.m. lipid panel. Continue Lipitor 40 mg daily. Hemoglobin A1c 6.7, consistent with well-controlled diabetes. B12 1473, folate 10.80 normal, MMA pending Optimize control of blood pressure to normotensive level. Continue Eliquis 5 mg twice daily. Patient is usually compliant with medica tion, although did miss 1 day of Eliquis on Tuesday, 2 days prior to arrival. Patient currently on ceftriaxone and azithromycin for possible pneumonia. ID on board. Neuro checks every 2 hours. Telemetry monitoring rule out any arrhythmia PT, OT, speech therapy DVT prophylaxis: Patient on Eliquis. Neurologically clear. Dr. Solomon covering neurology service over the weekend. Please call neurology if any other concerns.
[2024-01-21 09:43] LABS: HCT 45.5 % (37.2-46.3); HGB 14.3 g/dL (12.0-15.0); MCH 30.3 pg (27.0-32.0); MCHC 31.4 g/dL (32.0-37.0); MCV 96.4 FL (80.0-97.0); Mean Platelet Volume 12.4 FL (9.5-12.2); NRBC Per 100 WBC 0 X 10*3/uL (0.00-0.01); Platelet Count 259 X 10*3/uL (140-440); RBC 4.72 X 10*6/uL (4.10-5.20); RDW 15.9 % (11.5-14.5); WBC 9.68 X 10*3/uL (4.50-10.00)
[2024-01-21 10:48] LABS: Blood Urea Nitrogen 36.4 mg/dL (9.0-27.0); Calcium 10.2 mg/dL (8.7-10.3); Carbon Dioxide 19.6 mmol/L (21.6-31.8); Chloride 112 mmol/L (96-109); Glucose 107 mg/dL (70-110); Potassium 4.2 mmol/L (3.5-5.5); Sodium 145 mmol/L (135-145)
[2024-01-21 11:27] LABS: Neutrophils % (M) 77 %
[2024-01-21 11:53] LABS: Basophils # (M) 0.19 X 10*3/uL (0.00-0.10); Eosinophils # (M) 0.19 X 10*3/uL (0.04-0.35); Lymphocytes # (M) 1.45 X 10*3/uL (0.90-5.00); Monocytes # (M) 0.39 X 10*3/uL (0.20-1.00); Neutrophils # (M) 7.45 X 10*3/uL (1.80-7.70); RBC Morphology Normal (Normal)
--- NOTE | 2024-01-21 13:06 | PN ---
PROGRESS NOTE DATE OF SERVICE: 01/21/2024 SUBJECTIVE: This is a 68-year-old woman, who was admitted with right lower lobe pneumonia, also had CHF acute exacerbation, also ejection fraction found to be very low at this time. Brain MRI was also done by Neurology. MRA showed no evidence of any acute abnormality. PT/OT is evaluating the patient. OBJECTIVE: VITAL SIGNS: Pulse is 58, blood pressure 116/70, and respirations 17. CHEST: Few scattered rhonchi. ABDOMEN: Soft. NERVOUS SYSTEM: Nonfocal. LABORATORY DATA: Reviewed. Creatinine is 1.3. ASSESSMENT: 1. Right lower lobe pneumonia with sepsis, present on admission. 2. Congestive heart failure acute exacerbation, acute on chronic systolic dysfunction, ejection fraction 10%. 3. Possible Raynaud phenomenon of the both hands and cold hands. 4. Transient ischemic attack, ruled out with normal MRI. 5. Elevated lactic acid, improved. 6. Chronic kidney disease stage 3. 7. Multiple complex medical issues. 8. Atrial fibrillation. RECOMMENDATIONS: Recommend to continue current management, continue symptomatic treatment. Closely follow with cardiology. Repeat labs. PT/OT evaluation. Monitor fluid and electrolyte balance. Further recommendations to follow. MMODL / IJN: [id number] /
--- NOTE | 2024-01-21 13:43 | P.PN ---
Subjective Progress Note Date: 01/21/24 This is a 68-year-old female patient with a known history of atrial fibrillation anticoagulated with Eliquis, congestive heart failure, hypertension, obstructive sleep apnea utilizing CPAP, acromegaly, removal of partial esophagus, previous brain tumor resection. Over the past week she had been having flulike symptoms with shortness of breath and dry cough and then yesterday her daughter found her altered and with generalized weakness and presented to the emergency room for the same. CT scan of the brain revealed no acute process. Carotid Dopplers revealed no significant carotid stenosis. Chest x-ray does reveal a right lower lobe infiltrate. Viral screen was negative. White count 16.6. Hemoglobin 16.1. Platelets 319. D-dimer 0.55. Sodium 134. Potassium 4.9. Bicarb 21. BUN 76. Creatinine 1.76. Glucose 154. Initial lactic 3.6, currently 1.4. AST 76. ALT 41. Troponin negative x 2. She is seen today in the emergency department. She is currently resting comfortably on the stretcher. Awake and alert in no acute distress. She is maintaining good O2 saturations in the 90s on room air. She is alert and oriented x 3 currently. She has been initiated on ceftriaxone and azithromycin. Eliquis for anticoagulation. Normal saline at 20 MLS per hour. She received 1 L of fluid resuscitation. The patient is seen today January 19, 2024 in follow-up on the regular medical floor. She is currently up in a chair. She was up walking with a walker and assistance of physical therapy. She is doing quite a bit better today. She is maintaining good O2 saturations in the 90s on room air. White count 10.5. Hemoglobin 16.4. Platelets 257. Sodium 145. Potassium 4.1. Bicarb 18. BUN 53. Creatinine 1.7. Glucose 101. Procalcitonin 1.36. She remains on ceftriaxone and azithromycin. Anticoagulated with Eliquis. Normal saline at KVO. The patient is seen today January 20, 2024 in follow-up on the regular medical floor. She is awake and alert in no acute distress. Doing quite a bit better today. Maintaining good O2 saturations in the 90s on room air. She is continue d on ceftriaxone and azithromycin. Her procalcitonin was 1.36. Follow-up chest x-ray right basilar airspace opacities. Blood cultures are pending. White count 11.2. Hemoglobin 15.9. Platelets 274. Sodium 143. Potassium 4.1. Bicarb 22. BUN 46. Creatinine 1.24. Glucose 113. Anticoagulated with Eliquis. The patient is seen today January 21, 2024 in follow-up on the regular medical floor. Currently sitting up in a chair at the bedside. Awake and alert in no acute distress. Maintaining O2 saturations in the 90s on room air. MRI of the brain was negative. She has been up walking with a walker and assistance. Plan is for home with home care. White count 9.6. Hemoglobin 14.3. Sodium 145. Potassium 4.2. Bicarb 20. BUN 36. Creatinine 1.3. Glucose 107. She is continued on ceftriaxone. Eliquis for DVT prophylaxis. Blood cultures revealed no growth. Objective - Vital Signs Vital signs: Vital Signs Temp 97.4 F L 01/21/24 07:07 Pulse 58 L 01/21/24 07:07 Resp 17 01/21/24 07:07 BP 116/71 01/21/24 07:07 Pulse Ox 96 01/21/24 07:07 FiO2 Intake & Output 01/20/24 01/21/24 01/21/24 18:59 06:59 18:59 Weight 80.3 kg Other: Voiding Method Toilet Toilet # Voids 2 2 - Exam GENERAL EXAM: Alert, 68-year-old female, sitting up in a chair, on room air, in no apparent distress. HEAD: Normocephalic. EYES: Normal reaction of pupils, equal size. NOSE: Clear with pink turbinates. THROAT: No erythema or exudates. NECK: No masses, no JVD. CHEST: No chest wall deformity. LUNGS: Equal air entry with few scattered rhonchi of the right lung base. CVS: S1 and S2 normal with no audible murmur, regular rhythm. ABDOMEN: No hepatosplenomegaly, normal bowel sounds, no guarding or rigidity. SPINE: No scoliosis or deformity SKIN: No rashes CENTRAL NERVOUS SYSTEM: No focal deficits, tone is normal in all 4 extremities. EXTREMITIES: There is no peripheral edema. No clubbing, no cyanosis. Peripheral pulses are intact. - Labs CBC & Chem 7: 01/21/24 05:34 01/21/24 05:34 Labs: Abnormal Lab Results - Last 24 Hours (Table) 01/20/24 01/20/24 01/21/24 Range/Units 09:04 09:04 05:34 MCHC 31.4 L (32.0-37.0) g/dL RDW 15.9 H (11.5-14.5) % MPV 12.4 H (9.5-12.2) FL Basophils # (Manual) 0.19 H (0.00-0.10) X 10*3/uL Chloride (96-109) mmol/L Carbon Dioxide (21.6-31.8) mmol/L Anion Gap (4.00-12.00) mmol/L BUN (9.0-27.0) mg/dL Est GFR (CKD-EPI) (>=60) BUN/Creatinine Ratio (12.00-20.00) Ratio Hemoglobin A1c 6.7 H (<=6.0) % HDL Cholesterol 33.70 L (40.00-60.00) mg/dL Vitamin B12 1473.0 H (200.0-944.0) pg/mL 01/21/24 Range/Units 05:34 MCHC (32.0-37.0) g/dL RDW (11.5-14.5) % MPV (9.5-12.2) FL Basophils # (Manual) (0.00-0.10) X 10*3/uL Chloride 112 H (96-109) mmol/L Carbon Dioxide 19.6 L (21.6-31.8) mmol/L Anion Gap 13.40 H (4.00-12.00) mmol/L BUN 36.4 H (9.0-27.0) mg/dL Est GFR (CKD-EPI) 44 L (>=60) BUN/Creatinine Ratio 28.00 H (12.00-20.00) Ratio Hemoglobin A1c (<=6.0) % HDL Cholesterol (40.00-60.00) mg/dL Vitamin B12 (200.0-944.0) pg/mL Microbiology - Last 24 Hours (Table) 01/17/24 21:15 Blood Culture - Preliminary Blood 01/17/24 21:30 Blood Culture - Preliminary Blood Assessment and Plan Assessment: Altered mental status suspect secondary to underlying community-acquired right lower lobe pneumonia. Procalcitonin 1.36. CT scan of the brain and carotid Dopplers within normal limits Atrial fibrillation, anticoagulated with Eliquis History of systolic congestive heart failure with an ejection fraction of 10% Moderate mitral regurgitation Moderate to severe aortic regurgitation Hypertension Obstructive sleep apnea on CPAP Acromegaly Lifelong non-smoker Suspected Raynaud's disease History of partial esophagectomy History of brain tumor resection Plan: The patient was seen and evaluated Labs and medications reviewed Currently stable and on room air Cleared for discharge from the pulmonary standpoint Complete a course of antibiotics Follow-up in our office in 1 week I have personally seen and examined the patient, performed the documentation and the assessment and plan as written. Number of minutes spent on the visit: 10.
--- NOTE | 2024-01-21 21:16 | P.PN ---
Subjective Progress Note Date: 01/21/24 Principal diagnosis: Reason for follow-up is pneumonia Patient is a 68-year-old female with a past medical history significant for hypertension heart failure atrial fibrillation sleep apnea presenting to the hospital for evaluation of increasing weakness and cough prog ressively getting worse patient did have airspace consolidation right lower lobe concerning for pneumonia prompting this consultation. On today's visit that is 01/21/2024,the patient remains to be afebrile, patient is on room air not requiring supplemental oxygen and denies any shortness of breath no chest pain, cough is decreased in intensity not bring up any sputum.Patient denies having any nausea or vomiting, no abdominal pain and no diarrhea has been reported. Patient white count normalized to 9.68 creatinine is 1.3 culture negative so far Objective - Vital Signs Vital signs: Vital Signs Temp 97.4 F L 01/21/24 07:07 Pulse 58 L 01/21/24 07:07 Resp 17 01/21/24 07:07 BP 116/71 01/21/24 07:07 Pulse Ox 96 01/21/24 07:07 FiO2 Intake & Output 01/20/24 01/21/24 01/21/24 18:59 06:59 18:59 Weight 80.3 kg Other: Voiding Method Toilet Toilet # Voids 2 2 - Exam GENERAL DESCRIPTION: An elderly female lying in bed in no distress RESPIRATORY SYSTEM: Unlabored breathing , decreased breath sounds at bases HEART: S1 S2 regular rate and rhythm , ABDOMEN: Soft , no tenderness EXTREMITIES: No edema feet exam completed with the help of WINDOWS SYSTEM[employer] ARCHITECT - Labs CBC & Chem 7: 01/21/24 05:34 01/21/24 05:34 Labs: Abnormal Lab Results - Last 24 Hours (Table) 01/20/24 01/20/24 01/21/24 Range/Units 09:04 09:04 05:34 MCHC 31.4 L (32.0-37.0) g/dL RDW 15.9 H (11.5-14.5) % MPV 12.4 H (9.5-12.2) FL Basophils # (Manual) 0.19 H (0.00-0.10) X 10*3/uL Chloride (96-109) mmol/L Carbon Dioxide (21.6-31.8) mmol/L Anion Gap (4.00-12.00) mmol/L BUN (9.0-27.0) mg/dL Est GFR (CKD-EPI) (>=60) BUN/Creatinine Ratio (12.00-20.00) Ratio Hemoglobin A1c 6.7 H (<=6.0) % HDL Cholesterol 33.70 L (40.00-60.00) mg/dL Vitamin B12 1473.0 H (200.0-944.0) pg/mL 01/21/24 Range/Units 05:34 MCHC (32.0-37.0) g/dL RDW (11.5-14.5) % MPV (9.5-12.2) FL Basophils # (Manual) (0.00-0.10) X 10*3/uL Chloride 112 H (96-109) mmol/L Carbon Dioxide 19.6 L (21.6-31.8) mmol/L Anion Gap 13.40 H (4.00-12.00) mmol/L BUN 36.4 H (9.0-27.0) mg/dL Est GFR (CKD-EPI) 44 L (>=60) BUN/Creatinine Ratio 28.00 H (12.00-20.00) Ratio Hemoglobin A1c (<=6.0) % HDL Cholesterol (40.00-60.00) mg/dL Vitamin B12 (200.0-944.0) pg/mL Microbiology - Last 24 Hours (Table) 01/17/24 21:15 Blood Culture - Preliminary Blood 01/17/24 21:30 Blood Culture - Preliminary Blood Assessment and Plan (1) Penicillin allergy Current Visit: Yes Status: Acute Code(s): Z88.0 - ALLERGY STATUS TO PENICILLIN SNOMED Code(s): 72708117 (2) Pneumonia Current Visit: Yes Status: Acute Code(s): J18.9 - PNEUMONIA, UNSPECIFIED ORGANISM SNOMED Code(s): 241830963 Plan: 1patient presented hospital with generalized bodyaches weakness patient also have a cough bringing up some sputum did have elevated white count with right lower lobe infiltrate concerning for pneumonia likely community-acquired 2-patient did have elevated CRP and procalcitonin, sputum not collected 3-patient is afebrile and the patient white count has normalized culture has been negative so far, patient to continue with Rocephin and transition to oral Ceftin on discharge and monitor clinical course closely Dictation was produced using [employer] dictation software. please excuse any g rammatical, word or spelling errors. Time with Patient: Less than 30
[2024-01-22 05:17] LABS: African American GFR (CKD) 58 (>60 ml/min/1.73 sqM); Anion Gap 4 mmol/L; Blood Urea Nitrogen 30 mg/dL (7-17); Calcium 10.4 mg/dL (8.4-10.2); Carbon Dioxide 21 mmol/L (22-30); Chloride 117 mmol/L (98-107); Glucose 98 mg/dL (74-99); Non-African American GFR(CKD) 51 (>60 ml/min/1.73 sqM); Potassium 4.1 mmol/L (3.5-5.1); Sodium 142 mmol/L (137-145)
[2024-01-22 05:21] LABS: Basophils # (A) 0.1 k/uL (0-0.2); Basophils % (A) 1 %; Eosinophils # (A) 0.3 k/uL (0-0.7); Eosinophils % (A) 3 %; HGB 15.9 gm/dL (11.4-16.0); Hypochromasia Marked; Lymphocytes # (A) 1.5 k/uL (1.0-4.8); Lymphocytes % (A) 16 %; MCH 30.9 pg (25.0-35.0); MCV 102.8 fL (80.0-100.0); Macrocytosis Slight; Mean Platelet Volume 10.1; Monocytes # (A) 0.5 k/uL (0-1.0); Monocytes % (A) 5 %; Neutrophils # (A) 6.7 k/uL (1.3-7.7); Neutrophils % (A) 73 %; Platelet Count 201 k/uL (150-450); RBC 5.15 m/uL (3.80-5.40); RDW 15.3 % (11.5-15.5); WBC 9.2 k/uL (3.8-10.6)
--- NOTE | 2024-01-22 14:17 | PN ---
PROGRESS NOTE DATE OF SERVICE: 01/22/2024 SUBJECTIVE: This 68-year-old woman was admitted with multiple complex medical issues including right lower lobe pneumonia, sepsis, also found to have CHF, ejection fraction 10%. The patient is improving significantly, had a detailed discussion with the family who would like the patient to be discharged with home care and some supervision will be arranged. There is no history of any fever, rigors, or chills. The patient is mildly confused. OBJECTIVE: VITAL SIGNS: Pulse is 90, blood pressure 120/74, respirations 16. CHEST: Few scattered rhonchi and crackles. ABDOMEN: Soft. NERVOUS SYSTEM: Nonfocal. LABS: WBC is 9.2, rest of the labs are noted. Creatinine is 1.11. ASSESSMENT: 1. Right lower lobe pneumonia with sepsis present on admission. 2. CHF acute exacerbation, acute on chronic systolic dysfunction, ejection fraction 10%. 3. Possible Raynaud phenomenon of both hands and cold hands, present on admission, improved. 4. TIA ruled out with normal MRI. 5. Elevated lactic acid, improved. 6. Chronic kidney disease, stage III. 7. Atrial fibrillation. 8. Multiple complex medical issues. 9. Full code. RECOMMENDATIONS: Recommended to continue current management, continue symptomatic treatment with repeat labs. I would also recommend a chest x-ray today, PT OT evaluation, otherwise closely monitor with multiple consultants. Guarded prognosis because of multiple complex medical issues and further recommendations to follow. Discussed with the family at length. MMODL / IJN: [id number] /
--- NOTE | 2024-01-22 14:17 | P.PN ---
Subjective Progress Note Date: 01/22/24 This is a 68-year-old female patient with a known history of atrial fibrillation anticoagulated with Eliquis, congestive heart failure, hypertension, obstructive sleep apnea utilizing CPAP, acromegaly, removal of partial esophagus, previous brain tumor resection. Over the past week she had been having flulike symptoms with shortness of breath and dry cough and then yesterday her daughter found her altered and with generalized weakness and presented to the emergency room for the same. CT scan of the brain revealed no acute process. Carotid Dopplers revealed no significant carotid stenosis. Chest x-ray does reveal a right lower lobe infiltrate. Viral screen was negative. White count 16.6. Hemoglobin 16.1. Platelets 319. D-dimer 0.55. Sodium 134. Potassium 4.9. Bicarb 21. BUN 76. Creatinine 1.76. Glucose 154. Initial lactic 3.6, currently 1.4. AST 76. ALT 41. Troponin negative x 2. She is seen today in the emergency department. She is currently resting comfortably on the stretcher. Awake and alert in no acute distress. She is maintaining good O2 saturations in the 90s on room air. She is alert and oriented x 3 currently. She has been initiated on ceftriaxone and azithromycin. Eliquis for anticoagulation. Normal saline at 20 MLS per hour. She received 1 L of fluid resuscitation. The patient is seen today January 19, 2024 in follow-up on the regular medical floor. She is currently up in a chair. She was up walking with a walker and assistance of physical therapy. She is doing quite a bit better today. She is maintaining good O2 saturations in the 90s on room air. White count 10.5. Hemoglobin 16.4. Platelets 257. Sodium 145. Potassium 4.1. Bicarb 18. BUN 53. Creatinine 1.7. Glucose 101. Procalcitonin 1.36. She remains on ceftriaxone and azithromycin. Anticoagulated with Eliquis. Normal saline at KVO. The patient is seen today January 20, 2024 in follow-up on the regular medical floor. She is awake and alert in no acute distress. Doing quite a bit better today. Maintaining good O2 saturations in the 90s on room air. She is continue d on ceftriaxone and azithromycin. Her procalcitonin was 1.36. Follow-up chest x-ray right basilar airspace opacities. Blood cultures are pending. White count 11.2. Hemoglobin 15.9. Platelets 274. Sodium 143. Potassium 4.1. Bicarb 22. BUN 46. Creatinine 1.24. Glucose 113. Anticoagulated with Eliquis. The patient is seen today January 21, 2024 in follow-up on the regular medical floor. Currently sitting up in a chair at the bedside. Awake and alert in no acute distress. Maintaining O2 saturations in the 90s on room air. MRI of the brain was negative. She has been up walking with a walker and assistance. Plan is for home with home care. White count 9.6. Hemoglobin 14.3. Sodium 145. Potassium 4.2. Bicarb 20. BUN 36. Creatinine 1.3. Glucose 107. She is continued on ceftriaxone. Eliquis for DVT prophylaxis. Blood cultures revealed no growth. The patient is seen today January 22, 2024 in follow-up on the regular medical floor. She is currently resting comfortably in bed. Awake and alert in no acute distress. She is maintaining good O2 saturations in the 90s on room air. She is oriented. She is afebrile. Hemodynamically stable. She remains anticoagulated with Eliquis. Continued on ceftriaxone. Cultures revealed no growth. White count 9.2. Hemoglobin 15.9. Platelets 201. Sodium 142. Potassium 4.1. Bicarb 21. BUN 30. Creatinine 1.11. Glucose 98. Objective - Vital Signs Vital signs: Vital Signs Temp 97.4 F L 01/22/24 07:25 Pulse 80 01/22/24 07:25 Resp 17 01/22/24 07:25 BP 110/71 01/22/24 07:25 Pulse Ox 95 01/22/24 07:25 FiO2 Intake & Output 01/21/24 01/22/24 01/22/24 18:59 06:59 18:59 Intake Total 540 Balance 540 Weight 83 kg Intake: Oral 540 Other: # Voids 1 1 - Exam GENERAL EXAM: Awake, alert, pleasant 68-year-old female, resting in bed, on room air, in no apparent distress. HEAD: Normocephalic. EYES: Normal reaction of pupils, equal size. NOSE: Clear with pink turbinates. THROAT: No erythema or exudates. NECK: No masses, no JVD. CHEST: No chest wall deformity. LUNGS: Equal air entry with few scattered rhonchi of the right lung base. CVS: S1 and S2 normal with no audible murmur, regular rhythm. ABDOMEN: No hepatosplenomegaly, normal bowel sounds, no guarding or rigidity. SPINE: No scoliosis or deformity SKIN: No rashes CENTRAL NERVOUS SYSTEM: No focal deficits, tone is normal in all 4 extremities. EXTREMITIES: There is no peripheral edema. No clubbing, no cyanosis. Peripheral pulses are intact. - Labs CBC & Chem 7: 01/22/24 04:18 01/22/24 04:18 Labs: Abnormal Lab Results - Last 24 Hours (Table) 01/22/24 01/22/24 Range/Units 04:18 04:18 Hct 53.0 H (34.0-46.0) % MCV 102.8 H (80.0-100.0) fL MCHC 30.0 L (31.0-37.0) g/dL Chloride 117 H (98-107) mmol/L Carbon Dioxide 21 L (22-30) mmol/L BUN 30 H (7-17) mg/dL Creatinine 1.11 H (0.52-1.04) mg/dL Calcium 10.4 H (8.4-10.2) mg/dL Assessment and Plan Assessment: Altered mental status suspect secondary to underlying community-acquired right lower lobe pneumonia. Procalcitonin 1.36. CT scan of the brain and carotid Dopplers within normal limits Atrial fibrillation, anticoagulated with Eliquis History of systolic congestive heart failure with an ejection fraction of 10% Moderate mitral regurgitation Moderate to severe aortic regurgitation Hypertension Obstructive sleep apnea on CPAP Acromegaly Lifelong non-smoker Suspected Raynaud's disease History of partial esophagectomy History of brain tumor resection Plan: The patient was seen and evaluated Labs and medications reviewed Currently stable and on room air Cleared for discharge Complete a course of antibiotics Follow-up in our office in 1 week I have personally seen and examined the patient, performed the documentation and the assessment and plan as written. Number of minutes spent on the visit: 10.
--- NOTE | 2024-01-22 17:01 | XR ---
EXAM: XR chest 1V portable CLINICAL INDICATION:Female, 68 years old with history of chf; [facility] COMPARISON: 01/20/2024 and before TECHNIQUE: Chest single view. FINDINGS: Lungs/Pleura: Low lung volumes again present. Persistent right basilar airspace opacities, slightly w orsened from the last exam. No significant pleural effusion or pneumothorax. Left lung appears unchan ged. Pulmonary vascularity: Unremarkable. Heart/mediastinum: Stable cardiomediastinal silhouette. Heart size upper normal. Prominent hilar opac ities noted, may represent vascular shadows with adenopathy etc. not excluded. Musculoskeletal: No acute osseous pathology. Degenerative changes. Stable mild asymmetric elevation r ight hemidiaphragm. IMPRESSION: Slight interval worsening of right basilar airspace opacities.
[2024-01-23 09:50] LABS: Basophils # (A) 0.1 k/uL (0-0.2); Basophils % (A) 1 %; Eosinophils # (A) 0.3 k/uL (0-0.7); Eosinophils % (A) 2 %; HCT 51.9 % (34.0-46.0); HGB 15.7 gm/dL (11.4-16.0); Hypochromasia Marked; Lymphocytes # (A) 1.7 k/uL (1.0-4.8); Lymphocytes % (A) 15 %; MCH 30.6 pg (25.0-35.0); MCHC 30.2 g/dL (31.0-37.0); MCV 101.3 fL (80.0-100.0); Macrocytosis Slight; Mean Platelet Volume 9.4; Monocytes # (A) 0.4 k/uL (0-1.0); Monocytes % (A) 4 %; Neutrophils # (A) 8.5 k/uL (1.3-7.7); Neutrophils % (A) 76 %; Platelet Count 225 k/uL (150-450); RBC 5.12 m/uL (3.80-5.40); RDW 15.2 % (11.5-15.5); WBC 11.1 k/uL (3.8-10.6)
[2024-01-23 09:56] LABS: African American GFR (CKD) 53 (>60 ml/min/1.73 sqM); Anion Gap 8 mmol/L; Blood Urea Nitrogen 26 mg/dL (7-17); Calcium 10.5 mg/dL (8.4-10.2); Carbon Dioxide 19 mmol/L (22-30); Chloride 116 mmol/L (98-107); Glucose 102 mg/dL (74-99); Non-African American GFR(CKD) 46 (>60 ml/min/1.73 sqM); Sodium 143 mmol/L (137-145)
[2024-01-23 09:57] LABS: Potassium 5.1 mmol/L (3.5-5.1)
[2024-01-24 06:52] LABS: Basophils # (A) 0.1 k/uL (0-0.2); Basophils % (A) 1 %; Eosinophils # (A) 0.3 k/uL (0-0.7); Eosinophils % (A) 2 %; HCT 51.5 % (34.0-46.0); HGB 15.5 gm/dL (11.4-16.0); Hypochromasia Moderate; Lymphocytes # (A) 1.9 k/uL (1.0-4.8); Lymphocytes % (A) 14 %; MCHC 30.1 g/dL (31.0-37.0); MCV 99.6 fL (80.0-100.0); Macrocytosis Slight; Mean Platelet Volume 12.4; Monocytes # (A) 0.6 k/uL (0-1.0); Monocytes % (A) 5 %; Neutrophils # (A) 9.8 k/uL (1.3-7.7); Neutrophils % (A) 76 %; Platelet Count 191 k/uL (150-450); RBC 5.17 m/uL (3.80-5.40); RDW 15.3 % (11.5-15.5); WBC 12.9 k/uL (3.8-10.6)
--- NOTE | 2024-01-24 11:07 | P.PN ---
Subjective Progress Note Date: 01/23/24 Patient is a 68-year-old female with past medical history of CKD stage III, atrial fibrillation admitted to the hospital for right lower lobe pneumonia, sepsis and found to have CHF ejection fraction of 10%. 01/23/2024 Patient is resting in the bed. Awake alert and oriented but confused and delirious this morning. Denied any complaints of chest pain or shortness of. No nausea vomiting or abdominal pain or diarrhea. Patient has been afebrile. Lab data showed WBC 11.1 hemoglobin 15.7 and platelets 225 Sodium 143 potassium 5.1 chloride 106 bicarb is 19 BUN 26 and creatinine 1.21 and blood sugar 102 and calcium 10.5. Chest x-ray on 01/22/2024 showed slightly worsening right basilar airspace opacities.Patient is being continued on antibiotics in the form of ceftriaxone Current medications reviewed. Objective - Vital Signs Vital signs: Vital Signs Temp 95.9 F L 01/23/24 08:00 Pulse 90 01/23/24 08:00 Resp 15 01/23/24 02:52 BP 119/80 01/23/24 08:00 Pulse Ox 97 01/23/24 08:00 FiO2 Intake & Output 01/22/24 01/23/24 01/23/24 18:59 06:59 18:59 Intake Total 50 Balance 50 Weight 83 kg Intake: Intake, IV Titration 50 Amount cefTRIAXone 1 gm In 50 Sodium Chloride 0.9% 50 ml @ 100 mls/hr IVPB Q24H [facility] Rx#:[id number] Other: # Voids 1 2 - Exam PHYSICAL EXAMINATION: Patient is lying in the bed. Awake and alert. Appears to be confused. HEENT: Normocephalic. Neck is supple. Pupils reactive. Nostrils clear. Oral cavity is moist. Neck reveals no JVD, carotid bruits, or thyromegaly. CHEST EXAMINATION: Trachea is central. Symmetrical expansion. No wheezing or rhonchi. Nonlabored breathing.. CARDIAC: Normal S1, S2 with no gallops. Positive diastolic murmur. Regular rhythm. ABDOMEN: Soft. Bowel sounds normal. No organomegaly. No abdominal bruits. Extremities: reveal no edema. No clubbing or cyanosis Neurologically awake, alert, oriented x 1-2 able to move all extremities. No gross focal deficits noted Skin: No rash or skin lesions. Psychiatric: Coperative. Could not be assessed completely Musculoskeletal: No joint swelling or deformity. - Labs CBC & Chem 7: 01/24/24 05:18 01/23/24 09:20 Labs: Abnormal Lab Results - Last 24 Hours (Table) 01/23/24 01/23/24 Range/Units 09:20 09:20 WBC 11.1 H (3.8-10.6) k/uL Hct 51.9 H (34.0-46.0) % MCV 101.3 H (80.0-100.0) fL MCHC 30.2 L (31.0-37.0) g/dL Neutrophils # 8.5 H (1.3-7.7) k/uL Chloride 116 H (98-107) mmol/L Carbon Dioxide 19 L (22-30) mmol/L BUN 26 H (7-17) mg/dL Creatinine 1.21 H (0.52-1.04) mg/dL Glucose 102 H (74-99) mg/dL Calcium 10.5 H (8.4-10.2) mg/dL Microbiology - Last 24 Hours (Table) 01/17/24 21:15 Blood Culture - Final Blood 01/17/24 21:30 Blood Culture - Final Blood Assessment and Plan Assessment: Acute altered mental status likely secondary to pneumonia. Procalcitonin was 1.36. Chronic atrial fibrillation on anticoagulation with Eliquis Chronic CHF with systolic dysfunction ejection fraction 10% Moderate MR and moderate to severe TR Hypertension Obstructive sleep apnea on CPAP at home Acromegaly History of smoking Raynaud's disease History of partial esophagectomy History of brain tumor resection Hypothyroidism DVT prophylaxis patient is already on Eliquis Plan: Patient will be continued on antibiotics ceftriaxone. Blood cultures negative. Encourage oral intake. Current with PT OT Current with cardiac medications including amiodarone, metoprolol,, Entresto and statins. Continue to monitor blood pressure. Follow-up closely. Discussed with her daughter at bedside. Prognosis is guarded. Time with Patient: Greater than 30
[2024-01-24 11:16] VITALS: BMI 34.5
[2024-01-24 17:28] LABS: African American GFR (CKD) 47 (>60 ml/min/1.73 sqM); Anion Gap 6 mmol/L; Blood Urea Nitrogen 26 mg/dL (7-17); Calcium 10.5 mg/dL (8.4-10.2); Carbon Dioxide 21 mmol/L (22-30); Chloride 116 mmol/L (98-107); Glucose 83 mg/dL (74-99); Non-African American GFR(CKD) 41 (>60 ml/min/1.73 sqM); Potassium 5.1 mmol/L (3.5-5.1); Sodium 143 mmol/L (137-145)
[2024-01-25 06:33] LABS: Basophils # (A) 0.1 k/uL (0-0.2); Basophils % (A) 1 %; Eosinophils # (A) 0.3 k/uL (0-0.7); Eosinophils % (A) 2 %; HCT 49.4 % (34.0-46.0); HGB 15.3 gm/dL (11.4-16.0); Hypochromasia Slight; Lymphocytes # (A) 1.7 k/uL (1.0-4.8); Lymphocytes % (A) 16 %; MCH 30.5 pg (25.0-35.0); MCHC 31.1 g/dL (31.0-37.0); MCV 98.1 fL (80.0-100.0); Macrocytosis Slight; Mean Platelet Volume 12.1; Monocytes # (A) 0.7 k/uL (0-1.0); Monocytes % (A) 7 %; Neutrophils # (A) 7.9 k/uL (1.3-7.7); Neutrophils % (A) 73 %; Platelet Count 216 k/uL (150-450); RBC 5.04 m/uL (3.80-5.40); RDW 15.8 % (11.5-15.5); WBC 10.8 k/uL (3.8-10.6)
[2024-01-25 06:42] LABS: African American GFR (CKD) 44 (>60 ml/min/1.73 sqM); Anion Gap 9 mmol/L; Blood Urea Nitrogen 24 mg/dL (7-17); Calcium 10.7 mg/dL (8.4-10.2); Carbon Dioxide 17 mmol/L (22-30); Chloride 117 mmol/L (98-107); Glucose 86 mg/dL (74-99); Non-African American GFR(CKD) 39 (>60 ml/min/1.73 sqM); Sodium 143 mmol/L (137-145)
[2024-01-25 06:49] LABS: Potassium 5.2 mmol/L (3.5-5.1)
--- NOTE | 2024-01-25 11:14 | P.PN ---
Subjective Progress Note Date: 01/24/24 Patient is a 68-year-old female with past medical history of CKD stage III, atrial fibrillation admitted to the hospital for right lower lobe pneumonia, sepsis and found to have CHF ejection fraction of 10%. 01/23/2024 Patient is resting in the bed. Awake alert and oriented but confused and delirious this morning. Denied any complaints of chest pain or shortness of. No nausea vomiting or abdominal pain or diarrhea. Patient has been afebrile. Lab data showed WBC 11.1 hemoglobin 15.7 and platelets 225 Sodium 143 potassium 5.1 chloride 106 bicarb is 19 BUN 26 and creatinine 1.21 and blood sugar 102 and calcium 10.5. Chest x-ray on 01/22/2024 showed slightly worsening right basilar airspace opacities.Patient is being continued on antibiotics in the form of ceftriaxone 01/24/2024 Patient is currently lying in the bed. Awake alert and oriented x 2-3. Patient was confused and disoriented this morning as per nursing staff. Was tachycardic this morning with heart rate 105. Afebrile. No complaints of chest pain or shortness of breath. No headache or dizziness or lightheadedness. No fever no chills. Lab data showed WBC 12.9 hemoglobin 15.5 and platelets 191 Sodium 143 potassium 5.1 chloride 116, bicarb 21 BUN 26 and creatinine 1.33 and calcium 10.5. Current medications reviewed Objective - Vital Signs Vital signs: Vital Signs Temp 97.6 F 01/24/24 06:30 Pulse 82 01/24/24 08:00 Resp 21 01/24/24 06:30 BP 125/83 01/24/24 06:30 Pulse Ox 98 01/24/24 06:30 FiO2 Intake & Output 01/23/24 01/24/24 01/24/24 18:59 06:59 18:59 Intake Total 850 Balance 850 Weight 83 kg 83 kg Intake: Oral 850 Other: Voiding Method Toilet # Voids 2 3 - Exam PHYSICAL EXAMINATION: Patient is lying in the bed. Awake and alert. Appears to be confused. HEENT: Normocephalic. Neck is supple. Pupils reactive. Nostrils clear. Oral cavi ty is moist. Neck reveals no JVD, carotid bruits, or thyromegaly. CHEST EXAMINATION: Trachea is central. Symmetrical expansion. No wheezing or rhonchi. Nonlabored breathing.. CARDIAC: Normal S1, S2 with no gallops. Positive diastolic murmur. Regular rhythm. ABDOMEN: Soft. Bowel sounds normal. No organomegaly. No abdominal bruits. Extremities: reveal no edema. No clubbing or cyanosis Neurologically awake, alert, oriented x 1-2 able to move all extremities. No gross focal deficits noted Skin: No rash or skin lesions. Psychiatric: Coperative. Could not be assessed completely Musculoskeletal: No joint swelling or deformity. - Labs CBC & Chem 7: 01/25/24 05:01 01/25/24 05:01 Labs: Abnormal Lab Results - Last 24 Hours (Table) 01/24/24 Range/Units 05:18 WBC 12.9 H (3.8-10.6) k/uL Hct 51.5 H (34.0-46.0) % MCHC 30.1 L (31.0-37.0) g/dL Neutrophils # 9.8 H (1.3-7.7) k/uL Assessment and Plan Assessment: Acute altered mental status likely secondary to pneumonia. Procalcitonin was elevated at 1.36. Chronic atrial fibrillation on anticoagulation with Eliquis Chronic CHF with systolic dysfunction ejection fraction 10% Moderate MR and moderate to severe TR Hypertension Obstructive sleep apnea on CPAP at home Acromegaly History of smoking Raynaud's disease History of partial esophagectomy History of brain tumor resection Hypothyroidism DVT prophylaxis patient is already on Eliquis Plan: Patient will be continued on antibiotics ceftriaxone. Blood cultures negative. Encourage oral intake. Current with PT OT Current with cardiac medications including amiodarone, metoprolol,, Entresto and statins. Continue to monitor blood pressure. Follow-up closely. Continue to monitor t in the 24 hours. Possible discharge home with home care. Time with Patient: Greater than 30
--- NOTE | 2024-01-25 11:53 | P.PN ---
Subjective Progress Note Date: 01/22/24 Principal diagnosis: Reason for follow-up is pneumonia Patient is a 68-year-old female with a past medical history significant for hypertension heart failure atrial fibrillation sleep apnea presenting to the hospital for evaluation of increasing weakness and cough prog ressively getting worse patient did have airspace consolidation right lower lobe concerning for pneumonia prompting this consultation. On today's visit that is 01/22/2024, the patient continues to be afebrile, the patient is on room air and breathing comfortably, the Pt denies having any chest pain patient did have a cough but not bring up any sputum, the patient denies having any abdominal pain no vomiting or any diarrhea has been reported by the nursing staff. Patient white count down to 9.2, creatinine is 1.11 blood culture negative sputum not collected Objective - Vital Signs Vital signs: Vital Signs Temp 97.4 F L 01/22/24 07:25 Pulse 80 01/22/24 07:25 Resp 17 01/22/24 07:25 BP 110/71 01/22/24 07:25 Pulse Ox 95 01/22/24 07:25 FiO2 Intake & Output 01/21/24 01/22/24 01/22/24 18:59 06:59 18:59 Intake Total 540 Balance 540 Weight 83 kg Intake: Oral 540 Other: # Voids 1 1 - Exam GENERAL DESCRIPTION: An elderly female lying in bed in no distress RESPIRATORY SYSTEM: Unlabored breathing , decreased breath sounds at bases HEART: S1 S2 regular rate and rhythm , ABDOMEN: Soft , no tenderness EXTREMITIES: No edema feet exam completed with the help of [employer] - Labs CBC & Chem 7: 01/25/24 05:01 01/25/24 05:01 Labs: Abnormal Lab Results - Last 24 Hours (Table) 01/21/24 01/21/24 01/22/24 Range/Units 05:34 05:34 04:18 Hct 53.0 H (34.0-46.0) % MCV 102.8 H (80.0-100.0) fL MCHC 31.4 L 30.0 L (32.0-37.0) g/dL RDW 15.9 H (11.5-14.5) % MPV 12.4 H (9.5-12.2) FL Basophils # (Manual) 0.19 H (0.00-0.10) X 10*3/uL Chloride 112 H (96-109) mmol/L Carbon Dioxide 19.6 L (21.6-31.8) mmol/L Anion Gap 13.40 H (4.00-12.00) mmol/L BUN 36.4 H (9.0-27.0) mg/dL Creatinine (0.52-1.04) mg/dL Est GFR (CKD-EPI) 44 L (>=60) BUN/Creatinine Ratio 28.00 H (12.00-20.00) Ratio Calcium (8.4-10.2) mg/dL 01/22/24 Range/Units 04:18 Hct (34.0-46.0) % MCV (80.0-100.0) fL MCHC (32.0-37.0) g/dL RDW (11.5-14.5) % MPV (9.5-12.2) FL Basophils # (Manual) (0.00-0.10) X 10*3/uL Chloride 117 H (96-109) mmol/L Carbon Dioxide 21 L (21.6-31.8) mmol/L Anion Gap (4.00-12.00) mmol/L BUN 30 H (9.0-27.0) mg/dL Creatinine 1.11 H (0.52-1.04) mg/dL Est GFR (CKD-EPI) (>=60) BUN/Creatinine Ratio (12.00-20.00) Ratio Calcium 10.4 H (8.4-10.2) mg/dL Microbiology - Last 24 Hours (Table) 01/17/24 21:15 Blood Culture - Preliminary Blood 01/17/24 21:30 Blood Culture - Preliminary Blood Assessment and Plan (1) Penicillin allergy Current Visit: Yes Status: Acute Code(s): Z88.0 - ALLERGY STATUS TO PENICILLIN SNOMED Code(s): 78220987 (2) Pneumonia Current Visit: Yes Status: Acute Code(s): J18.9 - PNEUMONIA, UNSPECIFIED ORGANISM SNOMED Code(s): 020698714 Plan: 1patient presented hospital with generalized bodyaches weakness patient also have a cough bringing up some sputum did have elevated white count with right lower lobe infiltrate concerning for pneumonia likely community-acquired 2-patient did have elevated CRP and procalcitonin, sputum not collected 3-patient is afebrile and the patient white count has normalized, the patient blood culture has been negative so far 4- patient to continue with Rocephin and transition to oral Ceftin on discharge, discussed with the nursing staff Dictation was produced using [employer] ([employer] dictation software. please excuse any gr ammatical, word or spelling errors. Time with Patient: Less than 30
--- NOTE | 2024-01-25 11:54 | P.PN ---
Subjective Progress Note Date: 01/23/24 Principal diagnosis: Reason for follow-up is pneumonia Patient is a 68-year-old female with a past medical history significant for hypertension heart failure atrial fibrillation sleep apnea presenting to the hospital for evaluation of increasing weakness and cough prog ressively getting worse patient did have airspace consolidation right lower lobe concerning for pneumonia prompting this consultation. On today's visit that is 01/23/2024, Patient is afebrile patient is currently on room air and denies having any shortness of breath, the patient denies any chest pain and the patient cough is decreased in intensity not bring up any sputum the patient denies any nausea vomiting did not have any abdominal pain and no diarrhea Patient white count slightly up to 11.1 today, creatinine is 1.21 blood cultures so far negative Objective - Vital Signs Vital signs: Vital Signs Temp 95.9 F L 01/23/24 08:00 Pulse 90 01/23/24 08:00 Resp 15 01/23/24 02:52 BP 119/80 01/23/24 08:00 Pulse Ox 97 01/23/24 08:00 FiO2 Intake & Output 01/22/24 01/23/24 01/23/24 18:59 06:59 18:59 Intake Total 50 Balance 50 Weight 83 kg Intake: Intake, IV Titration 50 Amount cefTRIAXone 1 gm In 50 Sodium Chloride 0.9% 50 ml @ 100 mls/hr IVPB Q24H [facility] Rx#:[id number] Other: # Voids 1 2 - Exam GENERAL DESCRIPTION: An elderly female lying in bed in no distress RESPIRATORY SYSTEM: Unlabored breathing , decreased breath sounds at bases, no wheeze HEART: S1 S2 regular rate and rhythm , ABDOMEN: Soft , no tenderness - Labs CBC & Chem 7: 01/25/24 05:01 01/25/24 05:01 Labs: Abnormal Lab Results - Last 24 Hours (Table) 01/23/24 01/23/24 Range/Units 09:20 09:20 WBC 11.1 H (3.8-10.6) k/uL Hct 51.9 H (34.0-46.0) % MCV 101.3 H (80.0-100.0) fL MCHC 30.2 L (31.0-37.0) g/dL Neutrophils # 8.5 H (1.3-7.7) k/uL Chloride 116 H (98-107) mmol/L Carbon Dioxide 19 L (22-30) mmol/L BUN 26 H (7-17) mg/dL Creatinine 1.21 H (0.52-1.04) mg/dL Glucose 102 H (74-99) mg/dL Calcium 10.5 H (8.4-10.2) mg/dL Microbiology - Last 24 Hours (Table) 01/17/24 21:15 Blood Culture - Final Blood 01/17/24 21:30 Blood Culture - Final Blood Assessment and Plan (1) Penicillin allergy Current Visit: Yes Status: Acute Code(s): Z88.0 - ALLERGY STATUS TO PENICILLIN SNOMED Code(s): 39069767 (2) Pneumonia Current Visit: Yes Status: Acute Code(s): J18.9 - PNEUMONIA, UNSPECIFIED ORGANISM SNOMED Code(s): 967215070 Plan: 1patient presented hospital with generalized bodyaches weakness patient also have a cough bringing up some sputum did have elevated white count with right lower lobe infiltrate concerning for pneumonia likely community-acquired 2-patient did have elevated CRP and procalcitonin, sputum not collected 3-patient is afebrile and the patient white count is slightly up today that will be monitored closely blood culture has been negative 4- patient to continue with Rocephin while inpatient and monitor clinical course closely Dictation was produced using [employer] dictation software. please excuse any grammatical, word or spelling errors.
--- NOTE | 2024-01-25 11:55 | P.PN ---
Subjective Progress Note Date: 01/24/24 Principal diagnosis: Reason for follow-up is pneumonia Patient is a 68-year-old female with a past medical history significant for hypertension heart failure atrial fibrillation sleep apnea presenting to the hospital for evaluation of increasing weakness and cough prog ressively getting worse patient did have airspace consolidation right lower lobe concerning for pneumonia prompting this consultation. On today's visit that is 01/24/2024, patient has been afebrile, patient is breathing comfortably and is currently on room air, patient cough is decreased in intensity and is mostly dry in nature, no chest pain shortness of breath, patient denies nausea vomiting or diarrhea and no abdominal pain. Patient white count is up to 12.9 creatinine is 1.33 Objective - Vital Signs Vital signs: Vital Signs Temp 97.6 F 01/24/24 06:30 Pulse 82 01/24/24 08:00 Resp 21 01/24/24 06:30 BP 125/83 01/24/24 06:30 Pulse Ox 98 01/24/24 06:30 FiO2 Intake & Output 01/23/24 01/24/24 01/24/24 18:59 06:59 18:59 Intake Total 850 Balance 850 Weight 83 kg 83 kg Intake: Oral 850 Other: Voiding Method Toilet # Voids 2 3 - Exam GENERAL DESCRIPTION: An elderly female lying in bed in no distress RESPIRATORY SYSTEM: Unlabored breathing , decreased breath sounds at bases, no wheeze HEART: S1 S2 regular rate and rhythm , ABDOMEN: Soft , no tenderness - Labs CBC & Chem 7: 01/25/24 05:01 01/25/24 05:01 Labs: Abnormal Lab Results - Last 24 Hours (Table) 01/24/24 Range/Units 05:18 WBC 12.9 H (3.8-10.6) k/uL Hct 51.5 H (34.0-46.0) % MCHC 30.1 L (31.0-37.0) g/dL Neutrophils # 9.8 H (1.3-7.7) k/uL Assessment and Plan (1) Penicillin allergy Current Visit: Yes Status: Acute Code(s): Z88.0 - ALLERGY STATUS TO PENICILLIN SNOMED Code(s): 07021458 (2) Pneumonia Current Visit: Yes Status: Acute Code(s): J18.9 - PNEUMONIA, UNSPECIFIED ORGANISM SNOMED Code(s): 369308662 Plan: 1patient presented hospital with generalized bodyaches weakness patient also have a cough bringing up some sputum did have elevated white count with right lower lobe infiltrate concerning for pneumonia likely community-acquired 2-patient did have elevated CRP and procalcitonin, sputum not collected 3-patient is afebrile and the patient white count is slightly up questionably prerenal as the patient creatinine is also trending up that will monitor closely 4- patient to continue with Rocephin while inpatient Dictation was produced using [employer] dictation software. please excuse any grammatical, word or spelling errors. Time with Patient: Less than 30
--- NOTE | 2024-01-25 11:56 | P.PN ---
Subjective Progress Note Date: 01/25/24 Principal diagnosis: Reason for follow-up is pneumonia Patient is a 68-year-old female with a past medical history significant for hypertension heart failure atrial fibrillation sleep apnea presenting to the hospital for evaluation of increasing weakness and cough prog ressively getting worse patient did have airspace consolidation right lower lobe concerning for pneumonia prompting this consultation. On today's visit that is 01/25/2024,the patient denies any fever or any chills, patient is breathing comfortably on room air, the patient denies chest pain shortness of breath and no significant cough and no sputum production, patient denies abdominal pain, no nausea vomiting or diarrhea. Feeling better wants to go home. Patient white count is down to 10.8, creatinine is 1.39 Objective - Vital Signs Vital signs: Vital Signs Temp 97.3 F L 01/25/24 07:29 Pulse 101 H 01/25/24 08:55 Resp 17 01/25/24 07:29 BP 133/87 01/25/24 07:29 Pulse Ox 98 01/25/24 07:29 FiO2 Intake & Output 01/24/24 01/25/24 01/25/24 18:59 06:59 18:59 Weight 83 kg 81 kg Other: Voiding Method Toilet Bedside Commode Toilet # Voids 3 2 # Bowel Movements 1 - Exam GENERAL DESCRIPTION: An elderly female lying in bed in no distress RESPIRATORY SYSTEM: Unlabored breathing , decreased breath sounds at bases HEART: S1 S2 regular rate and rhythm , ABDOMEN: Soft , no tenderness - Labs CBC & Chem 7: 01/25/24 05:01 01/25/24 05:01 Labs: Abnormal Lab Results - Last 24 Hours (Table) 01/24/24 01/25/24 01/25/24 Range/Units 16:42 05:01 05:01 WBC 10.8 H (3.8-10.6) k/uL Hct 49.4 H (34.0-46.0) % RDW 15.8 H (11.5-15.5) % Neutrophils # 7.9 H (1.3-7.7) k/uL Potassium 5.2 H (3.5-5.1) mmol/L Chloride 116 H 117 H (98-107) mmol/L Carbon Dioxide 21 L 17 L (22-30) mmol/L BUN 26 H 24 H (7-17) mg/dL Creatinine 1.33 H 1.39 H (0.52-1.04) mg/dL Calcium 10.5 H 10.7 H (8.4-10.2) mg/dL Assessment and Plan (1) Penicillin allergy Current Visit: Yes Status: Acute Code(s): Z88.0 - ALLERGY STATUS TO PENICILLIN SNOMED Code(s): 60125641 (2) Pneumonia Current Visit: Yes Status: Acute Code(s): J18.9 - PNEUMONIA, UNSPECIFIED ORGANISM SNOMED Code(s): 081623048 Plan: 1patient presented hospital with generalized bodyaches weakness patient also have a cough bringing up some sputum did have elevated white count with right lower lobe infiltrate concerning for pneumonia likely community-acquired 2-patient did have elevated CRP and procalcitonin, sputum not collected 3-patient is afebrile and the patient white count is down to 10.8 blood culture has been negative 4- patient to continue with Rocephin however the patient has received adequate IV Rocephin no need for antibiotic on discharge Dictation was produced using [employer] dictation software. please excuse any grammatical, word or spelling errors. Time with Patient: Less than 30
[2024-01-25 15:28] VITALS: BP 127/81; PULSE 83; RESP 16; TEMP 97.2
== END 2024-01-25 16:21 | disposition home health service (06) | DRG 871 ==
LOC: EC 20:47 → 3SCARD 23:47 → 5NMEDONC 01-18 13:38 → 4SSUR 01-18 17:02
PROVIDERS: ADMIT Internal Medicine; ATTEND Internal Medicine
DX: A41.9 Sepsis, unspecified organism (principal); I50.23 Acute on chronic systolic (congestive) heart failure; J18.9 Pneumonia, unspecified organism; I13.0 Hypertensive heart and chronic kidney disease with heart failure and stage 1 through stage 4 chronic kidney disease, or unspecified chronic kidney disease; I42.8 Other cardiomyopathies; I48.20 Chronic atrial fibrillation, unspecified; E11.22 Type 2 diabetes mellitus with diabetic chronic kidney disease; N18.30 Chronic kidney disease, stage 3 unspecified; I48.0 Paroxysmal atrial fibrillation; E22.0 Acromegaly and pituitary gigantism; I08.3 Combined rheumatic disorders of mitral, aortic and tricuspid valves; E03.9 Hypothyroidism, unspecified; I73.00 Raynaud's syndrome without gangrene; I25.10 Atherosclerotic heart disease of native coronary artery without angina pectoris; I44.7 Left bundle-branch block, unspecified; E86.0 Dehydration; G47.33 Obstructive sleep apnea (adult) (pediatric); E78.5 Hyperlipidemia, unspecified; R09.02 Hypoxemia; R26.89 Other abnormalities of gait and mobility; R41.0 Disorientation, unspecified; R47.81 Slurred speech; Z87.891 Personal history of nicotine dependence; Z79.01 Long term (current) use of anticoagulants; Z79.890 Hormone replacement therapy; Z79.84 Long term (current) use of oral hypoglycemic drugs; Z79.899 Other long term (current) drug therapy; Z88.0 Allergy status to penicillin; Z88.8 Allergy status to other drugs, medicaments and biological substances; Z11.52 Encounter for screening for COVID-19; Z86.011 Personal history of benign neoplasm of the brain; Z90.49 Acquired absence of other specified parts of digestive tract
CPT/HCPCS: 36415; 70450; 70551; 71045; 71046; 76705; 80048; 80053; 80061; 81001; 82607; 82746; 83036; 83605; 83880; 83921; 84132; 84145; 84443; 84484; 85025; 85379; 85610; 85730; 86738; 87040; 87449; 87636; 93005; 93308; 93880; 96361; 96365; 99291

== ENCOUNTER → 2024-09-13 | Outpatient (CLI) | payer MEDICARE, OTHER ==
--- NOTE | 2024-09-13 16:31 | US ---
EXAMINATION TYPE: US kidneys/renal and bladder DATE OF EXAM: 09/13/2024 COMPARISON: US(04/01/2023) CLINICAL INDICATION: Female, 69 years old with history of N18.4 CHRONIC KIDNEY DISEASE, STAGE 4 (LEE RE); TECHNIQUE: Grayscale imaging of the bilateral kidneys and urinary bladder: FINDINGS: EXAM MEASUREMENTS: Right Kidney: 9.6x4.1x4.3 cm Left Kidney: 8.5x4.3x4.8 cm Post Void Residual Volume: 2.2 mL Atrophic appearance of the kidneys. Right Kidney: Anechoic area seen (lat): 0.9x1.1x0.9cm Left Kidney: No hydronephrosis or masses seen Bladder: wnl Bilateral Jets seen: Yes Normal Post Void Residual: Yes IMPRESSION: 1. No evidence for obstructive uropathy or renal calculus. 2. Right renal cyst. 3. Atrophic kidneys compatible with history of medical renal disease. [facility], , 09/13/2024 4:29 PM
== END | disposition home or self-care (01) ==
LOC: RADUSWWP 13:44
PROVIDERS: ATTEND Internal Medicine Nephrology
DX: N18.4 Chronic kidney disease, stage 4 (severe) (principal); N28.1 Cyst of kidney, acquired; N26.1 Atrophy of kidney (terminal)
CPT/HCPCS: 76770